=== PATIENT | male | born 1945 | race Caucasian/White ===

== ENCOUNTER → 2017-06-22 13:25 | Outpatient (CLI) | payer MEDICARE, OTHER, SELFPAY ==
--- NOTE | 2017-06-22 13:45 | CA_ITS ---
PROCEDURE: 2-D M-mode and color Doppler study INDICATIONS FOR THE TEST: Chest pain COPD Heart Murmur Tobacco Smokingx Palpitations Fatiguex Syncopex Edemax HypertensionxDiabetes Mellitusx Rheumatic Fever SOB DE LE[place] Obesity Hyperlipidemia Family History HD Additional History DE LE[place] Technically difficult study PATIENT INFORMATION HEIGHT: 5'5'' WEIGHT: 235 GENDER: Male B/P: 161/78 2-D/M-MODE INTERPRETATION: 2-D MEASUREMENTS OBSERVED VALUES IN CMS Right Ventricular Dimension (RVDd) Interventricular Septum (Thickness)(IVsd) 1.5 Left Ventricular Internal Dimensions(LVIDd) 3.8 Left Ventricular Posterior Wall (Thickness)(LVPWd) 1.6 Aortic Root 3.2 Aortic Cusp Separation Left Atrial Dimensions (LAD) 3.5 2D 1. Technically difficult study because of the patient's factor and poor acoustic windows. 2. Left atrium is mildly enlarged, left ventricle is normal size, mild concentric left ventricular hypertrophy, visually estimated ejection fraction 55% with no obvious regional wall motion abnormality, endocardial surface of poorly visualized. 3. The right-sided chambers are relatively normal size and function. 4. The aortic valve is minimally thickened and fibrosed. 5. The mitral and tricuspid valve leaflets are minimally thickened. 6. No significant pericardial effusion noted. 7. The pulmonic valve is poorly visualized. DOPPLER INTERROGATION: Doppler interrogation of the aortic, mitral and tricuspid valve reveals presence of mild mitral and tricuspid regurgitation, tricuspid and jet velocity insufficient for calculation of the right ventricular systolic pressure, grade 1 diastolic dysfunction seen with tissue Doppler evidence of raised left atrial pressure. CONCLUSION: 1. Technically difficult study because of the patient's factor and poor acoustic windows 2. Mildly enlarged left atrium, normal left ventricular size, mild concentric left ventricular hypertrophy, visually estimated ejection fraction 55% with no obvious regional wall motion abnormality, endocardial surfaces are poorly visualized. Grade 1 diastolic dysfunction seen with tissue Doppler evidence of raised left atrial pressure. 2. Mild mitral and tricuspid regurgitation, tricuspid and ventricular dimension calculation of the right ventricular systolic pressure 3. No significant pericardial effusion noted.
== END ==
PROVIDERS: Family Provider Family Medicine; PCP Family Medicine; Visit Provider Family Medicine
DX: R06.09 Other forms of dyspnea (principal); I10 Essential (primary) hypertension
CPT/HCPCS: 93306

== ENCOUNTER 2017-12-13 07:00 | Outpatient (RCR) | payer MEDICARE, OTHER, SELFPAY | END 2017-12-13 07:01 | disposition home or self-care (01) | LOC: OT 07:00 | PROVIDERS: Family Provider Family Medicine; PCP Family Medicine; Visit Provider Orthopaedic Surgery | DX: M25.512 Pain in left shoulder (principal) | CPT/HCPCS: 97014; 97110; 97140; 97163; 97164; 97165; G0283 ==

== ENCOUNTER 2017-12-24 21:50 | Observation (INO) ==
[2017-12-24 22:24] LABS: Basophils # 0.1 K/mm3 (0-0.2); Eosinophils # 0.4 K/mm3 (0.0-0.4); Eosinophils % 4.1 % (0.1-12.0); Hematocrit 44.6 % (42.0-52.0); Hemoglobin 14.9 g/dL (14.1-18.0); Lymphocytes # 3.5 K/mm3 (0.7-4.5); Lymphocytes % 38.3 K/mm3 (10-50); Mean Corpuscular HGB Conc 33.3 g/dL (31.8-35.4); Mean Corpuscular Hemoglobin 30.1 pg (27.0-31.2); Mean Corpuscular Volume 90.5 fl (80-94); Mean Platelet Volume 9.2 fl (7.4-10.4); Monocytes # 0.5 K/mm3 (0.1-1.0); Monocytes % 5.6 % (1.7-9.3); Neutrophils # 4.7 K/mm3 (1.8-7.8); Neutrophils % 51.1 % (37.0-80.0); Platelet Count 203 K/mm3 (142-424); Red Blood Count 4.93 M/mm3 (4.60-6.20); Red Cell Distribution Width 13.6 % (11.5-17.5); White Blood Count 9.1 K/mm3 (4.8-10.8)
[2017-12-24 22:52] LABS: Alanine Aminotransferase 26 U/L (12-78); Albumin Level 3.9 gm/dL (3.4-5.0); Albumin/Globulin Ratio 1.1 (1.1-1.8); Alkaline Phosphatase 119 U/L (46-116); Anion Gap 13.2 mEq/L (5-15); Aspartate Amino Transferase 15 U/L (15-37); Bilirubin,Total 0.2 mg/dL (0.2-1.0); Blood Urea Nitrogen 28 mg/dL (7-18); Calcium 9.1 mg/dL (8.5-10.1); Carbon Dioxide 27 mmol/L (21.0-32.0); Chloride 101 mmol/L (98-107); Creatine Kinase 173 U/L (39-308); Globulin 3.7 gm/dl (1.3-3.2); Glucose 129 mg/dL (74-106); Potassium 4.2 mmoL/L (3.5-5.1); Sodium 137 mmol/L (136-145); Total Protein,Serum 7.6 gm/dL (6.4-8.2)
[2017-12-24 23:35] LABS: Microscopic, Urine URINE MICROSCOPIC (MICROSCOPIC)
[2017-12-24 23:48] LABS: Appearance,Urine CLEAR (Clear); Bilirubin,Urine Negative (Negative); Blood, Urine Negative (Negative); Color,Urine YELLOW (Yellow); Glucose,Urine (UA) Negative (Negative); Ketones,Urine TRACE (Negative); Leukocyte Esterase,Urine TRACE (Negative); PH,Urine 5.5 (5.0-8.5); Protein,Urine Negative (Negative); Specific Gravity, Urine 1.025 (1.005-1.030); Urobilinogen,Urine 0.2 EU/dl (0.2)
--- NOTE | 2017-12-24 23:51 | Emergency Department Note ---
ED Disposition Clinical Impression: Renal insufficiency Chest pain Qualifiers: Chest pain type: precordial pain Qualified Code(s): R07.2 - Precordial pain Disposition: Admitted as Observation Condition on Discharge: Good - Critical Care Critical Care Time: No Attestation: On 12/24/17, the high probability of a clinically significant, sudden or life threatening deterioration of the following system(s) required my full and direct attention, intervention and personal management. The time I documented below is in addition to time spent performing reported procedures but includes the following listed in this critical care notation. Medical Decision Making - Medical Records Medical records reviewed: Yes: I reviewed the patient's medical records. - Tayo Inquiry Pt receiving controlled substance: No Vital Signs: 12/24/17 21:54 12/24/17 22:50 12/24/17 23:00 Temperature 98.7 F Temperature Source Oral Pulse Rate [Right Radial] 96 H 84 83 Respiratory Rate 20 Blood Pressure [Right Arm] 149/86 147/90 147/90 Blood Pressure Mean [Right Arm] 107 109 109 Blood Pressure Source [Right Arm] Automatic Cuff Automatic Cuff Blood Pressure Position [Right Arm] Supine Supine 02 Sat by Pulse Oximetry 97 96 96 12/24/17 23:30 Temperature Temperature Source Pulse Rate [Right Radial] 81 Respiratory Rate Blood Pressure [Right Arm] 123/75 Blood Pressure Mean [Right Arm] 91 Blood Pressure Source [Right Arm] Blood Pressure Position [Right Arm] 02 Sat by Pulse Oximetry 96 - Lab Data Lab results reviewed: Yes: I reviewed the patient's lab results. Lab Results 12/24/17 22:12: WBC 9.1, RBC 4.93, Hgb 14.9, Hct 44.6, MCV 90.5, MCH 30.1, MCHC 33.3, RDW 13.6, Plt Count 203, MPV 9.2, Neut % (Auto) 51.1, Lymph % (Auto) 38.3 , [place] % (Auto) 5.6, Eos % (Auto) 4.1, Baso % (Auto) 1.0, Neut # (Auto) 4.7, Lymph # (Auto) 3.5, [place] # (Auto) 0.5, Eos # (Auto) 0.4, Baso # (Auto) 0.1 12/24/17 22:12: Sodium 137, Potassium 4.2, Chloride 101, Carbon Dioxide 27, Anion Gap 13.2, BUN 28 H, Creatinine 1.44 H, Estimated Creat Clear 68, Estimated GFR 49 L, Est GFR ( Amer) 59, Glucose 129 H, Calcium 9.1, Total Bilirubin 0.2, AST 15, ALT 26, Alkaline Phosphatase 119 H, Total Creatine Kinase 173, CK-MB (CK-2) 3.0, CK-MB (CK-2) Rel Index 1.7, Troponin I < 0.02, Total Protein 7.6, Albumin 3.9, Globulin 3.7 H, Albumin/Globulin Ratio 1.1 12/24/17 22:12: Lactate 1.4 12/24/17 23:00: Urine Color Yellow, Urine Appearance Clear, Urine pH 5.5, Ur Specific [place] 1.025, Urine Protein Negative, Urine Glucose (UA) Negative, Urine Ketones Trace, Urine Blood Negative, Urine Nitrate Negative, Urine Bilirubin Negative, Urine Urobilinogen 0.2, Ur Leukocyte Esterase Trace, Urine RBC None, Urine WBC Occasional, Ur Squamous Epith Cells 3-5, Urine Bacteria 1+, Hyaline Casts Occasional Result diagrams: 12/24/17 22:12 12/24/17 22:12 Orders (Tests/Meds): ED MEDICATIONS Discontinued Medications Generic Name Dose Route Start Last Admin Trade Name Reddq PRN Reason Stop Dose Admin Aspirin 324 mg 12/24/17 23:46 12/24/17 23:50 Aspirin 81mg Chewable Tablet PO 12/24/17 23:47 324 mg ONCE ONE Administration Furosemide 40 mg 12/24/17 23:49 12/24/17 23:52 Lasix 40mg/4ml Vial IV 12/24/17 23:50 40 mg ONCE ONE Administration Nitroglycerin 1 gm 12/24/17 23:46 12/24/17 23:50 Nitroglycerin 1 Inch Oint Udp TD 12/24/17 23:47 1 gm ONCE ONE Administration ORDERS Category Date Time Status CT head/brain wo con Stat Cat Scan 12/24/17 22:00 Taken XR chest 2V Stat Exams 12/24/17 22:00 Taken BNP [B-Type Natriuretic Peptide] Stat Lab 12/24/17 22:12 Received Blood Culture Stat Micro 12/24/17 22:06 Received - Radiology Data #1 Image(s): Chest Image Reviewed: Yes I reviewed the patient's radiology image Preliminary Findings: Abnormal (congestion) - CT Data CT Scan: Head Time Received: 00:[address] Reviewed: Yes: I have viewed the radiologist's interpretation Preliminary Findings: Normal/NAD - ECG Data Tracing #1 I reviewed this ECG and interpreted as documented below: Normal Sinus Rhythm: Yes Ischemic changes: non-specific ST-T wave changes - Physician Consults Physician Consulted: corinne Reason -: Admission Chest Pain HPI - General Chief Complaint: Shortness of Breath/Dyspnea Stated Complaint: SOA, Heart racing Time Seen by Provider: 12/24/17 22:15 Mode of Arrival: Family Vehicle Source of Information: Patient, Spouse, Medical Record Limitations: No Limitations Description of Symptoms (Recalled from ER Triage Doc. by RN): pt c/o shortness of breath upon exertion x 3 days. pt also states he has been having some dizzy spells. pt states he has also been having some chest pains today. - History of Present Illness HPI narrative: over the last few days has had chest tightness and sob assoc with exertion - has hx of chf - no stents - episode tonight lasted about 1 hr MD complaint: chest pain indicative of cardiac Onset (ago): day(s) Duration: now resolved Activity at onset: light activity Pain location: substernal Severity: moderate Quality: tightness Associated symptoms: nausea Risk Factors for CAD: Hypertension, Hypercholesterolemia, Family Hx of CAD, Diabetes Treatments prior to or on arrival for Cardiac Chest Pain: none - MARY Score Non-Stemi Age of patient: 65 yrs or more Number of risk factors for CAD: Presence of 3 or more Prior coronary artery stenosis(seen in coronary angiography): Less than 50% ST-Segment deviation on ECG (more than 1 min): Absent Prior aspirin intake: ASA intake in the last 7 days Severe anginal chest pain: Two or more episodes in last 24 hours Elevated cardiac markers(CK-MB or troponin): Absent Non-Stemi Risk Score: 4 - Related Data Home Medications Medication Instructions Recorded Confirmed Amlodipine Besylate [Amlodipine 10 mg PO DAILY 12/24/17 12/24/17 10mg Tab] Atorvastatin Calcium [Atorvastatin 10 mg PO DAILY 12/24/17 12/24/17 10mg Tab] Ciprofloxacin HCl [Ciprofloxacin 500 mg PO BID 12/24/17 12/25/17 500mg Tab] Cyclobenzaprine HCl 5 mg PO DAILY 12/24/17 12/24/17 [Cyclobenzaprine 5mg Tab] Donepezil HCl [Aricept 10mg tablet] 10 mg PO HS 12/24/17 12/24/17 Furosemide [Furosemide 40MG tAB] 40 mg PO DAILY 12/24/17 12/24/17 Levothyroxine Sodium 75 mcg PO DAILY 12/24/17 12/24/17 [Levothyroxine 75mcg (0.075mg) Tab] Lisinopril [Lisinopril 10mg Tab] 10 mg PO DAILY 12/24/17 12/24/17 Metformin HCl [Metformin 500mg 1,000 mg PO BID 12/24/17 12/24/17 Tablet] Tamsulosin HCl [Flomax 0.4mg 0.4 mg PO HS 12/24/17 12/24/17 capsule] Allergies Allergy/AdvReac Type Severity Reaction Status Date / Time No Known Allergies Allergy Verified 12/24/17 22:[address] [facility] History I have reviewed the patient's past medical history: Yes Medical History: Reports:: Diabetes Mellitus Type 2, MRSA Denies:: Cancer, Diabetes Mellitus Type 1 Laterality Cases: Bilateral: Total Knee Replacement Amputation: No Fractures: No - Social History Smoking Status: Former smoker Alcohol Intake: never - Psychiatric History Expresses thoughts of harming self/others: None Suicide Plan Description: No Plan ROS Obtained: Yes All systems reviewed & no additional complaints - Constitutional Constitutional: Denies fever(s) - Eyes Eyes: Denies change in vision - ENT Ears, Nose, Mouth, and Throat: Denies sore throat - Cardiovascular Cardiovascular: Reports chest pain, Reports chest pain with activity, Reports dyspnea - Respiratory Respiratory: No cough, No coughing up blood - Gastrointestinal Gastrointestingal: Denies: abdominal pain - Genitourinary Male Genitourinary: Denies hematuria - Musculoskeletal Musculoskeletal: Denies joint pain, Denies joint swelling - Integumentary/Breasts Skin/Breast: Denies rash - Neurologic Neurologic: Denies seizure-like activity Physical Exam - General General appearance: in no apparent distress - Head Head exam: normocephalic - Eye Eye exam: Present: PERRL, EOMI - ENT ENT exam: Present: mucous membranes moist - Neck Neck exam: Present: trachea midline - Respiratory Respiratory exam: Present: normal lung sounds bilaterally. Absent: respiratory distress - Cardiovascular Cardiovascular exam: Present: regular rate, systolic murmur, +S4 - Abdominal Exam Abdominal exam: Present: soft - Extremities Exam Extremities exam: Present: pedal edema. Absent: calf tenderness - Neurological Exam Neurological exam: Present: alert, oriented X3, CN II-XII intact - Psychiatric Psychiatric exam: Present: normal affect - Skin Skin exam: Absent: rash
[2017-12-24 23:57] LABS: Bacteria,Urine 1+ /lpf; Hyaline Casts,Urine Occasional #/lpf (0); WBC,Urine Occasional #/hpf (0-3)
[2017-12-25 07:18] LABS: Basophils # 0.1 K/mm3 (0-0.2); Basophils % 1.4 % (0.1-2.0); Eosinophils # 0.3 K/mm3 (0.0-0.4); Eosinophils % 5.3 % (0.1-12.0); Monocytes # 0.4 K/mm3 (0.1-1.0); Neutrophils # 2.5 K/mm3 (1.8-7.8)
[2017-12-25 07:25] LABS: Hematocrit 37.4 % (42.0-52.0); Hemoglobin 13.7 g/dL (14.1-18.0); Lymphocytes # 3.1 K/mm3 (0.7-4.5); Lymphocytes % 48.7 K/mm3 (10-50); Mean Corpuscular HGB Conc 36.6 g/dL (31.8-35.4); Mean Corpuscular Hemoglobin 33.2 pg (27.0-31.2); Mean Corpuscular Volume 90.6 fl (80-94); Mean Platelet Volume 9.2 fl (7.4-10.4); Monocytes % 5.8 % (1.7-9.3); Neutrophils % 38.7 % (37.0-80.0); Platelet Count 162 K/mm3 (142-424); Red Blood Count 4.12 M/mm3 (4.60-6.20); Red Cell Distribution Width 13.7 % (11.5-17.5); White Blood Count 6.3 K/mm3 (4.8-10.8)
[2017-12-25 07:34] LABS: Blood Urea Nitrogen 26 mg/dL (7-18); Calcium 8.8 mg/dL (8.5-10.1); Carbon Dioxide 29 mmol/L (21.0-32.0); Chloride 100 mmol/L (98-107); Cholesterol 130 mg/dL (140-200); Glucose 136 mg/dL (74-106); HDL Cholesterol 43 mg/dL (27-67); LDL Cholesterol 58 mg/dL (0-130); Sodium 138 mmol/L (136-145); Triglycerides 147 mg/dL (30-200); VLDL Cholesterol 29 mg/dL (0-40)
--- NOTE | 2017-12-25 07:53 | History & Physical Report ---
*Admission Date: 12/25/17 *Chief complaint: Shortness of breath with chest heaviness *History of present illness: 71-year-old male with diabetes, hypertension, hyperlipidemia presented to the emergency department after having multiple episodes over the preceding 3 days were patient would feel weak and unsteady while walking and then would develop shortness of breath followed by chest heaviness in the sternal area that radiated to the left scapula and on at least one occasion patient had associated diaphoresis. All of these symptoms are new. Patient tells me his most severe symptom was after walking approximately 50 feet to his garage. He sought treatment at the emergency department. Troponins were negative. Patient was admitted for rule out of [place] with serial EKG and enzymes. Overnight he developed headache from nitroglycerin. His Nitropaste was removed. He tells me since that time he has had at least 2 more episodes, although rather brief, of chest heaviness radiating into the left scapula. He has been very uncomfortable as he has chronic back pain in the hospital bed does not suit him. He claims a history of congestive heart failure during a hospitalization from several years ago at an outside hospital but records are deficient. [facility] History I have reviewed the patient's past medical history: Yes Medical History: Reports:: Congestive Heart Failure, Diabetes Mellitus Type 2, Hyperlipidemia, Hypertension, MRSA Denies:: Cancer, Diabetes Mellitus Type 1 Other Medical History: Reports: Thyroid Disease Laterality Cases: Bilateral: Arthroscopy Knee, Arthroscopy Shoulder, Total Knee Replacement Other Surgeries: Yes: Bariatric Surgery (Gastric Bypass), Hernia Repair (x2) Amputation: No Fractures: No - *Social History Educational Level: Completed GED/General Educational Development Smoking Status: Former smoker Tobacco Type: cigarettes, smokeless tobacco #Yrs smoked (if former smoker): 25 Smoking End Date: 2004 Alcohol Intake: never Occupational Status: retired Housing: house Household Members: spouse, family - Psychiatric History Expresses thoughts of harming self/others: None Suicide Plan Description: No Plan *Family Hx:: Cancer Review of Systems - Review of Systems Review of systems:: pertinent systems reviewed and negative unless documented below - *Neurologic Denies seizure-like activity Meds Home Medications Medication Instructions Recorded Confirmed Type Amlodipine Besylate [Amlodipine 10 mg PO DAILY 12/24/17 12/25/17 History 10mg Tab] Atorvastatin Calcium [Atorvastatin 10 mg PO DAILY 12/24/17 12/25/17 History 10mg Tab] Ciprofloxacin HCl [Ciprofloxacin 500 mg PO BID 12/24/17 12/25/17 History 500mg Tab] Cyclobenzaprine HCl 5 mg PO DAILY 12/24/17 12/25/17 History [Cyclobenzaprine 5mg Tab] Donepezil HCl [Aricept 10mg tablet] 10 mg PO HS 12/24/17 12/25/17 History Furosemide [Furosemide 40MG tAB] 40 mg PO DAILY 12/24/17 12/25/17 History Levothyroxine Sodium 75 mcg PO DAILY 12/24/17 12/25/17 History [Levothyroxine 75mcg (0.075mg) Tab] Lisinopril [Lisinopril 10mg Tab] 10 mg PO DAILY 12/24/17 12/25/17 History Metformin HCl [Metformin 500mg 1,000 mg PO BID 12/24/17 12/25/17 History Tablet] Tamsulosin HCl [Flomax 0.4mg 0.4 mg PO HS 12/24/17 12/25/17 History capsule] Aspirin [Aspir 81] 81 mg PO DAILY 12/25/17 12/25/17 History Cholecalciferol (Vitamin D3) 1,000 unit PO DAILY 12/25/17 12/25/17 History [Vitamin D3 1,000 Unit Cap] Cyanocobalamin (Vitamin B-12) 5,000 mcg SL DAILY 12/25/17 12/25/17 History [Vitamin B-12] Vit C/Ascorb Sod/Multivit-Min 500 mg PO DAILY 12/25/17 12/25/17 History [Emergen-C 500 mg Chewable Tab] Allergies Allergy/AdvReac Type Severity Reaction Status Date / Time No Known Allergies Allergy Verified 12/24/17 22:00 Exam Vital signs and Labs for Last 24 Hours: Temp Pulse Resp BP Pulse Ox 97.7 F 76 18 102/68 95 12/25/17 07:30 12/25/17 07:30 12/25/17 07:30 12/25/17 07:30 12/25/17 07:30 Laboratory Results - last 24 hr 12/24/17 22:12: WBC 9.1, RBC 4.93, Hgb 14.9, Hct 44.6, MCV 90.5, MCH 30.1, MCHC 33.3, RDW 13.6, Plt Count 203, MPV 9.2, Neut % (Auto) 51.1, Lymph % (Auto) 38.3 , [place] % (Auto) 5.6, Eos % (Auto) 4.1, Baso % (Auto) 1.0, Neut # (Auto) 4.7, Lymph # (Auto) 3.5, [place] # (Auto) 0.5, Eos # (Auto) 0.4, Baso # (Auto) 0.1 12/24/17 22:12: Sodium 137, Potassium 4.2, Chloride 101, Carbon Dioxide 27, Anion Gap 13.2, BUN 28 H, Creatinine 1.44 H, Estimated Creat Clear 68, Estimated GFR 49 L, Est GFR ( Amer) 59, Glucose 129 H, Calcium 9.1, Total Bilirubin 0.2, AST 15, ALT 26, Alkaline Phosphatase 119 H, Total Creatine Kinase 173, CK-MB (CK-2) 3.0, CK-MB (CK-2) Rel Index 1.7, Troponin I < 0.02, Total Protein 7.6, Albumin 3.9, Globulin 3.7 H, Albumin/Globulin Ratio 1.1 12/24/17 22:12: Lactate 1.4 12/24/17 22:12: B-Natriuretic Peptide < 5 12/24/17 23:00: Urine Color Yellow, Urine Appearance Clear, Urine pH 5.5, Ur Specific [place] 1.025, Urine Protein Negative, Urine Glucose (UA) Negative, Urine Ketones Trace, Urine Blood Negative, Urine Nitrate Negative, Urine Bilirubin Negative, Urine Urobilinogen 0.2, Ur Leukocyte Esterase Trace, Urine RBC None, Urine WBC Occasional, Ur Squamous Epith Cells 3-5, Urine Bacteria 1+, Hyaline Casts Occasional 12/25/17 00:40: Troponin I < 0.02 12/25/17 03:35: Troponin I < 0.02 12/25/17 06:30: POC Glucose 152 H 12/25/17 06:40: WBC 6.3 D, RBC 4.12 L, Hgb 13.7 L, Hct 37.4 L, MCV 90.6, MCH 33.2 H, MCHC 36.6 H, RDW 13.7, Plt Count 162, MPV 9.2, Neut % (Auto) 38.7, Lymph % (Auto) 48.7, [place] % (Auto) 5.8, Eos % (Auto) 5.3, Baso % (Auto) 1.4, Neut # (Auto) 2.5, Lymph # (Auto) 3.1, [place] # (Auto) 0.4, Eos # (Auto) 0.3, Baso # (Auto) 0.1 12/25/17 06:40: Sodium 138, Potassium 4.0, Chloride 100, Carbon Dioxide 29, Anion Gap 13.0, BUN 26 H, Creatinine 1.35 H, Estimated Creat Clear 73, Estimated GFR 52 L, Est GFR ( Amer) 63, Glucose 136 H, Calcium 8.8, Troponin I < 0.02, Triglycerides 147, Cholesterol 130 L, LDL Cholesterol 58, VLDL Cholesterol 29, HDL Cholesterol 43, Cholesterol/HDL Ratio 3.0 I & O for Last 24 hours: Intake & Output 12/22/17 12/23/17 12/24/17 12/25/17 11:59 11:59 11:59 11:59 Weight 219 lb 3 oz Narrative: He looks uncomfortable laying in bed but in no distress. Pupils are reactive to light. Oropharynx is moist and clear. Neck is without carotid bruits. Lungs are clear to auscultation. Heart has a regular rate and rhythm. Abdomen is obese, soft, nontender, nondistended. Patient can move all of his extremities. He has no neurologic deficit. Extremities are without edema. Assessment and Plan (1) Angina at rest Current visit: Yes Status: Acute Category: Medical Code(s): I20.8 - Other forms of angina pectoris (2) Hypertension Current visit: Yes Status: Acute Category: Medical Code(s): I10 - Essential (primary) hypertension (3) Diabetes mellitus type 2 in obese Current visit: Yes Status: Acute Category: Medical Code(s): E11.69 - Type 2 diabetes mellitus with other specified complication; E66.9 - Obesity, unspecified (4) Hyperlipidemia Current visit: Yes Status: Acute Category: Medical Code(s): E78.5 - Hyperlipidemia, unspecified - Assessment and plan all Dx Assessment and Plan for all problems:: Patient is ruled out for [place]. I am going to add metoprolol 25 mg twice daily for his new onset angina. Patient will be given a loading dose of Plavix. Echocardiogram has been ordered for the morning as well as cardiology consultation for cardiac catheterization. Metformin will be held
--- NOTE | 2017-12-25 10:26 | Pharmacy Consult Notes ---
[facility] VTE Monitoring - Patient Demographics Admission date: 12/25/17 Report Date: 12/25/17 Time: 10:25 Allergies/Adverse Reactions: Patient Allergies No Known Allergies Allergy (Verified 12/24/17 22:00) Height: 1.68 m Weight: 99.422 kg Patient Problems: Current Active Problems Chest pain (Acute) Renal insufficiency (Acute) Angina at rest (Acute) Hypertension (Acute) Diabetes mellitus type 2 in obese (Acute) Hyperlipidemia (Acute) - VTE Risk Labs: VTE Related Lab Results Hgb 13.7 g/dL (14.1-18.0) L 12/25/17 06:40 Hct 37.4 % (42.0-52.0) L 12/25/17 06:40 Plt Count 162 K/mm3 (142-424) 12/25/17 06:40 BUN 26 mg/dL (7-18) H 12/25/17 06:40 Creatinine 1.35 mg/dL (0.70-1.30) H 12/25/17 06:40 Estimated Creat Clear 73 mL/min (0-300) 12/25/17 06:40 Was VTE Risk Assessment Performed: Yes VTE Risk Level: Moderate Risk - Prophylaxis Types of VTE Prophylaxis: TEDS Knee High (BARRETT HOSE ORDERED) Location of Applied Device: Not Applicable
--- NOTE | 2017-12-26 07:04 | Progress Note ---
Internal Medicine - PN: Subj *Date: 12/26/17 *Time: 07:03 Interval history: Patient complains of back pain this morning. He has chronic degenerative lumbar disc disease and believes sleeping in a foreign bed is increasing his back pain. He tells me he did have one episode of chest heaviness that radiated to the left scapular region yesterday. Currently he is getting his echocardiogram Exam Vital signs and Labs for Last 24 Hours: Temp Pulse Resp BP Pulse Ox 98.3 F 82 16 116/63 96 12/26/17 04:22 12/26/17 04:22 12/26/17 04:22 12/26/17 04:22 12/26/17 04:22 Laboratory Results - last 24 hr 12/25/17 06:40: WBC 6.3 D, RBC 4.12 L, Hgb 13.7 L, Hct 37.4 L, MCV 90.6, MCH 33.2 H, MCHC 36.6 H, RDW 13.7, Plt Count 162, MPV 9.2, Neut % (Auto) 38.7, Lymph % (Auto) 48.7, [place] % (Auto) 5.8, Eos % (Auto) 5.3, Baso % (Auto) 1.4, Neut # (Auto) 2.5, Lymph # (Auto) 3.1, [place] # (Auto) 0.4, Eos # (Auto) 0.3, Baso # (Auto) 0.1 12/25/17 06:40: Sodium 138, Potassium 4.0, Chloride 100, Carbon Dioxide 29, Anion Gap 13.0, BUN 26 H, Creatinine 1.35 H, Estimated Creat Clear 73, Estimated GFR 52 L, Est GFR ( Amer) 63, Glucose 136 H, Calcium 8.8, Troponin I < 0.02, Triglycerides 147, Cholesterol 130 L, LDL Cholesterol 58, VLDL Cholesterol 29, HDL Cholesterol 43, Cholesterol/HDL Ratio 3.0 12/25/17 11:42: POC Glucose 120 H 12/25/17 16:44: POC Glucose 110 12/25/17 21:01: POC Glucose 150 H 12/26/17 05:57: POC Glucose 148 H I & O for Last 24 hours: Intake & Output 08/17/18 08/18/18 08/19/18 08/20/18 11:59 11:59 11:59 11:59 Intake Total 1289 / 1289 Output Total 600 / 600 Balance 689 / 689 Weight 219 lb 3 oz 216 lb 2 oz Narrative: He is awake and alert. Lungs are clear to auscultation. Heart has a regular rate and rhythm. Assessment and Plan (1) Angina at rest Current visit: Yes Status: Acute Category: Medical Code(s): I20.8 - Other forms of angina pectoris (2) Hypertension Current visit: Yes Status: Acute Category: Medical Code(s): I10 - Essential (primary) hypertension (3) Diabetes mellitus type 2 in obese Current visit: Yes Status: Acute Category: Medical Code(s): E11.69 - Type 2 diabetes mellitus with other specified complication; E66.9 - Obesity, unspecified (4) Hyperlipidemia Current visit: Yes Status: Acute Category: Medical Code(s): E78.5 - Hyperlipidemia, unspecified - Assessment and plan all Dx Assessment and Plan for all problems:: Echocardiogram, cardiology consult
--- NOTE | 2017-12-26 08:29 | Consult Report ---
History of Present Illness Consult date: 12/26/17 Requesting physician: Kyle Romo Consult reason: chest pain Chief complaint: Chest pain, SOA Additional Medical History:: 1. Remote history of tobacco use discontinued 35 years ago 2. Diabetes mellitus, treated for about 8 years 3. History gastric bypass surgery approximately 8 years ago with approximately 150 pound weight loss at the time with subsequent 50 pound weight gain since then 4. Hypertension 5. Reported history of congestive heart failure after lung surgery for infection and clotted blood, right sided, approximately 2014, [facility] [place] History of present illness: 71-year-old male with diabetes, hypertension, hyperlipidemia presented to the emergency department after having multiple episodes over the preceding 3 days were patient would feel weak and unsteady while walking and then would develop shortness of breath followed by chest heaviness in the sternal area that radiated to the left scapula and on at least one occasion patient had associated diaphoresis. All of these symptoms are new. Patient tells me his most severe symptom was after walking approximately 50 feet to his garage. He sought treatment at the emergency department. Troponins were negative. Patient was admitted for rule out of [place] with serial EKG and enzymes. Overnight he developed headache from nitroglycerin. His Nitropaste was removed. He tells me since that time he has had at least 2 more episodes, although rather brief, of chest heaviness radiating into the left scapula. He has been very uncomfortable as he has chronic back pain in the hospital bed does not suit him. He claims a history of congestive heart failure during a hospitalization from several years ago at an outside hospital but records are deficient. The above per Dr. Romo. Patient does relate exertion related shortness of breath increasing over the last several weeks. Patient's memory has been affected by anesthesia and lung surgery 3 years ago but the patient's and daughter are present and have noticed a decline in his exercise ability recently. Troponins have returned normal, EKG is sinus without acute ST segment changes. Patient relates a history of congestive heart failure, however BNP is less than 5 and no overt evidence of congestive heart failure noted on chest x-ray or CT of the chest and this admission. [facility] History Medical History: Reports:: Congestive Heart Failure, Diabetes Mellitus Type 2, Hyperlipidemia, Hypertension, MRSA Denies:: Cancer, Diabetes Mellitus Type 1 Other Medical History: Reports: Thyroid Disease Laterality Cases: Bilateral: Arthroscopy Knee, Arthroscopy Shoulder, Total Knee Replacement Other Surgeries: Yes: Bariatric Surgery (Gastric Bypass), Hernia Repair (x2) Amputation: No Fractures: No - *Social History Educational Level: Completed GED/General Educational Development Smoking Status: Former smoker Tobacco Type: cigarettes, smokeless tobacco #Yrs smoked (if former smoker): 25 Smoking End Date: 2004 Alcohol Intake: never Occupational Status: retired Housing: house Household Members: spouse, family - Psychiatric History Expresses thoughts of harming self/others: None Suicide Plan Description: No Plan *Family Hx:: Cancer Meds Home Medications Medication Instructions Recorded Confirmed Type Amlodipine Besylate [Amlodipine 10 mg PO DAILY 12/24/17 12/25/17 History 10mg Tab] Atorvastatin Calcium [Atorvastatin 10 mg PO HS 12/24/17 12/25/17 History 10mg Tab] Ciprofloxacin HCl [Ciprofloxacin 500 mg PO BID 12/24/17 12/25/17 History 500mg Tab] Cyclobenzaprine HCl 5 mg PO DAILY 12/24/17 12/25/17 History [Cyclobenzaprine 5mg Tab] Donepezil HCl [Aricept 10mg tablet] 10 mg PO HS 12/24/17 12/25/17 History Furosemide [Furosemide 40MG tAB] 40 mg PO DAILY 12/24/17 12/25/17 History Levothyroxine Sodium 75 mcg PO DAILY 12/24/17 12/25/17 History [Levothyroxine 75mcg (0.075mg) Tab] Lisinopril [Lisinopril 10mg Tab] 10 mg PO DAILY 12/24/17 12/25/17 History Metformin HCl [Metformin 500mg 1,000 mg PO BID 12/24/17 12/25/17 History Tablet] Tamsulosin HCl [Flomax 0.4mg 0.4 mg PO HS 12/24/17 12/25/17 History capsule] Aspirin [Aspir 81] 81 mg PO DAILY 12/25/17 12/25/17 History Cholecalciferol (Vitamin D3) 1,000 unit PO DAILY 12/25/17 12/25/17 History [Vitamin D3 1,000 Unit Cap] Cyanocobalamin (Vitamin B-12) 5,000 mcg SL DAILY 12/25/17 12/25/17 History [Vitamin B-12] Vit C/Ascorb Sod/Multivit-Min 500 mg PO DAILY 12/25/17 12/25/17 History [Emergen-C 500 mg Chewable Tab] Allergies Allergy/AdvReac Type Severity Reaction Status Date / Time No Known Allergies Allergy Verified 12/24/17 22:00 Review of Systems - *Cardiovascular Reports chest pain, Reports shortness of breath, Reports shortness of breath with activity - *Respiratory Reports shortness of breath, Reports shortness of breath with activity - *Gastrointestinal Reports abdominal pain - *Neurologic Denies seizure-like activity Exam Vital signs and Labs for Last 24 Hours: Temp Pulse Resp BP Pulse Ox 98.3 F 82 16 116/63 96 12/26/17 04:22 12/26/17 04:22 12/26/17 04:22 12/26/17 04:22 12/26/17 04:22 Laboratory Results - last 24 hr 12/25/17 11:42: POC Glucose 120 H 12/25/17 16:44: POC Glucose 110 12/25/17 21:01: POC Glucose 150 H 12/26/17 05:57: POC Glucose 148 H I & O for Last 24 hours: Intake & Output 12/23/17 12/24/17 12/25/17 12/26/17 11:59 11:59 11:59 11:59 Intake Total 1289 / 1289 Output Total 600 / 600 Balance 689 / 689 Weight 219 lb 3 oz 216 lb 2 oz - *Routine Neck Exam Absent: JVD, carotid bruit - *Routine Respiratory Exam Present: CTA bilaterally - *Routine Cardiovascular Exam Present: RRR. Absent: murmur, gallop, rubs - *Routine Abdominal Exam Present: soft. Absent: tenderness - *Routine Extremities Exam Absent: edema - *Routine Neurological Exam Present: alert, oriented X3, moving all extremities Assessment and Plan (1) Angina at rest Current visit: Yes Status: Acute Category: Medical Code(s): I20.8 - Other forms of angina pectoris (2) Hypertension Current visit: Yes Status: Acute Category: Medical Code(s): I10 - Essential (primary) hypertension (3) Diabetes mellitus type 2 in obese Current visit: Yes Status: Acute Category: Medical Code(s): E11.69 - Type 2 diabetes mellitus with other specified complication; E66.9 - Obesity, unspecified (4) Hyperlipidemia Current visit: Yes Status: Acute Category: Medical Code(s): E78.5 - Hyperlipidemia, unspecified - Assessment and plan all Dx Assessment and Plan for all problems:: 1. Chest pain and shortness of breath at rest consistent with angina pectoris class IV in a diabetic patient with a MARY score of 3 (age, recurrent chest pain , cardiac risk factors). Recommend proceeding with cardiac catheterization to define the patient's coronary anatomy. 2. Echocardiogram to assess left ventricular ejection fraction, valve status. 3. Further recommendations to follow.
[2017-12-26 16:14] VITALS: BP 115/76
--- NOTE | 2017-12-26 16:46 | Discharge Summary ---
General - General Admission date:: 12/25/17 Discharge date: 12/26/17 HPI HPI: 71-year-old male with diabetes, hypertension, hyperlipidemia presented to the emergency department after having multiple episodes over the preceding 3 days were patient would feel weak and unsteady while walking and then would develop shortness of breath followed by chest heaviness in the sternal area that radiated to the left scapula and on at least one occasion patient had associated diaphoresis. All of these symptoms are new. Patient tells me his most severe symptom was after walking approximately 50 feet to his garage. He sought treatment at the emergency department. Troponins were negative. Patient was admitted for rule out of [place] with serial EKG and enzymes. Overnight he developed headache from nitroglycerin. His Nitropaste was removed. He tells me since that time he has had at least 2 more episodes, although rather brief, of chest heaviness radiating into the left scapula. He has been very uncomfortable as he has chronic back pain in the hospital bed does not suit him. He claims a history of congestive heart failure during a hospitalization from several years ago at an outside hospital but records are deficient. Hospital Course Hospital Course: Patient was admitted for rule out of myocardial infarction. Serial troponins were negative. Due to the nature of his angina and that was new in onset and also occurring at rest he was felt best the patient remained in hospital for cardiac evaluation to include cardiac catheterization. Patient underwent echocardiogram on December 26 which revealed normal ejection fraction. Patient underwent subsequent left heart catheterization with results as follows: ANGIOGRAPHIC RESULTS: 1. The left main artery normal 2. The left anterior descending artery has mild diffuse vascular ectasia with no focal stenosis greater than 10%. Slow MARY II flow is present throughout 3. The ramus intermedius has an ostial 20-30% stenosis accompanied by MARY II flow 4. The circumflex artery nondominant yet still large vessel with mild vascular ectasia accompanied by MARY II flow 5. 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 The LO ventriculogram reveals normal 65% 7. The left ventricular end-diastolic pressure 10 mmHg Patient was already taking an aspirin and it discharge isosorbide mononitrate was added. Ranexa has also been recommended but patient would prefer as she medicines as possible and we will start with a long-acting nitrate. He will follow-up in my office in 1 week Objective Vital signs: Temp Pulse Resp BP Pulse Ox 97.9 F 86 18 115/76 93 L 12/26/17 16:00 12/26/17 16:00 12/26/17 16:00 12/26/17 16:00 12/26/17 16:00 Results Labs on day of discharge: Labs from last 24 hours 12/26/17 12/25/17 12/25/17 05:57 21:01 16:44 POC Glucose 148 H 150 H 110 DS: Diagnosis - Discharge Diagnosis (1) Angina at rest Status: Acute (2) Hypertension Status: Acute (3) Diabetes mellitus type 2 in obese Status: Acute (4) Hyperlipidemia Status: Acute Discharge Plan - Patient Discharge Instructions ACTIVITY: Continue current activity DIET: continue same diet - Follow up Plan Follow up with: Kyle Romo MD [Primary Care Provider] - 12/26/17 Home Medications: Home Medications Medication Instructions Recorded Confirmed Type Amlodipine Besylate [Amlodipine 10 mg PO DAILY 12/24/17 12/25/17 History 10mg Tab] Atorvastatin Calcium [Atorvastatin 10 mg PO HS 12/24/17 12/25/17 History 10mg Tab] Ciprofloxacin HCl [Ciprofloxacin 500 mg PO BID 12/24/17 12/25/17 History 500mg Tab] Cyclobenzaprine HCl 5 mg PO DAILY 12/24/17 12/25/17 History [Cyclobenzaprine 5mg Tab] Donepezil HCl [Aricept 10mg tablet] 10 mg PO HS 12/24/17 12/25/17 History Furosemide [Furosemide 40MG tAB] 40 mg PO DAILY 12/24/17 12/25/17 History Levothyroxine Sodium 75 mcg PO DAILY 12/24/17 12/25/17 History [Levothyroxine 75mcg (0.075mg) Tab] Lisinopril [Lisinopril 10mg Tab] 10 mg PO DAILY 12/24/17 12/25/17 History Metformin HCl [Metformin 500mg 1,000 mg PO BID 12/24/17 12/25/17 History Tablet] Tamsulosin HCl [Flomax 0.4mg 0.4 mg PO HS 12/24/17 12/25/17 History capsule] Aspirin [Aspir 81] 81 mg PO DAILY 12/25/17 12/25/17 History Cholecalciferol (Vitamin D3) 1,000 unit PO DAILY 12/25/17 12/25/17 History [Vitamin D3 1,000 Unit Cap] Cyanocobalamin (Vitamin B-12) 5,000 mcg SL DAILY 12/25/17 12/25/17 History [Vitamin B-12] Vit C/Ascorb Sod/Multivit-Min 500 mg PO DAILY 12/25/17 12/25/17 History [Emergen-C 500 mg Chewable Tab] Prescriptions/Medication Reconciliation: New Isosorbide Mononitrate [Imdur 30mg ER tablet] 30 mg PO DAILY #30 tab.er.24h Continue Amlodipine Besylate [Amlodipine 10mg Tab] 10 mg PO DAILY Metformin HCl [Metformin 500mg Tablet] 1,000 mg PO BID Lisinopril [Lisinopril 10mg Tab] 10 mg PO DAILY Levothyroxine Sodium [Levothyroxine 75mcg (0.075mg) Tab] 75 mcg PO DAILY Furosemide [Furosemide 40MG tAB] 40 mg PO DAILY Cyclobenzaprine HCl [Cyclobenzaprine 5mg Tab] 5 mg PO DAILY Atorvastatin Calcium [Atorvastatin 10mg Tab] 10 mg PO HS Tamsulosin HCl [Flomax 0.4mg capsule] 0.4 mg PO HS Cholecalciferol (Vitamin D3) [Vitamin D3 1,000 Unit Cap] 1,000 unit PO DAILY Vit C/Ascorb Sod/Multivit-Min [Emergen-C 500 mg Chewable Tab] 500 mg PO DAILY Aspirin [Aspir 81] 81 mg PO DAILY Donepezil HCl [Aricept 10mg tablet] 10 mg PO HS Ciprofloxacin HCl [Ciprofloxacin 500mg Tab] 500 mg PO BID Cyanocobalamin (Vitamin B-12) [Vitamin B-12] 5,000 mcg SL DAILY
--- NOTE | 2017-12-26 17:51 | Cardiology Report ---
PROCEDURE: 2-D M-mode and color Doppler study INDICATIONS FOR THE TEST: Chest pain + COPD Heart Murmur Tobacco Smoking Palpitations Fatigue Syncope Edema Hypertension+Diabetes Mellitus Rheumatic Fever SOB+DE LEON Obesity Hyperlipidemia+ Family History HD Additional History CHF, DM PATIENT INFORMATION HEIGHT: 68 WEIGHT:219 GENDER: Male B/P:140/78 2-D/M-MODE INTERPRETATION: 2-D MEASUREMENTS OBSERVED VALUES IN CMS Right Ventricular Dimension (RVDd) Interventricular Septum (Thickness)(IVsd) Left Ventricular Internal Dimensions(LVIDd) Left Ventricular Posterior Wall (Thickness)(LVPWd) Aortic Root Aortic Cusp Separation Left Atrial Dimensions (LAD) 2D 1. Technically difficult study, dimensions are not measured 2. Left atrium is qualitatively mildly enlarged, left ventricle is normal size, mild concentric left ventricular hypertrophy, visually estimated ejection fraction 55% with no obvious regional wall motion abnormality, endocardial surfaces are very poorly visualized. 3. The right atrium and right ventricle are normal size and contractility. 4. The aortic valve is thickened and calcified leaflet continue to display mobility. 5. The mitral and tricuspid valve leaflets are not well visualized. 6. The pulmonic valve is poorly visualized. 7. No significant pericardial effusion noted. DOPPLER INTERROGATION: Doppler interrogation of the aortic, mitral and tricuspid valvular presence of mild mitral and tricuspid regurgitation, tricuspid regurgitation jet velocity is insufficient for calculation of the right ventricular systolic pressure, grade 1 diastolic dysfunction seen with tissue Doppler evidence of raised left atrial pressure. CONCLUSION: 1. Technically very difficult study as described above. 2. Mildly enlarged left atrium, normal left ventricular size, mild concentric left ventricular hypertrophy, visually estimated ejection fraction 55% with no obvious regional wall motion abnormality, endocardial surfaces are poorly visualized. Grade 1 diastolic dysfunction seen with tissue Doppler evidence of raised left atrial pressure 3. Mild mitral and tricuspid regurgitation, tricuspid regurgitation jet velocity is insufficient for calculation of the right ventricular systolic pressure. 4. No significant pericardial effusion noted.
== END 2017-12-26 17:23 | disposition home or self-care (01) ==
LOC: 2ND 21:50 → ER 21:50 → 2ND 12-25 00:21
PROVIDERS: ADMIT Family Medicine; ATTEND Family Medicine

== ENCOUNTER 2018-05-17 01:15 | Observation (INO) ==
[2018-05-17 02:08] LABS: Amylase 33 U/L (25-115); Anion Gap 16.1 mEq/L (5-15); Blood Urea Nitrogen 35 mg/dL (7-18); Calcium 8.4 mg/dL (8.5-10.1); Carbon Dioxide 20 mmol/L (21.0-32.0); Chloride 103 mmol/L (98-107); Glucose 179 mg/dL (74-106); Lipase 88 u/L (73-393); Potassium 4.1 mmoL/L (3.5-5.1); Sodium 135 mmol/L (136-145)
[2018-05-17 02:59] LABS: Basophils # 0.1 K/mm3 (0-0.2); Basophils % 0.9 % (0.1-2.0); Eosinophils # 0.2 K/mm3 (0.0-0.4); Eosinophils % 2.9 % (0.1-12.0); Hemoglobin 13.4 g/dL (14.1-18.0); Lymphocytes # 1.4 K/mm3 (0.7-4.5); Lymphocytes % 28.1 % (10-50); Mean Corpuscular HGB Conc 33.5 g/dL (31.8-35.4); Mean Corpuscular Hemoglobin 30.4 pg (27.0-31.2); Mean Corpuscular Volume 90.7 fl (80-94); Mean Platelet Volume 9.7 fl (7.4-10.4); Monocytes # 0.4 K/mm3 (0.1-1.0); Monocytes % 8.5 % (1.7-9.3); Neutrophils % 59.6 % (37.0-80.0); Platelet Count 226 K/mm3 (142-424); Red Blood Count 4.41 M/mm3 (4.60-6.20); Red Cell Distribution Width 13.6 % (11.5-17.5)
--- NOTE | 2018-05-17 04:37 | Emergency Department Note ---
ED Disposition Clinical Impression: Enteritis, Renal insufficiency, Diabetes mellitus type 2 in obese Disposition: Admitted as Observation Condition on Discharge: Good Instructions: DI for Diarrhea and Traveler's Diarrhea -- Adult, DI for Diarrhea and Traveler's Diarrhea -- Child, DI for Nausea -- Adult, DI for Nausea -- Child Referrals: Kyle Romo MD [Primary Care Provider] - - Critical Care Critical Care Time: No Attestation: On 05/17/18, the high probability of a clinically significant, sudden or life threatening deterioration of the following system(s) required my full and direct attention, intervention and personal management. The time I documented below is in addition to time spent performing reported procedures but includes the following listed in this critical care notation. Medical Decision Making - Medical Records Medical records reviewed: Yes: I reviewed the patient's medical records. - Tayo Inquiry Pt receiving controlled substance: No Vital Signs: 05/17/18 01:21 05/17/18 01:39 05/17/18 01:51 Temperature 97.5 F L Temperature Source Oral Pulse Rate [Right Brachial] 78 79 78 Respiratory Rate 14 16 16 Blood Pressure [Right Arm] 88/44 L 72/54 L 84/42 L Blood Pressure Mean [Right Arm] 58 60 56 Blood Pressure Source [Right Arm] Automatic Cuff Manual Cuff/ Auscultation Automatic Cuff Blood Pressure Position [Right Arm] Sitting Sitting Sitting 02 Sat by Pulse Oximetry 94 L 96 95 Oxygen Delivery Method Room Air Room Air 05/17/18 01:57 05/17/18 02:04 05/17/18 02:13 Temperature Temperature Source Pulse Rate [Right Brachial] 83 79 79 Respiratory Rate 19 14 14 Blood Pressure [Right Arm] 78/56 L 92/56 L 94/41 L Blood Pressure Mean [Right Arm] 63 68 58 Blood Pressure Source [Right Arm] Manual Cuff/ Auscultation Automatic Cuff Automatic Cuff Blood Pressure Position [Right Arm] Sitting Sitting 02 Sat by Pulse Oximetry 95 Oxygen Delivery Method Room Air 05/17/18 02:56 05/17/18 03:00 05/17/18 04:00 Temperature Temperature Source Pulse Rate [Right Brachial] 79 87 74 Respiratory Rate 16 Blood Pressure [Right Arm] 95/56 L 91/58 L 88/55 L Blood Pressure Mean [Right Arm] 69 69 66 Blood Pressure Source [Right Arm] Automatic Cuff Blood Pressure Position [Right Arm] Supine 02 Sat by Pulse Oximetry 99 98 98 Oxygen Delivery Method Room Air - Lab Data Lab results reviewed: Yes: I reviewed the patient's lab results. Lab Results 05/17/18 01:46: Lactate 1.5 05/17/18 01:46: Sodium 135 L, Potassium 4.1, Chloride 103, Carbon Dioxide 20 L, Anion Gap 16.1 H, BUN 35 H, Creatinine 1.48 H, Estimated Creat Clear 64, Estimated GFR 47 L, Est GFR ( Amer) 57 L, Glucose 179 H, Calcium 8.4 L, Troponin I < 0.02, Amylase 33, Lipase 88 05/17/18 01:46: ESR 24 H 05/17/18 01:46: C-Reactive Protein 4.2 H 05/17/18 01:46: WBC 5.0, RBC 4.41 L, Hgb 13.4 L, Hct 40.0 L, MCV 90.7, MCH 30.4, MCHC 33.5, RDW 13.6, Plt Count 226, MPV 9.7, Neut % (Auto) 59.6, Lymph % (Auto) 28.1, [place] % (Auto) 8.5, Eos % (Auto) 2.9, Baso % (Auto) 0.9, Neut # (Auto) 3.0, Lymph # (Auto) 1.4, [place] # (Auto) 0.4, Eos # (Auto) 0.2, Baso # (Auto) 0.1 05/17/18 02:12: Stool Occult Blood Negative Result diagrams: 05/17/18 01:46 05/17/18 01:46 Orders (Tests/Meds): ED MEDICATIONS Generic Name Dose Route Start Last Admin Trade Name Freq PRN Reason Stop Dose Admin Sodium Chloride 1,000 mls @ 999 mls/hr 05/17/18 01:45 05/17/18 01:32 Sod Chlor 0.9% 1000ml Bag IV 05/17/18 02:45 999 mls/hr .Q1H1M TRAVON Administration Sodium Chloride 1,000 mls @ 999 mls/hr 05/17/18 01:45 05/17/18 01:46 Sod Chlor 0.9% 1000ml Bag IV 05/17/18 02:45 999 mls/hr .Q1H1M TRAVON Administration Sodium Chloride 1,000 mls @ 999 mls/hr 05/17/18 03:00 05/17/18 02:57 Sod Chlor 0.9% 1000ml Bag IV 05/17/18 04:00 999 mls/hr .Q1H1M TRAVON Administration Sodium Chloride 10 ml 05/17/18 01:34 Saline Flush 10ml Syringe IV 06/16/18 01:33 NEEDED PRN Maintain IV Site Sodium Chloride 10 ml 05/17/18 01:35 Saline Flush 10ml Syringe IV 06/16/18 01:34 NEEDED PRN Maintain IV Site Discontinued Medications Generic Name Dose Route Start Last Admin Trade Name Freq PRN Reason Stop Dose Admin Ondansetron HCl 4 mg 05/17/18 01:37 05/17/18 01:37 Zofran 4mg/2ml Vial IV 05/17/18 01:38 4 mg ONCE ONE Administration ORDERS Category Date Time Status CT abdomen pelvis wo con Stat Cat Scan 05/17/18 01:34 Taken XR chest portable Stat Exams 05/17/18 01:38 Taken Diarrhea Panel, PCR Stat Lab 05/17/18 02:27 Ordered Urinalysis and Microscopic Stat Lab 05/17/18 01:33 Ordered Blood Culture Stat Micro 05/17/18 01:34 Ordered ECG Request by /Manolo Stat Y 05/17/18 01:41 Ordered - Radiology Data #1 Image(s): Chest Image Reviewed: Yes I reviewed the patient's radiology image Preliminary Findings: Abnormal (chronic changes ) - CT Data CT Scan: Abdomen, Pelvis Time Received: 04:[address] Reviewed: Yes: I have viewed the radiologist's interpretation Preliminary Findings: Abnormal (enteritis ) - ECG Data Tracing #1 Normal Sinus Rhythm: Yes Ischemic changes: non-specific ST-T wave changes - Physician Consults Physician Consulted: cameron Reason -: Admission Nausea/Vomiting/Diarrhea HPI - General Chief complaint: Nausea/Vomiting/Diarrhea Stated complaint: Diarrhea;No appetite;phlegm Time Seen by Provider: 05/17/18 02:00 Mode of Arrival: Family Vehicle Source of Information: Patient, Spouse, Medical Record Limitations: No Limitations Description of Symptoms (Recalled from ER Triage Doc. by RN): Pt has had nausea, vomitin, diarrhea, fever, cough, congestion, and abd pain for almost a week. - History of Present Illness HPI Narrative: wm who has over the last few days had nonbldy diarrhea with dec po intake - has foul odor- -crampy abd pain - pt has known type 2 dm - no known exposure or travel and no recent abx - MD complaint: nausea, vomiting, diarrhea, abdominal pain Onset (ago): day(s) Associated Abdominal Pain: Yes Location of pain: diffuse Severity: moderate Quality: cramping Associated symptoms: denies other symptoms - Related Data Home Medications Medication Instructions Recorded Confirmed Cyclobenzaprine HCl 5 mg PO DAILY 12/24/17 04/11/18 [Cyclobenzaprine 5mg Tab] Donepezil HCl [Aricept 10mg 10 mg PO HS 12/24/17 04/11/18 tablet] Furosemide [Furosemide 40MG tAB] 40 mg PO DAILY 12/24/17 04/11/18 Levothyroxine Sodium 75 mcg PO DAILY 12/24/17 04/11/18 [Levothyroxine 75mcg (0.075mg) Tab] Metformin HCl [Glucophage 500mg 1,000 mg PO BID 12/24/17 04/11/18 Tablet] Tamsulosin HCl [Flomax 0.4mg 0.4 mg PO HS 12/24/17 04/11/18 capsule] Aspirin [Aspir 81] 81 mg PO DAILY 12/25/17 04/11/18 Cholecalciferol (Vitamin D3) 1,000 unit PO DAILY 12/25/17 04/11/18 [Vitamin D3 1,000 Unit Cap] Cyanocobalamin (Vitamin B-12) 5,000 mcg SL DAILY 12/25/17 04/11/18 [Vitamin B-12] Vit C/Ascorb Sod/Multivit-Min 500 mg PO DAILY 12/25/17 04/11/18 [Emergen-C 500 mg Chewable Tab] Previous Rx's Medication Instructions Recorded carvedilol 25 mg tablet 25 mg PO BID #60 tab 01/03/18 lisinopril 10 mg tablet 10 mg PO QHS #30 tab 01/10/18 Allergies Allergy/AdvReac Type Severity Reaction Status Date / Time No Known Allergies Allergy Verified 05/17/18 01:32 [facility] History - Hepatitis A Screen Drug use history?: No High risk sexual behaviors?: No History of sexually transmitted infection?: No Currently employed?: No Childcare worker?: No Do you have indoor plumbing?: Yes Do you have electricity?: Yes Attestation statement:: This patient has been screened for Hepatitis A risk factors. I have reviewed the patient's past medical history: Yes Medical History: Reports:: Congestive Heart Failure, Diabetes Mellitus Type 2, Hyperlipidemia, Hypertension, MRSA Denies:: Cancer, Diabetes Mellitus Type 1 Other Medical History: Reports: Thyroid Disease Laterality Cases: Bilateral: Arthroscopy Knee, Arthroscopy Shoulder Other Surgeries: Yes: Bariatric Surgery, Cardiac Catheterization (12/25/17 no stents), Hernia Repair Amputation: No Fractures: No - Social History Smoking Status: Former smoker Tobacco Type: cigarettes, smokeless tobacco #Yrs smoked (if former smoker): 25 Alcohol Intake: never Alcohol Intake Frequency:: other Occupational Status: retired Housing: house Household Members: spouse, family - Psychiatric History Expresses thoughts of harming self/others: None Suicide Plan Description: No Plan Family Hx:: Cancer ROS Obtained: Yes All systems reviewed & no additional complaints - Constitutional Constitutional: Denies fever(s) - Eyes Eyes: Denies change in vision - ENT Ears, Nose, Mouth, and Throat: Denies headache(s), Denies sore throat - Cardiovascular Cardiovascular: Denies chest pain - Respiratory Respiratory: No cough - Gastrointestinal Gastrointestingal: Reports: as per HPI, abdominal pain, cramping, diarrhea, nausea, vomiting - Genitourinary Male Genitourinary: Denies hematuria - Musculoskeletal Musculoskeletal: Denies joint pain, Denies limited range of motion - Integumentary/Breasts Skin/Breast: Denies rash - Neurologic Neurologic: Denies seizure-like activity Physical Exam - General General appearance: alert, in no apparent distress - Head Head exam: normocephalic - Eye Eye exam: Present: PERRL, EOMI. Absent: scleral icterus - ENT ENT exam: Present: mucous membranes dry - Neck Neck exam: Present: trachea midline - Respiratory Respiratory exam: Present: normal lung sounds bilaterally. Absent: respiratory distress - Cardiovascular Cardiovascular exam: Present: regular rate, systolic murmur, +S4 - Abdominal Exam Abdominal exam: Present: soft, tenderness Abdominal tenderness: Present: diffuse, moderate - Extremities Exam Extremities exam: Present: pedal edema. Absent: calf tenderness - Neurological Exam Neurological exam: Present: alert, CN II-XII intact - Psychiatric Psychiatric exam: Present: normal affect - Skin Skin exam: Absent: rash
[2018-05-17 05:03] LABS: Microscopic, Urine URINE MICROSCOPIC (MICROSCOPIC)
[2018-05-17 05:04] LABS: Appearance,Urine CLEAR (Clear); Bilirubin,Urine Negative (Negative); Blood, Urine Negative (Negative); Color,Urine DK YELLOW (Yellow); Glucose,Urine (UA) Negative (Negative); Ketones,Urine Negative (Negative); Leukocyte Esterase,Urine Negative (Negative); PH,Urine 5.5 (5.0-8.5); Protein,Urine TRACE (Negative); Specific Gravity, Urine 1.025 (1.005-1.030); Urobilinogen,Urine 0.2 EU/dl (0.2)
[2018-05-17 05:11] LABS: Bacteria,Urine 1+ /lpf
--- NOTE | 2018-05-17 07:16 | History & Physical Report ---
*Admission Date: 05/17/18 *Chief complaint: diarrhea and abdominal pain *History of present illness: 72 year old male presented to ER last night for diarrhea and increasing abdominal pain described as cramping. Onset of diarrhea Natalio evening. Positive for chills, fatigue and body aches. Reports one instance of vomiting but he tells me this is more related to sinus drainage than true nausea. Negative for recorded fever, stool containing blood or mucous. Denies knowledge of any sick contacts or eating spoiled food. Significant PMH hernia repair X 2, cholecystetomy, and gastric bypass. Reports stool normally is formed, no issues of frequency or consistency post gallbladder removal. [facility] History Medical History: Reports:: Aneurysm, Cancer, Congestive Heart Failure, Diabetes Mellitus Type 2, Hyperlipidemia, Hypertension, MRSA Denies:: Diabetes Mellitus Type 1 Have you ever received a pneumonia vaccine?: Yes Have you received a flu vaccine this season?: Yes Other Medical History: Reports: Thyroid Disease Laterality Cases: Bilateral: Arthroscopy Knee, Arthroscopy Shoulder Other Surgeries: Yes: Bariatric Surgery, Cardiac Catheterization (12/25/17 no stents), Cholecystectomy, Colonoscopy, Coronary Stent, Hernia Repair Amputation: No Fractures: No - *Social History Educational Level: Completed GED/General Educational Development Smoking Status: Former smoker Tobacco Type: cigarettes, smokeless tobacco #Yrs smoked (if former smoker): 25 Alcohol Intake: never Alcohol Intake Frequency:: other Occupational Status: retired Housing: house Household Members: spouse, family Travel in the last 8 weeks: None - Psychiatric History Expresses thoughts of harming self/others: None Suicide Plan Description: No Plan *Family Hx:: Asthma, Cancer, Coronary Artery Disease, Diabetes, Heart Attack, Hyperlipidemia, Hypertension, Kidney Disease, Stroke Review of Systems - Constitutional Reports body ache(s), Reports chills, Reports fatigue, Reports lack of energy, Reports malaise, Reports weakness, Denies fever(s), Denies headache(s) - *Cardiovascular Denies chest pain, Denies shortness of breath - *Gastrointestinal Reports abdominal pain, Reports change in stools, Reports loose stools, Reports vomiting, Denies vomiting blood, Denies bright, red blood in stools, Denies black, tarry stools, Denies nausea - *Neurologic Denies headache(s), Denies seizure-like activity Meds Home Medications Medication Instructions Recorded Confirmed Type Cyclobenzaprine HCl 5 mg PO DAILY 12/24/17 05/17/18 History [Cyclobenzaprine 5mg Tab] Donepezil HCl [Aricept 10mg 10 mg PO HS 12/24/17 05/17/18 History tablet] Furosemide [Furosemide 40MG tAB] 40 mg PO DAILY 12/24/17 05/17/18 History Levothyroxine Sodium 75 mcg PO DAILY 12/24/17 05/17/18 History [Levothyroxine 75mcg (0.075mg) Tab] Metformin HCl [Glucophage 500mg 1,000 mg PO BID 12/24/17 05/17/18 History Tablet] Tamsulosin HCl [Flomax 0.4mg 0.4 mg PO HS 12/24/17 05/17/18 History capsule] Aspirin [Aspir 81] 81 mg PO DAILY 12/25/17 05/17/18 History Cholecalciferol (Vitamin D3) 1,000 unit PO DAILY 12/25/17 05/17/18 History [Vitamin D3 1,000 Unit Cap] Cyanocobalamin (Vitamin B-12) 5,000 mcg SL DAILY 12/25/17 05/17/18 History [Vitamin B-12] Vit C/Ascorb Sod/Multivit-Min 500 mg PO DAILY 12/25/17 05/17/18 History [Emergen-C 500 mg Chewable Tab] carvedilol 25 mg tablet 25 mg PO BID #60 tab 01/03/18 05/17/18 Rx lisinopril 10 mg tablet 10 mg PO QHS #30 tab 01/10/18 05/17/18 Rx Allergies Allergy/AdvReac Type Severity Reaction Status Date / Time No Known Allergies Allergy Verified 05/17/18 01:32 Exam Vital signs and Labs for Last 24 Hours: Temp Pulse Resp BP Pulse Ox 97.0 F L 78 16 97/57 L 95 05/17/18 05:25 05/17/18 06:48 05/17/18 06:48 05/17/18 05:25 05/17/18 06:48 Laboratory Results - last 24 hr 05/17/18 01:46: Lactate 1.5 05/17/18 01:46: Sodium 135 L, Potassium 4.1, Chloride 103, Carbon Dioxide 20 L, Anion Gap 16.1 H, BUN 35 H, Creatinine 1.48 H, Estimated Creat Clear 64, Estimated GFR 47 L, Est GFR ( Amer) 57 L, Glucose 179 H, Calcium 8.4 L, Troponin I < 0.02, Amylase 33, Lipase 88 05/17/18 01:46: ESR 24 H 05/17/18 01:46: C-Reactive Protein 4.2 H 05/17/18 01:46: WBC 5.0, RBC 4.41 L, Hgb 13.4 L, Hct 40.0 L, MCV 90.7, MCH 30.4, MCHC 33.5, RDW 13.6, Plt Count 226, MPV 9.7, Neut % (Auto) 59.6, Lymph % (Auto) 28.1, [place] % (Auto) 8.5, Eos % (Auto) 2.9, Baso % (Auto) 0.9, Neut # (Auto) 3.0, Lymph # (Auto) 1.4, [place] # (Auto) 0.4, Eos # (Auto) 0.2, Baso # (Auto) 0.1 05/17/18 02:12: Stool Occult Blood Negative 05/17/18 04:40: Urine Color Dk yellow, Urine Appearance Clear, Urine pH 5.5, Ur Specific [place] 1.025, Urine Protein Trace, Urine Glucose (UA) Negative, Urine Ketones Negative, Urine Blood Negative, Urine Nitrate Negative, Urine Bilirubin Negative, Urine Urobilinogen 0.2, Ur Leukocyte Esterase Negative, Urine WBC 3-5, Ur Squamous Epith Cells 3-5, Urine Bacteria 1+ I & O for Last 24 hours: Intake & Output 05/14/18 05/15/18 05/16/18 05/17/18 23:59 23:59 23:59 23:59 Weight 208 lb 1 oz - Constitutional no acute distress, cooperative - *Routine HEENT Exam Head: Present: normocephalic, atraumatic ENT: Present: mucous membranes moist - *Routine Respiratory Exam Present: CTA bilaterally. Absent: accessory muscle use - *Routine Cardiovascular Exam Present: RRR, Normal S1, Normal S2. Absent: irregular rhythm - *Routine Abdominal Exam Present: soft, tenderness. Absent: distended Comments: hyperactive bowel sounds, generalized tenderness but moreso in the right LQ - *Routine Skin Exam Absent: dry, pallor - *Routine Neurological Exam Present: alert, oriented X3 - Routine Psychiatric Exam Present: normal affect Assessment and Plan (1) Diarrhea Current visit: Yes Status: Acute Category: Medical Code(s): R19.7 - Diarrhea, unspecified (2) Abdominal pain Current visit: Yes Status: Acute Category: Medical Code(s): R10.9 - Unspecified abdominal pain - Assessment and plan all Dx Assessment and Plan for all problems:: Will administer IVFs, antiemetic and pain medicine as needed for discomforts, assess later today for possible discharge.
--- NOTE | 2018-05-17 07:36 | Pharmacy Consult Notes ---
[facility] Pharm[facility] VTE Monitoring - Patient Demographics Admission date: 05/17/18 Report Date: 05/17/18 Time: 07:36 Allergies/Adverse Reactions: Patient Allergies No Known Allergies Allergy (Verified 05/17/18 01:32) Height: 1.68 m Weight: 94.376 kg Patient Problems: Current Active Problems Renal insufficiency (Acute) Enteritis (Acute) Diarrhea (Acute) Abdominal pain (Acute) Diabetes mellitus type 2 in obese (Chronic) - VTE Risk Labs: VTE Related Lab Results Hgb 13.4 g/dL (14.1-18.0) L 05/17/18 01:46 Hct 40.0 % (42.0-52.0) L 05/17/18 01:46 Plt Count 226 K/mm3 (142-424) 05/17/18 01:46 BUN 35 mg/dL (7-18) H 05/17/18 01:46 Creatinine 1.48 mg/dL (0.70-1.30) H 05/17/18 01:46 Estimated Creat Clear 64 mL/min (50-200) 05/17/18 01:46 Was VTE Risk Assessment Performed: Yes VTE Risk Level: Very Low Risk - Prophylaxis VTE Prophylaxis Ordered?: Yes Types of VTE Prophylaxis: TEDS Knee High Location of Applied Device: Bilateral Lower Extremeties - VTE Diagnosis Confirmed Treatment or plan recommended: Continue Current Treatment
--- NOTE | 2018-05-17 16:52 | Discharge Summary ---
General - General Admission date:: 05/17/18 Discharge date: 05/17/18 HPI HPI: 72 year old male presented to ER last night for diarrhea and increasing abdominal pain described as cramping. Onset of diarrhea Natalio evening. Positive for chills, fatigue and body aches. Reports one instance of vomiting but he tells me this is more related to sinus drainage than true nausea. Negative for recorded fever, stool containing blood or mucous. Denies knowledge of any sick contacts or eating spoiled food. Significant PMH hernia repair X 2, cholecystetomy, and gastric bypass. Reports stool normally is formed, no issues of frequency or consistency post gallbladder removal. Hospital Course Hospital Course: Patient was admitted for observation on 2nd floor med surg. In the ER he received pain medicine, an antiemetic and IVFs, IVFs were continued upstairs. Campylobacter was noted with stool sample and first dose of azithromycin 500 mg PO given. He reports no nausea, vomiting or diarrhea during his stay, last episode of diarrhea was in the ER. Has urinated two times today. Around 3pm today he started a clear liquid diet and consumed two jellos, chicken broth, and an apple juice. No N/V/D or abdominal pain associated afterwards. He is up in the chair visiting with his and would like to go home if appropriate. Objective Vital signs: Temp Pulse Resp BP Pulse Ox 97.8 F 73 18 108/57 L 97 05/17/18 16:00 05/17/18 16:00 05/17/18 16:00 05/17/18 16:00 05/17/18 16:00 no acute distress - *Routine HEENT Exam Head: Present: normocephalic, atraumatic - *Routine Neck Exam Present: supple - *Routine Respiratory Exam Present: CTA bilaterally. Absent: accessory muscle use, decreased breath sounds - *Routine Cardiovascular Exam Present: RRR, Normal S1, Normal S2. Absent: tachycardia, irregular rhythm - *Routine Abdominal Exam Present: soft, normoactive bowel sounds. Absent: tenderness, distended, guarding - *Routine Extremities Exam Absent: cyanosis, edema - *Routine Skin Exam Present: intact. Absent: pallor - *Routine Neurological Exam Present: alert, oriented X3 - Routine Psychiatric Exam Present: normal affect Results Labs on day of discharge: Labs from last 24 hours 05/17/18 05/17/18 05/17/18 11:39 06:37 04:40 WBC RBC Hgb Hct MCV MCH MCHC RDW Plt Count MPV Neut % (Auto) Lymph % (Auto) [place] % (Auto) Eos % (Auto) Baso % (Auto) Neut # (Auto) Lymph # (Auto) [place] # (Auto) Eos # (Auto) Baso # (Auto) ESR Sodium Potassium Chloride Carbon Dioxide Anion Gap BUN Creatinine Estimated Creat Clear Estimated GFR Est GFR ( Amer) Glucose POC Glucose 105 131 H Lactate Calcium Troponin I C-Reactive Protein Amylase Lipase Urine Color Urine Appearance Urine pH Ur Specific [place] Urine Protein Urine Glucose (UA) Urine Ketones Urine Blood Urine Nitrate Urine Bilirubin Urine Urobilinogen Ur Leukocyte Esterase Urine WBC Ur Squamous Epith Cells Urine Bacteria Stool Occult Blood Stl Aeromonas (PCR) Not detected Stl C. cayetanensis PCR Not detected Stool Rotavirus (PCR) Not detected Stl Adenov F 40/41 PCR Not detected Stool Astrovirus (PCR) Not detected Stool Campylobacter PCR Detected A Stl C.difficile Tox PCR Not detected Stool Cryptosporidium PCR Not detected Stl E.coli Shiga Tox PCR Not detected Stool E coli O157 PCR Not detected Stl Enterotoxigenic E PCR Not detected Stool EPEC (PCR) Not detected Stool EAEC (PCR) Not detected Stl E. histolytica PCR Not detected Stool Giardia Lamblia PCR Not detected Stool Salmonella PCR Not detected Stool Sapovirus (PCR) Not detected Stl P. shigelloides PCR Not detected Stl Shigella/EIEC PCR Not detected St Y.enterocolitica PCR Not detected Stool Vibrio (PCR) Not detected Stl Vibrio cholerae PCR Not detected Stl Norovirus GI/GII PCR Not detected 05/17/18 05/17/18 05/17/18 04:40 02:12 01:46 WBC 5.0 RBC 4.41 L Hgb 13.4 L Hct 40.0 L MCV 90.7 MCH 30.4 MCHC 33.5 RDW 13.6 Plt Count 226 MPV 9.7 Neut % (Auto) 59.6 Lymph % (Auto) 28.1 [place] % (Auto) 8.5 Eos % (Auto) 2.9 Baso % (Auto) 0.9 Neut # (Auto) 3.0 Lymph # (Auto) 1.4 [place] # (Auto) 0.4 Eos # (Auto) 0.2 Baso # (Auto) 0.1 ESR Sodium Potassium Chloride Carbon Dioxide Anion Gap BUN Creatinine Estimated Creat Clear Estimated GFR Est GFR ( Amer) Glucose POC Glucose Lactate Calcium Troponin I C-Reactive Protein Amylase Lipase Urine Color Dk yellow Urine Appearance Clear Urine pH 5.5 Ur Specific [place] 1.025 Urine Protein Trace Urine Glucose (UA) Negative Urine Ketones Negative Urine Blood Negative Urine Nitrate Negative Urine Bilirubin Negative Urine Urobilinogen 0.2 Ur Leukocyte Esterase Negative Urine WBC 3-5 Ur Squamous Epith Cells 3-5 Urine Bacteria 1+ Stool Occult Blood Negative Stl Aeromonas (PCR) Stl C. cayetanensis PCR Stool Rotavirus (PCR) Stl Adenov F PCR Stool Astrovirus (PCR) Stool Campylobacter PCR Stl C.difficile Tox PCR Stool Cryptosporidium PCR Stl E.coli Shiga Tox PCR Stool E coli O157 PCR Stl Enterotoxigenic E PCR Stool EPEC (PCR) Stool EAEC (PCR) Stl E. histolytica PCR Stool Giardia Lamblia PCR Stool Salmonella PCR Stool Sapovirus (PCR) Stl P. shigelloides PCR Stl Shigella/EIEC PCR St Y.enterocolitica PCR Stool Vibrio (PCR) Stl Vibrio cholerae PCR Stl Norovirus GI/GII PCR 05/17/18 05/17/18 05/17/18 01:46 01:46 01:46 WBC RBC Hgb Hct MCV MCH MCHC RDW Plt Count MPV Neut % (Auto) Lymph % (Auto) [place] % (Auto) Eos % (Auto) Baso % (Auto) Neut # (Auto) Lymph # (Auto) [place] # (Auto) Eos # (Auto) Baso # (Auto) ESR 24 H Sodium 135 L Potassium 4.1 Chloride 103 Carbon Dioxide 20 L Anion Gap 16.1 H BUN 35 H Creatinine 1.48 H Estimated Creat Clear 64 Estimated GFR 47 L Est GFR ( Amer) 57 L Glucose 179 H POC Glucose Lactate Calcium 8.4 L Troponin I < 0.02 C-Reactive Protein 4.2 H Amylase 33 Lipase 88 Urine Color Urine Appearance Urine pH Ur Specific [place] Urine Protein Urine Glucose (UA) Urine Ketones Urine Blood Urine Nitrate Urine Bilirubin Urine Urobilinogen Ur Leukocyte Esterase Urine WBC Ur Squamous Epith Cells Urine Bacteria Stool Occult Blood Stl Aeromonas (PCR) Stl C. cayetanensis PCR Stool Rotavirus (PCR) Stl Adenov F PCR Stool Astrovirus (PCR) Stool Campylobacter PCR Stl C.difficile Tox PCR Stool Cryptosporidium PCR Stl E.coli Shiga Tox PCR Stool E coli O157 PCR Stl Enterotoxigenic E PCR Stool EPEC (PCR) Stool EAEC (PCR) Stl E. histolytica PCR Stool Giardia Lamblia PCR Stool Salmonella PCR Stool Sapovirus (PCR) Stl P. shigelloides PCR Stl Shigella/EIEC PCR St Y.enterocolitica PCR Stool Vibrio (PCR) Stl Vibrio cholerae PCR Stl Norovirus GI/GII PCR 05/17/18 01:46 WBC RBC Hgb Hct MCV MCH MCHC RDW Plt Count MPV Neut % (Auto) Lymph % (Auto) [place] % (Auto) Eos % (Auto) Baso % (Auto) Neut # (Auto) Lymph # (Auto) [place] # (Auto) Eos # (Auto) Baso # (Auto) ESR Sodium Potassium Chloride Carbon Dioxide Anion Gap BUN Creatinine Estimated Creat Clear Estimated GFR Est GFR ( Amer) Glucose POC Glucose Lactate 1.5 Calcium Troponin I C-Reactive Protein Amylase Lipase Urine Color Urine Appearance Urine pH Ur Specific [place] Urine Protein Urine Glucose (UA) Urine Ketones Urine Blood Urine Nitrate Urine Bilirubin Urine Urobilinogen Ur Leukocyte Esterase Urine WBC Ur Squamous Epith Cells Urine Bacteria Stool Occult Blood Stl Aeromonas (PCR) Stl C. cayetanensis PCR Stool Rotavirus (PCR) Stl Adenov F PCR Stool Astrovirus (PCR) Stool Campylobacter PCR Stl C.difficile Tox PCR Stool Cryptosporidium PCR Stl E.coli Shiga Tox PCR Stool E coli O157 PCR Stl Enterotoxigenic E PCR Stool EPEC (PCR) Stool EAEC (PCR) Stl E. histolytica PCR Stool Giardia Lamblia PCR Stool Salmonella PCR Stool Sapovirus (PCR) Stl P. shigelloides PCR Stl Shigella/EIEC PCR St Y.enterocolitica PCR Stool Vibrio (PCR) Stl Vibrio cholerae PCR Stl Norovirus GI/GII PCR DS: Diagnosis - Discharge Diagnosis (1) Abdominal pain Status: Acute (2) Campylobacter enteritis Status: Acute Discharge Plan - Patient Discharge Instructions ACTIVITY: Continue current activity Additional Instructions: avoid fried, greasy, spicy foods at this time, no carbonation, acidic, caffeinated beverages today please Patient Instructions: DI for Viral Gastroenteritis -- Adult - Follow up Plan Unknown provider or service follow up:: 05/17/18 16:54 Patient will follow up only if symptoms worsen or do not get better. Disposition: Home, Self-Group Home Medications: Home Medications Medication Instructions Recorded Confirmed Type Cyclobenzaprine HCl 5 mg PO HSP PRN 12/24/17 05/17/18 History [Cyclobenzaprine 5mg Tab] Donepezil HCl [Aricept 10mg 10 mg PO HS 12/24/17 05/17/18 History tablet] Furosemide [Furosemide 40MG tAB] 40 mg PO DAILY 12/24/17 05/17/18 History Levothyroxine Sodium 75 mcg PO DAILY 12/24/17 05/17/18 History [Levothyroxine 75mcg (0.075mg) Tab] Tamsulosin HCl [Flomax 0.4mg 0.4 mg PO HS 12/24/17 05/17/18 History capsule] Aspirin [Aspir 81] 81 mg PO DAILY 12/25/17 05/17/18 History Cholecalciferol (Vitamin D3) 1,000 unit PO DAILY 12/25/17 05/17/18 History [Vitamin D3 1,000 Unit Cap] Cyanocobalamin (Vitamin B-12) 5,000 mcg SL DAILY 12/25/17 05/17/18 History [Vitamin B-12] Vit C/Ascorb Sod/Multivit-Min 500 mg PO DAILY 12/25/17 05/17/18 History [Emergen-C 500 mg Chewable Tab] Azithromycin [Azithromycin 500mg 500 mg PO DAILY 2 Days #1 tab 05/17/18 Rx Tab] Carvedilol [Carvedilol 25mg Tab] 25 mg PO BID 05/17/18 05/17/18 History Lisinopril [Lisinopril 10mg Tab] 10 mg PO HS 05/17/18 05/17/18 History Metformin HCl [Glucophage] 1,000 mg PO BIDWM 05/17/18 05/17/18 History Rosuvastatin Calcium [Crestor] 5 mg PO DAILY 05/17/18 05/17/18 History Prescriptions/Medication Reconciliation: Continue Levothyroxine Sodium [Levothyroxine 75mcg (0.075mg) Tab] 75 mcg PO DAILY Furosemide [Furosemide 40MG tAB] 40 mg PO DAILY Cyclobenzaprine HCl [Cyclobenzaprine 5mg Tab] 5 mg PO HSP PRN PRN Reason: Muscle Spasm Tamsulosin HCl [Flomax 0.4mg capsule] 0.4 mg PO HS Cholecalciferol (Vitamin D3) [Vitamin D3 1,000 Unit Cap] 1,000 unit PO DAILY Vit C/Ascorb Sod/Multivit-Min [Emergen-C 500 mg Chewable Tab] 500 mg PO DAILY Aspirin [Aspir 81] 81 mg PO DAILY Carvedilol [Carvedilol 25mg Tab] 25 mg PO BID Metformin HCl [Glucophage] 1,000 mg PO BIDWM Donepezil HCl [Aricept 10mg tablet] 10 mg PO HS Cyanocobalamin (Vitamin B-12) [Vitamin B-12] 5,000 mcg SL DAILY Lisinopril [Lisinopril 10mg Tab] 10 mg PO HS Rosuvastatin Calcium [Crestor] 5 mg PO DAILY
== END 2018-05-17 18:00 | disposition home or self-care (01) ==
LOC: ER 01:15 → 2ND 01:15
PROVIDERS: ADMIT Internal Medicine Adolescent Medicine; ATTEND Family Medicine
CPT/HCPCS: 71010; 71045; 74176; 80048; 81001; 82150; 82272; 82962; 83605; 83690; 84484; 85025; 85651; 86140; 87040; 87507; 93005; 96365; 99285; G0328; G0378; J2405

== ENCOUNTER → 2018-06-27 07:57 | Outpatient (POV) | payer MEDICARE, BC, SELFPAY | PROVIDERS: Visit Provider Dermatology | DX: Z00.00 Encounter for general adult medical examination without abnormal findings (principal) ==

== ENCOUNTER → 2018-07-26 06:21 | Outpatient (CLI) | payer MEDICARE, BC, SELFPAY ==
--- NOTE | 2018-07-26 06:24 | US_ITS ---
US Arterial Ankle Brachial Ind History: ITS.REASON: claudication, bilateral rest pain, bilateral claudication ORDERING PHYSICIAN: Ilene Crouch PATIENT AGE: 72 years TECHNIQUE: Segmental pressures obtained of both right and left leg. These are compared to brachial blood pressure to yield index at each level sampled including summary FERNIE. The data sheets from the procedure are available in PACS FINDINGS Rest study only performed today No prior studies available for comparison. Blood pressures reported are in millimeters mercury. RIGHT LEG FERNIE = 1.3. RIGHT LEG TBI=0.9 Brachial BP: 152 Thigh BP: 160 Calf BP: 244 Ankle PT: 201 Ankle DP : 192 Digit =133 LEFT LEG FERNIE = 1.2 LEFT LEG TBI= 0.9 Brachial BPD: 148 Thigh BP: 155 Calf BP: 210 Ankle PT:182 Ankle DP: 227 Digit = 137 Pulses and waveforms: Normal IMPRESSION: The ABIs as reported above are within normal limits. Waveforms and pulses are also unremarkable. Elevated blood pressure noted within the calf on both sides suggesting hardening of the arteries. ABIs however are within normal limits
--- NOTE | 2018-07-26 06:31 | NM_ITS ---
History and Indications: Hypertension, diabetes, hyperlipidemia, family history, shortness of breath and fatigue Procedure: Patient received a 0.4 mg of intravenous Lexiscan, resting heart rate was 80 bpm resting blood pressure 145/85, with Lexiscan maximum heart rate achieved was 100 bpm which is less than 85% of the maximum predicted heart rate and a blood pressure was 152/80. With Lexiscan patient complained of shortness of breath Electrocardiogram: Resting electrocardiogram showed sinus rhythm nonspecific ST-T changes, with Lexiscan there is less than 1.[address] segment depression noted from the baseline EKG. The EKG portion of the Lexiscan Myoview is nondiagnostic. Cardiac stress and resting SPECT images: Cardiac stress and the suspect images were obtained using technetium 99 Myoview 31.9 mCi stress and 10.9 mCi at rest. Gated SPECT further analysis of segmental wall motion and calculation of the ejection fraction also done. Cardiac stress and the suspect images show reversible ischemia involving the inferior wall, computer derived ejection fraction is over 65% with no regional wall motion abnormality, right ventricle is normal size and contractility. Conclusion: 1. The EKG portion of the Lexiscan Myoview is nondiagnostic. 2. Scintigraphic evidence of mild reversible ischemia involving the inferior wall, greater derived ejection fraction is over 65% with no regional wall motion abnormality, right ventricle is normal size and contractility. 3. Abnormal Lexiscan Myoview study.
--- NOTE | 2018-07-26 09:33 | HMH.ITSHM ---
Current Home Medications as stated by this patient Kuldeep Nye or maintenance representative. []LEVOTHYROXINE FUROSEMIDE CYCLOBENZAPRINE FLOMAX ARICEPT ASP CAVEDILOL LISINOPRIL CRESTOR
== END ==
PROVIDERS: PCP Family Medicine; Visit Provider Urology
DX: E11.69 Type 2 diabetes mellitus with other specified complication (principal); E66.9 Obesity, unspecified; E78.49 Other hyperlipidemia; I25.118 Atherosclerotic heart disease of native coronary artery with other forms of angina pectoris; I73.9 Peripheral vascular disease, unspecified; N28.9 Disorder of kidney and ureter, unspecified; R00.0 Tachycardia, unspecified; R06.00 Dyspnea, unspecified; I11.9 Hypertensive heart disease without heart failure; Z79.84 Long term (current) use of oral hypoglycemic drugs; Z87.891 Personal history of nicotine dependence
CPT/HCPCS: 78451; 93017; 93922; A9502; J2785

== ENCOUNTER → 2018-08-02 09:27 | Outpatient (CLI) | payer MEDICARE, BC, SELFPAY ==
[2018-08-02 11:20] LABS: Anion Gap 16.4 mEq/L (5-15); Blood Urea Nitrogen 21 mg/dL (7-18); Calcium 9.1 mg/dL (8.5-10.1); Carbon Dioxide 23 mmol/L (21.0-32.0); Chloride 105 mmol/L (98-107); Creatinine,Serum 0.95 mg/dL (0.70-1.30); Estimated Glomerular Filt Rate 78 ml/min (>60); GFR (African American) 95 ML/MIN (>60); Glucose 116 mg/dL (74-106); Potassium 4.4 mmoL/L (3.5-5.1); Sodium 140 mmol/L (136-145)
== END ==
PROVIDERS: Visit Provider Urology
DX: E11.69 Type 2 diabetes mellitus with other specified complication (principal); E66.9 Obesity, unspecified; E78.49 Other hyperlipidemia; I25.118 Atherosclerotic heart disease of native coronary artery with other forms of angina pectoris; I73.9 Peripheral vascular disease, unspecified; N28.9 Disorder of kidney and ureter, unspecified; R00.0 Tachycardia, unspecified; R06.00 Dyspnea, unspecified; Z79.84 Long term (current) use of oral hypoglycemic drugs; I11.9 Hypertensive heart disease without heart failure; Z68.34 Body mass index [BMI] 34.0-34.9, adult
CPT/HCPCS: 36415; 80048

== ENCOUNTER → 2018-08-23 08:35 | Outpatient (CLI) | payer MEDICARE, BC, SELFPAY | PROVIDERS: PCP Family Medicine; Visit Provider Urology | DX: E11.69 Type 2 diabetes mellitus with other specified complication (principal); E66.9 Obesity, unspecified; E78.5 Hyperlipidemia, unspecified; I10 Essential (primary) hypertension; I25.10 Atherosclerotic heart disease of native coronary artery without angina pectoris; R06.02 Shortness of breath | CPT/HCPCS: 93306 ==

== ENCOUNTER → 2018-10-11 12:46 | Outpatient (CLI) | payer MEDICARE, BC, SELFPAY ==
[2018-10-11 16:57] LABS: Blood Urea Nitrogen 24 mg/dL (7-18); Calcium 9.5 mg/dL (8.5-10.1); Carbon Dioxide 27 mmol/L (21.0-32.0); Chloride 104 mmol/L (98-107); Creatinine,Serum 0.98 mg/dL (0.70-1.30); Estimated Glomerular Filt Rate 76 ml/min (>60); GFR (African American) 91 ML/MIN (>60); Glucose 149 mg/dL (74-106); Sodium 140 mmol/L (136-145)
== END ==
PROVIDERS: Visit Provider Nurse Practitioner Family
DX: E78.5 Hyperlipidemia, unspecified (principal); I10 Essential (primary) hypertension; I25.10 Atherosclerotic heart disease of native coronary artery without angina pectoris; I51.89 Other ill-defined heart diseases; R06.00 Dyspnea, unspecified; R06.02 Shortness of breath
CPT/HCPCS: 36415; 80048; 83880

== ENCOUNTER → 2018-11-20 09:57 | Outpatient (CLI) | payer MEDICARE, BC, SELFPAY ==
--- NOTE | 2018-11-20 10:04 | XR_ITS ---
XR chest 2V HISTORY: ITS.REASON: DYSPNEA ON EXERTION,PRIOR SMOKER ORDERING PHYSICIAN: Kyle Romo MD PATIENT AGE: 72 years COMPARISON: 05/17/2018, 05/31/2016 FINDINGS: Unremarkable cardiovascular structures. Pleural thickening once again noted on the right with chronic blunting of the right CP angle. Parenchymal opacity is noted in the right lung base laterally similar to 05/31/2016. A 10 mm nodule is noted over the anterior aspect of the heart on the lateral view which is unchanged. The remaining lungs are clear. There are degenerative changes in the spine. IMPRESSION: Chronic changes, no change with no acute finding.
== END ==
PROVIDERS: PCP Family Medicine; Visit Provider Family Medicine
DX: R06.09 Other forms of dyspnea (principal); Z87.891 Personal history of nicotine dependence
CPT/HCPCS: 71046

== ENCOUNTER → 2018-11-28 11:21 | Outpatient (CLI) | payer MEDICARE, BC, SELFPAY ==
[2018-11-28 12:15] VITALS: PULSE 70; PULSE 74
== END ==
PROVIDERS: PCP Family Medicine; Visit Provider Family Medicine
DX: R06.09 Other forms of dyspnea (principal); Z87.891 Personal history of nicotine dependence
CPT/HCPCS: 94060; 94640

== ENCOUNTER → 2018-12-05 12:36 | Outpatient (CLI) | payer MEDICARE, BC, SELFPAY | PROVIDERS: PCP Family Medicine; Visit Provider Family Medicine | DX: G47.33 Obstructive sleep apnea (adult) (pediatric) (principal); R06.83 Snoring; E66.9 Obesity, unspecified | CPT/HCPCS: G0399 ==

== ENCOUNTER → 2019-01-09 13:20 | Outpatient (CLI) | payer MEDICARE, BC, SELFPAY ==
[2019-01-09 14:43] LABS: Anion Gap 15.8 mEq/L (5-15); Blood Urea Nitrogen 26 mg/dL (7-18); Calcium 9.7 mg/dL (8.5-10.1); Carbon Dioxide 28 mmol/L (21.0-32.0); Chloride 102 mmol/L (98-107); Creatinine,Serum 1.46 mg/dL (0.70-1.30); Estimated Glomerular Filt Rate 48 ml/min (>60); GFR (African American) 58 ML/MIN (>60); Glucose 234 mg/dL (74-106); Potassium 4.8 mmoL/L (3.5-5.1); Sodium 141 mmol/L (136-145)
== END ==
PROVIDERS: Visit Provider Nurse Practitioner Family
DX: E78.5 Hyperlipidemia, unspecified (principal); I10 Essential (primary) hypertension; I25.10 Atherosclerotic heart disease of native coronary artery without angina pectoris; N28.9 Disorder of kidney and ureter, unspecified; R06.00 Dyspnea, unspecified
CPT/HCPCS: 36415; 80048

== ENCOUNTER → 2019-03-27 08:15 | Outpatient (POV) | payer MEDICARE, BC, SELFPAY | PROVIDERS: Visit Provider Dermatology | DX: Z00.00 Encounter for general adult medical examination without abnormal findings (principal) ==

== ENCOUNTER 2020-07-04 13:00 | Outpatient (RCR) | payer MEDICARE, BC, SELFPAY | END 2020-07-04 13:05 | disposition home or self-care (01) | LOC: OT 13:00 | PROVIDERS: PCP Family Medicine; Visit Provider Orthopaedic Surgery | DX: M25.512 Pain in left shoulder (principal) | CPT/HCPCS: 97014; 97110; 97140; 97165; 97530; G0283 ==

== ENCOUNTER → 2020-07-16 06:19 | Outpatient (CLI) | payer MEDICARE, BC, SELFPAY ==
--- NOTE | 2020-07-16 06:21 | NM_ITS ---
APPROVED REPORT Exam: Nuclear Stress Test Indication: Chest pain, SOB, CAD, HTN, DM, High cholesterol, Former tobacco use, Family history, Abnormal EKG Patient Location: Outpatient Stress Tech: Radha Childs [place] Tech:Lupe Cedillo, ARRT, RT (R)(N) Ht: 5 ft 5 in Wt: 210 lbs HR: 84 bpm BP: 139/80 mmHg BSA: 2.02 m2 BMI: 34.9 History: Chest pain, SOB, CAD, HTN, DM, High cholesterol, Former tobacco use, Family history, Abnormal EKG Procedure: Patient received a 0.4 mg of intravenous Lexiscan, resting heart rate 84 bpm, resting blood pressure 139/80 mmHg, with Lexiscan maximum heart rate achived was 110 bpm which is Less than 85 % of the maximum predicted heart rate and blood pressure was 140/72 mmHg. With Lexiscan, patient denied any complaint of chest pain. Electrocardiogram Resting electrocardiogram showed sinus rhythm nonspecific ST-T changes, with Lexiscan there is less than 1.[address] segment depression noted from the baseline EKG. The EKG portion of the Lexiscan is nondiagnostic. Cardiac Stress and Resting SPECT Images: Cardiac Stress and Resting SPECT images were obtained using technetium 99m Myoview 31.9 mCi stress and 10.0 mCi at rest. Gated SPECT for analysis of segmental wall motion and calculation of the ejection fraction also done. Prone images were also obtained. Cardiac stress and resting SPECT images show uniform myocardial activity without segmental perfusion abnormality, computer derived ejection fraction is 61% with no regional wall motion abnormality, right ventricle is normal size and contractility. Conclusion: 1. The EKG portion of the Lexiscan is nondiagnostic. 2. No scintigraphic evidence of reversible ischemia seen, computer derived ejection fraction is 61% with no regional wall motion abnormality, right ventricle is normal size and contractility. 3. Normal Lexiscan Myoview study. Electronically signed by : Jya Merlos, 07/17/2020 11:50:14
--- NOTE | 2020-07-16 06:21 | CA_ITS ---
APPROVED REPORT Exam: Pharmacologic Technologist: Radha Childs Ht: 5 ft 6 in Wt: 210 lbs BSA: 2.04 m2 HR: 84 bpm BP: 139/80 mmHg Indications: Chest pain, Shortness of Air Medical History Medications: Lisinopril,,,,, Levothyroxine,,,,, Furosemide (LASIX),,,,, Aspirin,,,,, Vitamin B12,,,,, Vitamin D3,,,,, Carvedilol,,,,, Glipizide,,,,, TAMSULOSIN,,,,, DONEPEZIL,,,,, Cyclobenzaprine,,,,, OxYbutynin,,,,, Stress Test Details Test: LEXISCAN HR Resting HR: 86 bpm Max Heart Rate (APMHR): 148.599049 bpm Max HR Achieved: 120 bpm Target HR (85% APMHR): 125.638262 bpm % of APMHR: 81.08 Recovery HR: 96 bpm BP Resting BP: 139.0/80.0 mmHg Max BP: 158.0/73.0 mmHg Recovery BP: 128.0/74.0 mmHg ECG Resting ECG: Normal sinus rhythm, ST-T abnormalities inferiorly Clinical Exercise duration: 04:00 min Highest Stage Achieved: Exercise capacity: 1.0 METs Stress ECG Conclusion Symptoms: Shortness of air, malaise. No chest pain Arrhythmias/Ectopy: Rare PVC, One ventricular couplet ST-T Changes: No significant changes. Conclusion: Unremarkable Lexiscan stress. Myoview images reported separately. Test Summary REST . . . . . . . Resting REST 07:37 . . 86 . 139/ 80 . . Stage 1 . . . . . . . Myoview Injected Stage 1 01:00 . . 104 . . . . Stage 2 01:00 . . 110 . 140/ 72 . . Stage 3 01:00 . . 104 . 158/ 73 . . Stage 4 01:00 . . 96 . 143/ 73 . Stop exercise at 04:00 RECOVERY 01:00 . . 98 . 150/ 70 . . RECOVERY 02:00 . . 99 . 150/ 70 . . RECOVERY 03:00 . . 95 . 150/ 70 . . RECOVERY 03:24 . . 95 . 128/ 74 . . Electronically signed by : Jay Merlos, 07/17/2020 11:45:45
--- NOTE | 2020-07-16 06:21 | CA_ITS ---
APPROVED REPORT EXAM: Comprehensive 2D, Doppler, and color-flow Echocardiogram Pin Sticker: Sonia Joyce RVT Ht: 5 ft 6 in Wt: 210lbs BSA: 2.04 BP: 159/81 mmHg Indications: CP,DD,CAD,SOA,HTN,HLD VERY TDS-PT HAS VERY LIMITED WINDOWS R/T OVERLAYING LUNG AND BODY HABITUS 2D Dimensions LVOT 2.69 cm (M/F) 1.5-2.5 M-Mode Dimensions LA Diam 3.14 cm (1.9-4.0) Ao Diam 3.76 cm (2.0-3.7) LV Diastology E Decel Time 220.00 (160-240 msec) E/A Ratio 0.5 MED E' 5.90 (< 7 cm/sec) E'/MED E' Ratio 10.83 (>14) LAT E' 8.60 (<10 cm/sec) E/LAT E' Ratio 7.43 (>14) Mitral Valve MV E Max Rom. 64.00 (40-130 cm/s) MV A Velocity 128.00 (40-130 cm/s) E/A Ratio 0.50 MV Decel. Time 220.00 (160-240 ms) MV PHT 64.00 ms Left Ventricle Technically difficult study because of the patient fact in poor acoustic windows. Left atrium is mildly enlarged, left ventricle is normal size, mild concentric left ventricular hypertrophy, visually estimated ejection fraction 55% with no regional wall motion abnormality in the obtained views. Right Ventricle Right atrium and right ventricular qualitatively mildly enlarged with normal contractility. Aortic Valve Aortic valve is poorly visualized, leaflet continue to display mobility morphologically there is no aortic stenosis. Mitral Valve Mitral valve leaflets are minimally thickened, there is mild mitral regurgitation. Tricuspid Valve Tricuspid valve grossly normal. There is no significant tricuspid regurgitation seen. Pulmonic Valve Pulmonic valve is poorly visualized. Great Vessels Aortic root is normal size. Pericardium No significant pericardial effusion noted. Conclusion 1. Technically difficult study because of the patient factors and poor acoustic windows. 2. Mild biatrial enlargement, normal left ventricular size, mild concentric left ventricular hypertrophy, visually estimated ejection fraction 55% in the obtained views, grade 1 diastolic dysfunction seen without tissue Doppler evidence of raise left atrial pressure. 3. Mildly enlarged right ventricle with normal contractility. 4. Mild mitral regurgitation. 5. No significant pericardial effusion noted. Electronically signed by : Jay Merlos, 07/17/2020 15:57:37
--- NOTE | 2020-07-16 08:00 | HMH.ITSHM ---
Current Home Medications as stated by this patient Kuldeep Nye or parts sales representative. []OXYBUTYNIN JANUVIA CARVEDILOL FUROSEMIDE CYCLOBENZAPRINE GLIPIZIDE LISINOPRIL DONEPEZIL ASA VITAMIN B12 VITAMIN D3 BIOTIN NASAL SPRAY
== END ==
PROVIDERS: PCP Family Medicine; Visit Provider Nurse Practitioner Family
DX: I25.10 Atherosclerotic heart disease of native coronary artery without angina pectoris; R06.02 Shortness of breath; R94.31 Abnormal electrocardiogram [ECG] [EKG]
CPT/HCPCS: 78452; 93017; 93306; A9502

== ENCOUNTER 2021-03-23 11:53 | Emergency (ER) | payer MEDICARE, BC, SELFPAY ==
[2021-03-23 11:54] VITALS: BP 130/73; PULSE 69; RESP 16; TEMP 36.7; O2SAT 96; BMI 33.9
--- NOTE | 2021-03-23 13:03 | HMH.EDWNDL ---
ED Disposition Clinical Impression: Laceration of left thumb Qualifiers: Encounter type: initial encounter Damage to nail status: without damage Foreign body presence: without foreign body Qualified Code(s): S61.012A - Laceration without foreign body of left thumb without damage to nail, initial encounter Disposition: Home, Self-Care Condition on Discharge: Good Instructions: DI for Laceration Repair Referrals: Kyle Romo MD [Primary Care Provider] - - Critical Care Critical Care Time: No Attestation: On 03/23/21, the high probability of a clinically significant, sudden or life threatening deterioration of the following system(s) required my full and direct attention, intervention and personal management. The time I documented below is in addition to time spent performing reported procedures but includes the following listed in this critical care notation. Medical Decision Making - Medical Records Medical records reviewed: Yes: I reviewed the patient's medical records. - Tay[place] Inquiry Pt receiving controlled substance: No Vital Signs: 03/23/21 11:54 Temperature 98.0 F Temperature Source Oral Pulse Rate [Right Radial] 69 Respiratory Rate 16 Blood Pressure [Right Arm] 130/73 Blood Pressure Mean [Right Arm] 92 Blood Pressure Source [Right Arm] Automatic Cuff Blood Pressure Position [Right Arm] Sitting 02 Sat by Pulse Oximetry 96 Oxygen Delivery Method Room Air - Reevaluation(s) Time: 13:05 Reevaluation #1: Patient tolerated procedure well. Need suture removal in 10 days. Given strict return precautions for any change in symptoms. Follow-up with PCP in 48 hours. Verbalized understanding. Medical Decision Narrative: 75-year-old male presented with a laceration to the left thumb. Patient will require suture repair. There is no evidence of tendon or muscle bed involvement. No compartment syndrome or infection. Tetanus updated. Wound/Laceration HPI - General Chief Complaint: Wound/Laceration Stated Complaint: AO 03/23/21 1130 lac to left thumb Time Seen by Provider: 03/23/21 12:00 Mode of Arrival: Ambulatory Limitations: No Limitations Description of Symptoms (Recalled from ER Triage Doc. by RN): Pt presents to ED with lac to left thumb. Pt states that he cut it on a saw blade as he was cutting wood - History of Present Illness HPI narrative: Is a 75-year-old male presented to the emergency department with a laceration to his left thumb. Patient states that this occurred just prior to arrival. He was using a saw when it kicked back and hit his left thumb. He has been bleeding instantly. He did place pressure dressing which has helped. Denies any other injuries. Unsure of his last tetanus. No chest pain or shortness of breath. No change in vision. No focal weakness. - Related Data Home Medications Medication Instructions Recorded Confirmed Cyclobenzaprine HCl 5 mg PO HSP PRN 12/24/17 07/08/20 [Cyclobenzaprine 5mg Tab*] Donepezil HCl [Aricept 10mg 10 mg PO HS 12/24/17 07/08/20 tablet] Furosemide [Furosemide 40MG tAB*] 40 mg PO DAILY 12/24/17 07/08/20 Levothyroxine Sodium 75 mcg PO DAILY 12/24/17 07/08/20 [Levothyroxine 75mcg (0.075mg) Tab] Tamsulosin HCl [Flomax 0.4mg 0.4 mg PO HS 12/24/17 07/08/20 capsule] Aspirin [Aspir 81] 81 mg PO DAILY 12/25/17 07/08/20 Cholecalciferol (Vitamin D3) 1,000 unit PO DAILY 12/25/17 07/08/20 [Vitamin D3 1,000 Unit Cap] Cyanocobalamin (Vitamin B-12) 5,000 mcg SL DAILY 12/25/17 07/08/20 [Vitamin B-12] Vit C/Ascorb Sod/Multivit-Min 500 mg PO DAILY 12/25/17 07/08/20 [Emergen-C 500 mg Chewable Tab] Rosuvastatin Calcium [Crestor 5mg 5 mg PO DAILY 05/17/18 07/08/20 Tablets] glipizide 10 mg tablet, extended 10 mg PO DAILY tab 01/08/20 07/08/20 release 24 hr empagliflozin 10 mg tablet 10 mg PO DAILY tab 07/08/20 07/08/20 oxybutynin chloride 10 mg 10 mg PO DAILY tab 07/08/20 07/08/20 tablet,extended release 24 h
[2021-03-23 13:26] VITALS: BP 131/79; PULSE 87; RESP 18; TEMP 36.8; O2SAT 97
== END 2021-03-23 13:34 | disposition home or self-care (01) ==
PROVIDERS: Emergency Provider Emergency Medicine; PCP Family Medicine
DX: S61.012A Laceration without foreign body of left thumb without damage to nail, initial encounter (principal); W29.3XXA Contact with powered garden and outdoor hand tools and machinery, initial encounter; Y92.017 Garden or yard in single-family (private) house as the place of occurrence of the external cause; E11.9 Type 2 diabetes mellitus without complications; E78.5 Hyperlipidemia, unspecified; I10 Essential (primary) hypertension; Z23 Encounter for immunization
CPT/HCPCS: 12002; 90715; 96372; 99282

== ENCOUNTER 2021-04-01 06:40 | Emergency (ER) | payer MEDICARE, BC, SELFPAY ==
[2021-04-01 06:41] VITALS: BP 167/94; PULSE 75; RESP 18; TEMP 36.6; O2SAT 95; BMI 34.9
--- NOTE | 2021-04-01 06:53 | HMH.EDGENADL ---
ED Disposition Clinical Impression: Laceration of finger with infection Qualifiers: Encounter type: initial encounter Qualified Code(s): S61.219A - Laceration without foreign body of unspecified finger without damage to nail, initial encounter Disposition: Home, Self-Care Condition on Discharge: Fair Instructions: DI for Debridement of a Wound, Infection, or Burn, DI for Laceration Repair, DI for Wound Infection Additional Instructions: You have been evaluated for wound infection. Please keep the wound dressed with triple antibiotic ointment. Take antibiotics twice daily as prescribed. Follow-up with your primary care doctor within 2 to 3 days for a wound check. Return to the emergency department for any new or worsening symptoms, fever, redness, wound drainage, other concerns. Prescriptions: Sulfamethoxazole/Trimethoprim [Bactrim DS tablet] 1 each PO BID #14 tab Transmission Status: Received by [facility] Neomycin/Bacitracin/Polymyxinb [Triple Antibiotic Ointment] 9 gm TP BID #9 gm Transmission Status: Pending to [facility] Referrals: Provider,Referral, [Referring] - Time of Disposition: 07:01 - Critical Care Critical Care Time: No Attestation: On 04/01/21, the high probability of a clinically significant, sudden or life threatening deterioration of the following system(s) required my full and direct attention, intervention and personal management. The time I documented below is in addition to time spent performing reported procedures but includes the following listed in this critical care notation. Medical Decision Making - Medical Records Medical records reviewed: Yes: I reviewed the patient's medical records. - Tayo Inquiry Pt receiving controlled substance: No Vital Signs: 04/01/21 06:41 Temperature 97.8 F Temperature Source Oral Pulse Rate [Apical] 75 Respiratory Rate 18 Blood Pressure [Right Arm] 167/94 H Blood Pressure Mean [Right Arm] 118 Blood Pressure Source [Right Arm] Automatic Cuff Blood Pressure Position [Right Arm] Sitting 02 Sat by Pulse Oximetry 95 Oxygen Delivery Method Room Air Medical Decision Narrative: In summary this is a 75-year-old [id number] male presenting to the emergency department with a wound and laceration to the pad of the left thumb. Patient clinically stable on arrival. Vital signs within normal limits. Concern for superficially infected laceration wound. Soaked in Hibiclens. Wound debrided. Appears to be quite superficial. Doubt significant soft tissue abscess. There is minimal pain with thumb flexion. Not held in passive flexion. Nontender to palpation over the flexor tendon. Overall presentation is most concerning for a superficial wound. Doubt flexor tenosynovitis. Patient given prescription for Bactrim. Counseled on wound management. Stable for discharge General Adult HPI - General Chief complaint: Skin/Abscess/Foreign Body Stated complaint: suture removal Time Seen by Provider: 04/01/21 06:50 Mode of Arrival: Ambulatory Limitations: No Limitations Description of Symptoms (Recalled from ER Triage Doc. by RN): Patient injured his left thumb approximately 9 days ago resulting in sutures. Patient presents in ER this morning to get the sutures removed. During the removal the patient reported drainage from wound and states he can feel his heart beat in his thumb. Redness and swelling noted. - History of Present Illness HPI narrative: 75-year-old male presenting to the emergency department with a wound to his left thumb. Patient sustained a laceration by a table saw on March 23. He required 7 sutures. Went to take the sutures out today and noticed there was redness and drainage. The wound is now open, somewhat painful, hot to the touch. Minimal pain with thumb flexion. no pain with extension. The laceration is over the pad of the thumb. Does not cross the IP joint. Does not involve the nail. He had the wound cleaned
[2021-04-01 07:29] VITALS: BP 123/74; PULSE 78; RESP 16; TEMP 36.6; O2SAT 98
== END 2021-04-01 07:31 | disposition home or self-care (01) ==
PROVIDERS: Emergency Provider Emergency Medicine; PCP Family Medicine
DX: S61.012D Laceration without foreign body of left thumb without damage to nail, subsequent encounter (principal)
CPT/HCPCS: 99281

== ENCOUNTER 2021-08-27 07:39 | Emergency (ER) | payer MEDICARE, BC, SELFPAY ==
[2021-08-27 07:47] VITALS: BP 142/85; PULSE 71; RESP 17; TEMP 36.7; O2SAT 94; BMI 35.9
--- NOTE | 2021-08-27 07:51 | XR_ITS ---
FINAL REPORT CLINICAL HISTORY: cough COMPARISON: May 27, 2018 FINDINGS: 2 views of the chest were obtained. The heart size is normal. The mediastinum is unremarkable. There is mild scarring. There is stable right pleural thickening. There are no pleural effusions. There is no pneumothorax. There are moderate degenerative changes in the thoracic spine. IMPRESSION: Stable exam as compared to prior. Reviewed, Interpreted and Dictated by Riki Garcia III, MD Transcribed by Nishi Perea Authenticated by Riki Garcia III, MD on 08/27/2021 08:46:52 AM [facility]
[2021-08-27 07:57] LABS: Coronavirus 19, PCR Not Detected (NotDetected); Influenza A, PCR Not Detected (NotDetected); Influenza B, PCR Not Detected (NotDetected)
--- NOTE | 2021-08-27 07:59 | PC.NURSE ---
ED MD at
--- NOTE | 2021-08-27 08:04 | HMH.EDGENADL ---
ED Disposition Clinical Impression: Bronchitis Sinusitis Qualifiers: Sinusitis location: maxillary Chronicity: acute Recurrence: non-recurrent Qualified Code(s): J01.00 - Acute maxillary sinusitis, unspecified Disposition: Home, Self-Care Condition on Discharge: Good Instructions: Sinusitis, DI for Acute Bronchitis Additional Instructions: follow up pcp if not better, return here for worse or any concerns Prescriptions: Albuterol Sulfate [Albuterol Sulfate Hfa] 8.5 gm IH Q4-6H PRN #1 each PRN Reason: Shortness Of Breath Or Wheezing Transmission Status: Received by [facility] Azithromycin [Zithromax 250mg tab] 250 mg PO DIRECTED #6 tab Transmission Status: Received by [facility] Referrals: Mg Francis MD [Primary Care Provider] - - Critical Care Critical Care Time: No Attestation: On 08/27/21, the high probability of a clinically significant, sudden or life threatening deterioration of the following system(s) required my full and direct attention, intervention and personal management. The time I documented below is in addition to time spent performing reported procedures but includes the following listed in this critical care notation. Medical Decision Making - Medical Records Medical records reviewed: Yes: I reviewed the patient's medical records. - Tayo Inquiry Pt receiving controlled substance: No Vital Signs: 08/27/21 07:47 08/27/21 08:32 Temperature 98.1 F 98.1 F Temperature Source Oral Oral Pulse Rate 70 Pulse Rate [Left Radial] 71 Respiratory Rate 17 18 Blood Pressure 138/74 Blood Pressure [Right Arm] 142/85 H Blood Pressure Mean [Right Arm] 104 02 Sat by Pulse Oximetry 94 L Oxygen Delivery Method Room Air Room Air - Lab Data Lab Results 08/27/21 07:53: SARS-CoV-2 (PCR) Not detected, Influenza A Untype (PCR) Not detected, Influenza Type B (PCR) Not detected General Adult HPI - General Chief complaint: Upper Respiratory Infection Stated complaint: body aches, sore throat, cough, congestion Time Seen by Provider: 08/27/21 07:45 Mode of Arrival: Ambulatory Limitations: No Limitations Description of Symptoms (Recalled from ER Triage Doc. by RN): pt to ed c/o fever, body aches and non-productive cough x2 days. - History of Present Illness HPI narrative: uri symptoms, sinus congestion/pressure, prod cough, sub fever, few days Onset (ago): day(s) Severity: moderate Consistency: constant Relieving factors: none Exacerbating factors: none Associated symptoms: cough, fever/chills, shortness of breath - Related Data Home Medications Medication Instructions Recorded Confirmed Cyclobenzaprine HCl 5 mg PO HSP PRN 12/24/17 07/08/20 [Cyclobenzaprine 5mg Tab*] Donepezil HCl [Aricept 10mg 10 mg PO HS 12/24/17 07/08/20 tablet] Furosemide [Furosemide 40MG tAB*] 40 mg PO DAILY 12/24/17 07/08/20 Levothyroxine Sodium 75 mcg PO DAILY 12/24/17 07/08/20 [Levothyroxine 75mcg (0.075mg) Tab] Tamsulosin HCl [Flomax 0.4mg 0.4 mg PO HS 12/24/17 07/08/20 capsule] Aspirin [Aspir 81] 81 mg PO DAILY 12/25/17 07/08/20 Cholecalciferol (Vitamin D3) 1,000 unit PO DAILY 12/25/17 07/08/20 [Vitamin D3 1,000 Unit Cap] Cyanocobalamin (Vitamin B-12) 5,000 mcg SL DAILY 12/25/17 07/08/20 [Vitamin B-12] Vit C/Ascorb Sod/Multivit-Min 500 mg PO DAILY 12/25/17 07/08/20 [Emergen-C 500 mg Chewable Tab] Rosuvastatin Calcium [Crestor 5mg 5 mg PO DAILY 05/17/18 07/08/20 Tablets] glipizide 10 mg tablet, extended 10 mg PO DAILY tab 01/08/20 07/08/20 release 24 hr empagliflozin 10 mg tablet 10 mg PO DAILY tab 07/08/20 07/08/20 oxybutynin chloride 10 mg 10 mg PO DAILY tab 07/08/20 07/08/20 tablet,extended release 24 hr sitagliptin 100 mg tablet 100 mg PO DAILY tab 07/08/20 07/08/20 carvedilol 25 mg tablet 25 mg PO BID tab 10/22/20 lisinopril 5 mg tablet 40 mg PO DAILY tab 10/22/20 Previous Rx's Medication Instructions Recorded
[2021-08-27 08:32] VITALS: BP 138/74; PULSE 70; RESP 18; TEMP 36.7; O2SAT 95
== END 2021-08-27 08:36 | disposition home or self-care (01) ==
PROVIDERS: Emergency Medicine; Emergency Provider Emergency Medicine; PCP Family Medicine
DX: J20.9 Acute bronchitis, unspecified (principal); J01.00 Acute maxillary sinusitis, unspecified; E11.9 Type 2 diabetes mellitus without complications; E78.5 Hyperlipidemia, unspecified; Z79.899 Other long term (current) drug therapy
CPT/HCPCS: 71046; 99283; C9803; U0003; U0005

== ENCOUNTER → 2021-10-30 08:06 | Outpatient (CLI) | payer MEDICARE, BC, SELFPAY ==
--- NOTE | 2021-10-30 08:07 | MR_ITS ---
FINAL REPORT CLINICAL HISTORY: memory loss. MEMORY LOSS X1 YEAR. HEADACHE. FINDINGS: Multiplanar MR imaging of the brain was performed without contrast. There is age-appropriate atrophy. There are scattered foci of increased T2 signal in the cerebral white matter that have a nonspecific appearance but likely represent severe chronic ischemic/gliotic changes. There is no evidence of intracranial hemorrhage or mass. No abnormal ventricular dilatation is identified. No abnormal extra-axial fluid collection is seen. There is a 10 mm focus of restricted diffusion in the left centrum semiovale consistent with acute infarct. The posterior fossa and brainstem are unremarkable. Normal major vessel vascular flow voids are seen. IMPRESSION: Age-appropriate atrophy and mild chronic ischemic/gliotic changes. A 10 mm focus in the left centrum semiovale consistent with acute infarct. The findings were discussed with Damari Diggs, the patient's nurse, at 9:36 a.m. on 10/30/2021. Reviewed, Interpreted and Dictated by Riki Garcia III, MD Transcribed by April Cantu Authenticated and . [facility]
== END ==
PROVIDERS: PCP Family Medicine; Visit Provider Specialist
DX: R41.3 Other amnesia (principal)
CPT/HCPCS: 70551

== ENCOUNTER → 2021-11-02 10:04 | Outpatient (CLI) | payer MEDICARE, BC, SELFPAY ==
--- NOTE | 2021-11-02 10:24 | ECG_ITS ---
APPROVED REPORT Exam: Resting ECG HR:65 bpm ECG Measurements Heart Rate 65 AXES AZ 214 P 38 QRSd 82 QRS 21 QT 389 T 29 QTc 400 Conclusion SINUS RHYTHM WITH FIRST DEGREE AV BLOCK LOW QRS VOLTAGE IN EXTREMITY LEADS [QRS DEFLECTION < 0.5 mV IN LIMB LEADS] ABNORMAL ECG UNCONFIRMED REPORT Electronically signed by : Kyle Stewart MD 11/02/2021 21:43:01
--- NOTE | 2021-11-02 10:39 | CT_ITS ---
FINAL REPORT CLINICAL HISTORY: CVA, new onset of headache COMPARISON: 10/10/2021 FINDINGS: Axial images of the head were obtained without contrast. Coronal reformatted images were also obtained. This study was performed with techniques to keep radiation doses as low as reasonably achievable (ALARA). Individualized dose reduction techniques using automated exposure control or adjustment of mA and/or kV according to the patient''s size were employed. There is generalized age-appropriate atrophy. Periventricular low-attenuation areas are seen consistent with mild chronic ischemic changes. There is no evidence of intracranial hemorrhage or mass. There is no evidence of acute infarct. There is no evidence of shift of the midline structures. No skull abnormality is seen on the bone window images. IMPRESSION: Atrophy and mild periventricular chronic ischemic changes. No acute intracranial abnormality identified. Reviewed, Interpreted and Dictated by Riki Garcia III, MD Transcribed by Laureen Powers Authenticated and [facility]
[2021-11-02 10:41] LABS: Cholesterol 136 mg/dl (140-200); Triglycerides 146 mg/dl (30-150); VLDL Cholesterol 29 mg/dL (0-40)
[2021-11-02 10:42] LABS: Chol/HDL Ratio 3.2 (1-3.5); HDL Cholesterol 42 mg/dl (40-60)
[2021-11-02 10:52] LABS: Direct LDL Cholesterol 59.48 mg/dL (100-129); Erythrocyte Sedimentation Rate 14 mm/hr (0-20)
== END ==
PROVIDERS: PCP Family Medicine; Visit Provider Specialist
DX: I63.312 Cerebral infarction due to thrombosis of left middle cerebral artery; I10 Essential (primary) hypertension; G44.52 New daily persistent headache (NDPH)
CPT/HCPCS: 36415; 70450; 80061; 85651; 93005; 93225; 93226

== ENCOUNTER → 2021-11-06 10:16 | Outpatient (CLI) | payer MEDICARE, BC, SELFPAY ==
--- NOTE | 2021-11-06 10:17 | CA_ITS ---
APPROVED REPORT EXAM: Comprehensive 2D, Doppler, and color-flow Echocardiogram [employer]: Janeth Martínez CRT Ht: 5 ft 5 in Wt: 213lbs BSA: 2.03 BP: 118/68 mmHg Indications: Diabetes, CAD, Hyperlipidemia, Hypertension/HDD, CVA TDE due to lung interference and bodu habitus. Pt very barrell-chested. Best images possible obtained. Limited parasternal long and short. 2D Dimensions LVOT 2.07 cm (M/F) 1.5-2.5 M-Mode Dimensions LA Diam 3.14 cm (1.9-4.0) Ao Diam 5.25 cm (2.0-3.7) LV Diastology E Decel Time 273.00 (160-240 msec) E/A Ratio 0.63 MED E' 5.70 (< 7 cm/sec) MED A' 6.80 cm/s E'/MED E' Ratio 11.74 (>14) LAT E' 6.90 (<10 cm/sec) LAT A' 9.80 cm/s E/LAT E' Ratio 9.70 (>14) Aortic Valve AO Peak GR. 6.40 mmHg Mitral Valve MV E Max Rom. 67.00 (40-130 cm/s) MV A Velocity 107.00 (40-130 cm/s) E/A Ratio 0.63 MV Decel. Time 273.00 (160-240 ms) MV PHT 80.00 ms Tricuspid Valve TR P. Velocity 176.00 cm/s RAP Estimate 10.00 mmHg RVSP 22.40 mmHg Left Ventricle Technically difficult study because of the patient factors and poor acoustic windows. Left atrium is mildly enlarged, left ventricle is normal size mild concentric left ventricular hypertrophy, estimated ejection fraction 55% with no regional wall motion abnormality, grade 1 diastolic dysfunction seen without tissue Doppler evidence of raise left atrial pressure. Right Ventricle Right atrium and right ventricle are normal size and contractility. Aortic Valve Aortic valve is minimally thickened and fibrosed there is no aortic stenosis or aortic insufficiency. Mitral Valve Mitral valve grossly normal, there is trace mitral regurgitation. Tricuspid Valve Tricuspid valve grossly normal, there is trace tricuspid regurgitation, tricuspid regurgitation jet velocity is inadequate for calculation of the right ventricular systolic pressure. Pulmonic Valve Pulmonic valve is poorly visualized. Great Vessels Aortic root is normal size. Inferior vena cava is poorly visualized. Pericardium No significant pericardial effusion noted. Conclusion 1. Mildly enlarged left atrium, normal left ventricular size, mild concentric left ventricular hypertrophy, estimated ejection fraction 55% with no regional wall motion abnormality, grade 1 diastolic dysfunction seen without tissue Doppler evidence of raise left atrial pressure. 2. Trace mitral and tricuspid regurgitation. 3. No significant pericardial effusion noted. 4. Inferior vena cava is poorly visualized. Electronically signed by : Jay Merlos MD 11/06/2021 13:33:16
--- NOTE | 2021-11-06 10:17 | CA_ITS ---
FINAL REPORT TECHNIQUE: Color Doppler, duplex Doppler and garcia scale sonography of the bilateral neck arterial vasculature was performed. Velocities were measured in the carotid arteries. Stenosis evaluation based on the validated velocity criteria. CLINICAL HISTORY: acute CVA and new onset of headache, DM, HTN, HLD, ALAN FINDINGS: The peak systolic velocity of the right common carotid artery is 117 cm/s. The peak systolic velocity of the right internal carotid artery is 66 cm/s and end diastolic velocity 16 cm/s. The ICA/CCA ratio is 0.8. A mild to moderate amount of plaque is present. The right external carotid artery is patent. The right vertebral artery is patent with antegrade flow. The peak systolic velocity of the left common carotid artery is 121 cm/s. The peak systolic velocity of the left internal carotid artery is 60 cm/s and end diastolic velocity 21 cm/s. The ICA/CCA ratio is 0.5. A mild to moderate amount of plaque is present. The left external carotid artery is patent.The left vertebral artery is not visualized and may be occluded. IMPRESSION: Less than 50% bilateral carotid stenosis. Right vertebral artery is patent with antegrade flow. Left vertebral artery not visualized and may be occluded. If indicated, CTA or MRA could further evaluate. Reviewed, Interpreted and Dictated by Riki Garcia III, MD Transcribed by Marbella Isbell Authenticated and [facility]
== END ==
PROVIDERS: PCP Family Medicine; Visit Provider Specialist
DX: I63.312 Cerebral infarction due to thrombosis of left middle cerebral artery (principal); I25.10 Atherosclerotic heart disease of native coronary artery without angina pectoris
CPT/HCPCS: 93306; 93880

== ENCOUNTER → 2021-11-10 11:44 | Outpatient (CLI) | payer MEDICARE, BC, SELFPAY | PROVIDERS: PCP Family Medicine; Visit Provider Specialist | DX: G47.33 Obstructive sleep apnea (adult) (pediatric) (principal); I10 Essential (primary) hypertension; R41.3 Other amnesia; R06.83 Snoring | CPT/HCPCS: G0399 ==

== ENCOUNTER → 2021-11-11 15:54 | Outpatient (CLI) | payer MEDICARE, BC, SELFPAY ==
--- NOTE | 2021-11-11 16:06 | MR_ITS ---
PROCEDURE INFORMATION: Exam: MRA Head Without Contrast; Arteriography Exam date and time: 11/11/2021 4:18 PM Age: 75 years old Clinical indication: Pain; Headache; Additional info: CVA. Headache. Stroke 3-4weeks ago. TECHNIQUE: Imaging protocol: Magnetic resonance angiography head without contrast. Fikd-kd-nsgfsc (TOF) technique was utilized for this exam. Exam focused on the arteries. COMPARISON: 1. CT HEAD/BRAIN WO CON 11/02/2021 10:39 AM 2. MR HEAD/BRAIN WO CON 10/30/2021 8:17 AM FINDINGS: ANTERIOR CIRCULATION: Right internal carotid artery: Intracranial segment is patent with no significant stenosis. No aneurysm. Right middle cerebral artery: No occlusion or significant stenosis. No aneurysm. Right anterior cerebral artery: No occlusion or significant stenosis. No aneurysm. Left internal carotid artery: Intracranial segment is patent with no significant stenosis. No aneurysm. Left middle cerebral artery: No occlusion or significant stenosis. No aneurysm. Left anterior cerebral artery: A2 stenoses are identified of the left anterior cerebral artery. No aneurysm. POSTERIOR CIRCULATION: Right vertebral artery: The distal right vertebral artery is patent. The proximal V4 segment the right vertebral artery is out of the field of view of this study. Left vertebral artery: There is decreased signal intensity/flow within the distal left vertebral artery. The proximal V4 segment of the left vertebral artery is out of the field of view of this study. Basilar artery: No occlusion or significant stenosis. No aneurysm. Right posterior cerebral artery: Persistence of the origin of the right posterior cerebral artery. No significant stenosis P1 or P2 segments. Artifact limits evaluation of a P3 segment of the right [employer], and patency of the vessel cannot be confirmed. 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 No significant stenosis or occlusion of the remaining left [employer]. The left posterior communicating artery is patent. No aneurysm. IMPRESSION: 1. There is decreased signal intensity/flow within the distal left vertebral artery. 2. Persistence of the origin of the right posterior cerebral artery. Artifact limits evaluation of a P3 segment of the right [employer], and patency of the vessel cannot be confirmed. If further evaluation is clinically indicated, CTA is recommended. 3. A2 stenoses are identified of the left anterior cerebral artery. 4. Additional findings described above.
--- NOTE | 2021-11-11 16:06 | MR_ITS ---
PROCEDURE INFORMATION: Exam: MRA Neck Without Contrast Exam date and time: 11/11/2021 4:18 PM Age: 75 years old Clinical indication: Pain; Headache; Additional info: CVA. Headache. Stroke 3-4weeks ago. TECHNIQUE: Imaging protocol: Magnetic resonance angiography of the neck without contrast. Tsnl-gp-gqvinz (TOF) technique was utilized for this exam. COMPARISON: 1. US CA CAROTID DUPLEX BI 11/06/2021 10:47 AM 2. MR HEAD/BRAIN WO CON 10/30/2021 8:17 AM FINDINGS: Right common carotid artery: The distal right common carotid artery is patent without significant stenosis or occlusion. The remaining common carotid artery is out of the field of view of this study. Right internal carotid artery: The distal right internal carotid artery is out of the field of view of this study. No stenosis of the visualized extracranial right internal carotid artery using NASCET criteria. Right external carotid artery: No significant stenosis. No occlusion. Right vertebral artery: The V1 and proximal V2 segments of the right vertebral artery are out of the field of view of this study. There is decreased signal intensity of the distal V3 segment the right vertebral artery, suggestive of artifact or decreased flow. The V2 segment of the right vertebral artery is patent, as visualized. Left common carotid artery: The distal left common carotid artery is patent without significant stenosis or occlusion. The remaining common carotid artery is out of the field of view of this study. Left internal carotid artery: The distal left internal carotid artery is out of the field of view of this study. No stenosis of the visualized extracranial left internal carotid artery using NASCET criteria. Left external carotid artery: No significant stenosis. No occlusion. Left vertebral artery: There is nonvisualization of flow within the left vertebral artery, consistent with occlusion. IMPRESSION: 1. Left vertebral artery occlusion. 2. No stenosis of the extracranial internal carotid arteries bilaterally using NASCET criteria, as visualized. 3. There is decreased signal intensity of the distal V3 segment the right vertebral artery, suggestive of artifact or decreased flow. 4. Additional findings described above. REFERENCES: NASCET CRITERIA. The degree of internal carotid artery stenosis is based on NASCET criteria. Normal is no stenosis. Mild is less than 50% stenosis. Moderate is 50-69% stenosis. Severe is 70% to 99% stenosis. Total occlusion is no detectable patent lumen.
== END ==
PROVIDERS: PCP Family Medicine; Visit Provider Specialist
DX: I63.312 Cerebral infarction due to thrombosis of left middle cerebral artery (principal); R09.89 Other specified symptoms and signs involving the circulatory and respiratory systems
CPT/HCPCS: 70544; 70547

== ENCOUNTER 2021-11-19 16:00 | Outpatient (RCR) | payer MEDICARE, BC, SELFPAY | END 2021-11-19 16:05 | disposition home or self-care (01) | LOC: PT 16:00 | PROVIDERS: PCP Family Medicine; Visit Provider Orthopaedic Surgery | DX: M54.50 Low back pain, unspecified (principal) | CPT/HCPCS: 97010; 97014; 97110; 97112; 97140; 97163; 97530; G0283 ==

== ENCOUNTER → 2021-12-04 07:13 | Outpatient (CLI) | payer MEDICARE, BC, SELFPAY ==
--- NOTE | 2021-12-04 | CA_ITS ---
APPROVED REPORT Exam: Pharmacologic Technologist: Zenaida Vinson, Ht: 5 ft 5 in Wt: 211 lbs BSA: 2.02 m2 HR: 70 bpm BP: 110/76 mmHg Rhythm: NSR, T wave inversion inferiorly Medical History Medical History: HTN, Hyperlipidemia, Diabetes, Smoking Medications: Lisinopril,,,,, Levothyroxine,,,,, Aspirin,,,,, Carvedilol,,,,, Glipizide,,,,, MeLOXICAM,,,,, Plavix,,,,, DONEPEZIL,,,,, MeMANTINE,,,,, RoSUVASTATIN,,,,, CyclobenAPRINE,,,,, Sitagliptin,,,,, Cardiac Risk Factors: HTN, Hyperlipidemia, Diabetes (non-insulin), FHX of CAD, Smoking Stress Test Details Test: LEXISCAN HR Resting HR: 67 bpm Max Heart Rate (APMHR): 147.962151 bpm Max HR Achieved: 91 bpm Target HR (85% APMHR): 124.884150 bpm % of APMHR: 61.90 Recovery HR: 82 bpm BP Resting BP: 110/76 mmHg Max BP: 135/69 mmHg Recovery BP: 126.0/74.0 mmHg ECG Resting ECG: NSR, T wave inversion inferiorly Clinical Reason for Termination: Completed Protocol Exercise duration: 04:01 min Highest Stage Achieved: Stress ECG Conclusion During lexiscan pt experinced no CP. No arrhythmias noted. <1.5mm ST segment changes. Non diagnostic. Electronically signed by : Jay Merlos MD 12/04/2021 13:15:33
--- NOTE | 2021-12-04 07:13 | NM_ITS ---
APPROVED REPORT Exam: Nuclear Stress Test Indication: chest pain..short of breath..fatigue Patient Location: Outpatient Stress Tech: Zenaida CRANDALL Tech:Dalila Spencer BJDakota RT(R)(N) Ht: 5 ft 5 in Wt: 207 lbs HR: 67 bpm BP: 110/76 mmHg BSA: 2.01 m2 BMI: 34.4 History: chest pain..short of breath..fatigue Procedure: Patient received a 0.4 mg of intravenous Lexiscan, resting heart rate 67 bpm, resting blood pressure 110/76 mmHg, with Lexiscan maximum heart rate achived was 91 bpm which is Less than 85 % of the maximum predicted heart rate and blood pressure was 135/69 mmHg. With Lexiscan, patient denied any complaint of chest pain. Electrocardiogram Resting electrocardiogram shows sinus rhythm, with Lexiscan there is less than 1.[address] segment depression noted from the baseline EKG. The EKG portion of the Lexiscan is nondiagnostic. Cardiac Stress and Resting SPECT Images: Cardiac Stress and Resting SPECT images were obtained using technetium 99m Myoview 31.0 mCi stress and 10.70 mCi at rest. Gated SPECT analysis of segmental wall motion and calculation of the ejection fraction also done. Prone images were also obtained. Cardiac stress and rest SPECT images showed decrease restrictively in the inferior wall which improves on the resting images suggestive of reversible ischemia, computer derived ejection fraction is 63% with no regional wall motion abnormality, right ventricle is normal size and contractility. Conclusion: 1. The EKG portion of the Lexiscan is nondiagnostic. 2. Scintigraphic evidence of reversible ischemia involving the inferior wall, compared to ejection fraction 63% with no regional wall motion abnormality, right ventricle is normal size and contractility. 3. Abnormal Lexiscan Myoview study. Electronically signed by : Jay Merlos MD 12/04/2021 13:18:52
== END ==
PROVIDERS: PCP Family Medicine; Visit Provider Physician Assistant
DX: E11.69 Type 2 diabetes mellitus with other specified complication (principal); E66.9 Obesity, unspecified; E78.5 Hyperlipidemia, unspecified; I10 Essential (primary) hypertension; I25.10 Atherosclerotic heart disease of native coronary artery without angina pectoris; R06.00 Dyspnea, unspecified; R07.9 Chest pain, unspecified; R94.31 Abnormal electrocardiogram [ECG] [EKG]
CPT/HCPCS: 78452; 93017; A9502; J2785

== ENCOUNTER → 2021-12-15 09:31 | Outpatient (CLI) | payer MEDICARE, BC, SELFPAY ==
[2021-12-15 11:05] LABS: Basophils # 0.1 K/mm3 (0-0.2); Basophils % 1.2 % (0.1-2.0); Eosinophils # 0.3 K/mm3 (0.0-0.4); Eosinophils % 5.5 % (0.1-12.0); Hematocrit 41.6 % (42.0-52.0); Hemoglobin 13.3 g/dL (14.1-18.0); Lymphocytes # 1.9 K/mm3 (0.7-4.5); Lymphocytes % 38.6 % (10-50); Mean Corpuscular Volume 99.8 fl (80-94); Mean Platelet Volume 10.3 fl (7.4-10.4); Monocytes # 0.3 K/mm3 (0.1-1.0); Monocytes % 6.3 % (1.7-9.3); Neutrophils # 2.4 K/mm3 (1.8-7.8); Neutrophils % 48.5 % (37.0-80.0); Platelet Count 159 K/mm3 (142-424); Red Blood Count 4.17 M/mm3 (4.60-6.20); Red Cell Distribution Width 14.2 % (11.5-17.5)
[2021-12-15 11:40] LABS: Anion Gap 9.6 mEq/L (5-15); Blood Urea Nitrogen 17 mg/dl (9-20); Calcium 8.9 mg/dl (8.4-10.2); Carbon Dioxide 26 mmol/L (22.0-30.0); Chloride 109 mmol/L (98-107); Estimated Glomerular Filt Rate 73 ml/min (>60); GFR (African American) 89 ML/MIN (>60); Glucose 125 mg/dl (74-100); Potassium 4.6 mmoL/L (3.5-5.1); Sodium 140 mmol/L (136-145)
== END ==
PROVIDERS: PCP Family Medicine; Visit Provider Physician Assistant
DX: E11.69 Type 2 diabetes mellitus with other specified complication (principal); E66.9 Obesity, unspecified; E78.2 Mixed hyperlipidemia; I10 Essential (primary) hypertension; I20.8 Other forms of angina pectoris; I63.9 Cerebral infarction, unspecified; R06.02 Shortness of breath; R94.39 Abnormal result of other cardiovascular function study; Z01.812 Encounter for preprocedural laboratory examination; Z20.822 Contact with and (suspected) exposure to COVID-19; Z68.35 Body mass index [BMI] 35.0-35.9, adult; Z79.84 Long term (current) use of oral hypoglycemic drugs
CPT/HCPCS: 36415; 80048; 85025; C9803; U0003; U0005

== ENCOUNTER 2021-12-16 08:58 | Day surgery (SDC) | payer MEDICARE, BC, SELFPAY ==
[2021-12-16] VITALS (48 sets, daily range): BP systolic 113–159; BP diastolic 56–87; PULSE 48–88; RESP 18–20; TEMP 36.5–36.6; O2SAT 91–97; BMI 34.7; BMI 35.3
--- NOTE | 2021-12-16 07:05 | IR_ITS ---
APPROVED REPORT Patient Location: Outpatient PROCEDURES Left heart catheterization Left ventriculogram Selective coronary angiogram Intravascular lithotripsy to the ostial proximal LAD Drug-eluting stent deployment to the ostial proximal and mid LAD in a contiguous manner INDICATION Coronary artery disease, Abnormal Myoview, Progressive angina pectoris Informed consent was obtained prior to the procedure. COMPLICATIONS NONE Estimated Blood Loss: LESS THAN 10 ML TECHNIQUE One percent lidocaine was used to anesthetize the right groin. The right femoral artery was accessed via the Seldinger technique. A 4-Haitian sheath was placed in the right femoral artery. Due to the tortuosity of the iliofemoral artery a JL 4 catheter could be used to cannulate the left main artery however JR4 catheter would not transmit the torque and allow cannulation. Ultimately a 45 cm 6 Haitian Brite tip sheath was exchanged for the 4 Haitian sheath and a 6 Haitian CRUZ guide catheter was used to perform right coronary angiography. At the end of the diagnostic angiogram therapeutic heparin was administered giving a therapeutic ACT and a Choice PT extra-support wire was placed distally in the right coronary artery. A 4 mm x 12 mm shockwave balloon was deployed at a different times at 4 and 6 erickson which pretreated the area and disrupted the severe calcification. Following this a 4 mm x 30 mm resolute Tito stent was deployed at 20 erickson in the ostial proximal segment. A guide liner was advanced and a 5 mm x 30 mm resolute [place] stent was then placed distal to this and deployed at 18 erickson. The balloon was brought back and deployed at 20 erickson and the 4 mm stent to post dilate. MARY-3 flow was present before and after the procedure. After achieving excellent angiograph results the apparatus was removed the patient was transferred to the postop putting in stable condition for sheath removal ANGIOGRAPHIC RESULTS The left main artery Normal The left anterior descending artery Has proximal 10% stenoses with a mid vessel calcified 30 to 40% stenosis and additional mid vessel 30% calcified stenosis The circumflex artery Gives rise to a large codominant ramus circumflex system. A large ramus intermedius has 3 moderate trifurcations. The superior or first branch has an ostial proximal concentric 80% calcified stenosis while the second and third ramus branch are widely patent. The true circumflex artery itself is calcified in the ostial proximal segment with 30% stenoses but patent with mid vessel diffuse 30% stenosis The right coronary artery Is a large codominant vessel and has a severe to critical ostial heavily calcified segment followed by an additional 70 to 80% stenosis followed by an ectatic tortuous area which is heavily calcified producing at least 50% stenosis The LO ventriculogram reveals Not performed The left ventricular end-diastolic pressure Not measured IMPRESSION Coronary disease as described above Severe to critical disease in the proximal dominant right coronary artery which was successfully treated by intravascular lithotripsy followed by drug-eluting stent deployment Persistent severe stenosis in a ramus intermedius as described above PLAN 1. Dual antiplatelet therapy 2. At this point I favor medical management for the branching ramus intermedius. Although this could be stented I believe it is most effectively treated medically 3. LDL less than 55 to be achieved with high intensity statin 4. Cardiac rehabilitation 5. Avoidance of tobacco products Electronically signed by : Gurpreet Crocker MD 12/16/2021 14:20:56
[2021-12-16 14:37] LABS: CATHL Activated Clotting Time > 400 SEC (74-125)
--- NOTE | 2021-12-16 15:44 | PC.NURSE ---
PT IS RESTING IN BED. PT WAS INSTRUCTED TO LAY FLAT TILL 1900 THIS EVENING. DRESSING TO THE RIGHT GROIN C/D/I. ALERT AND ORIENTED X4. LUNG SOUNDS CLEAR ABDOMEN SOFT/NON TENDER WITH ACTIVE BOWEL SOUNDS. WILL CONTINUE TO MONITOR.
[2021-12-17] VITALS: BP 150/78; PULSE 67; PULSE 96; RESP 17; TEMP 36.6; O2SAT 94
[2021-12-17 04:00] VITALS: BP 119/62; PULSE 68; RESP 17; TEMP 36.7; O2SAT 97
--- NOTE | 2021-12-17 05:03 | PC.NURSE ---
Patient a&ox4. Dressings to rt femoral an rt wrist are both CDI. Patient ambulated independently. Patient has been medicated for pain per MAR. No other complaints voiced.
[2021-12-17 05:27] VITALS: BMI 34.7
[2021-12-17 06:34] LABS: Chloride 108 mmol/L (98-107); Sodium 138 mmol/L (136-145)
[2021-12-17 06:37] LABS: Blood Urea Nitrogen 15 mg/dl (9-20); Calcium 8.9 mg/dl (8.4-10.2); Carbon Dioxide 27 mmol/L (22.0-30.0); Creatinine Clearance Estimated 88 mL/min (50-200); Estimated Glomerular Filt Rate 83 ml/min (>60); GFR (African American) 100 ML/MIN (>60); Glucose 133 mg/dl (74-100)
[2021-12-17 06:42] LABS: Basophils # 0.1 K/mm3 (0-0.2); Basophils % 1.1 % (0.1-2.0); Eosinophils # 0.3 K/mm3 (0.0-0.4); Eosinophils % 4.7 % (0.1-12.0); Hematocrit 41.2 % (42.0-52.0); Hemoglobin 12.9 g/dL (14.1-18.0); Lymphocytes # 1.9 K/mm3 (0.7-4.5); Lymphocytes % 34.2 % (10-50); Mean Corpuscular HGB Conc 31.2 g/dL (31.8-35.4); Mean Corpuscular Hemoglobin 30.9 pg (27.0-31.2); Mean Platelet Volume 10.1 fl (7.4-10.4); Monocytes # 0.3 K/mm3 (0.1-1.0); Monocytes % 6.2 % (1.7-9.3); Neutrophils # 2.9 K/mm3 (1.8-7.8); Neutrophils % 53.7 % (37.0-80.0); Platelet Count 145 K/mm3 (142-424); Red Blood Count 4.16 M/mm3 (4.60-6.20); White Blood Count 5.5 K/mm3 (4.8-10.8)
[2021-12-17 08:00] VITALS: BP 111/57; PULSE 76; RESP 16; TEMP 37.1; O2SAT 93
--- NOTE | 2021-12-17 09:38 | PC.NURSE ---
Addendum entered by Briseyda Wilks RN 12/17/21 09:41: reviewed post cath care, stent card given to patient, medications reviewed; followup lab sheet given to patient to have drawn prior to appt on 12/22/2021 at 8:30 Original Note: Patient cleared to go home per CardiologyTremaine f/akanksha in 2 weeks, dual antiplatelet therapy ASA, Plavix
--- NOTE | 2021-12-17 09:59 | HMH.PHACLD ---
Kuldeep Nye has received discharge medication counseling on the following medications: PT CURRENTLY TAKING ALL MEDICAITONS SUGGESTED FOR STENTED PATIENTS. INSTRUCTED TO CONTINUE AT HOME
== END 2021-12-17 10:02 | disposition home or self-care (01) ==
LOC: CATHLAB 09:09 → 2ND 12:15
PROVIDERS: PCP Family Medicine; Visit Provider Internal Medicine
DX: E11.69 Type 2 diabetes mellitus with other specified complication (principal); E66.9 Obesity, unspecified; E78.2 Mixed hyperlipidemia; I10 Essential (primary) hypertension; I25.118 Atherosclerotic heart disease of native coronary artery with other forms of angina pectoris; R06.02 Shortness of breath; R94.39 Abnormal result of other cardiovascular function study; Z79.899 Other long term (current) drug therapy
CPT/HCPCS: 0715T; 36415; 80048; 85025; 85347; 92928; 93458; 99152; 99153; C1725; C1761; C1769; C1876; C9600; J1644; J2720; Q9967

== ENCOUNTER → 2021-12-21 08:38 | Outpatient (CLI) | payer MEDICARE, BC, SELFPAY ==
[2021-12-21 09:40] LABS: Basophils # 0.1 K/mm3 (0-0.2); Basophils % 1.9 % (0.1-2.0); Eosinophils # 0.3 K/mm3 (0.0-0.4); Eosinophils % 6.8 % (0.1-12.0); Hematocrit 41.7 % (42.0-52.0); Hemoglobin 13.1 g/dL (14.1-18.0); Lymphocytes # 1.6 K/mm3 (0.7-4.5); Lymphocytes % 35.4 % (10-50); Mean Corpuscular HGB Conc 31.3 g/dL (31.8-35.4); Mean Corpuscular Hemoglobin 31.5 pg (27.0-31.2); Mean Corpuscular Volume 100.7 fl (80-94); Mean Platelet Volume 10.2 fl (7.4-10.4); Monocytes # 0.3 K/mm3 (0.1-1.0); Monocytes % 6.7 % (1.7-9.3); Neutrophils # 2.3 K/mm3 (1.8-7.8); Neutrophils % 49.2 % (37.0-80.0); Platelet Count 167 K/mm3 (142-424); Red Blood Count 4.15 M/mm3 (4.60-6.20); Red Cell Distribution Width 13.9 % (11.5-17.5); White Blood Count 4.6 K/mm3 (4.8-10.8)
[2021-12-21 10:13] LABS: Anion Gap 11.3 mEq/L (5-15); Blood Urea Nitrogen 30 mg/dl (9-20); Carbon Dioxide 23 mmol/L (22.0-30.0); Chloride 108 mmol/L (98-107); Estimated Glomerular Filt Rate 73 ml/min (>60); GFR (African American) 89 ML/MIN (>60); Glucose 121 mg/dl (74-100); Potassium 4.3 mmoL/L (3.5-5.1); Sodium 138 mmol/L (136-145)
== END ==
PROVIDERS: PCP Family Medicine; Visit Provider Internal Medicine
DX: E11.69 Type 2 diabetes mellitus with other specified complication (principal); E66.9 Obesity, unspecified; E78.5 Hyperlipidemia, unspecified; I10 Essential (primary) hypertension; I20.8 Other forms of angina pectoris; R06.02 Shortness of breath; S61.012A Laceration without foreign body of left thumb without damage to nail, initial encounter; Z79.84 Long term (current) use of oral hypoglycemic drugs; Z68.35 Body mass index [BMI] 35.0-35.9, adult
CPT/HCPCS: 36415; 80048; 85025

== ENCOUNTER → 2021-12-24 12:20 | Outpatient (CLI) | payer MEDICARE, BC, SELFPAY ==
[2021-12-24 12:35] LABS: Coronavirus 19, PCR Not Detected (NotDetected); Influenza A, PCR Not Detected (NotDetected); Influenza B, PCR Not Detected (NotDetected)
== END ==
PROVIDERS: PCP Family Medicine; Visit Provider Physician Assistant
DX: I10 Essential (primary) hypertension; I20.8 Other forms of angina pectoris; R06.02 Shortness of breath; R42 Dizziness and giddiness; Z01.812 Encounter for preprocedural laboratory examination; Z20.822 Contact with and (suspected) exposure to COVID-19
CPT/HCPCS: C9803; U0003; U0005

== ENCOUNTER 2021-12-25 08:25 | Day surgery (SDC) | payer MEDICARE, BC, SELFPAY ==
[2021-12-25] VITALS (66 sets, daily range): BP systolic 98–165; BP diastolic 54–92; PULSE 54–89; RESP 16–20; TEMP 36.7; O2SAT 91–100; BMI 35.2
--- NOTE | 2021-12-25 07:11 | IR_ITS ---
APPROVED REPORT Patient Location: Outpatient PROCEDURES Left heart catheterization Left ventriculogram Selective coronary angiogram Intravascular ultrasound to the ramus intermedius INDICATION Coronary artery disease, Recalcitrant angina pectoris, Angiographically ambiguous coronary artery disease Informed consent was obtained prior to the procedure. COMPLICATIONS NONE Estimated Blood Loss: LESS THAN 10 ML TECHNIQUE One percent lidocaine was used to anesthetize the right groin. The right femoral artery was accessed via the Seldinger technique. A 6 Tongan sheath was placed in the right femoral artery. Because of the extreme tortuosity through the the iliofemoral vessels a wire was advanced and the short 6 Tongan sheath was exchanged for a 45 cm Brite tip 6 Tongan sheath. Therapeutic heparin was administered and an EBU 3.5 guide catheter was placed in the left main artery. Angiography was performed. There was some haziness in this large ramus intermedius however it was not clearly meeting criteria for revascularization. Because of this a Choice PT extra-support wire was placed into the ramus intermedius and intravascular ultrasound probe was advanced. This demonstrated an MLA of 4.1m???. Given this was not an ischemic vessel it was decided to abandon the procedure and not proceed with stenting. A JR4 catheter was used to perform right coronary angiography. At the end of the procedure the apparatus was removed the patient was transferred to the postop putting in stable addition for sheath removal ANGIOGRAPHIC RESULTS The left main artery Normal The left anterior descending artery Has proximal 20 to 30% stenosis which extend into the mid segment. MARY II flow was present down the LAD The circumflex artery Gives rise to a large trifurcating ramus intermedius which has a proximal hazy 40% stenosis with hazy 40% stenosis in the superior branch. The circumflex artery itself is nondominant and has an ostial 20 to 30% stenosis with distal 20 and 30% luminal irregularities. MARY II flow was present down the circumflex artery and ramus intermedius The right coronary artery Is a dominant vessel has stents in the proximal mid and distal segment. The stents are widely patent with minimal in-stent restenosis. Distally there is a concentric 20 to 30% stenosis. The LO ventriculogram reveals Not performed The left ventricular end-diastolic pressure Not measured Ramus intermedius has an MLA of 4.1 m??? IMPRESSION Coronary artery disease as described above Slow flow down all vessels consistent with endothelial dysfunction which is almost certainly the etiology for patient's angina pectoris PLAN 1. Standard therapy for ischemic heart disease 2. Treatment of endothelial dysfunction Electronically signed by : Gurpreet Crocker MD 12/25/2021 15:05:20
[2021-12-25 11:15] LABS: CATHL Activated Clotting Time 375 SEC (74-125)
--- NOTE | 2021-12-25 11:39 | SUR.PHASEII ---
ACT-228 at this time.
--- NOTE | 2021-12-25 13:56 | HMH.PHACLD ---
Kuldeep Nye has received discharge medication counseling on the following medications: PATIENT IS CURRENTLY TAKING PLAVIX 75 MG DAILY, ASPIRIN 81 MG DAILY, CRESTOR 5 MG HS, CARVEDILOL 12.5 MG BID, AND LISINOPRIL 20 MG DAILY.
[2021-12-25 15:10] LABS: CATHL Activated Clotting Time 164 SEC (74-125)
[2021-12-25 15:11] LABS: CATHL Activated Clotting Time 205 SEC (74-125)
[2021-12-25 15:13] LABS: CATHL Activated Clotting Time 228 SEC (74-125)
[2021-12-25 15:14] LABS: CATHL Activated Clotting Time 201 SEC (74-125)
== END 2021-12-25 18:53 | disposition home or self-care (01) ==
LOC: CATHLAB 08:26
PROVIDERS: PCP Family Medicine; Visit Provider Internal Medicine
DX: I25.118 Atherosclerotic heart disease of native coronary artery with other forms of angina pectoris (principal); Z79.899 Other long term (current) drug therapy; Z79.02 Long term (current) use of antithrombotics/antiplatelets; E11.9 Type 2 diabetes mellitus without complications; I11.0 Hypertensive heart disease with heart failure; I50.9 Heart failure, unspecified
CPT/HCPCS: 85347; 92978; 93458; 99152; 99153; C1725; C1769; C1894; J1644; J2720; Q9967

== ENCOUNTER → 2022-01-14 13:13 | Outpatient (CLI) | payer MEDICARE, BC, SELFPAY | PROVIDERS: PCP Family Medicine; Visit Provider Family Medicine | DX: Z20.822 Contact with and (suspected) exposure to COVID-19 (principal) | CPT/HCPCS: C9803; U0003; U0005 ==

== ENCOUNTER 2022-06-21 09:02 | Emergency (ER) | payer MEDICARE, BC, SELFPAY ==
[2022-06-21 09:25] VITALS: BP 125/70; PULSE 74; RESP 18; TEMP 36.9; O2SAT 98; BMI 35.2
--- NOTE | 2022-06-21 09:36 | EXP.UTC ---
Discharge Plan Disposition Patient Disposition: Home, Self-Care Condition: Good Prescriptions Prescriptions: No Action sitagliptin phosphate 100 mg tablet 100 mg PO DAILY memantine 10 mg tablet 10 mg PO BID levothyroxine 50 mcg tablet 50 mcg PO DAILY fluticasone propionate 50 mcg/actuation spray,suspension 1 spray NS DAILY Rx Instructions: administer into each nostril lisinopril 40 mg tablet 20 mg PO DAILY buspirone 5 mg tablet 5 mg PO DAILY ranolazine 1,000 mg tablet extended release 12 hr 1,000 mg PO Q12H glipizide 5 mg tablet extended release 24hr 5 mg PO DAILY empagliflozin 10 mg tablet 10 mg PO DAILY carvedilol 12.5 mg tablet 12.5 mg PO BID Qty: 180 3RF Rx Instructions: must administer with a meal/food aspirin 81 mg tablet,delayed release (DR/EC) 81 mg PO DAILY Qty: 30 5RF clopidogrel [Plavix] 75 mg tablet 75 mg PO DAILY Qty: 90 3RF rosuvastatin 5 mg tablet 5 mg PO DAILY Qty: 90 3RF donepezil 10 MG tablet 10 mg PO HS cyclobenzaprine 5 MG tablet 5 mg PO HSP PRN (Reason: Muscle Spasm) Referrals Follow up/Referrals: Kyle Romo MD [Primary Care Provider] - See instructions Activity Restrictions/Add. Instructions Additional Instructions/Restrictions: *Monitor Temp, Over the counter Motrin or Tylenol as directed/as needed Tylenol every 4 hours and Motrin every 6 hours (as long as your family doctor has told you that you can take it) for fever or pain. and straight to ER if unable to lower temp less than 101.0 after medication given *Warm salt water gargles may help to soothe the throat *Throat Lozenges? *Warm fluids like tea with honey may help to soothe the throat? *Sleep elevated *Humidifier/Vaporizer Follow up IMMEDIATELY for new or worsening symptoms or no Noticeable improvement over the next 48-72 hours. 911 for difficulty breathing or swallowing You were tested for today for COVID19 your test result should be back in the next 24-48 hours, you may check your results on the [facility] [employer] [facility] Portal Clinical Impressions Clinical Impression: Exposure to COVID-19 virus Instructions Patient Instructions: DI for COVID-19 (Suspected or Confirmed ), COVID-19 Viral Test, Preventing the Spread of Coronavirus Discharge Instructions Discharge ED Provider: Vanessa Cortez [facility] [place] General Stated complaint: Drainage cough SOA Covid exposure Time Seen by Provider: 06/21/22 09:36 History of Present Illness Provider Complaint: Patient states that he has been having nasal congestion and drainage along with mild cough for several days States that he has been around his that is positive for COVID and she wanted him to come in and get tested States that he feels like it may just be a head cold but wanted to get tested Related Data Home Medications Medication Instructions Recorded Confirmed cyclobenzaprine 5 mg tablet 5 mg PO HSP PRN Muscle Spasm 12/24/17 05/25/22 donepezil 10 mg tablet 10 mg PO HS MEMORY 12/24/17 05/25/22 sitagliptin phosphate 100 mg tablet 100 mg PO DAILY . 07/08/20 05/25/22 levothyroxine 50 mcg tablet 50 mcg PO DAILY . 10/27/21 05/25/22 memantine 10 mg tablet 10 mg PO BID . 10/27/21 05/25/22 fluticasone propionate 50 1 spray intranasal DAILY . 11/02/21 05/25/22 mcg/actuation nasal spray,suspension empagliflozin 10 mg tablet 10 mg PO DAILY 01/07/22 05/25/22 glipizide 5 mg tablet, extended 5 mg PO DAILY 01/07/22 05/25/22 release 24 hr lisinopril 40 mg tablet 20 mg PO DAILY 02/25/22 05/25/22 buspirone 5 mg tablet 5 mg PO DAILY 04/13/22 05/25/22 ranolazine 1,000 mg 1,000 mg PO Q12H 04/13/22 05/25/22 tablet,extended release,12 hr Previous Rx's Medication Instructions Recorded aspirin 81 mg tablet,delayed 81 mg PO DAILY HEART HEALTH #30 01/07/22 release tabs carvedilol 12.5 mg tablet 12.5 mg PO BID . #180 tabs 01/07/22 clopidogrel 75 m
[2022-06-21 09:40] VITALS: BP 125/70; PULSE 74; RESP 18; TEMP 36.9; O2SAT 98
== END 2022-06-21 09:45 | disposition home or self-care (01) ==
PROVIDERS: Emergency Provider Nurse Practitioner; PCP Family Medicine
DX: U07.1 COVID-19 (principal); R09.89 Other specified symptoms and signs involving the circulatory and respiratory systems; R05.9 Cough, unspecified; R06.02 Shortness of breath
CPT/HCPCS: 99212; 99213; C9803; G0463; U0003; U0005

== ENCOUNTER → 2022-07-14 08:01 | Outpatient (CLI) | payer MEDICARE, BC, SELFPAY | PROVIDERS: PCP Family Medicine; Visit Provider Nurse Practitioner | DX: E78.2 Mixed hyperlipidemia (principal); I10 Essential (primary) hypertension; I25.10 Atherosclerotic heart disease of native coronary artery without angina pectoris; I51.89 Other ill-defined heart diseases; I65.23 Occlusion and stenosis of bilateral carotid arteries; R06.00 Dyspnea, unspecified; R06.01 Orthopnea; R06.02 Shortness of breath; R07.2 Precordial pain | CPT/HCPCS: 93306 ==

== ENCOUNTER 2022-07-22 10:22 | Emergency (ER) | payer MEDICARE, BC, SELFPAY ==
[2022-07-22 11:00] VITALS: BP 154/87; PULSE 79; RESP 20; TEMP 36.9; O2SAT 94; BMI 33.5
--- NOTE | 2022-07-22 11:15 | EXP.UTC ---
Discharge Plan Disposition Patient Disposition: Home, Self-Care Condition: Good Prescriptions Prescriptions: New ciprofloxacin HCl 0.3 % drops See Rx Instructions .ROUTE .COMPLEX 7 Days Qty: 5 0RF Rx Instructions: put 2 drps in affected eyes every 2hr x2days; then 4 times/day x5days azithromycin [Zithromax] 250 mg tablet 250 mg PO UD DOSE PK Qty: 6 0RF Rx Instructions: Take two (2) tablets today, then one (1) tablet days #2 thru #5 benzonatate [benzonatate] 100 mg capsule 100 mg PO TIDP PRN (Reason: Cough) Qty: 30 0RF No Action sitagliptin phosphate 100 mg tablet 100 mg PO DAILY memantine 10 mg tablet 10 mg PO BID levothyroxine 50 mcg tablet 50 mcg PO DAILY fluticasone propionate 50 mcg/actuation spray,suspension 1 spray NS DAILY Rx Instructions: administer into each nostril lisinopril 40 mg tablet 40 mg PO DAILY buspirone 5 mg tablet 5 mg PO DAILY ranolazine 1,000 mg tablet extended release 12 hr 1,000 mg PO Q12H empagliflozin 10 mg tablet 10 mg PO DAILY carvedilol 12.5 mg tablet 12.5 mg PO BID Qty: 180 3RF Rx Instructions: must administer with a meal/food aspirin 81 mg tablet,delayed release (DR/EC) 81 mg PO DAILY Qty: 30 5RF clopidogrel [Plavix] 75 mg tablet 75 mg PO DAILY Qty: 90 3RF rosuvastatin 5 mg tablet 5 mg PO DAILY Qty: 90 3RF donepezil 10 MG tablet 10 mg PO HS cyclobenzaprine 5 MG tablet 5 mg PO HSP PRN (Reason: Muscle Spasm) glipizide 5 mg tablet extended release 24hr 5 mg PO DAILY Referrals Follow up/Referrals: Kyle Romo MD [Primary Care Provider] - See instructions Activity Restrictions/Add. Instructions Additional Instructions/Restrictions: Use the eye drops as directed. Strict hand washing in the house hold, because conjunctivitis is very contagious. Follow up with your regular doctor. GO TO THE ER FOR ANY WORSENING SYMPTOMS OR CONCERNS Drink plenty of fluids. Take tylenol or ibuprofen for pain or fever. Take the medications as directed. Follow up with your regular doctor. GO TO THE ER FOR ANY WORSENING SYMPTOMS Clinical Impressions Clinical Impression: Conjunctivitis, Bronchitis Instructions Patient Instructions: How to Instill Eye Drops, DI for Conjunctivitis, DI for Acute Bronchitis Discharge ED Provider: Avery Johns [facility] General Stated complaint: chest congestion eyes burning Time Seen by Provider: 07/22/22 11:15 History of Present Illness Provider Complaint: He reports that for the past 1 day he has had bilateral eye irritation, discharge and matting. He has a grand child that lives with him that has conjunctivitis right now. He also has a cough and chest congestion. Related Data Home Medications Medication Instructions Recorded Confirmed cyclobenzaprine 5 mg tablet 5 mg PO HSP PRN Muscle Spasm 12/24/17 07/07/22 donepezil 10 mg tablet 10 mg PO HS MEMORY 12/24/17 07/22/22 sitagliptin phosphate 100 mg tablet 100 mg PO DAILY . 07/08/20 07/07/22 levothyroxine 50 mcg tablet 50 mcg PO DAILY . 10/27/21 07/22/22 memantine 10 mg tablet 10 mg PO BID . 10/27/21 07/22/22 fluticasone propionate 50 1 spray intranasal DAILY . 11/02/21 07/07/22 mcg/actuation nasal spray,suspension empagliflozin 10 mg tablet 10 mg PO DAILY . 01/07/22 07/22/22 buspirone 5 mg tablet 5 mg PO DAILY . 04/13/22 07/22/22 ranolazine 1,000 mg 1,000 mg PO Q12H . 04/13/22 07/22/22 tablet,extended release,12 hr lisinopril 40 mg tablet 40 mg PO DAILY . 07/07/22 07/22/22 glipizide 5 mg tablet, extended 5 mg PO DAILY . 07/22/22 07/22/22 release 24 hr Previous Rx's Medication Instructions Recorded aspirin 81 mg tablet,delayed 81 mg PO DAILY HEART [facility]ALTH #30 01/07/22 release tabs carvedilol 12.5 mg tablet 12.5 mg PO BID . #180 tabs 01/07/22 clopidogrel 75 mg tablet (Plavix) 75 mg PO DAILY CVA #90 tabs 01/07/22 ro
[2022-07-22 11:50] VITALS: BP 154/87; PULSE 79; RESP 20; TEMP 36.9; O2SAT 94
== END 2022-07-22 11:50 | disposition home or self-care (01) ==
PROVIDERS: Emergency Provider Nurse Practitioner Family; PCP Family Medicine
DX: J20.9 Acute bronchitis, unspecified (principal); H10.33 Unspecified acute conjunctivitis, bilateral; I10 Essential (primary) hypertension; E78.5 Hyperlipidemia, unspecified; Z87.891 Personal history of nicotine dependence
CPT/HCPCS: 99212; 99214; G0463

== ENCOUNTER 2022-10-04 09:47 | Emergency (ER) | payer MEDICARE, BC, SELFPAY ==
--- NOTE | 2022-10-04 10:32 | EXP.UTC ---
Discharge Plan Disposition Patient Disposition: Home, Self-Care Condition: Good Prescriptions Prescriptions: New benzonatate [benzonatate] 100 mg capsule 100 mg PO TIDP PRN (Reason: Cough) Qty: 30 0RF azithromycin [Zithromax] 250 mg tablet 250 mg PO UD DOSE PK Qty: 6 0RF Rx Instructions: Take two (2) tablets today, then one (1) tablet days #2 thru #5 methylprednisolone 4 mg Tablets,Dose Pack 4 mg PO DIRECTED Qty: 21 0RF No Action sitagliptin phosphate 100 mg tablet 100 mg PO DAILY memantine 10 mg tablet 10 mg PO BID levothyroxine 50 mcg tablet 50 mcg PO DAILY fluticasone propionate 50 mcg/actuation spray,suspension 1 spray NS DAILY Rx Instructions: administer into each nostril lisinopril 40 mg tablet 40 mg PO DAILY ranolazine 1,000 mg tablet extended release 12 hr 1,000 mg PO Q12H empagliflozin 10 mg tablet 10 mg PO DAILY carvedilol 12.5 mg tablet 12.5 mg PO BID Qty: 180 3RF Rx Instructions: must administer with a meal/food aspirin 81 mg tablet,delayed release (DR/EC) 81 mg PO DAILY Qty: 30 5RF clopidogrel [Plavix] 75 mg tablet 75 mg PO DAILY Qty: 90 3RF rosuvastatin 5 mg tablet 5 mg PO DAILY Qty: 90 3RF donepezil 10 MG tablet 10 mg PO HS cyclobenzaprine 5 MG tablet 5 mg PO HSP PRN (Reason: Muscle Spasm) glipizide 5 mg tablet extended release 24hr 5 mg PO DAILY Referrals Follow up/Referrals: Kyle Romo MD [Primary Care Provider] - See instructions Activity Restrictions/Add. Instructions Additional Instructions/Restrictions: Drink plenty of fluids. Take tylenol for pain or fever. Take the medications as directed. Follow up with your regular doctor. GO TO THE ER FOR ANY WORSENING SYMPTOMS Clinical Impressions Clinical Impression: Sinusitis, Bronchitis Instructions Patient Instructions: Sinusitis, Acute Bronchitis, DI for Sinusitis, DI for Acute Bronchitis Discharge ED Provider: Avery Johns [facility] [place] HPI General Stated complaint: soa, possible sinus infection Time Seen by Provider: 10/04/22 10:32 History of Present Illness Provider Complaint: He states that for the past 3 weeks he has chest and sinus congestion. Related Data Home Medications Medication Instructions Recorded Confirmed cyclobenzaprine 5 mg tablet 5 mg PO HSP PRN Muscle Spasm 12/24/17 10/04/22 donepezil 10 mg tablet 10 mg PO HS MEMORY 12/24/17 10/04/22 sitagliptin phosphate 100 mg tablet 100 mg PO DAILY . 07/08/20 10/04/22 levothyroxine 50 mcg tablet 50 mcg PO DAILY . 10/27/21 10/04/22 memantine 10 mg tablet 10 mg PO BID . 10/27/21 10/04/22 fluticasone propionate 50 1 spray intranasal DAILY . 11/02/21 10/04/22 mcg/actuation nasal spray,suspension empagliflozin 10 mg tablet 10 mg PO DAILY . 01/07/22 10/04/22 ranolazine 1,000 mg 1,000 mg PO Q12H . 04/13/22 10/04/22 tablet,extended release,12 hr lisinopril 40 mg tablet 40 mg PO DAILY . 07/07/22 10/04/22 glipizide 5 mg tablet, extended 5 mg PO DAILY . 07/22/22 10/04/22 release 24 hr Previous Rx's Medication Instructions Recorded aspirin 81 mg tablet,delayed 81 mg PO DAILY [facility]ART [facility] #30 01/07/22 release tabs carvedilol 12.5 mg tablet 12.5 mg PO BID . #180 tabs 01/07/22 clopidogrel 75 mg tablet (Plavix) 75 mg PO DAILY CVA #90 tabs 01/07/22 rosuvastatin 5 mg tablet 5 mg PO DAILY Cholesterol #90 tabs 01/07/22 azithromycin 250 mg tablet 250 mg PO UD DOSE PK #6 tabs 10/04/22 (Zithromax) benzonatate 100 mg capsule 100 mg PO TIDP PRN Cough #30 caps 10/04/22 methylprednisolone 4 mg tablets in 4 mg PO DIRECTED #21 tabs 10/04/22 a dose pack Allergies Allergy/AdvReac Type Severity Reaction Status Date / Time No Known Allergies Allergy Verified 10/04/22 10:39 [facility] Disclaimer: The information contained in this section may have been updated after the patient was seen, as this information can be upda
[2022-10-04 10:39] VITALS: BP 169/98; PULSE 92; RESP 16; TEMP 36.7; O2SAT 95; BMI 28.0
[2022-10-04 11:01] VITALS: BP 169/98; PULSE 92; RESP 18; TEMP 36.9; O2SAT 95
== END 2022-10-04 11:07 | disposition home or self-care (01) ==
PROVIDERS: Emergency Provider Nurse Practitioner Family; PCP Family Medicine
DX: J20.9 Acute bronchitis, unspecified (principal); J01.90 Acute sinusitis, unspecified; I10 Essential (primary) hypertension; E78.5 Hyperlipidemia, unspecified; F41.9 Anxiety disorder, unspecified; Z87.891 Personal history of nicotine dependence
CPT/HCPCS: 99212; 99214; G0463

== ENCOUNTER → 2022-11-12 14:10 | Outpatient (CLI) | payer MEDICARE, BC, SELFPAY ==
--- NOTE | 2022-11-12 14:10 | CT_ITS ---
FINAL REPORT TECHNIQUE: Axial images were obtained from the lung apex to the mid abdomen by computed tomography. Coronal and sagittal reformatted images were obtained. This study was performed with techniques to keep radiation doses as low as reasonably achievable, (ALARA). Individualized dose reduction techniques using automated exposure control or adjustment of mA and/or kV according to the patient''s size were employed. CLINICAL HISTORY: Abnormal CXR COMPARISON: 06/08/2016 FINDINGS: Severe coronary artery calcification is once again identified. There is no axillary adenopathy. There is no hilar or mediastinal adenopathy. Heart size is normal. There is no pericardial or pleural effusion. There is mild scarring present in the right lung base. There is persistent thickening in the costophrenic angle of the pleura on the right side, with calcification identified. This was present on the prior CT examination as well. There are multiple chronic right rib fractures once again seen. Postoperative changes from a gastric bypass and cholecystectomy are present. 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 IMPRESSION: No significant changes are identified since the prior chest CT of 2016. Severe vascular calcifications particularly in the coronary arteries. Reviewed, Interpreted and Dictated by Riik Garcia III, MD Transcribed by Camille Mendoza Authenticated and [facility]
== END ==
PROVIDERS: PCP Family Medicine; Visit Provider Internal Medicine Pulmonary Disease
DX: R06.09 Other forms of dyspnea (principal); R91.8 Other nonspecific abnormal finding of lung field; Z87.891 Personal history of nicotine dependence
CPT/HCPCS: 71250; 94060; 94618; 94726; 94729

== ENCOUNTER 2022-11-25 11:31 | Emergency (ER) | payer MEDICARE, BC, SELFPAY ==
[2022-11-25 11:32] VITALS: BP 173/85; PULSE 86; RESP 18; TEMP 36.9; O2SAT 96; BMI 31.9
[2022-11-25 11:38] VITALS: BP 173/85; PULSE 86; RESP 18; O2SAT 96
--- NOTE | 2022-11-25 11:40 | PC.NURSE ---
DR OROZCO AT BEDSIDE
--- NOTE | 2022-11-25 11:45 | HMH.EDGENADL ---
Discharge Plan Disposition Patient Disposition: Home, Self-Care Condition: Good Chief Complaint: Back Pain/Injury Prescriptions Prescriptions: No Action sitagliptin phosphate 100 mg tablet 100 mg PO DAILY memantine 10 mg tablet 10 mg PO BID levothyroxine 50 mcg tablet 50 mcg PO DAILY fluticasone propionate 50 mcg/actuation spray,suspension 1 spray NS DAILY Rx Instructions: administer into each nostril lisinopril 40 mg tablet 40 mg PO DAILY ranolazine 1,000 mg tablet extended release 12 hr 1,000 mg PO Q12H empagliflozin 10 mg tablet 10 mg PO DAILY aspirin 81 mg tablet,delayed release (DR/EC) 81 mg PO DAILY Qty: 30 5RF clopidogrel [Plavix] 75 mg tablet 75 mg PO DAILY Qty: 90 3RF rosuvastatin 5 mg tablet 5 mg PO DAILY Qty: 90 3RF albuterol sulfate [ProAir HFA] 90 mcg/actuation HFA aerosol inhaler 2 puff inhalation QID PRN (Reason: shortness of breath or wheezing) 30 Days Qty: 8.5 1RF carvedilol 12.5 mg tablet 12.5 mg PO BID Qty: 180 3RF Rx Instructions: must administer with a meal/food donepezil 10 MG tablet 10 mg PO HS cyclobenzaprine 5 MG tablet 5 mg PO HSP PRN (Reason: Muscle Spasm) benzonatate [benzonatate] 100 mg capsule 100 mg PO TIDP PRN (Reason: Cough) Qty: 30 0RF azithromycin [Zithromax] 250 mg tablet 250 mg PO UD DOSE PK Qty: 6 0RF Rx Instructions: Take two (2) tablets today, then one (1) tablet days #2 thru #5 methylprednisolone 4 mg Tablets,Dose Pack 4 mg PO DIRECTED Qty: 21 0RF glipizide 5 mg tablet extended release 24hr 5 mg PO DAILY Referrals Follow up/Referrals: Kyle Romo MD [Primary Care Provider] - See instructions Activity Restrictions/Add. Instructions Additional Instructions/Restrictions: At this time is felt you are safe to be discharged home. For new or worsening symptoms please do not hesitate to return the emergency department. Please continue to follow-up with your welfare specialist as discussed. Clinical Impressions Clinical Impression: Lumbago Instructions Patient Instructions: DI for Low Back Pain Discharge ED Provider: Alejandro Healy General Adult HPI General Chief complaint: Back Pain/Injury Stated complaint: Back pain no known accident Time Seen by Provider: 11/25/22 11:34 Mode of Arrival: Wheelchair Source of Information: Patient Limitations: No Limitations Description of Symptoms (Recalled from ER Triage Doc. by RN): PT WITH CHRONIC BACK PAIN, PRESENTS WITH LOW BACK PAIN THAT RADIATES UP HIS SPINE. STATES HE WAS PUSH MOWING YESTERDAY AND LIFTED A PUSH MOWER AND PAIN HAS INCREASED. DENIES RADIATION TO LEGS, NO LOSS OF BOWEL OR BLADDER. NO NUMBNESS OR TINGLING. HX OF PREVIOUS BACK SURGERY History of Present Illness HPI narrative: Patient is a 76-year-old male with past medical history of chronic back pain status post surgical intervention with hardware who presents emergency department for evaluation of back pain. History is obtained by patient at bedside. He has missed his last 2 back specialist appointments. 24 hours ago he pushed [place] the [place] with resultant left lower spinal pain has been persistent. Patient does not take opiates at baseline. His next appointment is on 12-08-2022 he presents here for continued evaluation. Denies saddle anesthesia, incontinence, sensory changes. Denies trauma. No other acute complaints at this time. Related Data Home Medications Medication Instructions Recorded Confirmed cyclobenzaprine 5 mg tablet 5 mg PO HSP PRN Muscle Spasm 12/24/17 11/17/22 donepezil 10 mg tablet 10 mg PO HS MEMORY 12/24/17 11/17/22 sitagliptin phosphate 100 mg tablet 100 mg PO DAILY . 07/08/20 11/17/22 levothyroxine 50 mcg tablet 50 mcg PO DAILY . 10/27/21 11/17/22 memantine 10 mg tablet 10 mg PO BID . 10/27/21 11/17/22 fluticasone propionate 50 1 spray intranasal DAILY . 11/02/21 11/17/22 mcg/actuati
[2022-11-25 11:55] LABS: Microscopic, Urine URINE MICROSCOPIC (MICROSCOPIC)
[2022-11-25 11:57] LABS: Appearance,Urine CLEAR (Clear); Bilirubin,Urine Negative (Negative); Blood, Urine Negative (Negative); Color,Urine YELLOW (Yellow); Glucose,Urine (UA) 2+ (Negative); Ketones,Urine Negative (Negative); Leukocyte Esterase,Urine Negative (Negative); Nitrate,Urine Negative (Negative); Protein,Urine Negative (Negative); Specific Gravity, Urine <= 1.005 (1.005-1.030); Urobilinogen,Urine 0.2 EU/dl (0.2)
[2022-11-25 12:00] VITALS: BP 134/92; PULSE 82; RESP 18; O2SAT 95
--- NOTE | 2022-11-25 12:03 | PC.NURSE ---
Rounded on patient; pillow provided call light within reach. Nothing needed at this time.
[2022-11-25 12:10] LABS: Bacteria,Urine Trace /lpf; Squamous Epithelial Cell,Urine Occasional #/hpf (0-5); WBC,Urine Occasional #/hpf (0-3)
[2022-11-25 12:30] VITALS: BP 131/79; PULSE 74; RESP 18; O2SAT 93
--- NOTE | 2022-11-25 12:54 | PC.NURSE ---
DR OROZCO AT BEDSIDE TO UPDATE PT AND FAMILY
--- NOTE | 2022-11-25 12:56 | PC.NURSE ---
rounded on patient, no needs at this time
[2022-11-25 13:12] VITALS: BP 131/79; PULSE 71; RESP 16; TEMP 36.9; O2SAT 95
== END 2022-11-25 13:15 | disposition home or self-care (01) ==
PROVIDERS: Emergency Provider Emergency Medicine; PCP Family Medicine
DX: M54.50 Low back pain, unspecified (principal); G89.29 Other chronic pain; X50.0XXA Overexertion from strenuous movement or load, initial encounter; I25.119 Atherosclerotic heart disease of native coronary artery with unspecified angina pectoris; J44.9 Chronic obstructive pulmonary disease, unspecified; F41.1 Generalized anxiety disorder; I10 Essential (primary) hypertension; E78.5 Hyperlipidemia, unspecified; I65.29 Occlusion and stenosis of unspecified carotid artery; Z87.891 Personal history of nicotine dependence
CPT/HCPCS: 81001; 96372; 99283

== ENCOUNTER → 2023-01-31 13:15 | Outpatient (CLI) | payer MEDICARE, BC, SELFPAY ==
[2023-01-31 15:49] LABS: Erythrocyte Sedimentation Rate 19 mm/hr (0-20)
[2023-01-31 16:02] LABS: Thyroid Stimulating Hormone 2.86 uIU/mL (0.465-4.68)
[2023-01-31 16:38] LABS: Vitamin B12 274 pg/mL (239-931)
[2023-02-02 08:51] LABS: C-Reactive Protein 0.2 mg/L (0-4)
[2023-02-02 20:32] LABS: Rapid Plasma Reagin Ab Titer Non Reactive titer (NonRea<1:1)
[2023-02-03 11:00] LABS: Antinuclear Antibodies (ANA) Negative
== END ==
PROVIDERS: PCP Family Medicine; Visit Provider Specialist
DX: F01.50 Vascular dementia, unspecified severity, without behavioral disturbance, psychotic disturbance, mood disturbance, and anxiety (principal); I63.9 Cerebral infarction, unspecified; R19.7 Diarrhea, unspecified
CPT/HCPCS: 36415; 82607; 82746; 84443; 85651; 86038; 86140; 86225; 86235; 86593

== ENCOUNTER → 2023-02-04 10:43 | Outpatient (CLI) | payer MEDICARE, BC, SELFPAY | PROVIDERS: PCP Family Medicine; Visit Provider Specialist | DX: I63.9 Cerebral infarction, unspecified (principal); R41.0 Disorientation, unspecified; F01.50 Vascular dementia, unspecified severity, without behavioral disturbance, psychotic disturbance, mood disturbance, and anxiety | CPT/HCPCS: 95819 ==

== ENCOUNTER → 2023-04-13 10:41 | Outpatient (CLI) | payer MEDICARE, BC, SELFPAY ==
[2023-04-13 11:48] LABS: Alanine Aminotransferase 19 U/L (12-78); Albumin Level 4.2 g/dl (3.5-5.0); Albumin/Globulin Ratio 1.6 (1.1-1.8); Alkaline Phosphatase 112 U/L (38-126); Aspartate Amino Transferase 26 U/L (17-59); Bilirubin,Total 0.6 mg/dl (0.2-1.3); Blood Urea Nitrogen 24 mg/dl (9-20); Calcium 8.7 mg/dl (8.4-10.2); Carbon Dioxide 26 mmol/L (22.0-30.0); Chloride 103 mmol/L (98-107); Estimated Glomerular Filt Rate 59 ml/min (>60); GFR (African American) 71 ML/MIN (>60); Globulin 2.6 g/dL (1.3-3.2); Glucose 133 mg/dl (74-100); Sodium 135 mmol/L (136-145); Total Protein,Serum 6.8 g/dl (6.3-8.2)
== END ==
PROVIDERS: Specialist; PCP Family Medicine; Visit Provider Physician Assistant
DX: R42 Dizziness and giddiness (principal); R51.9 Headache, unspecified
CPT/HCPCS: 36415; 80053

== ENCOUNTER → 2023-04-15 12:54 | Outpatient (CLI) | payer MEDICARE, BC, SELFPAY ==
--- NOTE | 2023-04-15 12:55 | CA_ITS ---
APPROVED REPORT EXAM: Limited 2D Echocardiogram Nursing Educator: Sonia Joyce RVT Ht: 5 ft 5 in Wt: 179lbs BSA: 1.89 BP: 131/80 mmHg Indications: cp,soa,cad,htn,hld VERY LIMITED WINDOWS SCANNED BY 2 TECHS Other Information Study Quality: Technically Difficult. Technically limited study due to body habitus. Conclusion This is a technically difficult and technically limited study due to poor acoustic windows. There is extreme difficult visualization of the cardiac structures Grossly, the left ventricle appears normal in size and systolic function. LVEF is 60%. The right ventricle appears normal in size and systolic function. The left atrium appears normal in size. The right atrium is not well-visualized. The mitral valve leaflets open well. Assessment of mitral regurgitation cannot be made. The aortic valve is mildly thickened, but opens well. Assessment of aortic regurgitation cannot be made. The tricuspid and pulmonic valves are not well-visualized. Electronically signed by : Tita Villanueva MD 04/16/2023 00:42:46
== END ==
PROVIDERS: PCP Family Medicine; Visit Provider Physician Assistant
DX: R06.09 Other forms of dyspnea (principal); R07.9 Chest pain, unspecified
CPT/HCPCS: 93308

== ENCOUNTER → 2023-04-27 07:51 | Outpatient (CLI) | payer MEDICARE, BC, SELFPAY ==
--- NOTE | 2023-04-27 07:52 | MR_ITS ---
FINAL REPORT CLINICAL HISTORY: dizziness,headaches 16ml prohance injected COMPARISON: 10/30/2021 FINDINGS: Multiplanar MR imaging of the brain was performed without and with contrast. There is extensive abnormal signal present in the deep white matter bilaterally as well as moderate atrophy. There is no evidence of intracranial hemorrhage or mass. No abnormal extra-axial fluid collection is seen. The ventricular size is within normal limits. There is no evidence of shift of the midline structures. The posterior fossa and brainstem have an unremarkable appearance. No area of abnormal restricted diffusion is identified. No abnormal contrast enhancement is seen. Normal major vessel vascular flow voids are noted. IMPRESSION: Extensive abnormal signal in the deep white matter bilaterally with moderate associated atrophy. This is most consistent in appearance with moderate ischemic/gliotic microvascular change. This is stable since the prior MRI of 2021. No areas of restricted diffusion to suggest an acute ischemic event. Reviewed, Interpreted and Dictated by Ramon Hollis MD Transcribed by Camille Mendoza Authenticated and [facility]
== END ==
LOC: RAD 07:52
PROVIDERS: PCP Family Medicine; Visit Provider Specialist
DX: R51.9 Headache, unspecified (principal); R42 Dizziness and giddiness
CPT/HCPCS: 70553; A9576

== ENCOUNTER 2023-05-10 12:16 | Outpatient (CLI) | payer MEDICARE, BC, SELFPAY ==
[2023-05-10 12:44] LABS: Basophils # 0.1 K/mm3 (0-0.2); Basophils % 0.9 % (0.1-2.0); Eosinophils # 0.3 K/mm3 (0.0-0.4); Eosinophils % 4.8 % (0.1-12.0); Hematocrit 40.1 % (42.0-52.0); Lymphocytes % 32.4 % (10-50); Mean Corpuscular HGB Conc 32.5 g/dL (31.8-35.4); Mean Corpuscular Volume 98.7 fl (80-94); Mean Platelet Volume 9.5 fl (7.4-10.4); Monocytes # 0.4 K/mm3 (0.1-1.0); Monocytes % 5.8 % (1.7-9.3); Neutrophils # 3.4 K/mm3 (1.8-7.8); Neutrophils % 56.2 % (37.0-80.0); Platelet Count 188 K/mm3 (142-424); Red Blood Count 4.06 M/mm3 (4.60-6.20); Red Cell Distribution Width 13.6 % (11.5-17.5); White Blood Count 6.1 K/mm3 (4.8-10.8)
[2023-05-10 13:13] LABS: Erythrocyte Sedimentation Rate 15 mm/hr (0-20)
[2023-05-10 14:16] LABS: C-Reactive Protein 1.2 mg/L (0-4)
[2023-05-10 15:00] LABS: Vitamin B12 220 pg/mL (239-931)
== END 2023-05-10 23:59 ==
LOC: LAB 17:23
PROVIDERS: PCP Family Medicine; Visit Provider Specialist
DX: G31.84 Mild cognitive impairment of uncertain or unknown etiology (principal); G47.33 Obstructive sleep apnea (adult) (pediatric); R07.2 Precordial pain; R51.9 Headache, unspecified; R63.4 Abnormal weight loss; Z99.89 Dependence on other enabling machines and devices
CPT/HCPCS: 36415; 82607; 85025; 85651; 86140

== ENCOUNTER 2023-05-12 11:19 | Outpatient (CLI) | payer MEDICARE, BC, SELFPAY ==
[2023-05-13 13:12] LABS: Antiparietal Cell Antibody 3.3 Units (0.0-20.0)
== END 2023-05-12 23:59 ==
LOC: LAB 11:21
PROVIDERS: PCP Family Medicine; Visit Provider Specialist
DX: E53.8 Deficiency of other specified B group vitamins (principal)
CPT/HCPCS: 36415; 83516; 86340

== ENCOUNTER 2023-05-16 11:11 | Outpatient (CLI) | payer MEDICARE, BC, SELFPAY ==
[2023-05-16 11:30] VITALS: BP 146/72; PULSE 96; RESP 18; TEMP 37.1; O2SAT 96
[2023-05-16] MEDS: VITAMIN B-12 1,000 MCG 1ML VIAL 1000 MCG IM (11:30)
== END 2023-05-16 11:32 | disposition home or self-care (01) ==
LOC: INF 11:12
PROVIDERS: PCP Family Medicine; Visit Provider Family Medicine
DX: E53.8 Deficiency of other specified B group vitamins (principal)
CPT/HCPCS: 96372

== ENCOUNTER 2023-06-14 10:44 | Emergency (ER) | payer MEDICARE, BC, SELFPAY ==
[2023-06-14 10:44] VITALS: BP 97/62; PULSE 64; RESP 18; TEMP 36.7; O2SAT 98; BMI 27.7
--- NOTE | 2023-06-14 10:50 | ECG_ITS ---
APPROVED REPORT Exam: Resting ECG HR:63 bpm ECG Measurements Heart Rate 63 AXES IA 220 P 30 QRSd 100 QRS 25 QT 440 T 94 QTc 448 Conclusion SINUS RHYTHM WITH FIRST DEGREE AV BLOCK LOW QRS VOLTAGE IN EXTREMITY LEADS [QRS DEFLECTION < 0.5 mV IN LIMB LEADS] MODERATE ST DEPRESSION [0.05+ mV ST DEPRESSION] ABNORMAL QRS-T ANGLE [QRS-T AXIS DIFFERENCE > 60] ABNORMAL ECG UNCONFIRMED REPORT Electronically signed by : Kyle Stewart MD 06/15/2023 21:47:07
--- NOTE | 2023-06-14 10:52 | XR_ITS ---
FINAL REPORT CLINICAL HISTORY: bradycardia, syncope COMPARISON: 08/27/2021 FINDINGS: SINGLE-VIEW CHEST The heart size is normal. The mediastinum is normal. There is mild bibasilar atelectasis. There is no pneumothorax. IMPRESSION: Mild bibasilar atelectasis. Reviewed, Interpreted and Dictated by Riki Garcia III, MD Transcribed by Leydi Crain Authenticated and [facility]
--- NOTE | 2023-06-14 10:53 | ED_ITS ---
Discharge Plan Disposition Patient Disposition: Home, Self-Care Chief Complaint: Dizziness Prescriptions Prescriptions: No Action levothyroxine 50 mcg tablet 50 mcg PO DAILY fluticasone propionate 50 mcg/actuation spray,suspension 1 spray NS DAILY Rx Instructions: administer into each nostril glipizide 5 mg tablet extended release 24hr 5 mg PO DAILY memantine 10 mg tablet 10 mg PO BID Qty: 60 6RF Farxiga 10 mg tablet 10 mg PO DAILY ranolazine 1,000 mg tablet extended release 12 hr 1,000 mg PO Q12H Qty: 60 5RF empagliflozin 10 mg tablet 10 mg PO DAILY aspirin 81 mg tablet,delayed release (DR/EC) 81 mg PO DAILY Qty: 30 5RF albuterol sulfate [ProAir HFA] 90 mcg/actuation HFA aerosol inhaler 2 puff inhalation QID PRN (Reason: shortness of breath or wheezing) 30 Days Qty: 8.5 1RF sertraline 25 mg tablet 25 mg PO DAILY Qty: 30 5RF amlodipine 5 mg tablet 5 mg PO DAILY Qty: 90 3RF carvedilol 12.5 mg tablet 12.5 mg PO BID Qty: 180 3RF Rx Instructions: must administer with a meal/food clopidogrel 75 mg tablet See Rx Instructions .ROUTE .COMPLEX Qty: 90 2RF Dose Instruction: TAKE 1 TABLET BY MOUTH ONCE DAILY FOR CVA Rx Instructions: TAKE 1 TABLET BY MOUTH ONCE DAILY FOR CVA rosuvastatin 5 mg tablet See Rx Instructions .ROUTE .COMPLEX Qty: 90 2RF Dose Instruction: TAKE 1 TABLET BY MOUTH ONCE DAILY FOR CHOLESTEROL Rx Instructions: TAKE 1 TABLET BY MOUTH ONCE DAILY FOR CHOLESTEROL lisinopril 40 mg tablet See Rx Instructions .ROUTE .COMPLEX Qty: 30 9RF Dose Instruction: TAKE 1 TABLET BY MOUTH ONCE DAILY Rx Instructions: TAKE 1 TABLET BY MOUTH ONCE DAILY cyclobenzaprine 5 MG tablet 5 mg PO HSP PRN (Reason: Muscle Spasm) benzonatate [benzonatate] 100 mg capsule 100 mg PO TIDP PRN (Reason: Cough) Qty: 30 0RF Referrals Follow up/Referrals: Kyle Romo MD [Primary Care Provider] - See instructions Activity Restrictions/Add. Instructions Additional Instructions/Restrictions: Call your family doctor to establish care for this visit to the emergency department and schedule follow-up within 48 hours to ensure improvement. If you have any worsening of your condition or any other concerning signs or symptoms, return to the emergency department or your primary care doctor for further evaluation. Be sure to stay hydrated. Clinical Impressions Clinical Impression: Orthostatic syncope, Acute dehydration Discharge ED Provider: Colt Chavez HPI General Chief Complaint: Dizziness Stated Complaint: syncope Time Seen by Provider: 06/14/23 10:51 History of Present Illness HPI narrative: 77-year-old male history of prior retention, hyperlipidemia, CAD status post stenting currently on aspirin, type 2 diabetes, CVA with no residual deficits not on anticoagulation presenting with multiple complaints. Patient states that he was getting out of the car about 2 hours prior to this visit when he stood up, felt dizzy and as if I was drunk. Family with him noted that he was stumbling, had slurred speech. When she sat him down, his symptoms seem to resolve.. Patient stating he is not currently having symptoms. Denies any unilateral weakness, vision changes, chest pain, nausea or vomiting. Has not recently been sick, tolerating p.o. intake without issue. Related Data Home Medications Medication Instructions Recorded Confirmed cyclobenzaprine 5 mg tablet 5 mg PO HSP PRN Muscle Spasm 12/24/17 06/14/23 levothyroxine 50 mcg tablet 50 mcg PO DAILY . 10/27/21 06/14/23 fluticasone propionate 50 1 spray intranasal DAILY . 11/02/21 06/14/23 mcg/actuation nasal spray,suspension empagliflozin 10 mg tablet 10 mg PO DAILY . 01/07/22 06/14/23 glipizide 5 mg tablet, extended 5 mg PO DAILY 03/08/23 06/14/23 release 24 hr dapagliflozin propanediol 10 mg 10 mg PO DAILY 05/16/23 06/14/23 tablet (Farxiga) Previous Rx's Medication Instructions Recorded aspirin 81 mg tablet,delayed 81 mg PO DAILY [facility] #30 01/07/22 release tabs benzonatate 100 mg capsule 100 mg PO TIDP PRN Cough #30 caps 10/04/22 carvedilol 12.5 mg tablet 12.5 mg PO BID . #180 tabs 10/15/22 albuterol sulfate 90 mcg/actuation 2 puff inhalation QID PRN 11/18/22 aerosol inhaler (ProAir HFA) shortness of breath or wheezing 30 days #8.5 grams clopidogrel 75 mg tablet See Rx Instructions .Route 01/20/23 .COMPLEX #90 tabs rosuvastatin 5 mg tablet See Rx Instructions .Route 01/20/23 .COMPLEX #90 tabs lisinopril 40 mg tablet See Rx Instructions .Route 02/18/23 .COMPLEX #30 tabs memantine 10 mg tablet 10 mg PO BID memory loss #60 tabs 03/08/23 amlodipine 5 mg tablet 5 mg PO DAILY #90 tabs 04/13/23 sertraline 25 mg tablet 25 mg PO DAILY #30 tabs 05/10/23 ranolazine 1,000 mg 1,000 mg PO Q12H . #60 tabs 05/16/23 tablet,extended release,12 hr Allergies Allergy/AdvReac Type Severity Reaction Status Date / Time No Known Allergies Allergy Verified 06/14/23 11:05 [facility] Disclaimer: The information contained in this section may have been updated after the patient was seen, as this information can be updated by other users. Medical History Abnormal cardiovascular stress test Abnormality of lung on CXR Atypical angina CAD (coronary artery disease) Chest pain Hx of CAD, reports recurrent chest pain with exercise. Today he is asymp tomatic and has active follow-up with cardiology at [facility]. COPD mixed type Diastolic dysfunction Dizziness Dyspnea on exertion Generalized anxiety disorder Headache 06/14/2023:Headache is currently described as sporadic, mild, icepick type, short lasting, right or left frontal. Today he is asymptomatic. No evidence of temporal artery , jaw claudication, fever, polyarthralgia. History of smoking 30 or more pack years Hyperlipidemia On statins Hypertension Hypotension determined by examination Memory loss Pleural thickening SOB (shortness of breath) Stenosis of carotid artery Surgical History History of back surgery History of heart artery stent History of surgery on lower extremity Family History Other Asthma Diabetes Hypertension Social History Smoking Status: Never smoker smoking status stop date: when he was 34 years old second hand exposure: No alcohol intake: never substance use type: denies use current occupational status: retired Travel in the last 8 weeks: Inside the [place] adopted: No caregiver/support person: No foster care: No household members: spouse housing: house lives independently: Yes marital status: number of children: 3 number of grandchildren: 5 education level: other details: GED service: No skilled nursing: No current occupational exposures/hazards: No Hx Recent Travel: No caffeine: Yes ROS Obtained: Yes All systems reviewed & no additional complaints except as documented Physical Exam General General appearance: alert Neck Neck exam: Present trachea midline Chest Chest inspection: Present normal inspection and symmetric chest wall rise Respiratory Respiratory exam: Present normal lung sounds bilaterally; Absent respiratory distress, wheezes, stridor, accessory muscle use or prolonged expiratory phase Cardiovascular Cardiovascular exam: Present regular rate and normal rhythm Abdominal Exam Abdominal exam: Present soft; Absent distention, tenderness, guarding or rebound Extremities Exam Extremities exam: Absent edema Neurological Exam Neurological exam: Present alert, oriented X3 and CN II-XII intact Skin Skin exam: Present warm and dry; Absent cyanosis, diaphoresis or pallor HEART Score HEART Score HEART Score assessment performed?: Yes History (anamnesis): Slightly suspicious ECG: Normal Age: >65 years Risk factors: 3 or more risk factors Troponin: </= normal limit HEART Score: 4 Critical Care Critical Care Time Critical Care Time: No Medical Decision Making Medical Records Medical records reviewed: Yes I reviewed the patient's medical records. Tayo Inquiry Pt receiving controlled substance: No Tayo was queried for this patient: No Vital Signs Vital Signs: 06/14/23 10:44 06/14/23 11:00 06/14/23 11:30 Temperature 98.0 F Temperature Source Oral Pulse Rate 63 64 Pulse Rate [Radial] 64 Respiratory Rate 18 20 Blood Pressure 113/61 102/58 L Blood Pressure [Right Arm] 97/62 L Blood Pressure Mean 79 Blood Pressure Mean [Right Arm] 73 Blood Pressure Source [Right Arm] Automatic Cuff Blood Pressure Position [Right Arm] Sitting 02 Sat by Pulse Oximetry 98 97 96 Oxygen Delivery Method Room Air Room Air 06/14/23 12:31 Temperature Temperature Source Pulse Rate 59 L Pulse Rate [Radial] Respiratory Rate Blood Pressure 110/75 Blood Pressure [Right Arm] Blood Pressure Mean Blood Pressure Mean [Right Arm] Blood Pressure Source [Right Arm] Blood Pressure Position [Right Arm] 02 Sat by Pulse Oximetry 97 Oxygen Delivery Method Room Air Lab Data Labs: Lab Results 06/14/23 11:01: WBC 4.9, RBC 3.81 L, Hgb 12.5 L, Hct 37.2 L, MCV 97.7 H, MCH 32.9 H, MCHC 33.6, RDW 12.9, Plt Count 197, MPV 9.1, Neut % (Auto) 59.1, Lymph % (Auto) 30.9, [place] % (Auto) 4.4, Eos % (Auto) 4.4, Baso % (Auto) 1.2, Neut # (Auto) 2.9, Lymph # (Auto) 1.5, [place] # (Auto) 0.2, Eos # (Auto) 0.2, Baso # (Auto) 0.1, D-Dimer 0.75 H, Sodium 137, Potassium 4.4, Chloride 107, Carbon Dioxide 26, Anion Gap 8.4, BUN 25 H, Creatinine 1.60 H, Estimated Creat Clear 44, Estimated GFR 42 L, Est GFR ( Amer) 51 L, Glucose 101 H, Calcium 8.8, Total Bilirubin 0.5, AST 31, ALT 21, Alkaline Phosphatase 91, Troponin I < 0.01, NT-Pro-B Natriuret Pep 84.3, Total Protein 6.6, Albumin 3.7, Globulin 2.9, Albumin/Globulin Ratio 1.3 06/14/23 11:01 06/14/23 11:01 Response Orders (Tests/Meds): ED MEDICATIONS Discontinued Medications Generic Name Dose Route Start Last Admin Trade Name Freq PRN Reason Stop Dose Admin Aspirin 324 mg 06/14/23 10:52 06/14/23 11:25 Aspirin 81mg Chewable Tablet PO 06/14/23 10:53 324 mg ONCE ONE Administration Lactated Ringer's 1,000 mls @ 999 mls/hr 06/14/23 11:28 06/14/23 11:34 Lactated Ringer's 1000 Ml Bag IV 06/14/23 12:28 999 mls/hr .Q1H1M ONE Administration Iopamidol 100 ml 06/14/23 12:14 06/14/23 12:15 Iopamidol-370 (76%);100ml Bottle IV 06/14/23 12:15 100 ml ONCE ONE Administration Iopamidol 100 ml 06/14/23 12:17 06/14/23 12:18 Iopamidol-370 (76%);100ml Bottle IV 06/14/23 12:18 100 ml ONCE ONE Administration Sodium Chloride 50 ml 06/14/23 12:14 06/14/23 12:15 0.9 % Sodium Chloride 50 Ml Vial IV 06/14/23 12:15 50 ml ONCE ONE Administration Sodium Chloride 10 ml 06/14/23 12:14 06/14/23 12:15 Sodium Chloride 0.9% 10ml Syr (Rad Only) IV 06/14/23 12:15 10 ml ONCE ONE Administration ORDERS Category Date Time Status CT angio head Stat Cat Scan 06/14/23 11:[address] angio neck Stat Cat Scan 06/14/23 11:[address] head/brain wo con Stat Cat Scan 06/14/23 11:16 Completed CTA Chest [CT angio chest - dissection] Stat Cat Scan 06/14/23 11:16 Completed XR chest portable Stat Exams 06/14/23 10:52 Completed Brain Natriuretic Peptide Stat Lab 06/14/23 11:01 Completed Complete Blood Count Auto Diff Stat Lab 06/14/23 11:01 Completed Comprehensive Metabolic Panel Stat Lab 06/14/23 11:01 Completed D-Dimer Stat Lab 06/14/23 11:01 Completed Troponin I Q3H Lab 06/14/23 14:00 Ordered Troponin I Q3H Lab 06/14/23 17:00 Ordered Troponin I Stat Lab 06/14/23 11:01 Completed MDM Narrative Medical Decision Narrative: 77-year-old male history of prior retention, hyperlipidemia, CAD status post stenting currently on aspirin, type 2 diabetes, carotid artery stenosis, CVA with no residual deficits not on anticoagulation presenting with multiple complaints. Patient states that he was getting out of the car about 2 hours prior to this visit when he stood up, felt dizzy and as if I was drunk. Aby pardo with him noted that he was stumbling, had slurred speech. When she sat him down, his symptoms seem to resolve.. Patient stating he is not currently having symptoms. Denies any unilateral weakness, vision changes, chest pain, nausea or vomiting. Has not recently been sick, tolerating p.o. intake without issue.. History was obtained via conversation with patient and family. On arrival, patient hemodynamically stable, alert, oriented x4, appropriate, GCS 15, moving all extremities spontaneously, pupils equal and reactive to light. Full physical exam performed and significant for well-appearing male in no acute distress. Neurologically intact and NIHSS 0. Cardiac exam without murmurs, gallops, rubs. No lower extremity edema. Abdomen is soft, nontender, nondistended. Lungs are clear to auscultation bilaterally. Differential includes orthostatic, vasovagal, ACS, MA, pneumothorax, PE, dissection, pneumothorax, aortic aneurysm, pneumonia, bronchitis, among others. Patient was given 324 mg aspirin for symptomatic management and correction of underlying abnormalities. Workup independently interpreted and significant for nonactionable CBC. Creatinine 1.6 up from normal baseline. Patient was given fluids for this BNP negative. CT head without acute intracranial hemorrhage. CTA head and neck with chronically occluded left vertebral artery, but distal reconstitution with dominant right vertebral artery. No significant extra or intracranial stenosis. No obvious large vessel occlusion. See radiology read for full review of final results. Independent interpretation of EKG shows sinus rhythm [address] or T wave changes concerning for acute ischemia. First-degree AV block with WA interval 220 ms, QRS, QT intervals within normal limits. Patient placed on continuous cardiac monitoring and continuous pulse ox with initial blood pressure 113/61, heart rate 60, saturation 98. Heart score 4. On reevaluation, patient resting comfortably after fluids. Symptoms no longer present. Neurosurgery [facility] was contacted and case was d iscussed, recommended no intervention and likely chronic occlusion. Given patient presentation, workup, history, this most likely represents dehydration and orthostatic presyncope. Because patient at baseline without signs or symptoms of clinical decompensation, deemed appropriate for discharge. Results were relayed to patient who voiced understanding and were agreeable to outpatient management and follow up. At the time of discharge the patient was hemodynamically stable, tolerating PO, and mobilizing appropriately.
[2023-06-14 11:00] VITALS: BP 113/61; PULSE 63; RESP 20; O2SAT 97
[2023-06-14 11:10] LABS: Basophils # 0.1 K/mm3 (0-0.2); Basophils % 1.2 % (0.1-2.0); Eosinophils # 0.2 K/mm3 (0.0-0.4); Eosinophils % 4.4 % (0.1-12.0); Hematocrit 37.2 % (42.0-52.0); Hemoglobin 12.5 g/dL (14.1-18.0); Lymphocytes # 1.5 K/mm3 (0.7-4.5); Lymphocytes % 30.9 % (10-50); Mean Corpuscular HGB Conc 33.6 g/dL (31.8-35.4); Mean Corpuscular Hemoglobin 32.9 pg (27.0-31.2); Mean Corpuscular Volume 97.7 fl (80-94); Mean Platelet Volume 9.1 fl (7.4-10.4); Monocytes # 0.2 K/mm3 (0.1-1.0); Monocytes % 4.4 % (1.7-9.3); Neutrophils # 2.9 K/mm3 (1.8-7.8); Neutrophils % 59.1 % (37.0-80.0); Platelet Count 197 K/mm3 (142-424); Red Blood Count 3.81 M/mm3 (4.60-6.20); Red Cell Distribution Width 12.9 % (11.5-17.5); White Blood Count 4.9 K/mm3 (4.8-10.8)
--- NOTE | 2023-06-14 11:16 | CT_ITS ---
FINAL REPORT CLINICAL HISTORY: dizziness, dysarthria. h/o carotid stenosis FINDINGS: Thin-section axial CT with IV contrast supplemented with multi planar reconstruction under CT angiogram protocol was performed of the head and neck. This study was performed technique to keep radiation doses as low as reasonably achievable, (ALARA). NASCET criteria was utilized during interpretation. CTA HEAD: No aneurysm is seen. Major intracranial vessels are patent without significant stenosis. IMPRESSION: No evidence of significant stenosis, aneurysm or major branch occlusion. CTA NECK: Aortic arch: Arch shows no significant narrowing. Great vessel origins are widely patent. Right carotid: There is calcified plaque in the common carotid artery and the internal carotid artery without significant stenosis. Left carotid: There is calcified plaque at the bulb with no evidence of stenosis. Vertebrals: The right vertebral artery is patent. The left vertebral artery is occluded. IMPRESSION: Occlusion of the left vertebral artery. No significant carotid artery stenosis. Reviewed, Interpreted and Dictated by Riki Garcia III, MD Transcribed by Nishi Perea Authenticated and . [facility]
--- NOTE | 2023-06-14 11:16 | CT_ITS ---
FINAL REPORT TECHNIQUE: Then section axial CT images of the chest were obtained with contrast. Three-D reformatted images were also obtained.This study was performed with techniques to keep radiation doses as low as reasonably achievable (ALARA). Individualized dose reduction techniques using automated exposure control or adjustment of mA and/or kV according to the patient''s size were employed. CLINICAL HISTORY: stroke like symptoms FINDINGS: There is no evidence of pulmonary embolism. There is no evidence of thoracic aortic aneurysm or dissection. There is no evidence of mediastinal or hilar mass or adenopathy. There is no evidence of pulmonary mass or suspicious nodule. There is mild scarring in the right lung base. Chronic right lateral rib fractures are noted. Limited images of the upper abdomen demonstrate postoperative changes from cholecystectomy. There is a small cyst in the right liver dome. Postoperative changes are seen in the stomach. IMPRESSION: No evidence of pulmonary embolism. No mass or localized inflammatory process. Reviewed, Interpreted and Dictated by Riki Garcia III, MD Transcribed by Nishi Perea Authenticated and [facility]
--- NOTE | 2023-06-14 11:16 | CT_ITS ---
FINAL REPORT CLINICAL HISTORY: dizziness, dysarthria. h/o carotid stenosis COMPARISON: 11/02/2021 FINDINGS: Axial images of the head were obtained without contrast. Coronal reformatted images were also obtained. This study was performed with techniques to keep radiation doses as low as reasonably achievable (ALARA). Individualized dose reduction techniques using automated exposure control or adjustment of mA and/or kV according to the patient's size were employed. There is generalized age-appropriate atrophy. Periventricular low-attenuation areas are seen consistent with mild chronic ischemic changes. There is no evidence of intracranial hemorrhage or mass. There is no evidence of acute infarct. There is no evidence of shift of the midline structures. No skull abnormality is seen on the bone window images. There is mucosal thickening in multiple sinuses, left greater than right. IMPRESSION: Atrophy and mild periventricular chronic ischemic changes. No acute intracranial abnormality identified. Reviewed, Interpreted and Dictated by Riki Garcia III, MD Transcribed by Nishi Perea Authenticated and . [facility]
[2023-06-14 11:21] LABS: Chloride 107 mmol/L (98-107); Potassium 4.4 mmoL/L (3.5-5.1); Sodium 137 mmol/L (136-145)
[2023-06-14 11:23] LABS: Alanine Aminotransferase 21 U/L (12-78); Aspartate Amino Transferase 31 U/L (17-59); Blood Urea Nitrogen 25 mg/dl (9-20); Creatinine Clearance Estimated 44 mL/min (50-200); Estimated Glomerular Filt Rate 42 ml/min (>60); GFR (African American) 51 ML/MIN (>60)
[2023-06-14 11:24] LABS: Albumin Level 3.7 g/dl (3.5-5.0); Albumin/Globulin Ratio 1.3 (1.1-1.8); Alkaline Phosphatase 91 U/L (38-126); Anion Gap 8.4 mEq/L (5-15); Bilirubin,Total 0.5 mg/dl (0.2-1.3); Calcium 8.8 mg/dl (8.4-10.2); Carbon Dioxide 26 mmol/L (22.0-30.0); Globulin 2.9 g/dL (1.3-3.2); Glucose 101 mg/dl (74-100); Total Protein,Serum 6.6 g/dl (6.3-8.2)
[2023-06-14] MEDS: ASPIRIN 81MG CHEWABLE TABLET 324 MG PO (11:25)
[2023-06-14 11:30] VITALS: BP 102/58; PULSE 64; O2SAT 96
[2023-06-14 11:31] LABS: D-Dimer 0.75 ug/mL (0.0-0.5)
[2023-06-14 11:33] LABS: NT Pro Brain Natriuretic Pep. 84.3 pg/mL (0-450)
[2023-06-14] MEDS: LACTATED RINGERS 1000ML 1,000 ML 999 ML IV (11:34)
[2023-06-14 11:47] LABS: Troponin I < 0.01 ng/ml (0.00-0.034)
[2023-06-14] MEDS: IOPAMIDOL-370 (76%);100ML BOTTLE 100 ML IV ×2 (12:15→12:18)
[2023-06-14] MEDS: 0.9 % SODIUM CHLORIDE 50 ML VIAL IV (12:15)
[2023-06-14] MEDS: SODIUM CHLORIDE 0.9% 10ML SYR (RAD ONLY) 10 ML IV (12:15)
--- NOTE | 2023-06-14 12:16 | PC.NURSE ---
pt arrived back to room from ct
[2023-06-14 12:31] VITALS: BP 110/75; PULSE 59; O2SAT 97
--- NOTE | 2023-06-14 12:52 | PC.NURSE ---
rounded on pt asked for water let pt know md said not until ct scan comes back, visitor at bs with family members
[2023-06-14 14:23] VITALS: BP 126/67; PULSE 60; RESP 16; TEMP 36.7; O2SAT 97
== END 2023-06-14 14:24 | disposition home or self-care (01) ==
PROVIDERS: Emergency Provider Emergency Medicine; PCP Family Medicine
DX: E86.0 Dehydration (principal); I95.1 Orthostatic hypotension; R47.81 Slurred speech; I25.118 Atherosclerotic heart disease of native coronary artery with other forms of angina pectoris; E78.5 Hyperlipidemia, unspecified; E11.9 Type 2 diabetes mellitus without complications; J44.9 Chronic obstructive pulmonary disease, unspecified; I10 Essential (primary) hypertension; I65.29 Occlusion and stenosis of unspecified carotid artery; Z86.73 Personal history of transient ischemic attack (TIA), and cerebral infarction without residual deficits
CPT/HCPCS: 70450; 70496; 70498; 71045; 71275; 80053; 83880; 84484; 85025; 85378; 93005; 96360; 99285; Q9967

== ENCOUNTER 2023-07-04 10:53 | Emergency (ER) | payer MEDICARE, BC, SELFPAY ==
[2023-07-04] VITALS (18 sets, daily range): BP systolic 80–179; BP diastolic 49–94; PULSE 65–71; RESP 15–20; TEMP 36.7–36.8; O2SAT 96–99; BMI 30.4
--- NOTE | 2023-07-04 10:55 | ECG_ITS ---
APPROVED REPORT Exam: Resting ECG HR:66 bpm ECG Measurements Heart Rate 66 AXES MS 207 P 28 QRSd 109 QRS 11 QT 435 T -2 QTc 449 Conclusion SINUS RHYTHM NONSPECIFIC T-WAVE ABNORMALITY BORDERLINE ECG UNCONFIRMED REPORT Electronically signed by : Kyle Stewart MD 07/04/2023 19:57:12
--- NOTE | 2023-07-04 11:12 | HMH.EDGENADL ---
Discharge Plan Disposition Patient Disposition: Home, Self-Care Condition: Good Prescriptions Prescriptions: No Action levothyroxine 50 mcg tablet 50 mcg PO DAILY fluticasone propionate 50 mcg/actuation spray,suspension 1 spray NS DAILY Rx Instructions: administer into each nostril glipizide 5 mg tablet extended release 24hr 5 mg PO DAILY memantine 10 mg tablet 10 mg PO BID Qty: 60 6RF Farxiga 10 mg tablet 10 mg PO DAILY ranolazine 1,000 mg tablet extended release 12 hr 1,000 mg PO Q12H Qty: 60 5RF empagliflozin 10 mg tablet 10 mg PO DAILY aspirin 81 mg tablet,delayed release (DR/EC) 81 mg PO DAILY Qty: 30 5RF albuterol sulfate [ProAir HFA] 90 mcg/actuation HFA aerosol inhaler 2 puff inhalation QID PRN (Reason: shortness of breath or wheezing) 30 Days Qty: 8.5 1RF sertraline 25 mg tablet 25 mg PO DAILY Qty: 30 5RF amlodipine 5 mg tablet 5 mg PO DAILY Qty: 90 3RF carvedilol 12.5 mg tablet 12.5 mg PO BID Qty: 180 3RF Rx Instructions: must administer with a meal/food clopidogrel 75 mg tablet See Rx Instructions .ROUTE .COMPLEX Qty: 90 2RF Dose Instruction: TAKE 1 TABLET BY MOUTH ONCE DAILY FOR CVA Rx Instructions: TAKE 1 TABLET BY MOUTH ONCE DAILY FOR CVA rosuvastatin 5 mg tablet See Rx Instructions .ROUTE .COMPLEX Qty: 90 2RF Dose Instruction: TAKE 1 TABLET BY MOUTH ONCE DAILY FOR CHOLESTEROL Rx Instructions: TAKE 1 TABLET BY MOUTH ONCE DAILY FOR CHOLESTEROL lisinopril 40 mg tablet See Rx Instructions .ROUTE .COMPLEX Qty: 30 9RF Dose Instruction: TAKE 1 TABLET BY MOUTH ONCE DAILY Rx Instructions: TAKE 1 TABLET BY MOUTH ONCE DAILY cyclobenzaprine 5 MG tablet 5 mg PO HSP PRN (Reason: Muscle Spasm) benzonatate [benzonatate] 100 mg capsule 100 mg PO TIDP PRN (Reason: Cough) Qty: 30 0RF Clinical Impressions Clinical Impression: Near syncope Instructions Patient Instructions: DI for Syncope in Adults (Fainting), DI for Syncope in Children (Fainting) Discharge ED Provider: Tomas Scruggs General Adult HPI <Tomas Scruggs MD - Last Filed: 07/05/23 20:50> General Chief complaint: Syncope Stated complaint: syncope Time Seen by Provider: 07/04/23 11:12 Mode of Arrival: EMS Source of Information: Patient and EMS Limitations: No Limitations Description of Symptoms (Recalled from ER Triage Doc. by RN): pt presents to ED via EMS for syncope. pt was sitting at the eye doc in the office. when pt reports he felt weak. pt slumped over in the chair and was drooling. pt does take bp medications. NIH assessment - 0. History of Present Illness HPI narrative: Patient presents with presyncopal symptoms which started this morning however acutely worsened when ambulating to go to the eye doctor earlier today. He was in his normal state of health yesterday. He has had similar symptoms attributable to hypovolemia, orthostasis, as well as hypotension induced by antihypertensives. He has returned to baseline at this time. Symptoms lasted approximately 5 minutes. At this time he did not exhibit any focal weakness or numbness. He did not fall. He did not strike his head. No blood thinner usage reported. Fingerstick blood sugar prior to arrival within normal limits. No medication changes recently however patient has had intentional weight loss which family believes may be contributing to stronger effect of antihypertensives. He does chronically have decreased p.o. intake. Denies any fevers or chills or pain at this time. Denies any shortness of breath. Please note that above description of symptoms, in this electronic medical record under categorization of recalled from ER triage doctor by RN are reflective of an initial nursing assessment, however, is not reflective of my full history and physical exam that was personally taken and clarified. Consequentially, this preceding description of symptoms, which may include the patient's categorized chief complaint in the EMR, do not reflect my personal clinical impression, and the ultimate description of history of present illness and patient stated complaints should be deferred to this section of the note. Unless stated otherwise or congruent with this section of the note, additional signs, symptoms, or incongruence should be interpreted as inaccurate with my clinical impression. Related Data Home Medications Medication Instructions Recorded Confirmed cyclobenzaprine 5 mg tablet 5 mg PO HSP PRN Muscle Spasm 12/24/17 06/14/23 levothyroxine 50 mcg tablet 50 mcg PO DAILY . 10/27/21 06/14/23 fluticasone propionate 50 1 spray intranasal DAILY . 11/02/21 06/14/23 mcg/actuation nasal spray,suspension empagliflozin 10 mg tablet 10 mg PO DAILY . 01/07/22 06/14/23 glipizide 5 mg tablet, extended 5 mg PO DAILY 03/08/23 06/14/23 release 24 hr dapagliflozin propanediol 10 mg 10 mg PO DAILY 05/16/23 06/14/23 tablet (Farxiga) Previous Rx's Medication Instructions Recorded aspirin 81 mg tablet,delayed 81 mg PO DAILY [facility] #30 01/07/22 release tabs benzonatate 100 mg capsule 100 mg PO TIDP PRN Cough #30 caps 10/04/22 carvedilol 12.5 mg tablet 12.5 mg PO BID . #180 tabs 10/15/22 albuterol sulfate 90 mcg/actuation 2 puff inhalation QID PRN 11/18/22 aerosol inhaler (ProAir HFA) shortness of breath or wheezing 30 days #8.5 grams clopidogrel 75 mg tablet See Rx Instructions .Route 01/20/23 .COMPLEX #90 tabs rosuvastatin 5 mg tablet See Rx Instructions .Route 01/20/23 .COMPLEX #90 tabs lisinopril 40 mg tablet See Rx Instructions .Route 02/18/23 .COMPLEX #30 tabs memantine 10 mg tablet 10 mg PO BID memory loss #60 tabs 03/08/23 amlodipine 5 mg tablet 5 mg PO DAILY #90 tabs 04/13/23 sertraline 25 mg tablet 25 mg PO DAILY #30 tabs 05/10/23 ranolazine 1,000 mg 1,000 mg PO Q12H . #60 tabs 05/16/23 tablet,extended release,12 hr Allergies Allergy/AdvReac Type Severity Reaction Status Date / Time No Known Allergies Allergy Verified 06/29/23 10:45 [facility] <Tomas Scruggs MD - Last Filed: 07/05/23 20:50> [facility] Disclaimer: The information contained in this section may have been updated after the patient was seen, as this information can be updated by other users. Medical History Abnormal cardiovascular stress test Abnormality of lung on CXR Atypical angina CAD (coronary artery disease) Chest pain Hx of CAD, reports recurrent chest pain with exercise. Today he is asymptomatic and has active follow-up with cardiology at [facility]. COPD mixed type Diastolic dysfunction Dizziness Dyspnea on exertion Generalized anxiety disorder Headache 06/14/2023:Headache is currently described as sporadic, mild, icepick type, short lasting, right or left frontal. Today he is asymptomatic. No evidence of temporal artery , jaw claudication, fever, polyarthralgia. History of smoking 30 or more pack years Hyperlipidemia On statins Hypertension Hypotension determined by examination Memory loss Pleural thickening SOB (shortness of breath) Stenosis of carotid artery Surgical History History of back surgery History of heart artery stent History of surgery on lower extremity Family History Other Asthma Diabetes Hypertension Social History Smoking Status: Former smoker tobacco type: cigarettes packs per day: 1 smoking status stop date: when he was 34 years old second hand exposure: No alcohol intake: never substance use type: denies use current occupational status: retired Travel in the last 8 weeks: [place] the [place] adopted: No caregiver/support person: No foster care: No household members: spouse housing: house lives independently: Yes marital status: number of children: 3 number of grandchildren: 5 education level: other details: GED service: No custodial: No current occupational exposures/hazards: No Hx Recent Travel: No caffeine: Yes <Tomas Scruggs MD - Last Filed: 07/05/23 20:50> ROS Obtained: Yes Systems reviewed as appropriate & no additional complaints except as documented As per HPI Physical Exam <Tomas Scruggs MD - Last Filed: 07/05/23 20:50> General General appearance: alert and in no apparent distress Head Head exam: atraumatic and normocephalic Eye Eye exam: Present normal appearance Neck Neck exam: Present normal inspection Chest Chest inspection: Present normal inspection and symmetric chest wall rise Respiratory Respiratory exam: Present normal lung sounds bilaterally; Absent respiratory distress Cardiovascular Cardiovascular exam: Present regular rate and normal rhythm Abdominal Exam Abdominal exam: Present soft Neurological Exam Neurological exam: Present alert and oriented X3 Psychiatric Psychiatric exam: Present normal affect and normal mood Skin Skin exam: Present warm, dry and other (Mucous membranes dry) Medical Decision Making <Tomas Scruggs MD - Last Filed: 07/05/23 20:50> Medical Records Medical records reviewed: Yes I reviewed the patient's medical records. Tayo Inquiry Pt receiving controlled substance: No Vital Signs: 07/04/23 10:54 07/04/23 11:00 07/04/23 11:30 Temperature 98.3 F Temperature Source Oral Pulse Rate 65 66 Pulse Rate [Left Radial] 69 Respiratory Rate 15 20 20 Blood Pressure 82/49 L 80/49 L Blood Pressure [Right Arm] 82/52 L Blood Pressure Mean 58 59 Blood Pressure Mean [Right Arm] 62 02 Sat by Pulse Oximetry 96 96 96 Oxygen Delivery Method Room Air 07/04/23 12:00 07/04/23 12:30 07/04/23 13:00 Temperature Temperature Source Pulse Rate 68 67 66 Pulse Rate [Left Radial] Respiratory Rate Blood Pressure 104/64 L 99/64 L 105/62 L Blood Pressure [Right Arm] Blood Pressure Mean Blood Pressure Mean [Right Arm] 02 Sat by Pulse Oximetry 99 96 96 Oxygen Delivery Method Room Air Room Air Room Air 07/04/23 13:15 07/04/23 14:00 07/04/23 14:30 Temperature Temperature Source Pulse Rate 67 66 71 Pulse Rate [Left Radial] Respiratory Rate 20 18 Blood Pressure 107/67 L 115/72 113/70 Blood Pressure [Right Arm] Blood Pressure Mean 81 77 Blood Pressure Mean [Right Arm] 02 Sat by Pulse Oximetry 97 98 97 Oxygen Delivery Method Room Air 07/04/23 15:00 07/04/23 15:30 07/04/23 15:45 Temperature Temperature Source Pulse Rate 65 71 69 Pulse Rate [Left Radial] Respiratory Rate 20 20 Blood Pressure 114/65 103/76 L 112/68 Blood Pressure [Right Arm] Blood Pressure Mean 84 85 79 Blood Pressure Mean [Right Arm] 02 Sat by Pulse Oximetry 96 96 96 Oxygen Delivery Method 07/04/23 16:01 07/04/23 16:46 07/04/23 17:00 Temperature Temperature Source Pulse Rate 71 67 67 Pulse Rate [Left Radial] Respiratory Rate Blood Pressure 106/59 L 141/78 H 161/90 H Blood Pressure [Right Arm] Blood Pressure Mean 72 100 113 Blood Pressure Mean [Right Arm] 02 Sat by Pulse Oximetry 98 97 96 Oxygen Delivery Method 07/04/23 17:16 07/04/23 17:30 07/04/23 17:48 Temperature 98.0 F Temperature Source Pulse Rate 65 65 65 Pulse Rate [Left Radial] Respiratory Rate 15 Blood Pressure 157/94 H 179/93 H 179/93 H Blood Pressure [Right Arm] Blood Pressure Mean 120 121 Blood Pressure Mean [Right Arm] 02 Sat by Pulse Oximetry 97 97 Oxygen Delivery Method Lab Data Lab Results 07/04/23 10:52: WBC 5.6, RBC 3.85 L, Hgb 12.5 L, Hct 39.0 L, MCV 101.3 H, MCH 32.5 H, MCHC 32.1, RDW 13.5, Plt Count 143, MPV 9.7, Neut % (Auto) 62.8, Lymph % (Auto) 27.0, [place] % (Auto) 7.1, Eos % (Auto) 2.5, Baso % (Auto) 0.6, Neut # (Auto) 3.5, Lymph # (Auto) 1.5, [place] # (Auto) 0.4, Eos # (Auto) 0.1, Baso # (Auto) 0.0, Sodium 135 L, Potassium 3.6, Chloride 109 H, Carbon Dioxide 21 L, Anion Gap 8.6, BUN 22 H, Creatinine 1.30 H, Estimated Creat Clear 54, Estimated GFR 54 L, Est GFR ( Amer) 65, Glucose 170 H, Calcium 8.3 L, Troponin I < 0.01 07/04/23 11:49: VBG pH 7.39, VBG pCO2 32.6 L, VBG pO2 133.9 H, VBG HCO3 19.2 L, VBG Total CO2 20.2 L, VBG O2 Saturation 98.3 H, VBG Base Excess -5.7 L 07/04/23 16:20: Troponin I < 0.01 07/04/23 10:52 07/04/23 10:52 Orders (Tests/Meds): ED MEDICATIONS Discontinued Medications Generic Name Dose Route Start Last Admin Trade Name Freq PRN Reason Stop Dose Admin Lactated Ringer's 1,000 mls @ 999 mls/hr 07/04/23 11:36 07/04/23 11:39 Lactated Ringer's 1000 Ml Bag IV 07/04/23 12:36 999 mls/hr .Q1H1M ONE Administration Sodium Chloride 10 ml 07/04/23 11:37 Sodium Chloride 0.9% 10ml Flush Syringe IV 08/03/23 11:36 NEEDED PRN Maintain IV Site ORDERS Category Date Time Status CT head/brain wo con Stat Cat Scan 07/04/23 11:38 Completed XR chest portable Stat Exams 07/04/23 11:37 Completed Basic Metabolic Panel Stat Lab 07/04/23 10:52 Completed Complete Blood Count Auto Diff Stat Lab 07/04/23 10:52 Completed Troponin I Q3H Lab 07/04/23 16:20 Completed Troponin I Stat Lab 07/04/23 10:52 Completed VBG [Venous Blood Gas] Stat RT 07/04/23 11:49 Completed ECG initial [place] Routine Y 07/04/23 10:55 Completed Medical Decision Narrative: Patient with history and exam per above presenting for evaluation of presyncope, lightheadedness, in the setting of multiple episodes suggestive of hypovolemia and orthostatic changes Diagnoses considered include ACS, electrolyte abnormality, hypovolemia, orthostatic syncope, acute intracranial hemorrhage, no focal neurologic deficits described at that time, symptoms resolved with administration of IV fluids prior to arrival, thus minimal evidence to suggest stroke or TIA ED workup and treatment included: ED MEDICATIONS Discontinued Medications Generic Name Dose Route Start Last Admin Trade Name Freq PRN Reason Stop Dose Admin Lactated Ringer's 1,000 mls @ 999 mls/hr 07/04/23 11:36 07/04/23 11:39 Lactated Ringer's 1000 Ml Bag IV 07/04/23 12:36 999 mls/hr .Q1H1M ONE Administration Sodium Chloride 10 ml 07/04/23 11:37 Sodium Chloride 0.9% 10ml Flush Syringe IV 08/03/23 11:36 NEEDED PRN Maintain IV Site ORDERS Category Date Time Status CT head/brain wo con Stat Cat Scan 07/04/23 11:38 Completed XR chest portable Stat Exams 07/04/23 11:37 Completed Basic Metabolic Panel Stat Lab 07/04/23 10:52 Completed Complete Blood Count Auto Diff Stat Lab 07/04/23 10:52 Completed Troponin I Q3H Lab 07/04/23 16:20 Completed Troponin I Stat Lab 07/04/23 10:52 Completed VBG [Venous Blood Gas] Stat RT 07/04/23 11:49 Completed ECG initial [place] Routine Y 07/04/23 10:55 Completed Labs were independently interpreted by me, significant for initial troponin undetectable, no acute finding on blood gas, creatinine at baseline Imaging was independently visualized and interpreted by me, significant for no acute finding. Please refer to radiology report for full details. This Dr. Rose took over from Dr. Lucas at 3 PM to follow-up on second troponin. The plan was for him to follow-up with primary care doctor significant ambulate and second troponin if negative. Second troponin returned and was negative. Patient was discharged with advised to follow-up with primary care doctor as previously instructed by Dr. Lucas. <Erik Rose MD - Last Filed: 07/04/23 17:14> Vital Signs: 07/04/23 10:54 07/04/23 11:00 07/04/23 11:30 Temperature 98.3 F Temperature Source Oral Pulse Rate 65 66 Pulse Rate [Left Radial] 69 Respiratory Rate 15 20 20 Blood Pressure 82/49 L 80/49 L Blood Pressure [Right Arm] 82/52 L Blood Pressure Mean 58 59 Blood Pressure Mean [Right Arm] 62 02 Sat by Pulse Oximetry 96 96 96 Oxygen Delivery Method Room Air 07/04/23 12:00 07/04/23 12:30 07/04/23 13:00 Temperature Temperature Source Pulse Rate 68 67 66 Pulse Rate [Left Radial] Respiratory Rate Blood Pressure 104/64 L 99/64 L 105/62 L Blood Pressure [Right Arm] Blood Pressure Mean Blood Pressure Mean [Right Arm] 02 Sat by Pulse Oximetry 99 96 96 Oxygen Delivery Method Room Air Room Air Room Air 07/04/23 13:15 07/04/23 14:00 07/04/23 14:30 Temperature Temperature Source Pulse Rate 67 66 71 Pulse Rate [Left Radial] Respiratory Rate 20 18 Blood Pressure 107/67 L 115/72 113/70 Blood Pressure [Right Arm] Blood Pressure Mean 81 77 Blood Pressure Mean [Right Arm] 02 Sat by Pulse Oximetry 97 98 97 Oxygen Delivery Method Room Air 07/04/23 15:00 07/04/23 15:30 07/04/23 15:45 Temperature Temperature Source Pulse Rate 65 71 69 Pulse Rate [Left Radial] Respiratory Rate 20 20 Blood Pressure 114/65 103/76 L 112/68 Blood Pressure [Right Arm] Blood Pressure Mean 84 85 79 Blood Pressure Mean [Right Arm] 02 Sat by Pulse Oximetry 96 96 96 Oxygen Delivery Method 07/04/23 16:01 07/04/23 16:46 07/04/23 17:00 Temperature Temperature Source Pulse Rate 71 67 67 Pulse Rate [Left Radial] Respiratory Rate Blood Pressure 106/59 L 141/78 H 161/90 H Blood Pressure [Right Arm] Blood Pressure Mean 72 100 113 Blood Pressure Mean [Right Arm] 02 Sat by Pulse Oximetry 98 97 96 Oxygen Delivery Method 07/04/23 17:16 07/04/23 17:30 07/04/23 17:48 Temperature 98.0 F Temperature Source Pulse Rate 65 65 65 Pulse Rate [Left Radial] Respiratory Rate 15 Blood Pressure 157/94 H 179/93 H 179/93 H Blood Pressure [Right Arm] Blood Pressure Mean 120 121 Blood Pressure Mean [Right Arm] 02 Sat by Pulse Oximetry 97 97 Oxygen Delivery Method Lab Data Lab Results 07/04/23 10:52: WBC 5.6, RBC 3.85 L, Hgb 12.5 L, Hct 39.0 L, MCV 101.3 H, MCH 32.5 H, MCHC 32.1, RDW 13.5, Plt Count 143, MPV 9.7, Neut % (Auto) 62.8, Lymph % (Auto) 27.0, [place] % (Auto) 7.1, Eos % (Auto) 2.5, Baso % (Auto) 0.6, Neut # (Auto) 3.5, Lymph # (Auto) 1.5, [place] # (Auto) 0.4, Eos # (Auto) 0.1, Baso # (Auto) 0.0, Sodium 135 L, Potassium 3.6, Chloride 109 H, Carbon Dioxide 21 L, Anion Gap 8.6, BUN 22 H, Creatinine 1.30 H, Estimated Creat Clear 54, Estimated GFR 54 L, Est GFR ( Amer) 65, Glucose 170 H, Calcium 8.3 L, Troponin I < 0.01 07/04/23 11:49: VBG pH 7.39, VBG pCO2 32.6 L, VBG pO2 133.9 H, VBG HCO3 19.2 L, VBG Total CO2 20.2 L, VBG O2 Saturation 98.3 H, VBG Base Excess -5.7 L 07/04/23 16:20: Troponin I < 0.01 Orders (Tests/Meds): ED MEDICATIONS Discontinued Medications Generic Name Dose Route Start Last Admin Trade Name Freq PRN Reason Stop Dose Admin Lactated Ringer's 1,000 mls @ 999 mls/hr 07/04/23 11:36 07/04/23 11:39 Lactated Ringer's 1000 Ml Bag IV 07/04/23 12:36 999 mls/hr .Q1H1M ONE Administration Sodium Chloride 10 ml 07/04/23 11:37 Sodium Chloride 0.9% 10ml Flush Syringe IV 08/03/23 11:36 NEEDED PRN Maintain IV Site ORDERS Category Date Time Status CT head/brain wo con Stat Cat Scan 07/04/23 11:38 Completed XR chest portable Stat Exams 07/04/23 11:37 Completed Basic Metabolic Panel Stat Lab 07/04/23 10:52 Completed Complete Blood Count Auto Diff Stat Lab 07/04/23 10:52 Completed Troponin I Q3H Lab 07/04/23 16:20 Completed Troponin I Stat Lab 07/04/23 10:52 Completed VBG [Venous Blood Gas] Stat RT 07/04/23 11:49 Completed ECG initial [place] Routine Y 07/04/23 10:55 Completed Medical Decision Narrative: Patient with history and exam per above presenting for evaluation of Diagnoses considered include ED workup and treatment included: Labs were independently interpreted by me, significant for Imaging was independently visualized and interpreted by me, significant for . Please refer to radiology report for full details. My clinical impression at this time is most consistent with I discussed my clinical impression with patient and answered all questions. At this time, the evidence for any other entities in the differential is insufficient to warrant any further testing or ED observation. This was explained to the patient. The patient was advised that persistent or worsening symptoms require further evaluation. I confirmed the patient's understanding of this discussion. This Dr. Rose took over from Dr. Lucas at 3 PM to follow-up on second troponin. The plan was for him to follow-up with primary care doctor significant ambulate and second troponin if negative. Second troponin returned and was negative. Patient was discharged with advised to follow-up with primary care doctor as previously instructed by Dr. Lucas. Critical Care <Tomas Scruggs MD - Last Filed: 07/05/23 20:50> Critical Care Time Critical Care Time: No
--- NOTE | 2023-07-04 11:37 | XR_ITS ---
FINAL REPORT CLINICAL HISTORY: syncope COMPARISON: 08/27/2021 FINDINGS: A portable view of the chest was obtained. Cardiac and mediastinal silhouettes are within normal limits. Low lung volumes are noted, as well as a chronic left base opacity which is stable since the prior exam, likely atelectasis. There is no pleural effusion or pneumothorax. IMPRESSION: Chronic left base opacity, stable since the prior exam, favor atelectasis. Reviewed, Interpreted and Dictated by Italia Philip MD Transcribed by Camille Mendoza Authenticated and . [facility]
--- NOTE | 2023-07-04 11:38 | CT_ITS ---
FINAL REPORT TECHNIQUE: Thin section axial images were obtained from skull base to vertex without contrast. Coronal and sagittal reconstruction images were obtained from the axial data. Exam was performed using dose reduction technique. CLINICAL HISTORY: syncope COMPARISON: 06/14/2023 FINDINGS: There is age-appropriate atrophy. There is no mass effect or midline shift. There is no intracranial hemorrhage. There is no hydrocephalus. Periventricular low density is likely related to changes of chronic small vessel ischemia. The basilar cisterns are preserved. The posterior fossa is without acute abnormality. There is mucoperiosteal thickening involving the left maxillary sinus with an air-fluid level, new since the prior CT. The soft tissues are without acute abnormality. No acute osseous abnormality is identified. IMPRESSION: No acute intracranial abnormality. Mucoperiosteal thickening involving the left maxillary sinus with an air-fluid level, new since the prior CT, consistent with sinusitis. Atrophy and changes suggesting chronic small vessel ischemia. Reviewed, Interpreted and Dictated by Italia Philip MD Transcribed by Camille Mendoza Authenticated and . [facility]
[2023-07-04] MEDS: LACTATED RINGERS 1000ML 1,000 ML 999 ML IV (11:39)
[2023-07-04 11:45] LABS: Basophils % 0.6 % (0.1-2.0); Chloride 109 mmol/L (98-107); Eosinophils # 0.1 K/mm3 (0.0-0.4); Eosinophils % 2.5 % (0.1-12.0); Hemoglobin 12.5 g/dL (14.1-18.0); Lymphocytes # 1.5 K/mm3 (0.7-4.5); Mean Corpuscular HGB Conc 32.1 g/dL (31.8-35.4); Mean Corpuscular Hemoglobin 32.5 pg (27.0-31.2); Mean Corpuscular Volume 101.3 fl (80-94); Mean Platelet Volume 9.7 fl (7.4-10.4); Monocytes # 0.4 K/mm3 (0.1-1.0); Monocytes % 7.1 % (1.7-9.3); Neutrophils # 3.5 K/mm3 (1.8-7.8); Neutrophils % 62.8 % (37.0-80.0); Platelet Count 143 K/mm3 (142-424); Potassium 3.6 mmoL/L (3.5-5.1); Red Blood Count 3.85 M/mm3 (4.60-6.20); Red Cell Distribution Width 13.5 % (11.5-17.5); Sodium 135 mmol/L (136-145); White Blood Count 5.6 K/mm3 (4.8-10.8)
[2023-07-04 11:48] LABS: Blood Urea Nitrogen 22 mg/dl (9-20); Creatinine Clearance Estimated 54 mL/min (50-200); Estimated Glomerular Filt Rate 54 ml/min (>60); GFR (African American) 65 ML/MIN (>60)
[2023-07-04 11:49] LABS: Anion Gap 8.6 mEq/L (5-15); Calcium 8.3 mg/dl (8.4-10.2); Carbon Dioxide 21 mmol/L (22.0-30.0); Glucose 170 mg/dl (74-100)
[2023-07-04 11:56] LABS: VBG Base Excess -5.7 mmol/L (-2.4-2.3); VBG HCO3 19.2 mmol/L (23-30); VBG Oxygen Saturation 98.3 % (50-70); VBG PCO2 32.6 mmol/L (35-51); VBG PH 7.39 mmol/L (7.31-7.41); VBG PO2 133.9 mmol/L (28-40); VBG Total CO2 20.2 mmol/L (23-27)
[2023-07-04 12:01] LABS: Troponin I < 0.01 ng/ml (0.00-0.034)
--- NOTE | 2023-07-04 13:14 | PC.NURSE ---
James Childs rounded on pt. No needs voiced. Call light within reach.
--- NOTE | 2023-07-04 14:15 | PC.NURSE ---
rounded on pt, updated on poc, no needs at this time, family at bs
[2023-07-04 17:04] LABS: Troponin I < 0.01 ng/ml (0.00-0.034)
== END 2023-07-04 17:53 | disposition home or self-care (01) ==
PROVIDERS: Emergency Provider Emergency Medicine; PCP Family Medicine
DX: R55 Syncope and collapse (principal); R53.1 Weakness; I25.118 Atherosclerotic heart disease of native coronary artery with other forms of angina pectoris; J44.9 Chronic obstructive pulmonary disease, unspecified; E78.5 Hyperlipidemia, unspecified; I10 Essential (primary) hypertension; I65.29 Occlusion and stenosis of unspecified carotid artery; Z87.891 Personal history of nicotine dependence
CPT/HCPCS: 70450; 71045; 80048; 82803; 84484; 85025; 93005; 96360; 99285

== ENCOUNTER 2023-07-19 09:36 | Outpatient (CLI) | payer MEDICARE, BC, SELFPAY | END 2023-07-19 23:59 | PROVIDERS: PCP Family Medicine; Visit Provider Specialist | DX: R42 Dizziness and giddiness (principal) | CPT/HCPCS: 93270 ==

== ENCOUNTER 2023-07-23 19:59 | Emergency (ER) | payer MEDICARE, BC, SELFPAY ==
[2023-07-23 20:33] VITALS: BP 134/73; PULSE 98; RESP 16; TEMP 36.5; O2SAT 96; BMI 29.6
--- NOTE | 2023-07-23 20:58 | CT_ITS ---
PROCEDURE INFORMATION: Exam: CT Cervical Spine Without Contrast Exam date and time: 07/23/2023 9:09 PM Age: 77 years old Clinical indication: Injury or trauma; Fall; Blunt trauma; Additional info: Fall yesterday TECHNIQUE: Imaging protocol: Computed tomography of the cervical spine without contrast. Radiation optimization: All CT scans at this facility use at least one of these dose optimization techniques: automated exposure control; mA and/or kV adjustment per patient size (includes targeted exams where dose is matched to clinical indication); or iterative reconstruction. COMPARISON: CT ANGIO NECK 06/14/2023 11:58 AM FINDINGS: Bones/joints: No acute fracture. Degenerative changes noted at C1-C2 anteriorly. Mild anterior subluxation of C3 on C4, C4 on C5, C5 on C6. Most likely secondary to degenerative disease. Multilevel degenerative disc disease noted at all levels and most prominent at C5-C6 and C6-C7. Left-sided neural foraminal narrowing noted at C4-C5 with bilateral neural foraminal narrowing at C5-C6 and C6-C7. Central canal stenosis at C5-C6 and C6-C7. Multilevel facet arthropathy noted. Paranasal sinuses: Mucosal thickening noted in the bilateral maxillary and ethmoid sinuses. Lungs: Lung apices are normal. Soft tissues: Unremarkable. IMPRESSION: 1. No acute fracture 2. Multilevel degenerative changes with central stenosis or neural foraminal narrowing, noted above 3. Additional nonacute findings, noted above
--- NOTE | 2023-07-23 20:58 | CT_ITS ---
PROCEDURE INFORMATION: Exam: CT Chest Without Contrast; Diagnostic Exam date and time: 07/23/2023 9:11 PM Age: 77 years old Clinical indication: Injury or trauma; Fall; Blunt trauma (contusions or hematomas); Additional info: Fall yesterday TECHNIQUE: Imaging protocol: Diagnostic computed tomography of the chest without contrast. Total images: 373 Radiation optimization: All CT scans at this facility use at least one of these dose optimization techniques: automated exposure control; mA and/or kV adjustment per patient size (includes targeted exams where dose is matched to clinical indication); or iterative reconstruction. COMPARISON: CT ANGIO CHEST 06/14/2023 12:04 PM FINDINGS: Lungs: Trachea and main bronchi are patent. Postoperative changes lateral right lung base. Right basilar scarring and atelectasis. No acute infiltrate, consolidation or pulmonary contusion. Minor left basilar dependent atelectasis. Pleural spaces: Unremarkable. No pneumothorax. No pleural effusion. Heart: Normal heart size. No pericardial effusion. Coronary arteries: Severe coronary artery calcifications. Mediastinal space: No mediastinal mass or hematoma. Lymph nodes: No mediastinal or hilar lymphadenopathy. Vasculature: Atherosclerotic and tortuous thoracic aorta without aneurysm. Ascending thoracic aorta is ectatic 4.4 cm. Diaphragm: Mild elevation right hemidiaphragm. Liver: 18 mm right hepatic cyst. Gallbladder and bile ducts: Status post cholecystectomy. Stomach and bowel: Status post gastric bypass. Moderate gaseous and stool distension of the colon. Bones/joints: Remote healed fractures lateral right ribs, likely postoperative. Moderate degenerative changes thoracic spine including DISH. No acute osseous abnormality. Soft tissues: Bilateral gynecomastia. Portion of the right posterolateral chest wall is been excluded from field of view. IMPRESSION: 1. No acute intrathoracic process. 2. Stable chronic findings. 3. No acute posttraumatic abnormalities. 4. No significant change from June 14, 2023.
--- NOTE | 2023-07-23 20:58 | CT_ITS ---
PROCEDURE INFORMATION: Exam: CT Head Without Contrast Exam date and time: 07/23/2023 9:09 PM Age: 77 years old Clinical indication: Injury or trauma; Fall; Blunt trauma (contusions or hematomas); Additional info: Fall yesterday TECHNIQUE: Imaging protocol: Computed tomography of the head without contrast. Radiation optimization: All CT scans at this facility use at least one of these dose optimization techniques: automated exposure control; mA and/or kV adjustment per patient size (includes targeted exams where dose is matched to clinical indication); or iterative reconstruction. COMPARISON: CT HEAD/BRAIN WO CON 07/04/2023 11:53 AM FINDINGS: Brain: There is no acute hemorrhage or obvious acute infarct. Cortical volume loss noted. Scattered hypodensities noted in the bilateral periventricular and deep white matter. Atherosclerosis noted in the bilateral cavernous carotid arteries. Cerebral ventricles: No ventriculomegaly. Paranasal sinuses: Mucosal thickening noted in the right frontal, bilateral ethmoid and bilateral maxillary sinuses. Mastoid air cells: Visualized mastoid air cells are well aerated. Bones/joints: Unremarkable. No acute fracture. Soft tissues: Unremarkable. IMPRESSION: 1. No acute intracranial disease or hemorrhage. 2. No obvious acute infarct. Please note if the patient's symptoms do not improve, or worsen, consider MRI with diffusion imaging. 3. Chronic deep white matter ischemic and senescent changes noted. Please see above. 4. Chronic paranasal sinus disease
[2023-07-23 21:03] VITALS: BP 119/79; PULSE 81; O2SAT 96
[2023-07-23 21:07] LABS: Basophils # 0.1 K/mm3 (0-0.2); Basophils % 1.2 % (0.1-2.0); Eosinophils # 0.3 K/mm3 (0.0-0.4); Eosinophils % 4.4 % (0.1-12.0); Hematocrit 37.8 % (42.0-52.0); Hemoglobin 12.3 g/dL (14.1-18.0); Lymphocytes # 2.6 K/mm3 (0.7-4.5); Lymphocytes % 37.5 % (10-50); Mean Corpuscular HGB Conc 32.4 g/dL (31.8-35.4); Mean Corpuscular Hemoglobin 32.4 pg (27.0-31.2); Mean Corpuscular Volume 99.8 fl (80-94); Monocytes # 0.4 K/mm3 (0.1-1.0); Monocytes % 6.3 % (1.7-9.3); Neutrophils # 3.5 K/mm3 (1.8-7.8); Neutrophils % 50.6 % (37.0-80.0); Platelet Count 197 K/mm3 (142-424); Red Blood Count 3.79 M/mm3 (4.60-6.20); Red Cell Distribution Width 13.8 % (11.5-17.5); White Blood Count 6.9 K/mm3 (4.8-10.8)
[2023-07-23 21:13] LABS: Chloride 107 mmol/L (98-107); Potassium 3.4 mmoL/L (3.5-5.1); Sodium 138 mmol/L (136-145)
[2023-07-23 21:16] LABS: Alanine Aminotransferase 27 U/L (12-78); Albumin Level 3.8 g/dl (3.5-5.0); Albumin/Globulin Ratio 1.4 (1.1-1.8); Alkaline Phosphatase 123 U/L (38-126); Anion Gap 8.4 mEq/L (5-15); Aspartate Amino Transferase 37 U/L (17-59); Bilirubin,Total 0.3 mg/dl (0.2-1.3); Blood Urea Nitrogen 15 mg/dl (9-20); Carbon Dioxide 26 mmol/L (22.0-30.0); Creatinine Clearance Estimated 73 mL/min (50-200); Estimated Glomerular Filt Rate 73 ml/min (>60); GFR (African American) 88 ML/MIN (>60); Globulin 2.8 g/dL (1.3-3.2); Total Protein,Serum 6.6 g/dl (6.3-8.2)
[2023-07-23 21:17] LABS: Calcium 8.8 mg/dl (8.4-10.2); Glucose 114 mg/dl (74-100)
[2023-07-23 22:00] VITALS: BP 117/68; PULSE 76; O2SAT 93
[2023-07-23] MEDS: LIDOCAINE 5% TRANSDERMAL PATCH 1 EACH TP (22:27)
[2023-07-23 22:28] VITALS: BP 117/68; PULSE 68; RESP 20; TEMP 37.1; O2SAT 97
--- NOTE | 2023-07-24 00:26 | [facility].EDGENADL ---
Discharge Plan Disposition Patient Disposition: Home, Self-Care Condition: Good Prescriptions Prescriptions: New lidocaine 5 % adhesive patch,medicated See Rx Instructions .ROUTE .COMPLEX Qty: 15 0RF Rx Instructions: leave on most painful area for up to 12 hrs. remove after 12 hours, leave off for 12 hours before applying a new patch No Action levothyroxine 50 mcg tablet 50 mcg PO DAILY glipizide 5 mg tablet extended release 24hr 5 mg PO DAILY memantine 10 mg tablet 10 mg PO BID Qty: 60 6RF Farxiga 10 mg tablet 10 mg PO DAILY ranolazine 1,000 mg tablet extended release 12 hr 1,000 mg PO Q12H Qty: 60 5RF aspirin 81 mg tablet,delayed release (DR/EC) 81 mg PO DAILY Qty: 30 5RF cyclobenzaprine 5 mg tablet 5 mg PO DAILY carvedilol 12.5 mg tablet 12.5 mg PO BID Qty: 180 3RF Rx Instructions: must administer with a meal/food clopidogrel 75 mg tablet See Rx Instructions .ROUTE .COMPLEX Qty: 90 2RF Dose Instruction: TAKE 1 TABLET BY MOUTH ONCE DAILY FOR CVA Rx Instructions: TAKE 1 TABLET BY MOUTH ONCE DAILY FOR CVA rosuvastatin 5 mg tablet See Rx Instructions .ROUTE .COMPLEX Qty: 90 2RF Dose Instruction: TAKE 1 TABLET BY MOUTH ONCE DAILY FOR CHOLESTEROL Rx Instructions: TAKE 1 TABLET BY MOUTH ONCE DAILY FOR CHOLESTEROL lisinopril 40 mg tablet See Rx Instructions .ROUTE .COMPLEX Qty: 30 9RF Dose Instruction: TAKE 1 TABLET BY MOUTH ONCE DAILY Rx Instructions: TAKE 1 TABLET BY MOUTH ONCE DAILY amlodipine 5 mg tablet 5 mg PO DAILY Qty: 90 3RF sertraline 25 mg tablet 25 mg PO DAILY Qty: 30 5RF Referrals Follow up/Referrals: Kyle Romo MD [Primary Care Provider] - See instructions Activity Restrictions/Add. Instructions Additional Instructions/Restrictions: You were evaluated in the ER. You are appropriate for discharge at this time. Apply the lidocaine patches to your right side if needed. Take Tylenol if needed. Continue taking your home medications as previously prescribed. Make an appointment with your primary care physician for reevaluation in 2 to 3 days, return to the ER with any new, worsening, or otherwise concerning symptoms. Clinical Impressions Clinical Impression: Rib pain on right side Fall Qualifiers: Encounter type: initial encounter Qualified Code(s): W19.XXXA - Unspecified fall, initial encounter Discharge ED Provider: Ricki Milton General Adult HPI General Chief complaint: Fall Stated complaint: fell 07/22/23 , right side pain in chest area Time Seen by Provider: 07/23/23 22:01 Mode of Arrival: Family Vehicle Source of Information: Patient Limitations: No Limitations Description of Symptoms (Recalled from ER Triage Doc. by RN): 77 yo male presents after falling yesterday, injuring right side trunk. no obvious bruising but rates pain 7/10 for discomfort. History of Present Illness HPI narrative: 77-year-old male with a history of hypertension presents to the ER after a fall yesterday. Patient fell off a stepstool that was not fully locked out and landed on his right side. He has been complaining of pain in the right lower ribs since that time. He states it is worse with coughing. Patient did not lose consciousness and does not believe he struck his head when he fell. He does not take any blood thinners. Related Data Home Medications Medication Instructions Recorded Confirmed levothyroxine 50 mcg tablet 50 mcg PO DAILY . 10/27/21 07/23/23 glipizide 5 mg tablet, extended 5 mg PO DAILY 03/08/23 07/23/23 release 24 hr dapagliflozin propanediol 10 mg 10 mg PO DAILY 05/16/23 07/23/23 tablet (Farxiga) cyclobenzaprine 5 mg tablet 5 mg PO DAILY 07/19/23 07/23/23 Previous Rx's Medication Instructions Recorded aspirin 81 mg tablet,delayed 81 mg PO DAILY [facility] #30 01/07/22 release tabs carvedilol 12.5 mg tablet 12.5 mg PO BID . #180 tabs 10/15/22 clopidogrel 75 mg tablet See Rx Instructions .Route 01/20/23 .COMPLEX #90 tabs rosuvastatin 5 mg tablet See Rx Instructions .Route 01/20/23 .COMPLEX #90 tabs lisinopril 40 mg tablet See Rx Instructions .Route 02/18/23 .COMPLEX #30 tabs memantine 10 mg tablet 10 mg PO BID memory loss #60 tabs 03/08/23 ranolazine 1,000 mg 1,000 mg PO Q12H . #60 tabs 05/16/23 tablet,extended release,12 hr amlodipine 5 mg tablet 5 mg PO DAILY #90 tabs 07/15/23 sertraline 25 mg tablet 25 mg PO DAILY #30 tabs 07/15/23 lidocaine 5 % topical patch See Rx Instructions topical 07/23/23 .COMPLEX #15 ea Allergies Allergy/AdvReac Type Severity Reaction Status Date / Time No Known Allergies Allergy Verified 07/19/23 08:30 [facility] Disclaimer: The information contained in this section may have been updated after the patient was seen, as this information can be updated by other users. Medical History (Updated 07/23/23 @ 22:24 by Ricki Milton MD) ALAN on CPAP Hypotension determined by examination Headache COPD mixed type Pleural thickening Dyspnea on exertion History of smoking 30 or more pack years Abnormality of lung on CXR Memory loss Generalized anxiety disorder Stenosis of carotid artery Dizziness Atypical angina Abnormal cardiovascular stress test Diastolic dysfunction SOB (shortness of breath) CAD (coronary artery disease) Hyperlipidemia Hypertension Chest pain Surgical History History of back surgery History of surgery on lower extremity History of heart artery stent Family History Other Asthma Diabetes Hypertension Social History Smoking Status: Never smoker smoking status stop date: when he was 34 years old second hand exposure: No alcohol intake: never substance use type: denies use current occupational status: retired Travel in the last 8 weeks: Inside the [facility] adopted: No caregiver/support person: No foster care: No household members: spouse housing: house lives independently: Yes marital status: number of children: 3 number of grandchildren: 5 education level: other details: GED service: No shelter: No current occupational exposures/hazards: No Hx Recent Travel: No caffeine: Yes ROS Obtained: Yes All systems reviewed & no additional complaints except as documented ENT Ears, Nose, Mouth, and Throat: Denies neck pain Musculoskeletal Musculoskeletal: Reports as per HPI, Denies arthralgias, Denies neck pain and Denies numbness Neurologic Neurologic: Denies numbness Physical Exam General General appearance: alert and in no apparent distress Head Head exam: atraumatic and normocephalic Eye Eye exam: Present PERRL and EOMI ENT ENT exam: Present mucous membranes moist Neck Neck exam: Present normal inspection and full ROM Chest Chest inspection: Present symmetric chest wall rise and tenderness (Right low, lateral chest wall tenderness without bruising, deformity, or other signs of trauma) Respiratory Respiratory exam: Present normal lung sounds bilaterally; Absent respiratory distress, wheezes or stridor Cardiovascular Cardiovascular exam: Present regular rate and normal rhythm Abdominal Exam Abdominal exam: Present soft; Absent distention or tenderness Extremities Exam Extremities exam: Present full ROM Neurological Exam Neurological exam: Present alert and oriented X3; Absent motor sensory deficit Psychiatric Psychiatric exam: Present normal affect and normal mood Skin Skin exam: Present warm and dry Medical Decision Making Tayo Inquiry Pt receiving controlled substance: No Vital Signs: 07/23/23 20:33 07/23/23 21:03 07/23/23 22:00 Temperature 97.7 F Temperature Source Oral Pulse Rate 81 76 Pulse Rate [Right Brachial] 98 H Respiratory Rate 16 Blood Pressure 119/79 117/68 Blood Pressure [Right Arm] 134/73 Blood Pressure Mean 84 90 Blood Pressure Mean [Right Arm] 93 Blood Pressure Source Blood Pressure Source [Right Arm] Automatic Cuff Blood Pressure Position Blood Pressure Position [Right Arm] Sitting 02 Sat by Pulse Oximetry 96 96 93 L Oxygen Delivery Method Room Air 07/23/23 22:28 Temperature 98.8 F Temperature Source Oral Pulse Rate 68 Pulse Rate [Right Brachial] Respiratory Rate 20 Blood Pressure 117/68 Blood Pressure [Right Arm] Blood Pressure Mean Blood Pressure Mean [Right Arm] Blood Pressure Source Automatic Cuff Blood Pressure Source [Right Arm] Blood Pressure Position Supine Blood Pressure Position [Right Arm] 02 Sat by Pulse Oximetry Oxygen Delivery Method Room Air Lab Data Lab Results 07/23/23 20:37: WBC 6.9, RBC 3.79 L, Hgb 12.3 L, Hct 37.8 L, MCV 99.8 H, MCH 32.4 H, MCHC 32.4, RDW 13.8, Plt Count 197, MPV 10.0, Neut % (Auto) 50.6, Lymph % (Auto) 37.5, [place] % (Auto) 6.3, Eos % (Auto) 4.4, Baso % (Auto) 1.2, Neut # (Auto) 3.5, Lymph # (Auto) 2.6, [place] # (Auto) 0.4, Eos # (Auto) 0.3, Baso # (Auto) 0.1, Sodium 138, Potassium 3.4 L, Chloride 107, Carbon Dioxide 26, Anion Gap 8.4, BUN 15, Creatinine 1.00, Estimated Creat Clear 73, Estimated GFR 73, Est GFR ( Amer) 88, Glucose 114 H, Calcium 8.8, Total Bilirubin 0.3, AST 37, ALT 27, Alkaline Phosphatase 123, Total Protein 6.6, Albumin 3.8, Globulin 2.8, Albumin/Globulin Ratio 1.4 07/23/23 20:37 07/23/23 20:37 Orders (Tests/Meds): ED MEDICATIONS Discontinued Medications Generic Name Dose Route Start Last Admin Trade Name Freq PRN Reason Stop Dose Admin Lidocaine 1 each 07/23/23 22:26 07/23/23 22:27 Lidocaine 5% Transdermal Patch TP 07/23/23 22:27 1 each ONCE ONE Administration ORDERS Category Date Time Status CT cervical spine wo con Stat Cat Scan 07/23/23 20:[address] chest wo con Stat Cat Scan 07/23/23 20:[address] head/brain wo con Stat Cat Scan 07/23/23 20:58 Completed Complete Blood Count Auto Diff Stat Lab 07/23/23 20:37 Completed Comprehensive Metabolic Panel Stat Lab 07/23/23 20:37 Completed Medical Decision Narrative: In summary, this 77year old male presents to the emergency department today with right-sided rib pain. On initial evaluation patient is hemodynamically stable, afebrile, resting comfortably. Tenderness to palpation of the right low, lateral chest wall without deformity, bruising, or other signs of trauma. Otherwise atraumatic, reassuring exam. Differential diagnosis includes but is not limited to intracranial bleed, cervical spine injury, rib fractures, pulmonary contusion, other traumatic injury. Based on these concerns, I ordered CT imaging of the head, neck, and chest. Labs reviewed demonstrate no leukocytosis, mild anemia, sodium normal, chloride normal, trace hypokalemia, nonactionable at this time. CT head personally interpreted does not demonstrate any new acute intracranial abnormality, no findings of cervical fracture or malalignment, no rib fractures or pulmonary contusions and CT chest. See radiology read for final interpretation. On reassessment patient remained stable. He had received a lidocaine patch in the ER. He tolerated these medications well. He is appropriate for discharge at this time. I prescribed lidocaine patch. I gave him instructions on symptomatic management, outpatient follow-up, and strict return precautions for the ER. Patient indicated understanding and he was discharged in stable condition. Critical Care Critical Care Time Critical Care Time: No
== END 2023-07-23 22:38 | disposition home or self-care (01) ==
PROVIDERS: Emergency Provider Emergency Medicine; PCP Family Medicine
DX: R07.81 Pleurodynia (principal); W10.8XXA Fall (on) (from) other stairs and steps, initial encounter; I10 Essential (primary) hypertension; G47.33 Obstructive sleep apnea (adult) (pediatric); J44.9 Chronic obstructive pulmonary disease, unspecified; I65.29 Occlusion and stenosis of unspecified carotid artery; I25.118 Atherosclerotic heart disease of native coronary artery with other forms of angina pectoris; E78.5 Hyperlipidemia, unspecified
CPT/HCPCS: 70450; 71250; 72125; 80053; 85025; 99285

== ENCOUNTER 2023-07-28 12:25 | Outpatient (CLI) | payer MEDICARE, BC, SELFPAY ==
[2023-07-28 12:51] LABS: Albumin Level 3.9 g/dl (3.5-5.0); Alkaline Phosphatase 105 U/L (38-126); Anion Gap 9.9 mEq/L (5-15); Bilirubin,Direct 0.1 mg/dl (0.0-0.4); Bilirubin,Indirect 0.4 mg/dL (0.0-0.9); Bilirubin,Total 0.5 mg/dl (0.2-1.3); Bilirubin,Unconjugated 0.4 mg/dL (0.0-1.1); Blood Urea Nitrogen 22 mg/dl (9-20); Carbon Dioxide 25 mmol/L (22.0-30.0); Chloride 108 mmol/L (98-107); Chol/HDL Ratio 3.3 (1-3.5); Cholesterol 167 mg/dl (140-200); Estimated Glomerular Filt Rate 82 ml/min (>60); GFR (African American) 100 ML/MIN (>60); Glucose 149 mg/dl (74-100); HDL Cholesterol 51 mg/dl (40-60); Potassium 3.9 mmoL/L (3.5-5.1); Sodium 139 mmol/L (136-145); Total Protein,Serum 6.7 g/dl (6.3-8.2); Triglycerides 111 mg/dl (30-150); VLDL Cholesterol 22 mg/dL (0-40)
[2023-07-28 12:52] LABS: Alanine Aminotransferase 19 U/L (12-78); Aspartate Amino Transferase 28 U/L (17-59); Basophils # 0.1 K/mm3 (0-0.2); Basophils % 1.5 % (0.1-2.0); Eosinophils # 0.3 K/mm3 (0.0-0.4); Eosinophils % 6.1 % (0.1-12.0); Hematocrit 38.9 % (42.0-52.0); Hemoglobin 12.2 g/dL (14.1-18.0); Lymphocytes % 36.9 % (10-50); Mean Corpuscular HGB Conc 31.4 g/dL (31.8-35.4); Mean Corpuscular Hemoglobin 32.2 pg (27.0-31.2); Mean Corpuscular Volume 102.2 fl (80-94); Mean Platelet Volume 9.6 fl (7.4-10.4); Monocytes # 0.3 K/mm3 (0.1-1.0); Neutrophils # 2.7 K/mm3 (1.8-7.8); Neutrophils % 50.4 % (37.0-80.0); Platelet Count 198 K/mm3 (142-424); Red Blood Count 3.81 M/mm3 (4.60-6.20); White Blood Count 5.3 K/mm3 (4.8-10.8)
[2023-07-28 13:02] LABS: Direct LDL Cholesterol 77.01 mg/dL (100-129)
[2023-07-28 13:10] LABS: Troponin I < 0.01 ng/ml (0.00-0.034)
[2023-07-28 13:21] LABS: Thyroid Stimulating Hormone 2.89 uIU/mL (0.465-4.68)
[2023-07-28 13:33] LABS: Free T4 (Free Thyroxine) 1.06 ng/dl (0.78-2.19)
== END 2023-07-28 23:59 ==
PROVIDERS: PCP Family Medicine; Visit Provider Nurse Practitioner
DX: I11.9 Hypertensive heart disease without heart failure (principal); I25.10 Atherosclerotic heart disease of native coronary artery without angina pectoris; I47.20 Ventricular tachycardia, unspecified; R07.2 Precordial pain; I65.23 Occlusion and stenosis of bilateral carotid arteries; R06.02 Shortness of breath; R06.01 Orthopnea; E78.2 Mixed hyperlipidemia; K21.9 Gastro-esophageal reflux disease without esophagitis; E11.9 Type 2 diabetes mellitus without complications; Z79.84 Long term (current) use of oral hypoglycemic drugs
CPT/HCPCS: 36415; 80048; 80061; 80076; 84439; 84443; 84484; 85025

== ENCOUNTER 2023-08-09 06:10 | Outpatient (CLI) | payer MEDICARE, BC, SELFPAY ==
--- NOTE | 2023-08-09 06:14 | NM_ITS ---
APPROVED REPORT Exam: Nuclear Stress Test Indication: CAD, HTN, DM , HYPERLIPIDEMIA, C.P., SOB Patient Location: Outpatient Stress Tech: Mayte Denny RI Tech:Lupe Cedillo, ARRT, RT (R)(N) Ht: 5 ft 4 in Wt: 172 lbs HR: 57 bpm BP: 128/66 mmHg BSA: 1.83 m2 TID: 1.17 BMI: 29.5 History: CAD, HTN, DM , HYPERLIPIDEMIA, C.P., SOB Procedure: Patient received 0.4 mg of intravenous Lexiscan, resting heart rate 57 bpm, resting blood pressure 128/66 mmHg, with Lexiscan maximum heart rate achieved was 72 bpm which is % of the maximum predicted heart rate and blood pressure was 128/66 mmHg. Cardiac Stress and Resting SPECT Images: Cardiac Stress and Resting SPECT images were obtained using technetium 99m Myoview 31.0 mCi stress and 10.13 mCi at rest. Resting and stress imaging in supine and prone positions demonstrate medium sized, moderate, partially reversible perfusion defect in the basal to mid inferior LV wall. This is no longer visualized with prone stress imaging. Findings are suggestive of diaphragmatic attenuation. Gated imaging demonstrates normal global and regional LV systolic function. LVEF is calculated at 60%. Conclusion: Diaphragmatic attenuation is present. No definite evidence of fixed or reversible perfusion defects. Gated imaging demonstrates normal global and regional LV systolic function. LVEF is calculated at 60%. Electronically signed by : Tita Villanueva MD 08/10/2023 13:15:05
--- NOTE | 2023-08-09 08:03 | CA_ITS ---
APPROVED REPORT EXAM: Comprehensive 2D, Doppler, and color-flow Echocardiogram Plant Electrical Engineer: Sonia Joyce RVT Ht: 5 ft 5 in Wt: 178lbs BSA: 1.88 BP: 135/76 mmHg Indications: CP,HTN,SMOKER,HLD,CAD,ALAN VERY TDS-LIMITED WINDOWS R/T PT BODY HABITUS,BEST EXAM POSSIBLE 2D Dimensions LA Volume 81.90 mL LA Volume Index 43.56 mL/m2 (M/F) 16-34 M-Mode Dimensions RVDd 2.60 cm (0.9-2.6) LA Diam 3.70 cm (1.9-4.0) LVDd 4.96 cm (3.5-5.7) LVDs 3.34 cm (3.5-5.7) IVSd 0.54 cm (0.6-1.1) PWd 0.69 cm (0.6-1.1) EF (Teich) 60.90% FS 32.70% EDV (Teich) 116.10 mL ESV (Teich) 45.40 mL LV Diastology E Decel Time 220 (160-240 msec) E/A Ratio 1.0 Aortic Valve GEETHA Index 2.27 cm2/m2 AoV Peak Rom. 139.0 (50-130 cm/s) AO Peak GR. 7.70 mmHg AO Mean GR. 4.00 (<5 mmHg) AO VTI 31.7 (18-25 cm) GEETHA (VTI) 4.38 (2.5-4.5 cm2) Mitral Valve MV E Max Rom. 114.0 (40-130 cm/s) MV A Velocity 116.0 (40-130 cm/s) E/A Ratio 0.98 MV PHT 64.0 ms Pulmonary Valve PV Peak Velocity 52.0 (50-150 cm/s) Left Ventricle The left ventricle is normal size. The left ventricular systolic function is normal. The left ventricular ejection fraction is within the normal range. Proximal septal thickening is noted. Wall motion cannot be accurately estimated in the setting of technically difficult study, but no obvious wall motion abnormalities are noted in the available images. Diastolic function is indeterminate. LVEF is 55%. Right Ventricle The right ventricle is not well-visualized. Atria The left atrium size is normal. The right atrium is not well-visualized. Aortic Valve The aortic valve opens well. There is no aortic valvular stenosis. No aortic regurgitation is present. Mitral Valve The mitral valve is normal in structure. No evidence of mitral valve stenosis. There is no mitral valve regurgitation noted. Tricuspid Valve The tricuspid valve leaflets are thin and pliable. Trace tricuspid regurgitation. There is insufficient TR jet to estimate RVSP. Pulmonic Valve The pulmonic valve is not well-visualized. Great Vessels The aortic root is not well-visualized. The IVC is not well-visualized. Pericardium There is no pericardial effusion. Other Information Study Quality: Technically Difficult. Technically limited study due to body habitus. Conclusion Technically difficult study due to poor acoustic windows. Normal LV systolic function. RV is not well-visualized. No significant valvular stenosis or regurgitation in the visualized valves. Electronically signed by : Tita Villanueva MD 08/10/2023 10:29:31
[2023-08-09] MEDS: REGADENOSON 0.4MG/5ML SYRINGE 0.400000000000000022 MG IV (08:30)
[2023-08-09] MEDS: ISOTOPE MYOVIEW (PER STUDY) 1 DOSE IV (08:30)
[2023-08-09] MEDS: SODIUM CHLORIDE 0.9% 10ML SYR (RAD ONLY) 10 ML IV ×2 (08:30)
--- NOTE | 2023-08-09 09:28 | CA_ITS ---
APPROVED REPORT Exam: Pharmacologic Technologist: Mayte Hudson, Ht: 5 ft 5 in Wt: 172 lbs BSA: 1.86 m2 HR: 56 bpm BP: 128/66 mmHg Rhythm: NSR Medical History Medications: Amlodipine,,,,, Lisinopril,,,,, Levothyroxine,,,,, Aspirin,,,,, Carvedilol,,,,, Glipizide,,,,, Farxiga,,,,, CloPIdogrel,,,,, Sertraline,,,,, Cyclobenzaprine,,,,, MeMANTINE,,,,, Ranolazine,,,,, Stress Test Details Test: LEXISCAN Reason for pharmacologic stress test: physical limitation. HR Resting HR: 57 bpm Max Heart Rate (APMHR): 145 bpm Max HR Achieved: 72 bpm Target HR (85% APMHR): 123 bpm % of APMHR: 50 Recovery HR: 65 bpm BP Resting BP: 128.0/66.0 mmHg Max BP: 128.0/66.0 mmHg Recovery BP: 112.0/64.0 mmHg ECG Resting ECG: Normal Stress ECG: No significant ST changes Arrhythmia: None Clinical Exercise duration: 04:03 min Highest Stage Achieved: Exercise capacity: 1.0 METs Stress ECG Conclusion Symptoms: lightheaded Arrhythmias/Ectopy: None ST-T Changes: Unremarkable Lexiscan stress test. Myoview images are reported separately. Test Summary REST . . . . . . . Resting REST 09:23 . . 57 . 128/ 66 . . Stage 1 01:00 . . 64 . . . . Stage 2 01:00 . . 69 . 90/ 51 . . Stage 3 01:00 . . 69 . 112/ 58 . . Stage 4 01:00 . . 66 . 108/ 59 . . Stage 4 01:03 . . 66 . 108/ 59 . Stop exercise at 04:03 RECOVERY 01:00 . . 67 . . . . RECOVERY 01:44 . . 65 . 112/ 64 . . Electronically signed by : Tita Villanueva MD 08/10/2023 13:10:04
== END 2023-08-09 23:59 ==
LOC: RAD 06:10
PROVIDERS: PCP Family Medicine; Visit Provider Nurse Practitioner
DX: R07.2 Precordial pain (principal); I47.20 Ventricular tachycardia, unspecified; I65.23 Occlusion and stenosis of bilateral carotid arteries; R06.02 Shortness of breath; R06.00 Dyspnea, unspecified; R06.01 Orthopnea; E78.2 Mixed hyperlipidemia; I10 Essential (primary) hypertension; I25.10 Atherosclerotic heart disease of native coronary artery without angina pectoris
CPT/HCPCS: 78452; 93017; 93018; 93306; A9502; J2785

== ENCOUNTER 2023-08-18 09:45 | Day surgery (SDC) | payer MEDICARE, BC, SELFPAY ==
[2023-08-18] VITALS (14 sets, daily range): BP systolic 122–164; BP diastolic 63–88; PULSE 59–84; RESP 16–18; TEMP 36.9; O2SAT 94–100; BMI 29.1
--- NOTE | 2023-08-18 07:06 | IR_ITS ---
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 COMPLICATIONS NONE Estimated Blood Loss: LESS THAN 10 ML TECHNIQUE One percent lidocaine was used to anesthetize the right anterior aspect of the right wrist. The right radial artery was accessed via the Seldinger technique and a 6 Dominican hydrophilic sheath was placed in the right radial artery. Following this one percent lidocaine was used to anesthetize the right groin in the right femoral vein was accessed via the Seldinger technique. Respectfully. A 7 Dominican sheath was introduced and a Buckhorn-Sahra catheter was floated using hemodynamic waveforms in the pulmonary artery, right ventricle , and right atrium. Saturations were obtained in the pulmonary artery and the right atrium. An arterial cocktail using verapamil nitroglycerin and heparin was administered intra-arterially. A trap catheter was used to perform left heart catheterization left ventriculogram and selective coronary angiogram. At the end of the diagnostic angiogram therapeutic heparin was administered and the 4 Dominican sheath was exchanged for a 6 Dominican sheath. A JL 5 6 Dominican catheter was used to perform additional angiography. A Choice PT active support wire was placed in the LAD and intravascular ultrasound probe was advanced and the proximal LAD was extensively calcified which extended into the mid LAD with an MLA of 3 mm???. Following this a 3 mm x 38 mm [place] frontier stent was deployed at 20 erickson in the mid LAD reducing the stenosis to 0%. An additional 4 mm x 18 mm Tito frontier stent was placed proximal to the stent yet still overlapping the stent and deployed at 20 erickson. Excellent angiograph results were obtained with MARY-3 flow being present before and after the procedure. At the end the procedure the apparatus was removed the sheath was removed and hemostasis was achieved using Perclose device the patient was transferred to postop holding area in stable condition for femoral venous sheath removal and postoperative care.b ANGIOGRAPHIC RESULTS The left main artery Normal The left anterior descending artery Has proximal 70 to 80% calcified stenosis which extends into a long calcified 50 to 60% mid LAD. The circumflex artery Gives rise to a trifurcating ramus intermedius which has an ostial proximal calcified 60% stenosis. The circumflex artery itself is nondominant and has a mid vessel 50% stenosis The right coronary artery Large dominant diffusely calcified with diffuse 30% stenoses throughout. The LO ventriculogram reveals Normal 60% The left ventricular end-diastolic pressure 10 mmHg Right atrial pressure 5 mmHg Pulmonary artery pressure 30/18 mmHg Pulmonary artery occlusion pressure 8 mmHg Right ventricular pressure 30/8 mmHg Hemoglobin 11.9 Right atrial saturation 78% Pulmonary artery saturation 80% Aortic saturation 99% Cardiac output 7.7 IMPRESSION Severe proximal to mid LAD disease as IVUS proven with an MLA of 3.0 mm??? Successful stent to the proximal and mid LAD severe disease reduced to 0% with 2 contiguous drug-eluting stents Persistent moderate stenosis in a ramus intermedius which cannot be revascularized based on the short neck of the ramus intermedius prior to its trifurcation Mild pulmonary hypertension Normal ejection fraction PLAN 1. Dual antiplatelet therapy 2. Cardiac rehabilitation 3. Avoidance of tobacco products 4. Risk factor modification 5. LDL less than 55 to be achieved with high intensity statin Electronically signed by : Gurpreet Crocker MD 08/18/2023 13:58:02
[2023-08-18 10:18] LABS: Basophils # 0.1 K/mm3 (0-0.2); Basophils % 1.4 % (0.1-2.0); Eosinophils # 0.3 K/mm3 (0.0-0.4); Eosinophils % 5.5 % (0.1-12.0); Hematocrit 37.4 % (42.0-52.0); Hemoglobin 11.9 g/dL (14.1-18.0); Lymphocytes # 1.8 K/mm3 (0.7-4.5); Lymphocytes % 32.9 % (10-50); Mean Corpuscular HGB Conc 31.9 g/dL (31.8-35.4); Mean Corpuscular Hemoglobin 31.8 pg (27.0-31.2); Mean Corpuscular Volume 99.5 fl (80-94); Mean Platelet Volume 9.6 fl (7.4-10.4); Monocytes # 0.2 K/mm3 (0.1-1.0); Monocytes % 3.8 % (1.7-9.3); Neutrophils # 3.1 K/mm3 (1.8-7.8); Neutrophils % 56.3 % (37.0-80.0); Platelet Count 178 K/mm3 (142-424); Red Blood Count 3.76 M/mm3 (4.60-6.20); White Blood Count 5.5 K/mm3 (4.8-10.8)
[2023-08-18 10:20] LABS: Chloride 110 mmol/L (98-107); Sodium 138 mmol/L (136-145)
[2023-08-18 10:21] LABS: Potassium 3.9 mmoL/L (3.5-5.1)
[2023-08-18 10:23] LABS: Anion Gap 6.9 mEq/L (5-15); Blood Urea Nitrogen 21 mg/dl (9-20); Carbon Dioxide 25 mmol/L (22.0-30.0); Creatinine Clearance Estimated 65 mL/min (50-200); Estimated Glomerular Filt Rate 65 ml/min (>60); GFR (African American) 79 ML/MIN (>60)
[2023-08-18 10:24] LABS: Calcium 9.3 mg/dl (8.4-10.2); Glucose 130 mg/dl (74-100)
[2023-08-18] MEDS: HEPARIN 1,000 UNITS/500ML NS (CATH LAB) 3000 UNIT IV (12:32)
[2023-08-18] MEDS: HEPARIN 1,000 UNITS/ML 10ML VIAL (CATH LAB) 10000 UNIT IV (12:32)
[2023-08-18] MEDS: NITROGLYCERIN 800MCG/8ML SYR (CATH LAB) 800 MCG IA (12:32)
[2023-08-18] MEDS: LIDOCAINE 1% 10ML MDV 20 ML IJ (12:32)
[2023-08-18] MEDS: diphenhydrAMINE 50MG/ML VIAL 50 MG IV (12:32)
[2023-08-18] MEDS: 0.9 % SODIUM CHLORIDE 500 ML 25 ML IV (12:32)
[2023-08-18] MEDS: FENTANYL 100MCG/2ML VIAL 50 MCG IV (13:11)
[2023-08-18] MEDS: MIDAZOLAM HCL 1MG/1ML 5ML VIAL 1 MG IV (13:11)
[2023-08-18] MEDS: IOPAMIDOL-370 (76%);100ML BOTTLE 175 ML IV (14:15)
[2023-08-18 14:17] LABS: CATHL Activated Clotting Time 318 SEC (74-125); CATHL Arterial O2 SAT 80.3 % (90-100); CATHL Venous O2 SAT 78.6 % (75-80)
== END 2023-08-18 17:24 | disposition home or self-care (01) ==
PROVIDERS: PCP Family Medicine; Visit Provider Internal Medicine
DX: R07.2 Precordial pain (principal); R06.09 Other forms of dyspnea; I25.118 Atherosclerotic heart disease of native coronary artery with other forms of angina pectoris; I27.20 Pulmonary hypertension, unspecified; Z79.899 Other long term (current) drug therapy; Z79.02 Long term (current) use of antithrombotics/antiplatelets; I10 Essential (primary) hypertension; I65.23 Occlusion and stenosis of bilateral carotid arteries; I47.20 Ventricular tachycardia, unspecified
CPT/HCPCS: 36415; 80048; 82810; 85025; 85347; 92928; 92978; 93460; 99152; 99153; C1725; C1760; C1769; C1874; C1876; C1894; C9600; J1644; Q9967

== ENCOUNTER 2023-08-19 11:30 | Observation (INO) | payer MEDICARE, BC, SELFPAY ==
[2023-08-19] VITALS (13 sets, daily range): BP systolic 72–130; BP diastolic 39–71; PULSE 59–71; RESP 13–20; TEMP 36.4–36.7; O2SAT 95–98; BMI 30.9
--- NOTE | 2023-08-19 11:37 | ECG_ITS ---
APPROVED REPORT Exam: Resting ECG HR:69 bpm ECG Measurements Heart Rate 69 AXES AR 217 P 30 QRSd 100 QRS 13 QT 421 T -2 QTc 440 Conclusion Sinus rhythm with first-degree AV block Electronically signed by : MARY ANNE RANDOLPH, 08/19/2023 14:30:11
--- NOTE | 2023-08-19 11:39 | XR_ITS ---
FINAL REPORT CLINICAL HISTORY: cp, diaphoresis, cath yesterday COMPARISON: 05/31/2016 FINDINGS: SINGLE-VIEW CHEST The heart size is normal. The mediastinum is normal. There are bibasilar opacities, may represent atelectasis or pneumonia. There is no pneumothorax. IMPRESSION: Bibasilar atelectasis versus pneumonia. Reviewed, Interpreted and Dictated by Riki Garcia III, MD Transcribed by Leydi Crain Authenticated and . [facility]
--- NOTE | 2023-08-19 11:45 | PC.NURSE ---
Dr. Chavez at [facility] for pt eval
[2023-08-19] MEDS: ASPIRIN 81MG CHEWABLE TABLET 324 MG PO (11:46)
[2023-08-19 11:51] LABS: Chloride 106 mmol/L (98-107); Potassium 4.2 mmoL/L (3.5-5.1); Sodium 138 mmol/L (136-145)
[2023-08-19 11:52] LABS: Basophils # 0.1 K/mm3 (0-0.2); Basophils % 1.2 % (0.1-2.0); Eosinophils # 0.2 K/mm3 (0.0-0.4); Eosinophils % 3.6 % (0.1-12.0); Hematocrit 39.7 % (42.0-52.0); Hemoglobin 12.4 g/dL (14.1-18.0); Lymphocytes # 1.6 K/mm3 (0.7-4.5); Lymphocytes % 24.9 % (10-50); Mean Corpuscular HGB Conc 31.3 g/dL (31.8-35.4); Mean Corpuscular Volume 102.3 fl (80-94); Mean Platelet Volume 9.9 fl (7.4-10.4); Monocytes # 0.4 K/mm3 (0.1-1.0); Monocytes % 5.9 % (1.7-9.3); Neutrophils % 64.4 % (37.0-80.0); Platelet Count 193 K/mm3 (142-424); Red Blood Count 3.88 M/mm3 (4.60-6.20); White Blood Count 6.3 K/mm3 (4.8-10.8)
[2023-08-19 11:53] LABS: Alanine Aminotransferase 25 U/L (12-78); Aspartate Amino Transferase 32 U/L (17-59); Blood Urea Nitrogen 25 mg/dl (9-20); Creatinine Clearance Estimated 51 mL/min (50-200); Estimated Glomerular Filt Rate 49 ml/min (>60); GFR (African American) 60 ML/MIN (>60)
[2023-08-19 11:54] LABS: Albumin Level 3.9 g/dl (3.5-5.0); Albumin/Globulin Ratio 1.4 (1.1-1.8); Alkaline Phosphatase 115 U/L (38-126); Anion Gap 8.2 mEq/L (5-15); Bilirubin,Total 0.7 mg/dl (0.2-1.3); Calcium 9.3 mg/dl (8.4-10.2); Carbon Dioxide 28 mmol/L (22.0-30.0); Globulin 2.7 g/dL (1.3-3.2); Glucose 117 mg/dl (74-100); Total Protein,Serum 6.6 g/dl (6.3-8.2)
--- NOTE | 2023-08-19 11:58 | HMH.EDGENADL ---
Discharge Plan Disposition Chief Complaint: Recheck/Abnormal Lab/Rx Prescriptions Prescriptions: No Action levothyroxine 50 mcg tablet 50 mcg PO DAILY glipizide 5 mg tablet extended release 24hr 5 mg PO DAILY memantine 10 mg tablet 10 mg PO BID Qty: 60 6RF ranolazine 1,000 mg tablet extended release 12 hr 1,000 mg PO Q12H Qty: 60 5RF fluticasone propionate 50 mcg/actuation spray,suspension 1 spray intranasal DAILY Rx Instructions: administer into each nostril empagliflozin 10 mg tablet 10 mg PO DAILY isosorbide mononitrate 30 mg tablet extended release 24 hr 30 mg PO DAILY Qty: 30 2RF aspirin 81 mg tablet,delayed release (DR/EC) 81 mg PO DAILY Qty: 30 5RF cyclobenzaprine 5 mg tablet 5 mg PO DAILY metoprolol succinate [Toprol XL] 50 mg tablet extended release 24 hr 50 mg PO DAILY Qty: 30 2RF clopidogrel 75 mg tablet See Rx Instructions .ROUTE .COMPLEX Qty: 90 2RF Dose Instruction: TAKE 1 TABLET BY MOUTH ONCE DAILY FOR CVA Rx Instructions: TAKE 1 TABLET BY MOUTH ONCE DAILY FOR CVA rosuvastatin 5 mg tablet See Rx Instructions .ROUTE .COMPLEX Qty: 90 2RF Dose Instruction: TAKE 1 TABLET BY MOUTH ONCE DAILY FOR CHOLESTEROL Rx Instructions: TAKE 1 TABLET BY MOUTH ONCE DAILY FOR CHOLESTEROL amlodipine 5 mg tablet 5 mg PO DAILY Qty: 90 3RF sertraline 25 mg tablet 25 mg PO DAILY Qty: 30 5RF lisinopril 40 mg tablet 20 mg PO DAILY Qty: 90 3RF lidocaine 5 % adhesive patch,medicated See Rx Instructions .ROUTE .COMPLEX Qty: 15 0RF Rx Instructions: leave on most painful area for up to 12 hrs. remove after 12 hours, leave off for 12 hours before applying a new patch Discharge ED Provider: Colt Chavez General Adult [facility] General Chief complaint: Recheck/Abnormal Lab/Rx Stated complaint: post op4/11, sweats, disoriented, low BP Time Seen by Provider: 08/19/23 11:37 Mode of Arrival: Wheelchair Source of Information: Spouse Limitations: No Limitations Description of Symptoms (Recalled from ER Triage Doc. by RN): reports that the patient got stents yesterday and this morning he woke up looking good. After a little while the patient became diaphretic, had a blank stare on his face and became very confused with low blood pressure. History of Present Illness HPI narrative: Is a 77-year-old male history of hypertension, hyper anemia, TIA, cardiomyopathy, diabetes, catheterization yesterday, 08/17 presenting with transient confusion. states that patient was at home on the couch when he all of a sudden became altered, clammy, diaphoretic, pale. This lasted for couple minutes. Patient does not remember this episode, but remembers shortly thereafter when he was on his way to the hospital. Denies any current shortness of breath, chest pain, nausea, vomiting, abdominal pain, back pain, or any other concerns. Please note that above description of symptoms, in this electronic medical record under categorization of recalled from ER triage doctor by RN are reflective of an initial nursing assessment, however, is not reflective of my full history and physical exam that was personally taken and clarified. Consequentially, this preceding description of symptoms, which may include the patient's categorized chief complaint in the EMR, do not reflect my personal clinical impression, and the ultimate description of history of present illness and patient stated complaints should be deferred to this section of the note. Unless stated otherwise or congruent with this section of the note, additional signs, symptoms, or incongruence should be interpreted as inaccurate with my clinical impression. Related Data Home Medications Medication Instructions Recorded Confirmed levothyroxine 50 mcg tablet 50 mcg PO DAILY . 10/27/21 08/11/23 glipizide 5 mg tablet, extended 5 mg PO DAILY 03/08/23 08/11/23 release 24 hr cyclobenzaprine 5 mg tablet 5 mg PO DAILY 07/19/23 08/11/23 empagliflozin 10 mg tablet 10 mg PO DAILY 08/11/23 08/11/23 fluticasone propionate 50 1 spray intranasal DAILY 08/11/23 08/11/23 mcg/actuation nasal spray,suspension Previous Rx's Medication Instructions Recorded aspirin 81 mg tablet,delayed 81 mg PO DAILY [facility] #30 01/07/22 release tabs clopidogrel 75 mg tablet See Rx Instructions .Route 01/20/23 .COMPLEX #90 tabs rosuvastatin 5 mg tablet See Rx Instructions .Route 01/20/23 .COMPLEX #90 tabs memantine 10 mg tablet 10 mg PO BID memory loss #60 tabs 03/08/23 ranolazine 1,000 mg 1,000 mg PO Q12H . #60 tabs 05/16/23 tablet,extended release,12 hr amlodipine 5 mg tablet 5 mg PO DAILY #90 tabs 07/15/23 sertraline 25 mg tablet 25 mg PO DAILY #30 tabs 07/15/23 lidocaine 5 % topical patch See Rx Instructions topical 07/23/23 .COMPLEX #15 ea metoprolol succinate 50 mg 50 mg PO DAILY #30 tabs 07/28/23 tablet,extended release 24 hr (Toprol XL) isosorbide mononitrate 30 mg 30 mg PO DAILY #30 tabs 08/11/23 tablet,extended release 24 hr lisinopril 40 mg tablet 20 mg (1/2 x 40 mg) PO DAILY #90 08/12/23 tabs Allergies Allergy/AdvReac Type Severity Reaction Status Date / Time No Known Allergies Allergy Verified 08/11/23 10:50 [facility] Disclaimer: The information contained in this section may have been updated after the patient was seen, as this information can be updated by other users. Medical History ALAN on CPAP Reported improvement in both tolerance and symptoms since transitioning to AutoPap. Needs additional pressure support. Order sent to [facility] for Auto-PAP 7/9 cm Hypotension determined by examination Headache 06/14/2023:Headache is currently described as sporadic, mild, icepick type, short lasting, right or left frontal. Today he is asymptomatic. No evidence of temporal artery , jaw claudication, fever, polyarthralgia. COPD mixed type Pleural thickening Dyspnea on exertion History of smoking 30 or more pack years Abnormality of lung on CXR Memory loss Generalized anxiety disorder Stenosis of carotid artery Dizziness Atypical angina Abnormal cardiovascular stress test Diastolic dysfunction SOB (shortness of breath) CAD (coronary artery disease) Hyperlipidemia On statins Hypertension Chest pain Hx of CAD, reports recurrent chest pain with exercise. Today he is asymptomatic and has active follow-up with cardiology at [facility]. Surgical History History of back surgery History of surgery on lower extremity History of heart artery stent Family History Other Asthma Diabetes Hypertension Social History Smoking Status: Never smoker smoking status stop date: when he was 34 years old second hand exposure: No alcohol intake: never substance use type: denies use current occupational status: retired Travel in the last 8 weeks: Inside the [place] adopted: No caregiver/support person: No foster care: No household members: spouse housing: house lives independently: Yes marital status: number of children: 3 number of grandchildren: 5 education level: other details: GED service: No [place] [facility] [place]: No current occupational exposures/hazards: No Hx Recent Travel: No caffeine: Yes ROS Obtained: Yes All systems reviewed & no additional complaints except as documented Physical Exam General General appearance: alert Head Head exam: atraumatic and normocephalic Eye Eye exam: Present normal appearance, PERRL and EOMI ENT ENT exam: Present mucous membranes moist Neck Neck exam: Present trachea midline Chest Chest inspection: Present normal inspection and symmetric chest wall rise Respiratory Respiratory exam: Present normal lung sounds bilaterally; Absent respiratory distress, wheezes, stridor, accessory muscle use or prolonged expiratory phase Cardiovascular Cardiovascular exam: Present regular rate and normal rhythm Abdominal Exam Abdominal exam: Present soft; Absent distention, tenderness, guarding, rebound or rigidity Extremities Exam Extremities exam: Absent edema Neurological Exam Neurological exam: Present alert, oriented X3 and CN II-XII intact Skin Skin exam: Present warm and dry; Absent cyanosis, diaphoresis or pallor Medical Decision Making Medical Records Medical records reviewed: Yes I reviewed the patient's medical records. Tayo Inquiry Pt receiving controlled substance: No Tayo was queried for this patient: No Vital Signs: 08/19/23 11:31 08/19/23 12:00 08/19/23 12:10 Temperature 98.1 F Temperature Source Oral Pulse Rate 68 63 Pulse Rate [Radial] 68 Respiratory Rate 18 17 19 Blood Pressure 72/41 L 80/41 L Blood Pressure [Right Arm] 91/39 L Blood Pressure Mean 46 Blood Pressure Mean [Right Arm] 56 Blood Pressure Source [Right Arm] Automatic Cuff Blood Pressure Position [Right Arm] Sitting 02 Sat by Pulse Oximetry 95 96 95 Oxygen Delivery Method Room Air 08/19/23 12:20 08/19/23 13:01 08/19/23 13:15 Temperature Temperature Source Pulse Rate 63 62 61 Pulse Rate [Radial] Respiratory Rate 14 20 14 Blood Pressure 81/44 L 102/55 L 122/62 Blood Pressure [Right Arm] Blood Pressure Mean Blood Pressure Mean [Right Arm] Blood Pressure Source [Right Arm] Blood Pressure Position [Right Arm] 02 Sat by Pulse Oximetry 95 96 97 Oxygen Delivery Method 08/19/23 13:20 08/19/23 13:30 08/19/23 13:40 Temperature Temperature Source Pulse Rate 59 L Pulse Rate [Radial] Respiratory Rate 15 13 13 Blood Pressure 105/59 L 117/62 117/71 Blood Pressure [Right Arm] Blood Pressure Mean Blood Pressure Mean [Right Arm] Blood Pressure Source [Right Arm] Blood Pressure Position [Right Arm] 02 Sat by Pulse Oximetry 96 Oxygen Delivery Method 08/19/23 13:50 Temperature Temperature Source Pulse Rate Pulse Rate [Radial] Respiratory Rate 13 Blood Pressure 127/68 Blood Pressure [Right Arm] Blood Pressure Mean Blood Pressure Mean [Right Arm] Blood Pressure Source [Right Arm] Blood Pressure Position [Right Arm] 02 Sat by Pulse Oximetry Oxygen Delivery Method Lab Data Lab Results 08/19/23 11:39: WBC 6.3, RBC 3.88 L, Hgb 12.4 L, Hct 39.7 L, MCV 102.3 H, MCH 32.0 H, MCHC 31.3 L, RDW 14.0, Plt Count 193, MPV 9.9, Neut % (Auto) 64.4, Lymph % (Auto) 24.9, Cloud % (Auto) 5.9, Eos % (Auto) 3.6, Baso % (Auto) 1.2, Neut # (Auto) 4.0, Lymph # (Auto) 1.6, Cloud # (Auto) 0.4, Eos # (Auto) 0.2, Baso # (Auto) 0.1, D-Dimer 0.59 H, Sodium 138, Potassium 4.2, Chloride 106, Carbon Dioxide 28, Anion Gap 8.2, BUN 25 H, Creatinine 1.40 H D, Estimated Creat Clear 51, Estimated GFR 49 L, Est GFR ( Amer) 60 D, Glucose 117 H, Calcium 9.3, Total Bilirubin 0.7, AST 32, ALT 25, Alkaline Phosphatase 115, Troponin I 0.03, NT-Pro-B Natriuret Pep 151, Total Protein 6.6, Albumin 3.9, Globulin 2.7, Albumin/Globulin Ratio 1.4 08/19/23 13:01: VBG pH 7.28 L, VBG pCO2 50.3, VBG pO2 31.2, VBG HCO3 23.3, VBG Total CO2 24.8, VBG O2 Saturation 50.6, VBG Base Excess -3.4 L, VBG Lactic Acid 1.5 08/19/23 11:39 08/19/23 11:39 Orders (Tests/Meds): ED MEDICATIONS Discontinued Medications Generic Name Dose Route Start Last Admin Trade Name Zachariah PRN Reason Stop Dose Admin Aspirin 324 mg 08/19/23 11:39 08/19/23 11:46 Aspirin 81mg Chewable Tablet PO 08/19/23 11:40 324 mg ONCE ONE Administration Iopamidol 100 ml 08/19/23 12:54 08/19/23 12:56 Iopamidol-370 (76%);100ml Bottle IV 08/19/23 12:55 100 ml ONCE ONE Administration Iopamidol 70 ml 08/19/23 12:54 08/19/23 12:56 Iopamidol-370 (76%);100ml Bottle IV 08/19/23 12:55 70 ml ONCE ONE Administration Sodium Chloride 40 ml 08/19/23 12:54 08/19/23 12:55 0.9 % Sodium Chloride 50 Ml Vial IV 08/19/23 12:55 40 ml ONCE ONE Administration Sodium Chloride 10 ml 08/19/23 12:54 08/19/23 12:56 Sodium Chloride 0.9% 10ml Syr (Rad Only) IV 08/19/23 12:55 10 ml ONCE ONE Administration Sodium Chloride 40 ml 08/19/23 12:54 08/19/23 12:56 0.9 % Sodium Chloride 50 Ml Vial IV 08/19/23 12:55 40 ml ONCE ONE Administration ORDERS Category Date Time Status CT angio chest PE protocol Stat Cat Scan 08/19/23 12:[address] angio head Stat Cat Scan 08/19/23 12:[address] angio neck Stat Cat Scan 08/19/23 12:[address] head/brain wo con Stat Cat Scan 08/19/23 12:14 Completed Cardiology Consult [Consult to Cardiology] [CONS] Cons 08/19/23 13:16 Active Routine POCUS Point of Care (ER Only) Stat Exams 08/19/23 11:58 Completed XR chest portable Stat Exams 08/19/23 11:39 Completed Complete Blood Count Auto Diff Stat Lab 08/19/23 11:39 Completed Comprehensive Metabolic Panel Stat Lab 08/19/23 11:39 Completed D-Dimer Stat Lab 08/19/23 11:39 Completed NT Pro Brain Natriuretic Pep. Stat Lab 08/19/23 11:39 Completed Troponin I Q3H Lab 08/19/23 14:45 Ordered Troponin I Q3H Lab 08/19/23 17:45 Ordered Troponin I Stat Lab 08/19/23 11:39 Completed VBG [Venous Blood Gas] Stat RT 08/19/23 13:01 Completed Medical Decision Narrative: Is a 77-year-old male history of hypertension, hyper anemia, TIA, cardiomyopathy, diabetes, catheterization yesterday, 08/17 presenting with transient confusion. states that patient was at home on the couch when he all of a sudden became altered, clammy, diaphoretic, pale. This lasted for couple minutes. Patient does not remember this episode, but remembers shortly thereafter when he was on his way to the hospital. Denies any current shortness of breath, chest pain, nausea, vomiting, abdominal pain, back pain, or any other concerns. History obtained with patient and . On evaluation, patient very well-appearing. Cardiopulmonary exam within normal limits, no lower extremity edema. Abdomen soft, nontender, nondistended. Lungs are clear to auscultation patient is hypotensive with a systolic pressure in the 90s. Patient placed on assembler arranger, continuous pulse ox with BP 91/39, pulse 68, oxygen 95% on room air. Independent of rotation of EKG with first-degree AV block and sinus rhythm 69 beats a minute no ST or T wave changes concerning for acute ischemia. AL, QRS, QT intervals within normal limits. Differential includes metabolic abnormality, ACS, WI, coronary dissection, thoracic dissection, malignant arrhythmia, reperfusion injury, pneumothorax, CVA, among others. Patient given 324 mg aspirin p.o independent or potation workup with nonactionable CBC, D-dimer 0.6, age-adjusted negative. Also years criteria negative. VBG nonactionable. Patient's electrolytes within normal limits, kidney function mildly elevated creatinine 1.4 up from normal baseline, likely secondary to n.p.o. status yesterday and contrast load with catheterization. Initial troponin negative, BNP negative. Cardiology was contacted given concern for malignant arrhythmia and recent catheterization. Chest x-ray without acute cardiopulmonary airspace disease. CTA of the chest, neck, head, and CT head without contrast with thoracic aortic aneurysm 4.4 cm, but no evidence of dissection. No evidence of PE. No pneumothorax. Subacute right-sided rib fractures, new from previous study just a month ago. Patient's old catheterization report was pulled. Patient does have history of ventricular tachycardia, A-fib with RVR, SVT, all which seem to have self aborted. Patient is on efra, calcium channel efra, multiple other cardiac medications, which will likely need reconciled. Cardiology recommended admission, telemetry monitoring, med rec, and increasing medication for rhythm control. Hospital medicine was contacted and case was discussed at length, patient to be admitted. Critical Care Critical Care Time Critical Care Time: Yes (cv) Attestation: On 08/19/23, the high probability of a clinically significant, sudden or life threatening deterioration of the following system(s) required my full and direct attention, intervention and personal management. The time I documented below is in addition to time spent performing reported procedures but includes the following listed in this critical care notation. Total Time Total Critical Care Time: 40
[2023-08-19 12:04] LABS: NT Pro Brain Natriuretic Pep. 151 pg/mL (0-450)
[2023-08-19 12:06] LABS: Troponin I 0.03 ng/ml (0.00-0.034)
--- NOTE | 2023-08-19 12:14 | CT_ITS ---
FINAL REPORT CLINICAL HISTORY: cath on 08/17, syncopal episode. COMPARISON: 07/23/2023 FINDINGS: Axial images of the head were obtained without contrast. Coronal reformatted images were also obtained. This study was performed with techniques to keep radiation doses as low as reasonably achievable (ALARA). Individualized dose reduction techniques using automated exposure control or adjustment of mA and/or kV according to the patient's size were employed. There is generalized age-appropriate atrophy. Periventricular low-attenuation areas are seen consistent with moderate chronic ischemic changes. There is no evidence of intracranial hemorrhage or mass. There is no evidence of acute infarct. There is no evidence of shift of the midline structures. No skull abnormality is seen on the bone window images. IMPRESSION: Atrophy and moderate periventricular chronic ischemic changes. No acute intracranial abnormality identified. Reviewed, Interpreted and Dictated by Riki Garcia III, MD Transcribed by Leydi Crain Authenticated and [facility]
--- NOTE | 2023-08-19 12:14 | CT_ITS ---
FINAL REPORT TECHNIQUE: Thin section axial CT with IV contrast supplemented with multiplanar reconstruction under CT angiogram protocol. 3-D reconstructions were performed. This study was performed with techniques to keep radiation doses as low as reasonably achievable (ALARA). Individualized dose reduction techniques using automated exposure control or adjustment of mA and/or kV according to the patient''s size were employed. CLINICAL HISTORY: cath on 08/17, syncopal episode COMPARISON: 06/14/2023 FINDINGS: The distal vertebral, basilar and distal internal carotid arteries have an unremarkable appearance. No aneurysm is seen. Major intracranial vessels are patent without significant stenosis. IMPRESSION: There is no evidence of significant stenosis or occlusion. Reviewed, Interpreted and Dictated by Riki Garcia III, MD Transcribed by Leydi Crain Authenticated and [facility]
--- NOTE | 2023-08-19 12:14 | CT_ITS ---
FINAL REPORT TECHNIQUE: Thin section axial CT with IV contrast supplemented with multiplanar reconstruction under CT angiogram protocol. This study was performed with techniques to keep radiation doses as low as reasonably achievable (ALARA). Individualized dose reduction techniques using automated exposure control or adjustment of mA and/or kV according to the patient''s size were employed. NASCET criteria was utilized during interpretation. CLINICAL HISTORY: cath on 08/17, syncopal episode COMPARISON: 06/14/2023 FINDINGS: Aortic arch: Arch shows no significant narrowing. Great vessel origins are widely patent. Right carotid: The right common carotid artery is normal. There is plaque at the bifurcation without evidence of stenosis. The more distal right internal carotid artery is normal. Left carotid: No significant stenosis is seen of the cervical common or internal carotid artery. Vertebral: Right vertebral artery is patent. On the prior study, the proximal left vertebral artery was occluded with reconstitution of its mid and distal portions. Currently, the left vertebral artery is again occluded but filling only of its most distal aspect near the skull base. 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 Reviewed, Interpreted and Dictated by Riki Garcia III, MD Transcribed by Leydi Crain Authenticated and [facility]
--- NOTE | 2023-08-19 12:14 | CT_ITS ---
FINAL REPORT CLINICAL HISTORY: cath on 08/17, syncopal episode COMPARISON: 06/14/2023 FINDINGS: Thin section axial CT images of the chest were obtained with contrast. 3D reformatted images were also obtained. This study was performed with techniques to keep radiation doses as low as reasonably achievable (ALARA). Individualized dose reduction techniques using automated exposure control or adjustment of mA and/or kV according to the patient''s size were employed. There is no evidence of pulmonary embolism. There is aneurysmal dilatation of the ascending aorta up to 4.4 cm. There is no evidence of aortic dissection. There is no evidence of mediastinal or hilar mass or adenopathy. There is no evidence of pulmonary mass or nodule. There is mild bibasilar atelectasis. There are multiple subacute right distal rib fractures which are new compared to the prior study. There is a small right pleural effusion. Limited images of the upper abdomen demonstrate postoperative changes from gastric bypass and cholecystectomy. There are severe degenerative changes in the thoracic spine with multilevel fusions. IMPRESSION: No evidence of pulmonary embolism. Aneurysmal dilatation of the ascending aorta up to 4.4 cm. Small right pleural effusion. Multiple subacute right distal rib fractures, new from prior. Reviewed, Interpreted and Dictated by Riki Garcia III, MD Transcribed by April Cantu Authenticated and . [facility]
[2023-08-19 12:23] LABS: D-Dimer 0.59 ug/mL (0.0-0.5)
[2023-08-19] MEDS: 0.9 % SODIUM CHLORIDE 50 ML VIAL 40 ML IV ×2 (12:55→12:56)
[2023-08-19] MEDS: IOPAMIDOL-370 (76%);100ML BOTTLE 100 ML IV (12:56)
[2023-08-19] MEDS: IOPAMIDOL-370 (76%);100ML BOTTLE 70 ML IV (12:56)
[2023-08-19] MEDS: SODIUM CHLORIDE 0.9% 10ML SYR (RAD ONLY) 10 ML IV (12:56)
--- NOTE | 2023-08-19 12:59 | PC.NURSE ---
Pt returned to room from RAD
--- NOTE | 2023-08-19 13:01 | PC.NURSE ---
respiratory aware of vbg order
[2023-08-19 13:08] LABS: Lactate Venous 1.5 mmol/L (0.4-2.0); VBG Base Excess -3.4 mmol/L (-2.4-2.3); VBG HCO3 23.3 mmol/L (23-30); VBG Oxygen Saturation 50.6 % (50-70); VBG PCO2 50.3 mmol/L (35-51); VBG PH 7.28 mmol/L (7.31-7.41); VBG PO2 31.2 mmol/L (28-40); VBG Total CO2 24.8 mmol/L (23-27)
--- NOTE | 2023-08-19 13:18 | PC.NURSE ---
cardiology contacted for to discuss pt care
--- NOTE | 2023-08-19 13:18 | PC.NURSE ---
speaking with Jodi Michel
--- NOTE | 2023-08-19 13:28 | PC.NURSE ---
Jodi Michel in room talking with patient at this time.
--- NOTE | 2023-08-19 13:45 | PC.NURSE ---
speaking with about admission
--- NOTE | 2023-08-19 13:52 | P.CONCA_ITS ---
History of Present Illness History of Present Illness Consult date: 08/19/23 Requesting physician: Colt Chavez Chief complaint: syncope History of present illness: This is a 77-year-old white gentleman who presented to the emergency department with complaints of syncope. The patient does not remember the syncopal episode but his is with him who gives the history of what happened. The patient underwent left cardiac catheterization yesterday and had 2 stents placed to the LAD. His states that since that time he has actually been feeling really good and looks really well. She states this morning he got up and sat on the couch when he had sudden onset of some discomfort in his chest. She states that he was kind of groaning and then had a syncopal episode where he passed out for a few minutes. She states that he was clammy and diaphoretic and pale. She states that he was out for few minutes and then when he came to he kind of had an altered mental status and had a blank stare. She states that when he finally came to and was acting himself again it was when they were getting him in the car to come to the hospital. He states that he did have some soreness in his chest when he woke up but denies any chest pain or pressure now. He denies any shortness of breath or edema. He denies any fever, chills, nausea, vomiting, diarrhea, PND or orthopnea. The patient does not remember the syncopal episode. He states he remembers going to sit on the couch and then remembers when his daughter was trying to help get him to the car but other than that he does not remember anything from the event. Of note the patient did wear an event monitor recently that showed brief episodes of nonsustained ventricular tachycardia and SVT. He also had brief episodes of atrial fibrillation for a few seconds with a heart rate of 123 bpm. This syncopal episode was most likely related to an arrhythmia. [facility] Disclaimer: The information contained in this section may have been updated after the patient was seen, as this information can be updated by other users. Medical History (Updated 08/19/23 @ 14:07 by Jodi Michel APRN) SVT (supraventricular tachycardia) Syncope ALAN on CPAP Hypotension determined by examination Headache COPD mixed type Pleural thickening Dyspnea on exertion History of smoking 30 or more pack years Abnormality of lung on CXR Memory loss Generalized anxiety disorder Stenosis of carotid artery Dizziness Atypical angina Abnormal cardiovascular stress test Diastolic dysfunction SOB (shortness of breath) CAD (coronary artery disease) Hyperlipidemia Hypertension Chest pain Surgical History History of back surgery History of surgery on lower extremity History of heart artery stent Family History Other Asthma Diabetes Hypertension Social History Smoking Status: Never smoker smoking status stop date: when he was 34 years old second hand exposure: No alcohol intake: never substance use type: denies use current occupational status: retired Travel in the last 8 weeks: Inside the [place] adopted: No caregiver/support person: No foster care: No household members: spouse housing: house lives independently: Yes marital status: number of children: 3 number of grandchildren: 5 education level: other details: GED service: No senior care: No current occupational exposures/hazards: No Hx Recent Travel: No caffeine: Yes Review of Systems Review of Systems Review of systems:: pertinent systems reviewed and negative unless documented below Constitutional Constitutional: Reports system reviewed and no additional complaints, except as documented Eyes Eyes: Reports system reviewed and no additional complaints, except as documented ENT Ears, Nose, Mouth, and Throat: Reports system reviewed and no additional complaints, except as documented *Cardiovascular Cardiovascular: Reports system reviewed and no additional complaints, except as documented, Reports chest pain and Reports chest pain at rest *Respiratory Respiratory: Reports system reviewed and no additional complaints, except as documented *Gastrointestinal Gastrointestinal: Reports system reviewed and no additional complaints, except as documented *Genitourinary Genitourinary: Reports system reviewed and no additional complaints, except as documented *Musculoskeletal Musculoskeletal: Reports system reviewed and no additional complaints, except as documented Integumentary/Breasts Skin/Breast: Reports system reviewed and no additional complaints, except as documented *Neurologic Neurologic: Reports system reviewed and no additional complaints, except as documented and Reports other (Syncope) Psychiatric Psychiatric: Reports system reviewed and no additional complaints, except as documented Endocrine Endocrine: Reports system reviewed and no additional complaints, except as documented Hematologic/Lymphatic Hematologic/Lymphatic: Reports system reviewed and no additional complaints, except as documented Allergic/Immunologic Allergic/Immunologic: Reports system reviewed and no additional complaints, except as documented Exam Data for Last 24 hours Vital signs and Labs for Last 24 Hours: Temp Pulse Resp BP Pulse Ox O2 Del Method 98.1 F 61 14 122/62 97 Room Air 08/19/23 11:31 08/19/23 13:15 08/19/23 13:15 08/19/23 13:15 08/19/23 13:15 08/19/23 11:31 Laboratory Results - last 24 hr 08/19/23 11:39: WBC 6.3, RBC 3.88 L, Hgb 12.4 L, Hct 39.7 L, MCV 102.3 H, MCH 32.0 H, MCHC 31.3 L, RDW 14.0, Plt Count 193, MPV 9.9, Neut % (Auto) 64.4, Lymph % (Auto) 24.9, [place] % (Auto) 5.9, Eos % (Auto) 3.6, Baso % (Auto) 1.2, Neut # (Auto) 4.0, Lymph # (Auto) 1.6, [place] # (Auto) 0.4, Eos # (Auto) 0.2, Baso # (Auto) 0.1, D-Dimer 0.59 H, Sodium 138, Potassium 4.2, Chloride 106, Carbon Dioxide 28, Anion Gap 8.2, BUN 25 H, Creatinine 1.40 H D, Estimated Creat Clear 51, Estimated GFR 49 L, Est GFR ( Amer) 60 D, Glucose 117 H, Calcium 9.3, Total Bilirubin 0.7, AST 32, ALT 25, Alkaline Phosphatase 115, Troponin I 0.03, NT-Pro-B Natriuret Pep 151, Total Protein 6.6, Albumin 3.9, Globulin 2.7, Albumin/Globulin Ratio 1.4 08/19/23 13:01: VBG pH 7.28 L, VBG pCO2 50.3, VBG pO2 31.2, VBG HCO3 23.3, VBG Total CO2 24.8, VBG O2 Saturation 50.6, VBG Base Excess -3.4 L, VBG Lactic Acid 1.5 I & O for Last 24 hours: Intake & Output 08/16/23 08/17/23 08/18/23 08/19/23 23:59 23:59 23:59 23:59 Weight 175 lb Narrative: EKG is sinus rhythm with first-degree AV block and a rate of 63 bpm. Constitutional Constitutional: no acute distress and obese *Routine HEENT Exam Head: Present normocephalic and atraumatic ENT: Present mucous membranes moist *Routine Neck Exam Neck: Present supple, full ROM and normal carotid upstroke; Absent JVD, carotid bruit or lymphadenopathy *Routine Respiratory Exam Respiratory: Present CTA bilaterally, normal respiratory effort, able to speak in complete sentences and symmetric chest movement *Routine Cardiovascular Exam Cardiovascular: Present RRR, Normal S1 and Normal S2; Absent murmur or gallop *Routine Abdominal Exam Abdominal: Present soft and normoactive bowel sounds; Absent tenderness, distended or organomegaly *Routine Extremities Exam Extremities: Present full ROM, pulses intact and normal capillary refill; Absent cyanosis, clubbing or edema *Routine Skin Exam Skin: Present intact and warm; Absent erythema *Routine Neurological Exam Neurological: Present alert, oriented X3 and CN II-XII intact; Absent sensory deficit or motor deficit Routine Psychiatric Exam Psychiatric: Present normal affect Meds Home Medications and Allergies Home Medications Medication Instructions Recorded Confirmed Type levothyroxine 50 mcg tablet 50 mcg PO DAILY . 10/27/21 08/11/23 History aspirin 81 mg tablet,delayed 81 mg PO DAILY [facility] #30 01/07/22 08/11/23 Rx release tabs clopidogrel 75 mg tablet See Rx Instructions .Route 01/20/23 08/11/23 Rx .COMPLEX #90 tabs rosuvastatin 5 mg tablet See Rx Instructions .Route 01/20/23 08/11/23 Rx .COMPLEX #90 tabs glipizide 5 mg tablet, extended 5 mg PO DAILY 03/08/23 08/11/23 History release 24 hr memantine 10 mg tablet 10 mg PO BID memory loss #60 tabs 03/08/23 08/11/23 Rx ranolazine 1,000 mg 1,000 mg PO Q12H . #60 tabs 05/16/23 08/11/23 Rx tablet,extended release,12 hr amlodipine 5 mg tablet 5 mg PO DAILY #90 tabs 07/15/23 08/11/23 Rx sertraline 25 mg tablet 25 mg PO DAILY #30 tabs 07/15/23 08/11/23 Rx cyclobenzaprine 5 mg tablet 5 mg PO DAILY 07/19/23 08/11/23 History lidocaine 5 % topical patch See Rx Instructions topical 07/23/23 08/11/23 Rx .COMPLEX #15 ea metoprolol succinate 50 mg 50 mg PO DAILY #30 tabs 07/28/23 08/11/23 Rx tablet,extended release 24 hr (Toprol XL) empagliflozin 10 mg tablet 10 mg PO DAILY 08/11/23 08/11/23 History fluticasone propionate 50 1 spray intranasal DAILY 08/11/23 08/11/23 History mcg/actuation nasal spray,suspension isosorbide mononitrate 30 mg 30 mg PO DAILY #30 tabs 08/11/23 08/11/23 Rx tablet,extended release 24 hr lisinopril 40 mg tablet 20 mg (1/2 x 40 mg) PO DAILY #90 08/12/23 Rx tabs New Prescriptions to Start Prescriptions: Allergies Allergy/AdvReac Type Severity Reaction Status Date / Time No Known Allergies Allergy Verified 08/11/23 10:50 Assessment and Plan *Assessment and plan (1) Syncope: Status: Acute Qualifiers: Syncope type: unspecified Qualified Code(s): R55 - Syncope and collapse Category: Medical Code(s): R55 - Syncope and collapse (2) NSVT (nonsustained ventricular tachycardia): Status: Acute Category: Medical Code(s): I47.29 - Other ventricular tachycardia (3) SVT (supraventricular tachycardia): Status: Acute Category: Medical Code(s): I47.10 - Supraventricular tachycardia, unspecified (4) CAD (coronary artery disease): Status: Chronic Qualifiers: Coronary Disease-Associated Artery/Lesion type: [place] artery [place] vs. transplanted heart: [place] heart Associated angina: without angina Qualified Code(s): I25.10 - Atherosclerotic heart disease of [place] coronary artery without angina pectoris Category: Medical Code(s): I25.10 - Atherosclerotic heart disease of [place] coronary artery without angina pectoris (5) Hypertension: Status: Chronic Qualifiers: Hypertension type: essential hypertension Qualified Code(s): I10 - Essential (primary) hypertension Category: Medical Code(s): I10 - Essential (primary) hypertension (6) Hyperlipidemia: Problem Comment: On statins Status: Chronic Qualifiers: Hyperlipidemia type: mixed hyperlipidemia Qualified Code(s): E78.2 - Mixed hyperlipidemia Category: Medical Code(s): E78.5 - Hyperlipidemia, unspecified (7) Diabetes mellitus type 2 in obese: Status: Chronic Category: Medical Code(s): E11.69 - Type 2 diabetes mellitus with other specified complication; E66.9 - Obesity, unspecified Plan Plan: 1. The patient presented to the emergency department with a syncopal episode. The patient gives the history about his syncope. She states that this has happened multiple times here recently. He does have a recent event monitor which showed nonsustained ventricular tachycardia and nonsustained SVT as well as brief episodes of atrial fibrillation. We do suspect that the patient had some sort of arrhythmia that likely caused his syncopal episode. We do recommend that the patient remain hospitalized for the next 48 hours to monitor to make sure he does not have any recurrent arrhythmias especially since he is status post stenting yesterday which makes him high risk for recurrent arrhythmias. 2. We will increase his metoprolol succinate to 50 mg p.o. twice daily for suppression of his arrhythmia. 3. Consider placing another event monitor for 30 days at discharge to make sure his arrhythmias have been suppressed. 4. If the patient does become bradycardic or has any other ventricular ectopy during his hospitalization then consider initiating amiodarone. 5. It does appear that the patient may have been taking both carvedilol and metoprolol. Will stop carvedilol at this time. 6. Coronary artery disease is present and likely stable. His initial troponin is negative. No plans for invasive left cardiac catheterization at this time. Continue Plavix and aspirin. 7. His blood pressure is well-controlled but is on the lower side. Will hold his amlodipine and lisinopril at this time. If his blood pressure elevates overnight then we will consider restarting his lisinopril tomorrow. 8. His LDL goal is less than 55. He is on a statin. His LDL 77 in July 2023. 9. The patient is diabetic. Continue Jardiance. 10. Continue Ranexa and isosorbide for antianginal's. 11. Further recommendations will be made pending the patient's response to treatment. Thank you for the opportunity to help participate in the care of this patient. All recommendations and orders are per Dr. Villanueva.
--- NOTE | 2023-08-19 14:11 | PC.NURSE ---
report called Cat JOLLEY
--- NOTE | 2023-08-19 14:21 | HMH.PHAINT1 ---
Pharmacy Intervention Comments: MEDICATION RECONCILIATION COMPLETED ON PATIENT USING EXTERNAL FILL HISTORY FROM PHARMACY AND LIST FROM CARDIOLOGY OFFICE. -DWAINE SCHNEIDER, REMINGTOND
--- NOTE | 2023-08-19 14:25 | PC.NURSE ---
arrived by stretcher from ED
--- NOTE | 2023-08-19 16:10 | P.HP_ITS ---
History of Present Illness *Admission Date: 08/19/23 *Reason for visit:: syncope event *History of present illness: Mr. Nye is a 77-year-old male with history of sleep apnea, hypertension, CAD, hypothyroid, dementia who presented to the emergency room with complaint of syncope. He had an event earlier today that he does not remember. His witnessed it. She is history of how the event occurred. He underwent heart cath yesterday, during which she had 2 stents placed to his LAD. He was actually feeling really good and was looking better with improved color per his . This morning however he got up and sat on the couch and shortly thereafter had an episode of becoming diaphoretic, stared off in the distance, made some groaning noises and appeared to pass out briefly. When he came to he was clammy and disoriented. Had a blank stare on his face. She states this is the third or fourth time this has happened in the past few months. He denies any shortness of breath, chest pain, nausea or vomiting. No chills or fever. Back to baseline mentation upon arrival to the ER. Blood pressure reportedly became low at home. He had taken his morning meds prior to this episode. On evaluation in the ER, patient noted to be in sinus rhythm. Heart rate in the 50s and 60s. Initially hypotensive. Received IV fluids with improvement in his blood pressure. Stable on room air. Cardiology was consulted, recommended admission for monitoring on telemetry and medication changes. I remarked that he had an event monitor recently that showed brief episodes of nonsustained ventricular tachycardia and SVT. Also occasional episodes of A-fib with a few seconds of heart rate in the 120s. Concerned that his syncopal event is related to arrhythmias. On arrival to the floor, patient is alert and oriented and at baseline mentation per . Blood pressure better with systolics in the 120s [facility] Disclaimer: The information contained in this section may have been updated after the patient was seen, as this information can be updated by other users. Medical History SVT (supraventricular tachycardia) Syncope ALAN on CPAP Hypotension determined by examination Headache COPD mixed type Pleural thickening Dyspnea on exertion History of smoking 30 or more pack years Abnormality of lung on CXR Memory loss Generalized anxiety disorder Stenosis of carotid artery Dizziness Atypical angina Abnormal cardiovascular stress test Diastolic dysfunction SOB (shortness of breath) CAD (coronary artery disease) Hyperlipidemia Hypertension Chest pain Surgical History History of back surgery History of surgery on lower extremity History of heart artery stent Family History Other Asthma Diabetes Hypertension Social History Smoking Status: Never smoker smoking status stop date: when he was 34 years old second hand exposure: No alcohol intake: never substance use type: denies use current occupational status: retired Travel in the last 8 weeks: Inside the [place] adopted: No caregiver/support person: No foster care: No household members: spouse housing: house lives independently: Yes marital status: number of children: 3 number of grandchildren: 5 education level: other details: GED service: No care home: No current occupational exposures/hazards: No Hx Recent Travel: No caffeine: Yes Review of Systems Review of Systems Review of systems (narrative): 14 point review of systems performed, pertinent positives and negatives as per HPI *Neurologic Neurologic: Reports system reviewed and no additional complaints, except as documented and Reports other (Syncope) Meds Home Medications and Allergies Home Medications Medication Instructions Recorded Confirmed Type levothyroxine 50 mcg tablet 50 mcg PO DAILY 10/27/21 08/19/23 History aspirin 81 mg tablet,delayed 81 mg PO DAILY [facility] #30 01/07/22 08/19/23 Rx release tabs memantine 10 mg tablet 10 mg PO BID memory loss #60 tabs 03/08/23 08/19/23 Rx amlodipine 5 mg tablet 5 mg PO DAILY #90 tabs 07/15/23 08/19/23 Rx sertraline 25 mg tablet 25 mg PO DAILY #30 tabs 07/15/23 08/19/23 Rx metoprolol succinate 50 mg 50 mg PO DAILY #30 tabs 07/28/23 08/19/23 Rx tablet,extended release 24 hr (Toprol XL) isosorbide mononitrate 30 mg 30 mg PO DAILY #30 tabs 08/11/23 08/19/23 Rx tablet,extended release 24 hr lisinopril 40 mg tablet 20 mg (1/2 x 40 mg) PO DAILY #90 08/12/23 08/19/23 Rx tabs clopidogrel 75 mg tablet 75 mg PO DAILY 08/19/23 08/19/23 History cyanocobalamin (vitamin B-12) 1,000 mcg PO DAILY 08/19/23 08/19/23 History 1,000 mcg tablet dapagliflozin propanediol 10 mg 10 mg PO DAILY 08/19/23 08/19/23 History tablet glipizide 2.5 mg tablet, extended 2.5 mg PO DAILY 08/19/23 08/19/23 History release 24 hr ranolazine 1,000 mg 1,000 mg PO BID 08/19/23 08/19/23 History tablet,extended release,12 hr rosuvastatin 5 mg tablet 5 mg PO DAILY 08/19/23 08/19/23 History New Prescriptions to Start Prescriptions: Allergies Allergy/AdvReac Type Severity Reaction Status Date / Time No Known Allergies Allergy Verified 08/19/23 14:56 Exam Data for Last 24 hours Vital signs and Labs for Last 24 Hours: Temp Pulse Resp BP Pulse Ox O2 Del Method 98.1 F 59 L 13 127/68 96 Room Air 08/19/23 14:20 08/19/23 14:20 08/19/23 14:20 08/19/23 14:20 08/19/23 14:20 08/19/23 14:20 Laboratory Results - last 24 hr 08/19/23 11:39: WBC 6.3, RBC 3.88 L, Hgb 12.4 L, Hct 39.7 L, MCV 102.3 H, MCH 32.0 H, MCHC 31.3 L, RDW 14.0, Plt Count 193, MPV 9.9, Neut % (Auto) 64.4, Lymph % (Auto) 24.9, [place] % (Auto) 5.9, Eos % (Auto) 3.6, Baso % (Auto) 1.2, Neut # (Auto) 4.0, Lymph # (Auto) 1.6, [place] # (Auto) 0.4, Eos # (Auto) 0.2, Baso # (Auto) 0.1, D-Dimer 0.59 H, Sodium 138, Potassium 4.2, Chloride 106, Carbon Dioxide 28, Anion Gap 8.2, BUN 25 H, Creatinine 1.40 H D, Estimated Creat Clear 51, Estimated GFR 49 L, Est GFR ( Amer) 60 D, Glucose 117 H, Calcium 9.3, Total Bilirubin 0.7, AST 32, ALT 25, Alkaline Phosphatase 115, Troponin I 0.03, NT-Pro-B Natriuret Pep 151, Total Protein 6.6, Albumin 3.9, Globulin 2.7, Albumin/Globulin Ratio 1.4 08/19/23 13:01: VBG pH 7.28 L, VBG pCO2 50.3, VBG pO2 31.2, VBG HCO3 23.3, VBG Total CO2 24.8, VBG O2 Saturation 50.6, VBG Base Excess -3.4 L, VBG Lactic Acid 1.5 I & O for Last 24 hours: Intake & Output 08/16/23 08/17/23 08/18/23 08/19/23 23:59 23:59 23:59 23:59 Weight 79.379 kg Constitutional Constitutional: no acute distress, average body habitus and cooperative *Routine HEENT Exam Head: Present normocephalic Eye: Present EOMI and PERRL ENT: Present mucous membranes moist *Routine Neck Exam Neck: Present supple; Absent lymphadenopathy *Routine Respiratory Exam Respiratory: Present CTA bilaterally; Absent rhonchi, wheezes or crackles *Routine Cardiovascular Exam Cardiovascular: Present RRR *Routine Abdominal Exam Abdominal: Present soft and normoactive bowel sounds; Absent tenderness *Routine Rectal Exam Rectal:: deferred *Routine Genitalia Exam Genitalia:: deferred *Routine Extremities Exam Extremities: Absent cyanosis, clubbing or edema *Routine Skin Exam Skin: Present warm; Absent rash *Routine Neurological Exam Neurological: Present alert and moving all extremities; Absent altered mental status Comments: oriented to self and place. baseline per family Assessment and Plan *Assessment and plan (1) Syncope: Status: Acute Category: Medical Code(s): R55 - Syncope and collapse (2) SVT (supraventricular tachycardia): Status: Acute Category: Medical Code(s): I47.10 - Supraventricular tachycardia, unspecified (3) ALAN on CPAP: Status: Chronic Category: Medical Code(s): G47.33 - Obstructive sleep apnea (adult) (pediatric); Z99.89 - Dependence on other enabling machines and devices (4) Acute dehydration: Status: Acute Category: Medical Code(s): E86.0 - Dehydration (5) Orthostatic syncope: Status: Acute Category: Medical Code(s): I95.1 - Orthostatic hypotension (6) Hypotension determined by examination: Status: Acute Category: Medical Code(s): I95.9 - Hypotension, unspecified (7) Mood disorder: Status: Chronic Category: Medical Code(s): F39 - Unspecified mood [affective] disorder (8) Memory loss: Status: Chronic Category: Medical Code(s): R41.3 - Other amnesia (9) COPD mixed type: Status: Resolved Category: Medical Code(s): J44.9 - Chronic obstructive pulmonary disease, unspecified (10) Diabetes mellitus type 2 in obese: Status: Chronic Category: Medical Code(s): E11.69 - Type 2 diabetes mellitus with other specified complication; E66.9 - Obesity, unspecified (11) Hyperlipidemia: Problem Comment: On statins Status: Chronic Qualifiers: Hyperlipidemia type: mixed hyperlipidemia Qualified Code(s): E78.2 - Mixed hyperlipidemia Category: Medical Code(s): E78.5 - Hyperlipidemia, unspecified (12) Hypertension: Status: Chronic Qualifiers: Hypertension type: essential hypertension Qualified Code(s): I10 - Essential (primary) hypertension Category: Medical Code(s): I10 - Essential (primary) hypertension (13) CAD (coronary artery disease): Status: Chronic Qualifiers: Coronary Disease-Associated Artery/Lesion type: [place] artery [place] vs. transplanted heart: [place] heart Associated angina: without angina Qualified Code(s): I25.10 - Atherosclerotic heart disease of [place] coronary artery without angina pectoris Category: Medical Code(s): I25.10 - Atherosclerotic heart disease of [place] coronary artery without angina pectoris Plan 77-year-old male who presented to the ER with syncopal event. Found to be hypotensive and bradycardic. Discussed case with ER, request admission for medication adjustments, monitoring on telemetry, cardiology evaluation. Medicine agreed to admit. Problems addressed as follows: Syncopal event Nonsustained SVT Dehydration -Cardiology consulted and evaluated patient in the ER. Discussed case. Will make adjustments to medications out of concern that his nonsustained SVT is directly responsible for his syncopal event. -Increase metoprolol succinate to 50 mg twice daily -Continue isosorbide 30 mg daily -Will need event monitor for 30 days at discharge -If develops bradycardia, will consider initiating amiodarone for arrhythmia -Discontinue carvedilol. Concerned that he has been taking both beta-blockers. -Continue statin -Continue Ranexa and isosorbide as antianginals -Hold amlodipine and lisinopril pending improvement in blood pressure -Continuous telemetry -Continue gentle IV hydration. History of CAD: Continue aspirin and Plavix History of diabetes. A1c pending. Continue Jardiance for diabetes and heart disease. Fingersticks ACHS. Mood disorder: Continue Zoloft 25 mg daily. Memory loss/dementia: Continue memantine 10 mg twice daily blood pressure Full code Cardiac diet
[2023-08-19 16:14] LABS: Troponin I 0.03 ng/ml (0.00-0.034)
[2023-08-19 17:31] LABS: POC Glucose,Bedside 120 (70-110)
--- NOTE | 2023-08-19 18:01 | PC.NURSE ---
Patient VSS, Lungs clear, BM this AM - normal. Patient resting in bed with at bedside. to have meds brought him to review - just started having them packaged monthly a clinic pharmacy. Patient denies pain, soa, no edema noted, lungs clear to auscultation.
[2023-08-19 18:59] LABS: Troponin I 0.02 ng/ml (0.00-0.034)
[2023-08-19] MEDS: RANOLAZINE 500MG ER TABLET 1000 MG PO (21:11)
[2023-08-19] MEDS: METOPROLOL SUCCINATE XL 50MG TABLET 50 MG PO (21:11)
[2023-08-19] MEDS: ATORVASTATIN 20MG TABLET 20 MG PO (21:11)
[2023-08-19] MEDS: MEMANTINE 10MG TABLET 10 MG PO (21:11)
[2023-08-20] VITALS (9 sets, daily range): BP systolic 101–125; BP diastolic 60–76; PULSE 60–70; RESP 16–20; TEMP 36.6–37.2; O2SAT 93–97; BMI 31.1
--- NOTE | 2023-08-20 05:45 | PC.NURSE ---
Patient is alert and oriented, unsure of time, but easily oriented. remains at bedside. Pt has had no complaints throughout the night and has rested very well. Pt uses urinal. Right groin cath site from previous cath CDI, bandage applied. Call light in reach.
[2023-08-20] MEDS: LEVOTHYROXINE 50MCG (0.05MG) TAB 50 MCG PO (06:08)
[2023-08-20 07:23] LABS: Basophils % 0.8 % (0.1-2.0); Eosinophils # 0.2 K/mm3 (0.0-0.4); Eosinophils % 4.9 % (0.1-12.0); Hematocrit 37.4 % (42.0-52.0); Hemoglobin 11.8 g/dL (14.1-18.0); Lymphocytes # 1.6 K/mm3 (0.7-4.5); Lymphocytes % 34.6 % (10-50); Mean Corpuscular HGB Conc 31.5 g/dL (31.8-35.4); Mean Corpuscular Hemoglobin 31.7 pg (27.0-31.2); Mean Corpuscular Volume 100.6 fl (80-94); Mean Platelet Volume 9.8 fl (7.4-10.4); Monocytes # 0.3 K/mm3 (0.1-1.0); Monocytes % 6.3 % (1.7-9.3); Neutrophils # 2.5 K/mm3 (1.8-7.8); Neutrophils % 53.4 % (37.0-80.0); Platelet Count 153 K/mm3 (142-424); Red Blood Count 3.72 M/mm3 (4.60-6.20); Red Cell Distribution Width 14.2 % (11.5-17.5); White Blood Count 4.7 K/mm3 (4.8-10.8)
[2023-08-20 07:27] LABS: Chloride 107 mmol/L (98-107); Potassium 4.1 mmoL/L (3.5-5.1); Sodium 137 mmol/L (136-145)
[2023-08-20 07:30] LABS: Alanine Aminotransferase 22 U/L (12-78); Albumin Level 3.5 g/dl (3.5-5.0); Albumin/Globulin Ratio 1.3 (1.1-1.8); Alkaline Phosphatase 114 U/L (38-126); Anion Gap 8.1 mEq/L (5-15); Aspartate Amino Transferase 30 U/L (17-59); Bilirubin,Total 0.8 mg/dl (0.2-1.3); Blood Urea Nitrogen 20 mg/dl (9-20); Calcium 9.2 mg/dl (8.4-10.2); Carbon Dioxide 26 mmol/L (22.0-30.0); Creatinine Clearance Estimated 65 mL/min (50-200); Estimated Glomerular Filt Rate 65 ml/min (>60); GFR (African American) 79 ML/MIN (>60); Globulin 2.6 g/dL (1.3-3.2); Glucose 122 mg/dl (74-100); Total Protein,Serum 6.1 g/dl (6.3-8.2)
[2023-08-20 08:24] LABS: Hemoglobin A1C 5.8 % (4.0-6.0)
[2023-08-20] MEDS: RANOLAZINE 500MG ER TABLET 1000 MG PO ×2 (09:53→20:13)
[2023-08-20] MEDS: EMPAGLIFLOZIN 10MG TABLET 10 MG PO (09:54)
[2023-08-20] MEDS: ISOSORBIDE MONO 30MG TAB.ER.24H 30 MG PO (09:54)
[2023-08-20] MEDS: MEMANTINE 10MG TABLET 10 MG PO ×2 (09:54→20:13)
[2023-08-20] MEDS: CLOPIDOGREL 75MG TAB 75 MG PO (09:55)
[2023-08-20] MEDS: METOPROLOL SUCCINATE XL 50MG TABLET 50 MG PO ×2 (09:57→20:13)
[2023-08-20] MEDS: ASPIRIN EC 81MG TABLET 81 MG PO (09:57)
[2023-08-20] MEDS: SERTRALINE 50MG TABLET 25 MG PO (09:58)
--- NOTE | 2023-08-20 10:56 | P.PN_ITS ---
Subjective *Date: 08/20/23 *Time: 18:08 Interval history: Patient did well overnight. No further events. Stable on room air. Blood pressure normal. Tolerating adjustments to medications. brought home medications that were prepackaged today for us to review. They are needing some adjustment as current month supply has carvedilol and glipizide which are incorrect. Pharmacy assisting with care. Medical Exam Vital signs and Labs for Last 24 Hours: Vital Signs Temp Pulse Pulse Resp BP BP Pulse Ox 08/20/23 08:59 08/20/23 08:00 98.5 F 63 18 125/70 94 L 08/20/23 08:00 95 08/20/23 07:42 70 08/20/23 06:34 08/20/23 05:00 08/20/23 04:00 98.3 F 64 16 117/71 95 08/20/23 04:00 60 08/20/23 03:00 08/20/23 00:35 08/20/23 00:00 98.0 F 61 17 112/76 97 08/19/23 23:00 08/19/23 21:00 08/19/23 20:00 08/19/23 20:00 70 08/19/23 20:00 97.6 F 71 17 125/64 97 08/19/23 18:31 08/19/23 17:00 08/19/23 16:00 97.9 F 63 18 130/69 98 08/19/23 16:00 60 08/19/23 15:00 08/19/23 14:20 98.1 F 59 L 13 127/68 96 08/19/23 14:20 98.1 F 59 L 13 127/68 08/19/23 13:50 13 127/68 08/19/23 13:40 13 117/71 08/19/23 13:30 59 L 13 117/62 96 08/19/23 13:20 15 105/59 L 08/19/23 13:15 61 14 122/62 97 08/19/23 13:01 62 20 102/55 L 96 08/19/23 12:20 63 14 81/44 L 95 08/19/23 12:10 63 19 80/41 L 95 08/19/23 12:00 68 17 72/41 L 96 08/19/23 11:31 98.1 F 68 18 91/39 L 95 O2 Del Method 08/20/23 08:59 Room Air 08/20/23 08:00 Room Air 08/20/23 08:00 Room Air 08/20/23 07:42 08/20/23 06:34 Room Air 08/20/23 05:00 Room Air 08/20/23 04:00 08/20/23 04:00 08/20/23 03:00 Room Air 08/20/23 00:35 Room Air 08/20/23 00:00 08/19/23 23:00 Room Air 08/19/23 21:00 Room Air 08/19/23 20:00 Room Air 08/19/23 20:00 08/19/23 20:00 Room Air 08/19/23 18:31 Room Air 08/19/23 17:00 Room Air 08/19/23 16:00 Room Air 08/19/23 16:00 08/19/23 15:00 Room Air 08/19/23 14:20 Room Air 08/19/23 14:20 Room Air 08/19/23 13:50 08/19/23 13:40 08/19/23 13:30 08/19/23 13:20 08/19/23 13:15 08/19/23 13:01 08/19/23 12:20 08/19/23 12:10 08/19/23 12:00 08/19/23 11:31 Room Air Intake and Output 08/19/23 08/20/23 08/20/23 23:59 07:59 15:59 Intake Total 580 / 580 335 / 335 Output Total 0 / 0 Balance 580 / 580 335 / 335 Intake: Intake, Oral Amount 580 / 580 335 / 335 Output: Output, Urine Amount 0 / 0 Other: Number of Unmeasured Voids 1 Weight 79.605 kg Patient Weight 08/20/23 23:59 Weight 79.605 kg Laboratory Results - last 24 hr 08/19/23 11:39: WBC 6.3, RBC 3.88 L, Hgb 12.4 L, Hct 39.7 L, MCV 102.3 H, MCH 32.0 H, MCHC 31.3 L, RDW 14.0, Plt Count 193, MPV 9.9, Neut % (Auto) 64.4, Lymph % (Auto) 24.9, [place] % (Auto) 5.9, Eos % (Auto) 3.6, Baso % (Auto) 1.2, Neut # (Auto) 4.0, Lymph # (Auto) 1.6, [place] # (Auto) 0.4, Eos # (Auto) 0.2, Baso # (Auto) 0.1, D-Dimer 0.59 H, Sodium 138, Potassium 4.2, Chloride 106, Carbon Dioxide 28, Anion Gap 8.2, BUN 25 H, Creatinine 1.40 H D, Estimated Creat Clear 51, Estimated GFR 49 L, Est GFR ( Amer) 60 D, Glucose 117 H, Calcium 9.3, Total Bilirubin 0.7, AST 32, ALT 25, Alkaline Phosphatase 115, Troponin I 0.03, NT-Pro-B Natriuret Pep 151, Total Protein 6.6, Albumin 3.9, Globulin 2.7, Albumin/Globulin Ratio 1.4 08/19/23 13:01: VBG pH 7.28 L, VBG pCO2 50.3, VBG pO2 31.2, VBG HCO3 23.3, VBG Total CO2 24.8, VBG O2 Saturation 50.6, VBG Base Excess -3.4 L, VBG Lactic Acid 1.5 08/19/23 15:33: Troponin I 0.03 08/19/23 17:24: POC Glucose 120 H 08/19/23 18:23: Troponin I 0.02 08/20/23 06:35: WBC 4.7 L D, RBC 3.72 L, Hgb 11.8 L, Hct 37.4 L, MCV 100.6 H, MCH 31.7 H, MCHC 31.5 L, RDW 14.2, Plt Count 153, MPV 9.8, Neut % (Auto) 53.4, Lymph % (Auto) 34.6, [place] % (Auto) 6.3, Eos % (Auto) 4.9, Baso % (Auto) 0.8, Neut # (Auto) 2.5, Lymph # (Auto) 1.6, [place] # (Auto) 0.3, Eos # (Auto) 0.2, Baso # (Auto) 0.0, Sodium 137, Potassium 4.1, Chloride 107, Carbon Dioxide 26, Anion Gap 8.1, BUN 20, Creatinine 1.10 D, Estimated Creat Clear 65, Estimated GFR 65, Est GFR ( Amer) 79 D, Glucose 122 H, Hemoglobin A1c 5.8, Calcium 9.2, Magnesium 2.0, Total Bilirubin 0.8, AST 30, ALT 22, Alkaline Phosphatase 114, Total Protein 6.1 L, Albumin 3.5 D, Globulin 2.6, Albumin/Globulin Ratio 1.3 I & O for Labs for Last 24 Hours: Intake & Output 08/17/23 08/18/23 08/19/23 08/20/23 23:59 23:59 23:59 23:59 Intake Total 580 / 580 335 / 335 Output Total 0 / 0 Balance 580 / 580 335 / 335 Weight 79.379 kg 79.605 kg Constitutional: Present no acute distress Head: Present atraumatic and normocephalic ENT: Present normal exam Neck: Present normal inspection Respiratory: Present normal respiratory effort; Absent rhonchi, wheezes or crackles Cardiac: Present Reg Rate and Rhythm GI: Present normal bowel sounds; Absent tenderness Extremities: Present normal inspection and full ROM Skin: Present intact; Absent erythema Neuro: Present Grossly Intact, alert, awake and moves all extremities Assessment and Plan *Assessment and plan (1) Syncope: Status: Acute Category: Medical Code(s): R55 - Syncope and collapse (2) SVT (supraventricular tachycardia): Status: Acute Category: Medical Code(s): I47.10 - Supraventricular tachycardia, unspecified (3) ALAN on CPAP: Status: Chronic Category: Medical Code(s): G47.33 - Obstructive sleep apnea (adult) (pediatric); Z99.89 - Dependence on other enabling machines and devices (4) Acute dehydration: Status: Acute Category: Medical Code(s): E86.0 - Dehydration (5) Orthostatic syncope: Status: Acute Category: Medical Code(s): I95.1 - Orthostatic hypotension (6) Hypotension determined by examination: Status: Acute Category: Medical Code(s): I95.9 - Hypotension, unspecified (7) Mood disorder: Status: Chronic Category: Medical Code(s): F39 - Unspecified mood [affective] disorder (8) Memory loss: Status: Chronic Category: Medical Code(s): R41.3 - Other amnesia (9) COPD mixed type: Status: Resolved Category: Medical Code(s): J44.9 - Chronic obstructive pulmonary disease, unspecified (10) Diabetes mellitus type 2 in obese: Status: Chronic Category: Medical Code(s): E11.69 - Type 2 diabetes mellitus with other specified complication; E66.9 - Obesity, unspecified (11) Hyperlipidemia: Problem Comment: On statins Status: Chronic Qualifiers: Hyperlipidemia type: mixed hyperlipidemia Qualified Code(s): E78.2 - Mixed hyperlipidemia Category: Medical Code(s): E78.5 - Hyperlipidemia, unspecified (12) Hypertension: Status: Chronic Qualifiers: Hypertension type: essential hypertension Qualified Code(s): I10 - Essential (primary) hypertension Category: Medical Code(s): I10 - Essential (primary) hypertension (13) CAD (coronary artery disease): Status: Chronic Qualifiers: Associated angina: without angina Coronary Disease-Associated Artery/Lesion type: [place] artery [place] vs. transplanted heart: [place] heart Qualified Code(s): I25.10 - Atherosclerotic heart disease of [place] coronary artery without angina pectoris Category: Medical Code(s): I25.10 - Atherosclerotic heart disease of [place] coronary artery without angina pectoris (14) Ribs, multiple fractures: Status: Acute Qualifiers: Encounter type: sequela Fracture type: closed Laterality: right Qualified Code(s): S22.41XS - Multiple fractures of ribs, right side, sequela Category: Medical Code(s): S22.49XA - Multiple fractures of ribs, unspecified side, initial encounter for closed fracture Plan 77-year-old male who presented to the ER with syncopal event. Found to be hypotensive and bradycardic. Discussed case with ER, request admission for medication adjustments, monitoring on telemetry, cardiology evaluation. Medicine agreed to admit. Problems addressed as follows: Syncopal event Nonsustained SVT Dehydration -Tolerating medication adjustments. No episodes of SVT on telemetry. Continue to monitor for 24 more hours -Continue metoprolol succinate to 50 mg twice daily -Continue isosorbide 30 mg daily -Will need event monitor for 30 days at discharge -If develops bradycardia, will consider initiating amiodarone for arrhythmia - Discussed case with pharmacy, will look to address his prepackaged meds. They are going to take his prepackaged meds to the clinic pharmacy and remove carvedilol and glipizide. Will add isosorbide and metoprolol. Will verify that orders at pharmacy mesh with discharge meds. -Continue statin, Ranexa and isosorbide as antianginals -Hold amlodipine and lisinopril pending improvement in blood pressure -Continuous telemetry -Continue gentle IV hydration. Of note, has 4 rib fractures that are healing on the right side, subacute. Patient sustained a fall last month and was seen in the ER. Fractures likely from that fall. Pain stable. Monitor for pain control needs. No difficulty with breathing or flail chest at this time. History of CAD: Continue aspirin and Plavix History of diabetes. A1c pending. Continue Jardiance for diabetes and heart disease. Fingersticks ACHS. Mood disorder: Continue Zoloft 25 mg daily. Memory loss/dementia: Continue memantine 10 mg twice daily blood pressure Full code Cardiac diet
[2023-08-20 11:10] LABS: POC Glucose,Bedside 164 (70-110)
--- NOTE | 2023-08-20 18:31 | PC.NURSE ---
pt has remained alert and oriented x4, VSS, on RA. Pt has not had any syncope episodes during my shift, he did c/o of feeling flushed at one point but it resolved without the need for intervention. patient is tolerating his cardiac diet. family has been in and out all day, the is currently at bedside. call light in reach.
[2023-08-20] MEDS: ATORVASTATIN 20MG TABLET 20 MG PO (20:13)
[2023-08-20] MEDS: DOCUSATE SODIUM 100 MG CAPSULE PO (20:49)
[2023-08-21] VITALS: BP 93/45; PULSE 60; PULSE 61; RESP 16; TEMP 36.9; O2SAT 94
[2023-08-21 02:41] VITALS: BP 99/58
[2023-08-21 04:00] VITALS: BP 113/65; PULSE 59; RESP 16; TEMP 37; O2SAT 97; BMI 31.7
--- NOTE | 2023-08-21 05:22 | PC.NURSE ---
Alert and oriented. remains at the bedside. No complaints from patient throughout shift. Ambulated to the restroom. Call light in reach.
[2023-08-21] MEDS: LEVOTHYROXINE 50MCG (0.05MG) TAB 50 MCG PO (06:27)
[2023-08-21 06:35] LABS: POC Glucose,Bedside 122 (70-110)
--- NOTE | 2023-08-21 07:28 | EXP.DC.SUM ---
General Admission date:: 08/19/23 Discharge date: 08/21/23 HPI HPI HPI: Mr. Nye is a 77-year-old male with history of sleep apnea, hypertension, CAD, hypothyroid, dementia who presented to the emergency room with complaint of syncope. He had an event earlier today that he does not remember. His witnessed it. She is history of how the event occurred. He underwent heart cath yesterday, during which she had 2 stents placed to his LAD. He was actually feeling really good and was looking better with improved color per his . This morning however he got up and sat on the couch and shortly thereafter had an episode of becoming diaphoretic, stared off in the distance, made some groaning noises and appeared to pass out briefly. When he came to he was clammy and disoriented. Had a blank stare on his face. She states this is the third or fourth time this has happened in the past few months. He denies any shortness of breath, chest pain, nausea or vomiting. No chills or fever. Back to baseline mentation upon arrival to the ER. Blood pressure reportedly became low at home. He had taken his morning meds prior to this episode. On evaluation in the ER, patient noted to be in sinus rhythm. Heart rate in the 50s and 60s. Initially hypotensive. Received IV fluids with improvement in his blood pressure. Stable on room air. Cardiology was consulted, recommended admission for monitoring on telemetry and medication changes. I remarked that he had an event monitor recently that showed brief episodes of nonsustained ventricular tachycardia and SVT. Also occasional episodes of A-fib with a few seconds of heart rate in the 120s. Concerned that his syncopal event is related to arrhythmias. On arrival to the floor, patient is alert and oriented and at baseline mentation per . Blood pressure better with systolics in the 120s Hospital Course Hospital Course Hospital Course: 77-year-old male who presented to the ER with syncopal event. Found to be hypotensive and bradycardic. Discussed case with ER, request admission for medication adjustments, monitoring on telemetry, cardiology evaluation. Medicine agreed to admit. Monitored on telemetry with no further events. Medication adjustments made. Stable to discharge home. Problems addressed as follows: Syncopal event Nonsustained SVT Dehydration -Episode concerning for syncope and possible arrhythmia at home. Recent Holter monitor showed nonsustained V. tach and short runs of A-fib. Cardiology evaluated. Recommended making medication adjustments. Has tolerated adjustments well, monitored for 48 hours on telemetry with no further events. Medication adjustments as follows: Metoprolol succinate 50 mg twice daily, isosorbide 30 mg daily. 30-day event monitor placed prior to discharge. Will follow-up with cardiology in the coming weeks. Discussed case during admission with pharmacy to address patient's prepackaged meds. Provided with 4 days of medication from clinic pharmacy prior to discharge. Will cook pickled meat new prepackaging this week. Verified the prepackaging will include current med list, discontinued carvedilol and glipizide. Continued his Ranexa and statin during admission. Discontinued amlodipine. Will resume lisinopril given patient's coronary artery disease. May need further adjustment when follows up with cardiology. Of note, has 4 rib fractures that are healing on the right side, subacute. Patient sustained a fall last month and was seen in the ER. Fractures likely from that fall. Pain stable. No difficulty breathing during admission. No pain control necessary at this time. History of CAD: Continue aspirin and Plavix History of diabetes. A1c normal at 5.8, Continue Jardiance for diabetes and heart disease. Mood disorder: Continue Zoloft 25 mg daily. Memory loss/dementia: Continue memantine 10 mg twice daily blood pressure Exam Data for Last 24 hours Vital signs and Labs for Last 24 Hours: Temp Pulse Resp BP Pulse Ox O2 Del Method 98.6 F 59 L 16 113/65 97 Room Air 08/21/23 04:00 08/21/23 04:00 08/21/23 04:00 08/21/23 04:00 08/21/23 04:00 08/21/23 06:40 Laboratory Results - last 24 hr 08/20/23 06:35: WBC 4.7 L D, RBC 3.72 L, Hgb 11.8 L, Hct 37.4 L, MCV 100.6 H, MCH 31.7 H, MCHC 31.5 L, RDW 14.2, Plt Count 153, MPV 9.8, Neut % (Auto) 53.4, Lymph % (Auto) 34.6, [place] % (Auto) 6.3, Eos % (Auto) 4.9, Baso % (Auto) 0.8, Neut # (Auto) 2.5, Lymph # (Auto) 1.6, [place] # (Auto) 0.3, Eos # (Auto) 0.2, Baso # (Auto) 0.0, Sodium 137, Potassium 4.1, Chloride 107, Carbon Dioxide 26, Anion Gap 8.1, BUN 20, Creatinine 1.10 D, Estimated Creat Clear 65, Estimated GFR 65, Est GFR ( Amer) 79 D, Glucose 122 H, Hemoglobin A1c 5.8, Calcium 9.2, Magnesium 2.0, Total Bilirubin 0.8, AST 30, ALT 22, Alkaline Phosphatase 114, Total Protein 6.1 L, Albumin 3.5 D, Globulin 2.6, Albumin/Globulin Ratio 1.3 08/20/23 11:03: POC Glucose 164 H 08/21/23 06:26: POC Glucose 122 H I & O for Last 24 hours: Intake & Output 08/18/23 08/19/23 08/20/23 08/21/23 23:59 23:59 23:59 23:59 Intake Total 580 / 580 1310 / 1310 Output Total 0 / 0 Balance 580 / 580 1310 / 1310 Weight 79.379 kg 79.605 kg 81.193 kg Constitutional Constitutional: no acute distress and obese *Routine HEENT Exam Head: Present normocephalic Eye: Present EOMI and PERRL ENT: Present mucous membranes moist *Routine Neck Exam Neck: Present supple; Absent lymphadenopathy Routine Chest/Breast/Axilla Exam Comments: Minimal tenderness along right side. *Routine Respiratory Exam Respiratory: Present CTA bilaterally; Absent rhonchi, wheezes or crackles *Routine Cardiovascular Exam Cardiovascular: Present RRR *Routine Abdominal Exam Abdominal: Present soft and normoactive bowel sounds; Absent tenderness *Routine Rectal Exam Patient deferred: visual exam *Routine Exam Patient deferred: penile exam *Routine Extremities Exam Extremities: Absent cyanosis, clubbing or edema *Routine Skin Exam Skin: Present warm; Absent rash *Routine Neurological Exam Neurological: Present alert and moving all extremities; Absent altered mental status Comments: Baseline mentation, alert and oriented x 2 Results Data Completed and Pending Labs on day of discharge: Labs from last 24 hours 08/21/23 08/20/23 08/20/23 06:26 11:03 06:35 WBC 4.7 L D RBC 3.72 L Hgb 11.8 L Hct 37.4 L MCV 100.6 H MCH 31.7 H MCHC 31.5 L RDW 14.2 Plt Count 153 MPV 9.8 Neut % (Auto) 53.4 Lymph % (Auto) 34.6 Dodge % (Auto) 6.3 Eos % (Auto) 4.9 Baso % (Auto) 0.8 Neut # (Auto) 2.5 Lymph # (Auto) 1.6 Dodge # (Auto) 0.3 Eos # (Auto) 0.2 Baso # (Auto) 0.0 Sodium 137 Potassium 4.1 Chloride 107 Carbon Dioxide 26 Anion Gap 8.1 BUN 20 Creatinine 1.10 D Estimated Creat Clear 65 Estimated GFR 65 Est GFR ( Amer) 79 D Glucose 122 H POC Glucose 122 H 164 H Hemoglobin A1c 5.8 Calcium 9.2 Magnesium 2.0 Total Bilirubin 0.8 AST 30 ALT 22 Alkaline Phosphatase 114 Total Protein 6.1 L Albumin 3.5 D Globulin 2.6 Albumin/Globulin Ratio 1.3 DS: Diagnosis Discharge Diagnosis (1) Syncope: Status: Acute Code(s): R55 - Syncope and collapse (2) SVT (supraventricular tachycardia): Status: Acute Code(s): I47.10 - Supraventricular tachycardia, unspecified (3) ALAN on CPAP: Status: Chronic Code(s): G47.33 - Obstructive sleep apnea (adult) (pediatric); Z99.89 - Dependence on other enabling machines and devices (4) Acute dehydration: Status: Acute Code(s): E86.0 - Dehydration (5) Orthostatic syncope: Status: Acute Code(s): I95.1 - Orthostatic hypotension (6) Hypotension determined by examination: Status: Acute Code(s): I95.9 - Hypotension, unspecified (7) Mood disorder: Status: Chronic Code(s): F39 - Unspecified mood [affective] disorder (8) Memory loss: Status: Chronic Code(s): R41.3 - Other amnesia (9) COPD mixed type: Status: Resolved Code(s): J44.9 - Chronic obstructive pulmonary disease, unspecified (10) Diabetes mellitus type 2 in obese: Status: Chronic Code(s): E11.69 - Type 2 diabetes mellitus with other specified complication; E66.9 - Obesity, unspecified (11) Hyperlipidemia: Status: Chronic Code(s): E78.5 - Hyperlipidemia, unspecified Qualifiers: Hyperlipidemia type: mixed hyperlipidemia Qualified Code(s): E78.2 - Mixed hyperlipidemia Problem details: On statins (12) Hypertension: Status: Chronic Code(s): I10 - Essential (primary) hypertension Qualifiers: Hypertension type: essential hypertension Qualified Code(s): I10 - Essential (primary) hypertension (13) CAD (coronary artery disease): Status: Chronic Code(s): I25.10 - Atherosclerotic heart disease of [place] coronary artery without angina pectoris Qualifiers: Associated angina: without angina Coronary Disease-Associated Artery/Lesion type: [place] artery Kaw vs. transplanted heart: [place] heart Qualified Code(s): I25.10 - Atherosclerotic heart disease of [place] coronary artery without angina pectoris (14) Ribs, multiple fractures: Status: Acute Code(s): S22.49XA - Multiple fractures of ribs, unspecified side, initial encounter for closed fracture Qualifiers: Encounter type: sequela Fracture type: closed Laterality: right Qualified Code(s): S22.41XS - Multiple fractures of ribs, right side, sequela Meds Home Medications and Allergies Home Medications Medication Instructions Recorded Confirmed Type aspirin 81 mg tablet,delayed 81 mg PO DAILY [facility] #30 01/07/22 08/19/23 Rx release tabs memantine 10 mg tablet 10 mg PO BID memory loss #60 tabs 03/08/23 08/19/23 Rx sertraline 25 mg tablet 25 mg PO DAILY #30 tabs 07/15/23 08/19/23 Rx isosorbide mononitrate 30 mg 30 mg PO DAILY #30 tabs 08/11/23 08/19/23 Rx tablet,extended release 24 hr lisinopril 40 mg tablet 20 mg (1/2 x 40 mg) PO DAILY #90 08/12/23 08/19/23 Rx tabs clopidogrel 75 mg tablet 75 mg PO DAILY 08/19/23 08/19/23 History cyanocobalamin (vitamin B-12) 1,000 mcg PO DAILY 08/19/23 08/19/23 History 1,000 mcg tablet dapagliflozin propanediol 10 mg 10 mg PO DAILY 08/19/23 08/19/23 History tablet ranolazine 1,000 mg 1,000 mg PO BID 08/19/23 08/19/23 History tablet,extended release,12 hr rosuvastatin 5 mg tablet 5 mg PO DAILY 08/19/23 08/19/23 History levothyroxine 75 mcg tablet 75 mcg PO DAILY 08/20/23 08/20/23 History metoprolol succinate 100 mg 50 mg PO BID 08/20/23 08/20/23 History tablet,extended release 24 hr New Prescriptions to Start Prescriptions: Allergies Allergy/AdvReac Type Severity Reaction Status Date / Time No Known Allergies Allergy Verified 08/19/23 14:56 Discharge Plan Disposition Patient Disposition: Home, Self-Care Condition: Good Follow up Plan Follow up with: Kyle Romo MD [Primary Care Provider] - Enter time for follow up Jomar Villanueva MD [Staff Physician] - Enter time for follow up Prescriptions/Medication Reconciliation: Continued memantine 10 mg tablet 10 mg PO BID Qty: 60 6RF isosorbide mononitrate 30 mg tablet extended release 24 hr 30 mg PO DAILY Qty: 30 2RF aspirin 81 mg tablet,delayed release (DR/EC) 81 mg PO DAILY Qty: 30 5RF sertraline 25 mg tablet 25 mg PO DAILY Qty: 30 5RF lisinopril 40 mg tablet 20 mg PO DAILY Qty: 90 3RF cyanocobalamin (vitamin B-12) 1,000 mcg tablet 1,000 mcg PO DAILY Patient Comments: TAKE ONE TABLET BY MOUTH EVERY DAY clopidogrel 75 mg tablet 75 mg PO DAILY Patient Comments: TAKE ONE TABLET BY MOUTH EVERY DAY rosuvastatin 5 mg tablet 5 mg PO DAILY Patient Comments: TAKE ONE TABLET BY MOUTH EVERY DAY FOR cholesterol ranolazine 1,000 mg tablet extended release 12 hr 1,000 mg PO BID Patient Comments: TAKE ONE TABLET BY MOUTH EVERY TWELVE HOURS dapagliflozin propanediol 10 mg tablet 10 mg PO DAILY Patient Comments: TAKE ONE TABLET BY MOUTH EVERY DAY levothyroxine 75 mcg Tablet 75 mcg PO DAILY metoprolol succinate 100 mg Tablet Extended Release 24 Hr 50 mg PO BID Discontinued metoprolol succinate [Toprol XL] 50 mg tablet extended release 24 hr 50 mg PO DAILY Qty: 30 2RF amlodipine 5 mg tablet 5 mg PO DAILY Qty: 90 3RF glipizide 2.5 mg tablet extended release 24hr 2.5 mg PO DAILY Patient Comments: TAKE ONE TABLET BY MOUTH EVERY DAY Problem Reconciliation Problems Reviewed?: Yes Patient Discharge Instructions ACTIVITY: Continue current activity DIET: continue same diet Patient Instructions: DI for Syncope in Adults (Fainting), DI for Hypotension Providers Primary Care Provider: Kyle Romo Admit Provider: Avery Huang Attending Provider: Avery Huang
[2023-08-21 07:31] LABS: Basophils # 0.1 K/mm3 (0-0.2); Basophils % 1.3 % (0.1-2.0); Eosinophils # 0.2 K/mm3 (0.0-0.4); Eosinophils % 5.1 % (0.1-12.0); Hematocrit 37.2 % (42.0-52.0); Hemoglobin 11.8 g/dL (14.1-18.0); Lymphocytes # 1.7 K/mm3 (0.7-4.5); Lymphocytes % 35.8 % (10-50); Mean Corpuscular HGB Conc 31.7 g/dL (31.8-35.4); Mean Corpuscular Hemoglobin 31.8 pg (27.0-31.2); Mean Corpuscular Volume 100.2 fl (80-94); Mean Platelet Volume 9.5 fl (7.4-10.4); Monocytes # 0.3 K/mm3 (0.1-1.0); Monocytes % 6.5 % (1.7-9.3); Neutrophils # 2.5 K/mm3 (1.8-7.8); Neutrophils % 51.4 % (37.0-80.0); Platelet Count 143 K/mm3 (142-424); Red Blood Count 3.71 M/mm3 (4.60-6.20); White Blood Count 4.8 K/mm3 (4.8-10.8)
[2023-08-21 07:32] LABS: Chloride 106 mmol/L (98-107); Potassium 4.2 mmoL/L (3.5-5.1); Sodium 137 mmol/L (136-145)
[2023-08-21 07:35] LABS: Anion Gap 8.2 mEq/L (5-15); Blood Urea Nitrogen 22 mg/dl (9-20); Carbon Dioxide 27 mmol/L (22.0-30.0); Creatinine Clearance Estimated 61 mL/min (50-200); Estimated Glomerular Filt Rate 59 ml/min (>60); GFR (African American) 71 ML/MIN (>60); Glucose 127 mg/dl (74-100)
[2023-08-21 07:51] VITALS: BP 118/66; PULSE 60; RESP 16; TEMP 36.7; O2SAT 95
[2023-08-21 08:00] VITALS: PULSE 60
[2023-08-21] MEDS: METOPROLOL SUCCINATE XL 50MG TABLET 50 MG PO (08:27)
[2023-08-21] MEDS: EMPAGLIFLOZIN 10MG TABLET 10 MG PO (08:27)
[2023-08-21] MEDS: ASPIRIN EC 81MG TABLET 81 MG PO (08:27)
[2023-08-21] MEDS: ISOSORBIDE MONO 30MG TAB.ER.24H 30 MG PO (08:27)
[2023-08-21] MEDS: CLOPIDOGREL 75MG TAB 75 MG PO (08:27)
[2023-08-21] MEDS: SERTRALINE 50MG TABLET 25 MG PO (08:28)
[2023-08-21] MEDS: MEMANTINE 10MG TABLET 10 MG PO (08:28)
[2023-08-21] MEDS: RANOLAZINE 500MG ER TABLET 1000 MG PO (08:28)
[2023-08-21] MEDS: DOCUSATE SODIUM 100 MG CAPSULE PO (08:31)
--- NOTE | 2023-08-22 15:51 | SW/DCPLANNER ---
Follow up phone call: patient's stated that he is doing well at home and is aware of his follow up w/ Dr Romo but is waiting on a call back regarding Cardiology apt. I did call and speak w/ [facility]: she will make patient a follow up appointment. also asked for information regarding new dementia dx: I will provide this to patient's .
== END 2023-08-21 12:10 | disposition home or self-care (01) ==
LOC: ER 12:04 → 2ND 14:38
PROVIDERS: Admitting Provider Internal Medicine Adolescent Medicine; Emergency Provider Emergency Medicine; PCP Family Medicine; Visit Provider Internal Medicine Adolescent Medicine
DX: R55 Syncope and collapse (principal); I47.29 Other ventricular tachycardia; I47.10 Supraventricular tachycardia, unspecified; I25.10 Atherosclerotic heart disease of native coronary artery without angina pectoris; I10 Essential (primary) hypertension; E78.2 Mixed hyperlipidemia; E11.69 Type 2 diabetes mellitus with other specified complication; E66.9 Obesity, unspecified; G47.33 Obstructive sleep apnea (adult) (pediatric); Z99.89 Dependence on other enabling machines and devices; E86.0 Dehydration; I95.1 Orthostatic hypotension; I95.9 Hypotension, unspecified; F39 Unspecified mood [affective] disorder; R41.3 Other amnesia; J44.9 Chronic obstructive pulmonary disease, unspecified; Z79.899 Other long term (current) drug therapy; Z68.31 Body mass index [BMI] 31.0-31.9, adult; I42.8 Other cardiomyopathies; S22.41XD Multiple fractures of ribs, right side, subsequent encounter for fracture with routine healing; E03.9 Hypothyroidism, unspecified; Z95.5 Presence of coronary angioplasty implant and graft
CPT/HCPCS: 36415; 70450; 70496; 70498; 71045; 71275; 80048; 80053; 82803; 82962; 83036; 83735; 83880; 84484; 85025; 85378; 93005; 93270; 99291; G0378; Q9967

== ENCOUNTER 2023-08-25 15:21 | Outpatient (CLI) | payer MEDICARE, BC, SELFPAY ==
[2023-08-25 16:08] LABS: Basophils # 0.1 K/mm3 (0-0.2); Basophils % 1.1 % (0.1-2.0); Eosinophils # 0.2 K/mm3 (0.0-0.4); Hematocrit 38.2 % (42.0-52.0); Hemoglobin 12.2 g/dL (14.1-18.0); Lymphocytes # 2.4 K/mm3 (0.7-4.5); Lymphocytes % 41.9 % (10-50); Mean Corpuscular HGB Conc 31.9 g/dL (31.8-35.4); Mean Corpuscular Hemoglobin 31.6 pg (27.0-31.2); Mean Corpuscular Volume 99.1 fl (80-94); Mean Platelet Volume 9.7 fl (7.4-10.4); Monocytes # 0.3 K/mm3 (0.1-1.0); Neutrophils # 2.7 K/mm3 (1.8-7.8); Platelet Count 167 K/mm3 (142-424); Red Blood Count 3.85 M/mm3 (4.60-6.20); Red Cell Distribution Width 14.3 % (11.5-17.5); White Blood Count 5.6 K/mm3 (4.8-10.8)
[2023-08-25 16:12] LABS: Chloride 107 mmol/L (98-107)
[2023-08-25 16:13] LABS: Potassium 4.2 mmoL/L (3.5-5.1); Sodium 135 mmol/L (136-145)
[2023-08-25 16:15] LABS: Alanine Aminotransferase 19 U/L (12-78); Alkaline Phosphatase 117 U/L (38-126); Anion Gap 10.2 mEq/L (5-15); Aspartate Amino Transferase 26 U/L (17-59); Bilirubin,Direct 0.4 mg/dl (0.0-0.4); Bilirubin,Indirect 0.3 mg/dL (0.0-0.9); Bilirubin,Total 0.7 mg/dl (0.2-1.3); Bilirubin,Unconjugated 0.3 mg/dL (0.0-1.1); Blood Urea Nitrogen 30 mg/dl (9-20); Carbon Dioxide 22 mmol/L (22.0-30.0); Cholesterol 131 mg/dl (140-200); Estimated Glomerular Filt Rate 59 ml/min (>60); GFR (African American) 71 ML/MIN (>60); Total Protein,Serum 6.6 g/dl (6.3-8.2); Triglycerides 121 mg/dl (30-150); VLDL Cholesterol 24 mg/dL (0-40)
[2023-08-25 16:16] LABS: Calcium 9.2 mg/dl (8.4-10.2); Chol/HDL Ratio 1.7 (1-3.5); Glucose 100 mg/dl (74-100); HDL Cholesterol 77 mg/dl (40-60)
[2023-08-25 16:27] LABS: Direct LDL Cholesterol 49.86 mg/dL (100-129)
[2023-08-25 16:33] LABS: Free T4 (Free Thyroxine) 1.25 ng/dl (0.78-2.19)
[2023-08-25 16:47] LABS: Thyroid Stimulating Hormone 4.24 uIU/mL (0.465-4.68)
== END 2023-08-25 23:59 | disposition home or self-care (01) ==
LOC: LAB 15:22
PROVIDERS: PCP Family Medicine; Visit Provider Internal Medicine
DX: R55 Syncope and collapse (principal); I11.9 Hypertensive heart disease without heart failure; I25.10 Atherosclerotic heart disease of native coronary artery without angina pectoris; E78.2 Mixed hyperlipidemia; I65.23 Occlusion and stenosis of bilateral carotid arteries
CPT/HCPCS: 36415; 80048; 80061; 80076; 83735; 84439; 84443; 85025

== ENCOUNTER 2023-09-22 15:30 | Outpatient (CLI) | payer MEDICARE, BC, SELFPAY ==
[2023-09-22 16:37] LABS: Basophils # 0.1 K/mm3 (0-0.2); Basophils % 1.4 % (0.1-2.0); Eosinophils # 0.2 K/mm3 (0.0-0.4); Hematocrit 42.5 % (42.0-52.0); Hemoglobin 13.7 g/dL (14.1-18.0); Lymphocytes # 2.3 K/mm3 (0.7-4.5); Lymphocytes % 36.2 % (10-50); Mean Corpuscular HGB Conc 32.3 g/dL (31.8-35.4); Mean Corpuscular Hemoglobin 32.3 pg (27.0-31.2); Mean Platelet Volume 9.3 fl (7.4-10.4); Monocytes # 0.3 K/mm3 (0.1-1.0); Monocytes % 5.3 % (1.7-9.3); Neutrophils # 3.4 K/mm3 (1.8-7.8); Platelet Count 166 K/mm3 (142-424); Red Blood Count 4.25 M/mm3 (4.60-6.20); Red Cell Distribution Width 14.3 % (11.5-17.5); White Blood Count 6.3 K/mm3 (4.8-10.8)
[2023-09-22 16:58] LABS: Anion Gap 15.5 mEq/L (5-15); Blood Urea Nitrogen 20 mg/dl (9-20); Calcium 9.6 mg/dl (8.4-10.2); Carbon Dioxide 23 mmol/L (22.0-30.0); Chloride 105 mmol/L (98-107); Estimated Glomerular Filt Rate 54 ml/min (>60); GFR (African American) 65 ML/MIN (>60); Glucose 134 mg/dl (74-100); Potassium 3.5 mmoL/L (3.5-5.1); Sodium 140 mmol/L (136-145)
== END 2023-09-22 23:59 | disposition home or self-care (01) ==
LOC: LAB 15:31
PROVIDERS: PCP Family Medicine; Visit Provider Internal Medicine
DX: I48.0 Paroxysmal atrial fibrillation (principal); I11.9 Hypertensive heart disease without heart failure; I25.10 Atherosclerotic heart disease of native coronary artery without angina pectoris; E78.2 Mixed hyperlipidemia
CPT/HCPCS: 36415; 80048; 85025

== ENCOUNTER 2023-10-19 14:20 | Outpatient (CLI) | payer MEDICARE, BC, SELFPAY ==
[2023-10-19 15:47] LABS: Basophils # 0.1 K/mm3 (0-0.2); Basophils % 1.2 % (0.1-2.0); Eosinophils # 0.3 K/mm3 (0.0-0.4); Eosinophils % 3.6 % (0.1-12.0); Hematocrit 39.8 % (42.0-52.0); Hemoglobin 12.7 g/dL (14.1-18.0); Lymphocytes # 1.9 K/mm3 (0.7-4.5); Lymphocytes % 27.8 % (10-50); Mean Corpuscular HGB Conc 31.9 g/dL (31.8-35.4); Mean Corpuscular Hemoglobin 31.2 pg (27.0-31.2); Mean Corpuscular Volume 97.9 fl (80-94); Mean Platelet Volume 9.6 fl (7.4-10.4); Monocytes # 0.3 K/mm3 (0.1-1.0); Monocytes % 4.6 % (1.7-9.3); Neutrophils # 4.4 K/mm3 (1.8-7.8); Neutrophils % 62.8 % (37.0-80.0); Platelet Count 170 K/mm3 (142-424); Red Blood Count 4.07 M/mm3 (4.60-6.20); Red Cell Distribution Width 14.2 % (11.5-17.5)
[2023-10-19 16:19] LABS: Chloride 105 mmol/L (98-107)
[2023-10-19 16:20] LABS: Potassium 3.6 mmoL/L (3.5-5.1); Sodium 138 mmol/L (136-145)
[2023-10-19 16:23] LABS: Anion Gap 11.6 mEq/L (5-15); Blood Urea Nitrogen 15 mg/dl (9-20); Calcium 8.9 mg/dl (8.4-10.2); Carbon Dioxide 25 mmol/L (22.0-30.0); Estimated Glomerular Filt Rate 73 ml/min (>60); GFR (African American) 88 ML/MIN (>60); Glucose 125 mg/dl (74-100)
== END 2023-10-19 23:59 | disposition home or self-care (01) ==
LOC: LAB 14:22
PROVIDERS: Nurse Practitioner Family; PCP Family Medicine; Visit Provider Internal Medicine
DX: I48.0 Paroxysmal atrial fibrillation (principal); G47.33 Obstructive sleep apnea (adult) (pediatric); Z99.89 Dependence on other enabling machines and devices; I11.9 Hypertensive heart disease without heart failure; I25.10 Atherosclerotic heart disease of native coronary artery without angina pectoris; E78.2 Mixed hyperlipidemia; I65.23 Occlusion and stenosis of bilateral carotid arteries
CPT/HCPCS: 36415; 80048; 85025

== ENCOUNTER 2023-11-30 09:13 | Emergency (ER) | payer MEDICARE, BC, SELFPAY ==
[2023-11-30 09:30] VITALS: BP 116/61; PULSE 103; RESP 26; TEMP 36.8; O2SAT 96; BMI 28.0
--- NOTE | 2023-11-30 09:45 | ED_ITS ---
Discharge Plan Disposition Patient Disposition: Home, Self-Care Condition: Good Prescriptions Prescriptions: New azithromycin [Zithromax Z-Martin] 250 mg tablet See Rx Instructions .ROUTE .COMPLEX 5 Days Qty: 6 0RF Rx Instructions: For 250 mg dose pack: take 500 mg today (day 1), then 250 mg for 4 days (days 2-5) guaifenesin [Mucinex] 600 mg tablet extended release 12hr 600 mg PO BID PRN (Reason: cough/congestion) Qty: 20 0RF benzonatate 100 mg capsule 100 mg PO TID PRN (Reason: cough) Qty: 15 0RF No Action metoprolol succinate 50 mg tablet extended release 24 hr 50 mg PO DAILY Patient Comments: TAKE 1/2 TABLET BY MOUTH TWICE DAILY clopidogrel 75 mg tablet 75 mg PO DAILY Patient Comments: TAKE ONE TABLET BY MOUTH EVERY DAY levothyroxine 88 mcg tablet 88 mcg PO DAILY Patient Comments: TAKE ONE TABLET BY MOUTH EVERY MORNING cyanocobalamin (vitamin B-12) 1,000 mcg/mL solution 1,000 mcg IM WEEKLY Patient Comments: INJECT 1 ML INTRAMUSCULARLY ONCE A WEEK DIRECTED sertraline 50 mg tablet 50 mg PO DAILY Patient Comments: TAKE ONE TABLET BY MOUTH EVERY DAY rosuvastatin 5 mg tablet 5 mg PO DAILY Patient Comments: TAKE ONE TABLET BY MOUTH EVERY DAY FOR cholesterol memantine 10 mg tablet 10 mg PO DAILY Patient Comments: TAKE ONE TABLET BY MOUTH TWICE DAILY ranolazine 500 mg tablet extended release 12 hr 500 mg PO DAILY Patient Comments: TAKE ONE TABLET BY MOUTH TWICE DAILY dapagliflozin propanediol 10 mg tablet 10 mg PO DAILY Patient Comments: TAKE ONE TABLET BY MOUTH EVERY DAY Referrals Follow up/Referrals: Kyle Romo MD [Primary Care Provider] - See instructions Activity Restrictions/Add. Instructions Additional Instructions/Restrictions: * Start antibiotic today. Be sure to complete entire prescription even if feeling better * Monitor temp. Tylenol every 4 hours as needed and / or ibuprofen every 6 hours as needed ( As long as your primary care physician has told you that it ok to take both. For fever/aches/pains ER if no less than 101 despite Tylenol or Motrin * Humidifier/vaporizer or hot steamy shower * Mucinex during the day for your cough and cough suppressant only at night. Be sure to drink lots of water. *Tessalon Perles will not cause drowsiness but use at bedtime to help stop cough so that you may get some rest. Follow up IMMEDIATELY for new or worsening of symptoms OR no noticeable improvement over the next 48-72 hours. 911 immediately for any life threatening symptoms such as chest pain or difficulty breathing Clinical Impressions Clinical Impression: Sinusitis, Bronchitis Instructions Patient Instructions: DI for Sinusitis, Sinusitis, Acute Bronchitis Print Language Print Language: [place] Discharge ED Provider: Vanessa Cortez [facility] General Stated complaint: head congestion Mode of Arrival: Ambulatory Source of Information: Patient Limitations: No Limitations Time Seen by Provider: 11/30/23 09:46 Description of Symptoms (Recalled from Triage Doc. by RN): PATIENT C/O HEAD CONGESTION, SOA AND PRODUCTIVE COUGH THAT STARTED A COUPLE OF DAYS AGO HEENT Symptoms (Recalled from RN notes): Yes Resp Symptoms (Recalled from RN notes): Yes Skin Symptoms (Recalled from RN notes): No MS Symptoms (Recalled from RN notes): No Functional Status (Recalled from RN notes): WNL History of Present Illness Provider Complaint: Patient states he has been having sinus congestion, pressure and drainage in the back of his throat that is making him have a cough States he is worried that it may move into his chest and cause bronchitits or pneumonia States that he was keeping his up coughing and unable to breath well out of his nose due to congestion that made him feel a little SOA at times so today she made him come in and get checked worried he may have a sinus infection Related Data Home Medications ?Medication ?Instructions ?Recorded ?Confirmed clopidogrel 75 mg tablet 75 mg PO DAILY 11/30/23 11/30/23 cyanocobalamin (vitamin B-12) 1,000 mcg IM WEEKLY 11/30/23 11/30/23 1,000 mcg/mL injection solution dapagliflozin propanediol 10 mg 10 mg PO DAILY 11/30/23 11/30/23 tablet levothyroxine 88 mcg tablet 88 mcg PO DAILY 11/30/23 11/30/23 memantine 10 mg tablet 10 mg PO DAILY 11/30/23 11/30/23 metoprolol succinate 50 mg 50 mg PO DAILY 11/30/23 11/30/23 tablet,extended release 24 hr ranolazine 500 mg tablet,extended 500 mg PO DAILY 11/30/23 11/30/23 release,12 hr rosuvastatin 5 mg tablet 5 mg PO DAILY 11/30/23 11/30/23 sertraline 50 mg tablet 50 mg PO DAILY 11/30/23 11/30/23 Previous Rx's ?Medication ?Instructions ?Recorded azithromycin 250 mg tablet See Rx Instructions PO .COMPLEX 5 11/30/23 (Zithromax Z-Martin) days #6 tabs benzonatate 100 mg capsule 100 mg PO TID PRN cough #15 caps 11/30/23 guaifenesin 600 mg tablet, 600 mg PO BID PRN cough/congestion 11/30/23 extended release 12 hr (Mucinex) #20 tabs Allergies Allergy/AdvReac Type Severity Reaction Status Date / Time No Known Allergies Allergy Verified 11/17/23 13:21 Worker's Comp Is this a Worker's Comp case?: No [facility] Disclaimer: The information contained in this section may have been updated after the patient was seen, as this information can be updated by other users. Medical History PAF (paroxysmal atrial fibrillation) Cerebral atherosclerosis Subcortical infarction SVT (supraventricular tachycardia) Syncope ALAN on CPAP Difficulty tolerating constant pressure, difficulty with exhalation, disrupted sleep. Hypotension determined by examination Headache 06/14/2023:Headache is currently described as sporadic, mild, icepick type, short lasting, right or left frontal. Today he is asymptomatic. No evidence of temporal artery , jaw claudication, fever, polyarthralgia. COPD mixed type Pleural thickening Dyspnea on exertion History of smoking 30 or more pack years Abnormality of lung on CXR Memory loss Generalized anxiety disorder Stenosis of carotid artery Dizziness Atypical angina Abnormal cardiovascular stress test Diastolic dysfunction SOB (shortness of breath) CAD (coronary artery disease) Hyperlipidemia On statins Hypertension Chest pain Surgical History History of back surgery History of surgery on lower extremity History of heart artery stent Family History Other Asthma Diabetes Hypertension Social History Smoking Status: Never smoker smoking status stop date: when he was 34 years old second hand exposure: No alcohol intake: never substance use type: denies use current occupational status: retired Travel in the last 8 weeks: Inside the [place] adopted: No caregiver/support person: No foster care: No household members: spouse housing: house lives independently: Yes marital status: number of children: 3 number of grandchildren: 5 education level: other details: GED service: No chcf: No current occupational exposures/hazards: No Hx Recent Travel: No caffeine: Yes ROS Obtained: Yes All systems reviewed & no additional complaints except as documented and Yes Systems reviewed as appropriate & no additional complaints except as documented Constitutional Constitutional: Reports system reviewed and no additional complaints, except as documented, Reports as per HPI and Reports headache(s) ENT Ears, Nose, Mouth, and Throat: Reports system reviewed and no additional complaints, except as documented, Reports as per HPI, Reports headache(s), Reports sinus pain, Reports sinus pressure and Reports sore throat Cardiovascular Cardiovascular: Reports system reviewed and no additional complaints, except as documented, Reports as per HPI and Denies chest pain Respiratory Respiratory: Reports system reviewed and no additional complaints, except as documented, Reports as per HPI, Reports shortness of breath (at times reports due to nasal congestion), Reports cough, Denies pain on inspiration, Denies pain with cough, Denies stridor and Denies wheezing Gastrointestinal Gastrointestingal: Reports system reviewed and no additional complaints, except as documented and as per HPI Musculoskeletal Musculoskeletal: Reports system reviewed and no additional complaints, except as documented and Reports as per HPI Integumentary/Breasts Skin/Breast: Reports system reviewed and no additional complaints, except as documented and Reports as per HPI Comments: Patient had abrasion on forehead and states that is from fall he took at home several days ago denies wanting checked for that Neurologic Neurologic: Reports headache(s) Allergic/Immunologic Allergic/Immunologic: Denies wheezing Physical Exam General General appearance: alert and in no apparent distress Expanded ENT Exam Nose exam: Present sinus tenderness Throat exam: Present other (PND noted) Chest Chest inspection: Present normal inspection and symmetric chest wall rise Respiratory Respiratory exam: Present normal lung sounds bilaterally; Absent respiratory distress or wheezes Cardiovascular Cardiovascular exam: Present regular rate, normal rhythm and normal heart sounds Neurological Exam Neurological exam: Present alert, oriented X3 and normal gait Medical Decision Making Tayo Inquiry Pt receiving controlled substance: No Tayo was queried for this patient: No Vital Signs: 11/30/23 09:30 Temperature 98.3 F Temperature Source Oral Pulse Rate [Left Brachial] 103 H Respiratory Rate 26 H Blood Pressure [Left Arm] 116/61 Blood Pressure Mean [Left Arm] 79 Blood Pressure Source [Left Arm] Automatic Cuff Blood Pressure Position [Left Arm] Sitting 02 Sat by Pulse Oximetry 96 Oxygen Delivery Method Room Air Medical Decision Narrative: Discussed CXR and patient declined does not want to wait
[2023-11-30 10:08] VITALS: BP 116/61; PULSE 92; RESP 20; TEMP 36.8; O2SAT 98
== END 2023-11-30 10:17 | disposition home or self-care (01) ==
PROVIDERS: Emergency Provider Nurse Practitioner; PCP Family Medicine
DX: J20.9 Acute bronchitis, unspecified (principal); J01.90 Acute sinusitis, unspecified
CPT/HCPCS: 99212; 99214; G0463

== ENCOUNTER 2023-12-19 09:29 | Emergency (ER) | payer MEDICARE, BC, SELFPAY ==
[2023-12-19 10:00] VITALS: BP 133/63; PULSE 79; RESP 20; TEMP 36.7; O2SAT 97; BMI 30.5
--- NOTE | 2023-12-19 10:07 | XR_ITS ---
FINAL REPORT CLINICAL HISTORY: fall 1 weeka go pain with movement COMPARISON: None FINDINGS: 3 views of the sternum were obtained. There is no fracture identified. The visualized lungs are clear. IMPRESSION: No acute process. Reviewed, Interpreted and Dictated by Riki Garcia III, MD Transcribed by April Cantu Authenticated and [facility]
--- NOTE | 2023-12-19 10:07 | XR_ITS ---
FINAL REPORT CLINICAL HISTORY: fall x 1 week ago COMPARISON: None FINDINGS: 4 views of the left ribs were obtained. There is no displaced, acute fracture identified. The visualized lungs demonstrate mild bibasilar atelectasis. There is a small right pleural effusion or pleural thickening. No pneumothorax is identified. IMPRESSION: No displaced rib fracture or pneumothorax identified. Reviewed, Interpreted and Dictated by Riki Garcia III, MD Transcribed by April Cantu Authenticated and . [facility]
--- NOTE | 2023-12-19 10:11 | ED_ITS ---
Discharge Plan Disposition Patient Disposition: Home, Self-Care Condition: Good Prescriptions Prescriptions: No Action metoprolol succinate 50 mg tablet extended release 24 hr 50 mg PO DAILY clopidogrel 75 mg tablet 75 mg PO DAILY levothyroxine 88 mcg tablet 88 mcg PO DAILY cyanocobalamin (vitamin B-12) 1,000 mcg/mL solution 1,000 mcg IM MONTHLY sertraline 50 mg tablet 50 mg PO DAILY memantine 10 mg tablet 10 mg PO DAILY ranolazine 500 mg tablet extended release 12 hr 500 mg PO DAILY Xarelto 15 mg tablet 15 mg PO DAILY dapagliflozin propanediol [Farxiga] 10 mg tablet 10 mg PO DAILY Referrals Follow up/Referrals: Kyle Romo MD [Primary Care Provider] - See instructions Activity Restrictions/Add. Instructions Additional Instructions/Restrictions: Over the counter Motrin and/or Tylenol for pain whichever your Doctor has told you that you can take Follow up with your Family Doctor if no improvement or any worsening of symptoms Return if needed Straight to ER if any life threatening symptoms Clinical Impressions Clinical Impression: Contusion of rib Instructions Patient Instructions: DI for Rib Contusion Print Language Print Language: Kittitian Discharge ED Provider: Vanessa Cortez [facility] HPI General Stated complaint: a/o-8/7, knot on chest Mode of Arrival: Ambulatory Source of Information: Patient Limitations: No Limitations Time Seen by Provider: 12/19/23 10:11 Description of Symptoms (Recalled from Triage Doc. by RN): PATIENT STATES HE FELL APPROX 4-5 DAYS AGO AND LANDED ON CHEST. PATIENT C/O PAIN AND KNOT TO STERNUM/RIB AREA. BRUISING ALSO NOTED HEENT Symptoms (Recalled from RN notes): No Resp Symptoms (Recalled from RN notes): No Skin Symptoms (Recalled from RN notes): No MS Symptoms (Recalled from RN notes): Yes Functional Status (Recalled from RN notes): WNL History of Present Illness Provider Complaint: Patient states that he was visiting his daughter about a week ago and he tripped and fell and landed on his chest area states that since then he has been having bruising to his sternal area and pain in his left ribs just to the side of his sternum States that he feels like he has a knot there and hurts when he moves certain ways or takes a deep breath States feels like he may have broken some ribs or something so he came in to get checked Related Data Home Medications ?Medication ?Instructions ?Recorded ?Confirmed clopidogrel 75 mg tablet 75 mg PO DAILY 12/19/23 12/19/23 cyanocobalamin (vitamin B-12) 1,000 mcg IM MONTHLY 12/19/23 12/19/23 1,000 mcg/mL injection solution dapagliflozin propanediol 10 mg 10 mg PO DAILY 12/19/23 12/19/23 tablet (Farxiga) levothyroxine 88 mcg tablet 88 mcg PO DAILY 12/19/23 12/19/23 memantine 10 mg tablet 10 mg PO DAILY 12/19/23 12/19/23 metoprolol succinate 50 mg 50 mg PO DAILY 12/19/23 12/19/23 tablet,extended release 24 hr ranolazine 500 mg tablet,extended 500 mg PO DAILY 12/19/23 12/19/23 release,12 hr rivaroxaban 15 mg tablet (Xarelto) 15 mg PO DAILY 12/19/23 12/19/23 sertraline 50 mg tablet 50 mg PO DAILY 12/19/23 12/19/23 Allergies Allergy/AdvReac Type Severity Reaction Status Date / Time No Known Allergies Allergy Verified 11/17/23 13:21 Worker's Comp Is this a Worker's Comp case?: No [facility] Disclaimer: The information contained in this section may have been updated after the patient was seen, as this information can be updated by other users. Medical History PAF (paroxysmal atrial fibrillation) Cerebral atherosclerosis Subcortical infarction SVT (supraventricular tachycardia) Syncope ALAN on CPAP Difficulty tolerating constant pressure, difficulty with exhalation, disrupted sleep. Hypotension determined by examination Headache 06/14/2023:Headache is currently described as sporadic, mild, icepick type, short lasting, right or left frontal. Today he is asymptomatic. No evidence of temporal artery , jaw claudication, fever, polyarthralgia. COPD mixed type Pleural thickening Dyspnea on exertion History of smoking 30 or more pack years Abnormality of lung on CXR Memory loss Generalized anxiety disorder Stenosis of carotid artery Dizziness Atypical angina Abnormal cardiovascular stress test Diastolic dysfunction SOB (shortness of breath) CAD (coronary artery disease) Hyperlipidemia On statins Hypertension Chest pain Surgical History History of back surgery History of surgery on lower extremity History of heart artery stent Family History Other Asthma Diabetes Hypertension Social History Smoking Status: Never smoker smoking status stop date: when he was 34 years old second hand exposure: No alcohol intake: never substance use type: denies use current occupational status: retired Travel in the last 8 weeks: Inside the [place] adopted: No caregiver/support person: No foster care: No household members: spouse housing: house lives independently: Yes marital status: number of children: 3 number of grandchildren: 5 education level: other details: GED service: No long term: No current occupational exposures/hazards: No Hx Recent Travel: No caffeine: Yes ROS Obtained: Yes All systems reviewed & no additional complaints except as documented and Yes Systems reviewed as appropriate & no additional complaints except as documented Constitutional Constitutional: Reports system reviewed and no additional complaints, except as documented and Reports as per HPI ENT Ears, Nose, Mouth, and Throat: Reports system reviewed and no additional complaints, except as documented and Reports as per HPI Cardiovascular Cardiovascular: Reports system reviewed and no additional complaints, except as documented, Reports as per HPI, Denies chest pain, Denies edema, Denies lightheadedness and Denies palpitations Respiratory Respiratory: Reports system reviewed and no additional complaints, except as documented, Reports as per HPI, Denies shortness of breath, Denies chest congestion, Denies cough, Reports pain on inspiration (in left ribs) and Denies wheezing Gastrointestinal Gastrointestingal: Reports system reviewed and no additional complaints, except as documented and as per HPI Musculoskeletal Musculoskeletal: Reports system reviewed and no additional complaints, except as documented, Reports as per HPI and Reports other Comments: Pain in left rib area after falling 1 week ago and bruising to middle of chest area Endocrine Endocrine: Denies palpitations Allergic/Immunologic Allergic/Immunologic: Denies wheezing Physical Exam General General appearance: alert and in no apparent distress Chest Chest inspection: Present tenderness Expanded Chest Exam Male Torso: 2 1. reports tender with palpation and movement in left ribs after falling last week 2. yellowish colored bruising noted after falling last week and landing on chest Respiratory Respiratory exam: Present normal lung sounds bilaterally; Absent respiratory distress or wheezes Cardiovascular Cardiovascular exam: Present regular rate, normal rhythm and normal heart sounds Neurological Exam Neurological exam: Present alert, oriented X3 and normal gait Medical Decision Making Tayo Inquiry Pt receiving controlled substance: No Tayo was queried for this patient: No Vital Signs: 12/19/23 10:00 Temperature 98.0 F Temperature Source Oral Pulse Rate [Left Brachial] 79 Respiratory Rate 20 Blood Pressure [Left Arm] 133/63 Blood Pressure Mean [Left Arm] 86 Blood Pressure Source [Left Arm] Automatic Cuff Blood Pressure Position [Left Arm] Sitting 02 Sat by Pulse Oximetry 97 Oxygen Delivery Method Room Air Orders (Tests/Meds): ORDERS Category Date Time Status Sternum XR minimum 2 views [XR sternum min 2V] Stat Exams 12/19/23 10:07 Ordered XR ribs LT min 3V w CXR1V Stat Exams 12/19/23 10:07 Ordered Radiology Data #1: Image(s): Chest (with left ribs) Image Reviewed: Yes I have reviewed radiologist's interpretation NO displaced rib fracture or pneumothorax identified #2: Image(s): Other (sternum) Image Reviewed: Yes I have reviewed radiologist's interpretation no acute process
[2023-12-19 12:00] VITALS: BP 133/63; PULSE 79; RESP 20; TEMP 36.7; O2SAT 97
== END 2023-12-19 12:04 | disposition home or self-care (01) ==
PROVIDERS: Emergency Provider Nurse Practitioner; PCP Family Medicine
DX: S20.212A Contusion of left front wall of thorax, initial encounter (principal); W19.XXXA Unspecified fall, initial encounter
CPT/HCPCS: 71101; 71120; 99212; 99213; G0463

== ENCOUNTER 2024-03-13 19:28 | Emergency (ER) | payer MEDICARE, BC, SELFPAY ==
--- NOTE | 2024-03-13 19:40 | CT_ITS ---
PROCEDURE INFORMATION: Exam: CT Head Without Contrast Exam date and time: 03/13/2024 7:51 PM Age: 78 years old Clinical indication: Injury or trauma; Fall; Additional info: Fall, struck right forehead, on xarelto/plavix TECHNIQUE: Imaging protocol: Computed tomography of the head without contrast. Radiation optimization: All CT scans at this facility use at least one of these dose optimization techniques: automated exposure control; mA and/or kV adjustment per patient size (includes targeted exams where dose is matched to clinical indication); or iterative reconstruction. COMPARISON: CT HEAD/BRAIN WO CON 03/13/2024 7:51 PM FINDINGS: Brain: Age-related volume loss. Decreased attenuation of the supratentorial white matter is likely secondary to chronic microvascular ischemia. No acute intracranial hemorrhage, midline shift or intracranial mass effect. Cerebral ventricles: Ventriculomegaly is commensurate for degree of volume loss. Paranasal sinuses: Visualized sinuses are unremarkable. No fluid levels. Mastoid air cells: Visualized mastoid air cells are well aerated. Bones: No acute calvarial fracture. Facial bones are better evaluated on dedicated exam. Soft tissues: Right periorbital/frontal scalp soft tissue injury including hematoma. IMPRESSION: No acute intracranial abnormality.
--- NOTE | 2024-03-13 19:40 | CT_ITS ---
PROCEDURE INFORMATION: Exam: CT Chest Without Contrast; Diagnostic Exam date and time: 03/13/2024 8:01 PM Age: 78 years old Clinical indication: Injury or trauma; Fall; Additional info: Fall, struck right forehead, midline neck pain TECHNIQUE: Imaging protocol: Diagnostic computed tomography of the chest without contrast. Radiation optimization: All CT scans at this facility use at least one of these dose optimization techniques: automated exposure control; mA and/or kV adjustment per patient size (includes targeted exams where dose is matched to clinical indication); or iterative reconstruction. COMPARISON: CT CERVICAL SPINE WO CON 03/13/2024 7:59 PM FINDINGS: Lungs: Unremarkable. No consolidation. No masses. Pleural spaces: Unremarkable. No pneumothorax. No pleural effusion. Heart: Unremarkable. No cardiomegaly. No pericardial effusion. Lymph nodes: Unremarkable. No enlarged lymph nodes. Vasculature: Unremarkable. No aortic aneurysm. Bones/joints: Thoracic ankylosis. Soft tissues: Unremarkable. IMPRESSION: Thoracic ankylosis.
--- NOTE | 2024-03-13 19:40 | CT_ITS ---
PROCEDURE INFORMATION: Exam: CT Cervical Spine Without Contrast Exam date and time: 03/13/2024 7:59 PM Age: 78 years old Clinical indication: Injury or trauma; Fall; Additional info: Fall, struck right forehead, midline neck pain TECHNIQUE: Imaging protocol: Computed tomography of the cervical spine without contrast. Radiation optimization: All CT scans at this facility use at least one of these dose optimization techniques: automated exposure control; mA and/or kV adjustment per patient size (includes targeted exams where dose is matched to clinical indication); or iterative reconstruction. COMPARISON: CT CERVICAL SPINE WO CON 07/23/2023 9:09 PM FINDINGS: Bones: Grade 1 anterolisthesis of C3 on C4 and C5 on C6. Cervical levels demonstrate preserved height. Moderate degenerative change about the dens. Mild to moderate prevertebral osteophytosis. Prominent bilateral facet joint degenerative change. Multilevel disc space narrowing with degenerative endplate change and vacuum disc phenomena. No acute cervical spine fracture. No definite high-grade central canal stenosis within limitations of technique. Multilevel cervical foraminal stenoses. Lungs: Lung apices are normal. Pleural spaces: No visible pneumothorax. Vasculature: Vascular calcification. Soft tissues: Unremarkable. IMPRESSION: No acute cervical spine fracture.
--- NOTE | 2024-03-13 19:40 | CT_ITS ---
PROCEDURE INFORMATION: Exam: CT Maxillofacial Without Contrast Exam date and time: 03/13/2024 7:54 PM Age: 78 years old Clinical indication: Injury or trauma; Fall; Additional info: Fall, struck right forehead, on xarelto/plavix TECHNIQUE: Imaging protocol: Computed tomography of the face without contrast. Radiation optimization: All CT scans at this facility use at least one of these dose optimization techniques: automated exposure control; mA and/or kV adjustment per patient size (includes targeted exams where dose is matched to clinical indication); or iterative reconstruction. COMPARISON: CT HEAD/BRAIN WO CON 03/13/2024 7:51 PM FINDINGS: Paranasal sinuses: Minimal paranasal sinus disease. Orbital cavities: No orbital hemorrhage. Bones: Degenerative change involving the cervical spine. No acute facial bone fracture. No dislocation. Chronic appearing nasal bone fractures. Soft tissues: Right periorbital/frontal scalp soft tissue injury including hematoma. IMPRESSION: No acute facial bone fracture.
--- NOTE | 2024-03-13 19:43 | HMH.EDGENADL ---
Discharge Plan Disposition Patient Disposition: Home, Self-Care Chief Complaint: Fall Prescriptions Prescriptions: No Action ranolazine 500 mg tablet extended release 12 hr See Rx Instructions .ROUTE .COMPLEX Qty: 180 3RF Dose Instruction: TAKE ONE TABLET BY MOUTH TWICE DAILY Rx Instructions: TAKE ONE TABLET BY MOUTH TWICE DAILY metoprolol succinate 50 mg tablet extended release 24 hr 50 mg PO DAILY clopidogrel 75 mg tablet 75 mg PO DAILY levothyroxine 88 mcg tablet 88 mcg PO DAILY cyanocobalamin (vitamin B-12) 1,000 mcg/mL solution 1,000 mcg IM MONTHLY sertraline 50 mg tablet 50 mg PO DAILY memantine 10 mg tablet 10 mg PO DAILY Xarelto 15 mg tablet 15 mg PO DAILY dapagliflozin propanediol [Farxiga] 10 mg tablet 10 mg PO DAILY Referrals Follow up/Referrals: Kyle Romo MD [Primary Care Provider] - See instructions Activity Restrictions/Add. Instructions Additional Instructions/Restrictions: Call your family doctor to establish care for this visit to the emergency department and schedule follow-up within 48 hours to ensure improvement. If you have any worsening of your condition or any other concerning signs or symptoms, return to the emergency department or your primary care doctor for further evaluation. Also talk to your family doctor about thoracic aortic aneurysm and following with cardiothoracic surgery for further definitive management likely somewhere in [place]. Clinical Impressions Clinical Impression: Thoracic ascending aortic aneurysm, Fall, Closed fracture of frontal sinus Print Language Print Language: Vietnamese Discharge ED Provider: Colt Chavez General Adult HPI General Chief complaint: Fall Stated complaint: AO11@1100 fall shoulder soreness, eye inj Time Seen by Provider: 03/13/24 19:31 History of Present Illness HPI narrative: Please note that above description of symptoms, in this electronic medical record under categorization of recalled from ER triage doctor by RN are reflective of an initial nursing assessment, however, is not reflective of my full history and physical exam that was personally taken and clarified. Consequentially, this preceding description of symptoms, which may include the patient's categorized chief complaint in the EMR, do not reflect my personal clinical impression, and the ultimate description of history of present illness and patient stated complaints should be deferred to this section of the note. Unless stated otherwise or congruent with this section of the note, additional signs, symptoms, or incongruence should be interpreted as inaccurate with my clinical impression. Related Data Home Medications ?Medication ?Instructions ?Recorded ?Confirmed clopidogrel 75 mg tablet 75 mg PO DAILY 12/19/23 12/19/23 cyanocobalamin (vitamin B-12) 1,000 mcg IM MONTHLY 12/19/23 12/19/23 1,000 mcg/mL injection solution dapagliflozin propanediol 10 mg 10 mg PO DAILY 12/19/23 12/19/23 tablet (Farxiga) levothyroxine 88 mcg tablet 88 mcg PO DAILY 12/19/23 12/19/23 memantine 10 mg tablet 10 mg PO DAILY 12/19/23 12/19/23 metoprolol succinate 50 mg 50 mg PO DAILY 12/19/23 12/19/23 tablet,extended release 24 hr rivaroxaban 15 mg tablet (Xarelto) 15 mg PO DAILY 12/19/23 12/19/23 sertraline 50 mg tablet 50 mg PO DAILY 12/19/23 12/19/23 Previous Rx's ?Medication ?Instructions ?Recorded ranolazine 500 mg tablet,extended See Rx Instructions .Route 01/16/24 release,12 hr .COMPLEX #180 tabs Allergies Allergy/AdvReac Type Severity Reaction Status Date / Time No Known Allergies Allergy Verified 11/17/23 13:21 [facility] Disclaimer: The information contained in this section may have been updated after the patient was seen, as this information can be updated by other users. Medical History PAF (paroxysmal atrial fibrillation) Cerebral atherosclerosis Subcortical infarction SVT (supraventricular tachycardia) Syncope ALAN on CPAP Difficulty tolerating constant pressure, difficulty with exhalation, disrupted sleep. Hypotension determined by examination Headache 06/14/2023:Headache is currently described as sporadic, mild, icepick type, short lasting, right or left frontal. Today he is asymptomatic. No evidence of temporal artery , jaw claudication, fever, polyarthralgia. COPD mixed type Pleural thickening Dyspnea on exertion History of smoking 30 or more pack years Abnormality of lung on CXR Memory loss Generalized anxiety disorder Stenosis of carotid artery Dizziness Atypical angina Abnormal cardiovascular stress test Diastolic dysfunction SOB (shortness of breath) CAD (coronary artery disease) Hyperlipidemia On statins Hypertension Chest pain Surgical History History of back surgery History of surgery on lower extremity History of heart artery stent Family History Other Asthma Diabetes Hypertension Social History Smoking Status: Unknown if ever smoked smoking status stop date: when he was 34 years old second hand exposure: No alcohol intake: never substance use type: denies use current occupational status: retired Travel in the last 8 weeks: [place] the [place] adopted: No caregiver/support person: No foster care: No household members: spouse housing: house lives independently: Yes marital status: number of children: 3 number of grandchildren: 5 education level: other details: GED service: No detention: No current occupational exposures/hazards: No Hx Recent Travel: No caffeine: Yes Other Medical History Have you received the Flu Vaccine for this season: No Have you received the Pneumonia Vaccine: Yes ROS Obtained: Yes All systems reviewed & no additional complaints except as documented Physical Exam General General appearance: alert Head Head exam: normocephalic and other (Periorbital hematoma right sided) Eye Eye exam: Present normal appearance, PERRL and EOMI Neck Neck exam: Present normal inspection, full ROM and trachea midline Respiratory Respiratory exam: Absent respiratory distress, wheezes, stridor, accessory muscle use or prolonged expiratory phase Cardiovascular Cardiovascular exam: Present other (Pulses equal symmetric in upper and lower extremities) Abdominal Exam Abdominal exam: Present soft; Absent distention, tenderness or pulsatile mass Extremities Exam Extremities exam: Absent edema Neurological Exam Neurological exam: Present alert, oriented X3 and CN II-XII intact; Absent motor sensory deficit Skin Skin exam: Present warm and dry; Absent diaphoresis or erythema Medical Decision Making Medical Records Medical records reviewed: Yes I reviewed the patient's medical records. Screening: Per USPSTF and CDC recommendations, given the prevalence of disease in our region, it is our hospital?s policy to screen for HIV and viral Hepatitis for all patients aged 18 and over and those with ongoing risk factors. Tayo Inquiry Pt receiving controlled substance: No Tayo was queried for this patient: No Vital Signs: 03/13/24 19:48 Temperature 97.8 F Temperature Source Oral Pulse Rate [Radial] 71 Respiratory Rate 18 Blood Pressure [Right Radial Artery] 170/78 H Blood Pressure Mean [Right Radial Artery] 108 Blood Pressure Source [Right Radial Artery] Manual Cuff/ Auscultation Blood Pressure Position [Right Radial Artery] Sitting 02 Sat by Pulse Oximetry 98 Oxygen Delivery Method Room Air Orders (Tests/Meds): ED MEDICATIONS Discontinued Medications Generic Name Dose Route Start Last Admin Trade Name Zachariah PRN Reason Stop Dose Admin Acetaminophen 1,000 mg 03/13/24 19:42 03/13/24 19:44 Acetaminophen 500mg Tab PO 03/13/24 19:43 1,000 mg ONCE ONE Administration ORDERS Category Date Time Status CT cervical spine wo con Stat Cat Scan 03/13/24 19:[address] chest wo con Stat Cat Scan 03/13/24 19:[address] facial bones wo con Stat Cat Scan 03/13/24 19:[address] head/brain wo con Stat Cat Scan 03/13/24 19:40 Completed Medical Decision Narrative: This is a 78-year-old male history of hypertension, hyperlipidemia, COPD not on home oxygen and not currently smoking, paroxysmal A-fib on Xarelto, CAD on Plavix and daily aspirin, presenting with fall. Patient states that early this morning, 03/13, he tripped over a rug outside, fell, hit the right side of his face and chest on concrete. No loss of conscious. Has been having right-sided facial pain since. No vision changes, nausea, vomiting, confusion, or any neurologic deficits. He has right anterior chest wall pain, right-sided clavicular pain, pain around his right eye. Is currently having neck pain, but states that it is no different than his baseline neck pain. History was obtained via conversation with patient and . On arrival, patient hemodynamically stable, alert, oriented x4, appropriate, GCS 15, moving all extremities spontaneously, pupils equal and reactive to light. Full physical exam performed and significant for periorbital hematoma which appears soft. Tenderness at the orbital rim. No ocular trauma. EOMs are intact. No evidence of hyphema. Visual acuity intact. No midface tenderness. No nasal septal hematoma. No midline neck tenderness on my exam. Ranging neck without issue. He does have anterior lateral chest wall pain without outward signs of injury or deformity. Bilateral breath sounds present. Right clavicular pain as well. Differential includes intracranial bleed, critical cervical spine injury, facial bone injury, rib fractures, pneumothorax, pulmonary contusion, among others. Patient placed on continuous cardiac monitoring and continuous pulse ox with initial blood pressure 170/70, heart rate 71, saturation 8% on room air. Patient was given 1 g Tylenol for symptomatic management and correction of underlying abnormalities. Workup independently interpreted and significant for no acute intracranial hemorrhage. On CT face, patient has small nondisplaced frontal sinus fracture. No acute cervical spine injury on CT C-spine. No acute intrathoracic abnormality. Patient does have 4.6 cm ascending thoracic aortic aneurysm, this was relayed to patient. See radiology read for full review of final results. On reevaluation, patient still resting comfortably, no acute changes from baseline. Given patient presentation, workup, history, this most likely represents minor MSK trauma in the setting of fall with nondisplaced frontal sinus skull fracture. Because patient at baseline without signs or symptoms of clinical decompensation, deemed appropriate for discharge. Results were relayed to patient who voiced understanding and were agreeable to outpatient management and follow up. I discussed my clinical impression with patient and answered all questions. At this time, the evidence for any other entities in the differential is insufficient to warrant any further testing or ED observation. This was explained as well. Advisory was given that persistent or worsening symptoms require further evaluation. I confirmed the understanding of this discussion. Data Warehouse Specialist disclaimer Much of this encounter note is an electronic registrar nurses' registry spoken language to printed text. Electronic registrar nurses' registry of the spoken language may permit errors. Although I have reviewed the note, some errors may still exist. Critical Care Critical Care Time Critical Care Time: No
[2024-03-13] MEDS: ACETAMINOPHEN 500MG TAB 1000 MG PO (19:44)
[2024-03-13 19:48] VITALS: BP 170/78; PULSE 71; RESP 18; TEMP 36.6; O2SAT 98; BMI 27.4
[2024-03-13 20:30] VITALS: BP 144/82; PULSE 61; O2SAT 98
[2024-03-13 20:56] VITALS: BP 144/82; PULSE 64; RESP 18; TEMP 36.8; O2SAT 96
== END 2024-03-13 20:57 | disposition home or self-care (01) ==
PROVIDERS: Emergency Provider Emergency Medicine; PCP Family Medicine
DX: S02.19XA Other fracture of base of skull, initial encounter for closed fracture (principal); I71.21 Aneurysm of the ascending aorta, without rupture; R07.89 Other chest pain; M25.571 Pain in right ankle and joints of right foot; M54.2 Cervicalgia; H57.11 Ocular pain, right eye; W01.0XXA Fall on same level from slipping, tripping and stumbling without subsequent striking against object, initial encounter; Y93.89 Activity, other specified; Y92.008 Other place in unspecified non-institutional (private) residence as the place of occurrence of the external cause
CPT/HCPCS: 70450; 70486; 71250; 72125; 99284

== ENCOUNTER 2024-04-10 11:01 | Outpatient (CLI) | payer MEDICARE, BC, SELFPAY ==
[2024-04-10 11:49] LABS: Basophils # 0.1 K/mm3 (0-0.2); Basophils % 1.5 % (0.1-2.0); Eosinophils # 0.2 K/mm3 (0.0-0.4); Eosinophils % 3.7 % (0.1-12.0); Hematocrit 45.7 % (42.0-52.0); Hemoglobin 15.2 g/dL (14.1-18.0); Lymphocytes # 2.3 K/mm3 (0.7-4.5); Lymphocytes % 39.1 % (10-50); Mean Corpuscular HGB Conc 33.2 g/dL (31.8-35.4); Mean Corpuscular Hemoglobin 31.1 pg (27.0-31.2); Mean Corpuscular Volume 93.7 fl (80-94); Mean Platelet Volume 9.5 fl (7.4-10.4); Monocytes # 0.3 K/mm3 (0.1-1.0); Monocytes % 4.3 % (1.7-9.3); Neutrophils # 3.1 K/mm3 (1.8-7.8); Neutrophils % 51.4 % (37.0-80.0); Platelet Count 162 K/mm3 (142-424); Red Blood Count 4.88 M/mm3 (4.60-6.20); Red Cell Distribution Width 13.7 % (11.5-17.5); White Blood Count 5.9 K/mm3 (4.8-10.8)
[2024-04-10 12:09] LABS: Alanine Aminotransferase 17 U/L (12-78); Albumin Level 4.3 g/dl (3.5-5.0); Alkaline Phosphatase 132 U/L (38-126); Anion Gap 13.2 mEq/L (5-15); Aspartate Amino Transferase 22 U/L (17-59); Bilirubin,Direct 0.4 mg/dl (0.0-0.4); Bilirubin,Indirect 0.3 mg/dL (0.0-0.9); Bilirubin,Total 0.7 mg/dl (0.2-1.3); Bilirubin,Unconjugated 0.3 mg/dL (0.0-1.1); Blood Urea Nitrogen 28 mg/dl (9-20); Calcium 9.4 mg/dl (8.4-10.2); Carbon Dioxide 23 mmol/L (22.0-30.0); Chloride 108 mmol/L (98-107); Chol/HDL Ratio 2.2 (1-3.5); Cholesterol 121 mg/dl (140-200); Estimated Glomerular Filt Rate 59 ml/min (>60); GFR (African American) 71 ML/MIN (>60); Glucose 142 mg/dl (74-100); HDL Cholesterol 54 mg/dl (40-60); Potassium 4.2 mmoL/L (3.5-5.1); Sodium 140 mmol/L (136-145); Total Protein,Serum 6.8 g/dl (6.3-8.2); Triglycerides 95 mg/dl (30-150); VLDL Cholesterol 19 mg/dL (0-40)
[2024-04-10 12:20] LABS: Direct LDL Cholesterol 49.78 mg/dL (100-129)
[2024-04-10 12:40] LABS: Thyroid Stimulating Hormone 3.98 uIU/mL (0.465-4.68)
[2024-04-10 16:44] LABS: Free T4 (Free Thyroxine) 1.05 ng/dl (0.78-2.19)
== END 2024-04-10 23:59 | disposition home or self-care (01) ==
LOC: LAB 11:03
PROVIDERS: PCP Family Medicine; Visit Provider Physician Assistant
DX: I51.89 Other ill-defined heart diseases (principal); I10 Essential (primary) hypertension; I25.10 Atherosclerotic heart disease of native coronary artery without angina pectoris; E78.2 Mixed hyperlipidemia
CPT/HCPCS: 36415; 80048; 80061; 80076; 84439; 84443; 85025

== ENCOUNTER 2025-01-02 10:30 | Emergency (ER) | payer MEDICARE, BC, SELFPAY ==
--- OUTSIDE RECORDS SUMMARY | 2024-11-26 08:45 | XMS_ITS | Encounter Summary ---
Author Organization [facility] Address [address] [place] [id number] Care Team Providers Care Registered Nurse Practitioner Name Role Phone Kyle Romo MD Primary Care Provider + Reason for Visit * Reason Comments Follow-up Diabetes Encounter Details Date Type Department Care Team (Late st Contact Info) Description 11/26/2024 8:45 AM EDT Office Visit [facility] [address] [place] [address] Kyle Romo MD [address] [place] [address] Type 2 diabetes mellitus with diabetic neuropathy, without long-term current use of insulin (Primary Dx); Type 2 diabetes mellitus with hyperglycemia, without long-term current use of insulin; Hypothyroidism, unspecified type; Dementia with behavioral disturbance; Emotional lability; Urge incontinence Social History Tobacco Use Types Packs/Day Years Used Date Smoking Tobacco: Former Cigarettes 2 - 1984 Smokeless Tobacco: Former Chew Quit: 1999 Alcohol Use Standard Drinks/Week Comments Never 0 (1 standard drink = 0.6 oz pur e alcohol) AUDIT-C Answer Date Recorded Q1: How often do you have a drink containing alcohol? Never 2021 Q2: How many drinks containi ng alcohol do you have on a typical day when you are drinking? Patient does not drink Q3: How often do you have si x or more drinks on one occasion? Never 2021 PHQ-2 Answer Date Recorded Retired PHQ-9: Brief Depression Severity Measure Score 6 04/11/2023 PHQ-2 Answer Date Recorded Patient Health Questionnaire-2 Score 1 05/29/2024 Sex and Gender Information Value Date Recorded Sex Assigned at Not on file Legal Sex Male 1:54 PM EDT Gender Identity Not on file Sexual Orientation Not on file Occupation Industry Job Start Date Job End Date retired Not on file Not on file Not on file documented as of this encounter Last Filed Vital Signs Vital Sign Reading Time Taken Comments Blood Pressure 110/60 11/26/2024 8:29 AM EDT Pulse 62 11/26/2024 8:29 AM EDT Temperature 36.5 C (97.7 F) 11/26/2024 8:29 AM EDT Respiratory Rate 20 11/26/2024 8:29 AM EDT Oxygen Saturation 98% 11/26/2024 8:29 AM EDT Inhaled Oxygen Concentration - - Weight 83.3 kg (183 lb 9.6 oz) 11/26/2024 8:29 A M EDT Height 165.1 cm (5' 5 ) 11/26/2024 8:29 AM EDT Body Mass Index 30.55 11/26/2024 8:29 AM EDT documented in this encounter Progress Notes * Kyle Romo MD - 11/26/2024 10:38 AM EDTAssociated Problem(s): Hypothyroidism Stable. Continue levothyroxine. Reassess in 6 months * Kyle Romo MD - 11/26/2024 10:38 AM EDTAssociated Problem(s): Type 2 diabetes mellitus with neurologic complication, without long-term current use of insulin Diabetes is stable. Continue current treatment regimen. Diabetes will be reassessed in 6 months * Kyle Romo MD - 11/26/2024 10:38 AM EDTAssociated Problem(s): Type 2 diabetes mellitus with hyperglycemia, without long-term current use of insulin Diabetes is stable. Continue current treatment regimen. Diabetes will be reassessed in 6 months * Kyle Romo MD - 11/26/2024 8:45 AM EDT Images from the original note were not included. Chief Complaint Patient presents with Follow-up Diabetes Subjective Kuldeep Nye is a 78 y.o. who presents for chronic care of diabetes, hypothyroidism. He is doing well. Since his last visit with me he has not seen any of his other specialists. He is accompanied by his today. He seems a little less active than he has in the past according to his . He has not had any episodes of hypotension or acute confusion. Patient does have dementia which is contributed to his decline in physical activity. There have not been any behavioral disturbances that have occurred since his last visit. At the encouragement of his he brings up a new concern which is urgency of urination that is leading to some accidents before he can make it to the bathroom intime. The following portions of the patient's history were reviewed and updated as appropriate: allergies, current medications, past family history, past medical history, past social history, past surgicalhistory, and problem list. Review of Systems Objective Vital Signs: BP 110/60 Pulse 62 Temp 97.7 ??F (36.5 ??C) Resp 20 Ht 165.1 cm (65 ) Wt 83.3 kg (183 lb 9.6 oz) SpO2 98% BMI 30.55 kg/m?? BMI is >= 30 and <35. (Class 1 Obesity). The following options were offered after discussion;: exercise counseling/recommendations Physical Exam Vitals reviewed. Constitutional: Appearance: Normal appearance. HENT: Head: Normocephalic and atraumatic. Right Ear: Tympanic membrane and ear canal normal. Left Ear: Tympanic membrane and ear canal normal. Nose: Nose normal. Mouth/Throat: Mouth: Mucous membranes are moist. Pharynx: Oropharynx is clear. Eyes: Conjunctiva/sclera: Conjunctivae normal. Cardiovascular: Rate and Rhythm: Normal rate and regular rhythm. Heart sounds: Normal heart sounds. No murmur heard. Pulmonary: Effort: Pulmonary effort is normal. No respiratory distress. Breath sounds: Normal breath sounds. Musculoskeletal: Cervical back: Normal range of motion and neck supple. No tenderness. Lymphadenopathy: Cervical: No cervical adenopathy. Skin: General: Skin is warm and dry. Neurological: Mental Status: He is alert. Psychiatric: Mood and Affect: Mood normal. Result Review The following data was reviewed by: Kyle Romo MD on 11/26/2024: A1C Last 3 Results 05/29/2024 09:40 08/27/2024 09:09 11/26/2024 08:47 HGBA1C Last 3 Results Hemoglobin A1C 7.50 6.90 7.0 Assessment and Plan Diagnoses and all orders for this visit: 1. Type 2 diabetes mellitus with diabetic neuropathy, without long-term current use of insulin (Primary) Assessment & Plan: Diabetes is stable. Continue current treatment regimen. Diabetes will be reassessed in 6 months Orders: - POC Glycosylated Hemoglobin (Hb A1C) 2. Type 2 diabetes mellitus with hyperglycemia, without long-term current use of insulin Assessment & Plan: Diabetes is stable. Continue current treatment regimen. Diabetes will be reassessed in 6 months Orders: - dapagliflozin Propanediol (Farxiga) 10 MG tablet; Take 10 mg by mouth Daily. Dispense: 30 tablet;Refill: 5 3. Hypothyroidism, unspecified type Assessment & Plan: Stable. Continue levothyroxine. Reassess in 6 months Orders: - levothyroxine (SYNTHROID, LEVOTHROID) 112 MCG tablet; Take 1 tablet by mouth Every Morning. Dispense: 30 tablet; Refill: 5 4. Dementia with behavioral disturbance Comments: Behavioral disturbances stable. Continue sertraline 50 mg. Orders: - sertraline (ZOLOFT) 50 MG tablet; Take 1 tablet by mouth Daily. Dispense: 30 tablet; Refill: 11 5. Emotional lability - sertraline (ZOLOFT) 50 MG tablet; Take 1 tablet by mouth Daily. Dispense: 30 tablet; Refill: 11 6. Urge incontinence Comments: New. Most options undesirable due to SE. Trial of Myrbetriq if affordable Orders: - Mirabegron ER (MYRBETRIQ) 25 MG tablet sustained-release 24 hour 24 hr tablet; Take 1 tablet by mouth Daily. Dispense: 30 tablet; Refill: 5 Follow Up No follow-ups on file. Patient was given instructions and counseling regarding his condition or for health maintenance advice. Please see specific information pulled into the AVS if appropriate. documented in this encounter Plan of Treatment Upcoming Encounters Date Type Department Care Team (Late st Contact Info) Description 06/03/2025 9:15 AM EST Office Visit [facility] [address] [place] [address] Kyle Romo MD [address] [address] documented as of this encounter Procedures Procedure Name Priority Date/Time Associated Diagnosis Comments POCT GLYCOSYLATED HEMOGLOBIN (HGB A1C) Routine 11/26/2024 8:47 AM EDT Type 2 diabetes mellitus with diabetic neuropathy, without long-term current use of insulin documented in this encounter Results * (ABNORMAL) POC Glycosylated Hemoglobin (Hb A1C) (11/26/2024 8:47 AM EDT) Hemoglobin A1C 7.0(A) 4.5 - 5.7 % [facility] Lot Number [id number] [facility] Expiration Date 08/06/2026 [facility] Blood 11/26/2024 8:47 AM EDT us Kyle Romo MD POINT OF CARE TEST ORDER KENIA Final Result [facility]
[address] [place] [address], documented in this encounter Visit Diagnoses Diagnosis Type 2 diabetes mellitus with diabetic neuropathy, without long-term current use of insulin- Primary Type 2 diabetes mellitus with hyperglycemia, without long-term current use of insulin Hypothyroidism, unspecified type Dementia with behavioral disturbance Emotional lability Urge incontinence documented in this encounter Additional Health Concerns Assessment Noted Time PHQ-2 Depression Total Score: 2 11/14/19 24 10:10 AM EDT documented as of this encounter Care Teams Registered Nurse Practitioner Relationship Specialty Start Date End Date Kyle Romo MD [address] [place] [address] PCP - General Family Medicine 10/07/21 documented as of this encounter
[2025-01-02 10:41] VITALS: BP 130/71; PULSE 69; RESP 17; TEMP 36.8; O2SAT 96; BMI 30.7
--- NOTE | 2025-01-02 10:45 | ED_ITS ---
<Statement entered by Vlad Goode MD - 01/02/25 13:24> I was consulted by the MAKSIM, and we discussed the complexity of the problems being addressed. I approve the treatment and management plan for this patient's care in the emergency department, thus performing a substantive portion of the medical decision making. Vlad Goode MD Discharge Plan Disposition Patient Disposition: Home, Self-Care Prescriptions Prescriptions: No Action esomeprazole magnesium 20 mg tablet,delayed release (DR/EC) 20 mg PO DAILY memantine 10 mg tablet 10 mg PO BID Qty: 60 11RF levothyroxine 112 mcg tablet 112 mcg PO DAILY Patient Comments: TAKE ONE TABLET BY MOUTH EVERY MORNING ranolazine 500 mg tablet extended release 12 hr See Rx Instructions .ROUTE .COMPLEX Qty: 180 3RF Dose Instruction: TAKE ONE TABLET BY MOUTH TWICE DAILY Rx Instructions: TAKE ONE TABLET BY MOUTH TWICE DAILY Xarelto 15 mg tablet 15 mg PO DAILY Qty: 30 5RF metoprolol succinate 50 mg tablet extended release 24 hr See Rx Instructions .ROUTE .COMPLEX Qty: 30 5RF Dose Instruction: TAKE 1/2 TABLET BY MOUTH TWICE DAILY Rx Instructions: TAKE 1/2 TABLET BY MOUTH TWICE DAILY rosuvastatin 5 mg tablet See Rx Instructions .ROUTE .COMPLEX Qty: 60 11RF Dose Instruction: TAKE ONE TABLET BY MOUTH EVERY DAY Rx Instructions: TAKE ONE TABLET BY MOUTH EVERY DAY clopidogrel 75 mg tablet 75 mg PO DAILY cyanocobalamin (vitamin B-12) 1,000 mcg/mL solution 1,000 mcg IM MONTHLY sertraline 50 mg tablet 50 mg PO DAILY dapagliflozin propanediol [Farxiga] 10 mg tablet 10 mg PO DAILY Referrals Follow up/Referrals: Kyle Romo MD [Primary Care Provider, Medical] - See instructions Activity Restrictions/Add. Instructions Additional Instructions/Restrictions: May use heat or ice to the left leg as tolerated. If any worsening signs or symptoms please return to the ED. Also please follow-up with PCP this week. Clinical Impressions Clinical Impression: Contusion, Fall Instructions Patient Instructions: Contusion, How to Prevent Falls Print Language Print Language: Mauritanian Discharge ED Provider: Vlad Goode General Adult HPI General Chief complaint: Fall Stated complaint: AO/Fell around 6am 01/02/25 Pain R Leg Time Seen by Provider: 01/02/25 10:35 History of Present Illness HPI narrative: 79-year-old male presents to the ED today for a fall getting up from the toilet this morning at 6 AM. states that he was trying to get up and fell over towards the shower rail. He hit his left shoulder on the back and hit his left upper thigh. Says he went to bed afterward and went to get up this morning again and was unable to lift his left leg due to the pain. He has a large hematoma with bruising present on his left lateral thigh. He is unable to lift that leg off the bed. The left shoulder is minimally painful at this time he has full range of motion. He did not hit his head. He denies any headache, syncope, nausea, vomiting. No other injuries. He is on Plavix and Xarelto. He does have dementia and Alzheimer's. His Audrey and daughter are in the room with them. Related Data Home Medications ?Medication ?Instructions ?Recorded ?Confirmed clopidogrel 75 mg tablet 75 mg PO DAILY 12/19/2301/31 cyanocobalamin (vitamin B-12) 1,000 mcg IM MONTHLY 05/0110/15/24 1,000 mcg/mL injection solution dapagliflozin propanediol 10 mg 10 mg PO DAILY 4 10/15/24 tablet (Farxiga) sertraline 50 mg tablet 50 mg PO DAILY 12/19/2301/31 levothyroxine 112 mcg tablet 112 mcg PO DAILY 07/09/24 10/15/24 esomeprazole magnesium 20 mg 20 mg PO DAILY 10/15/24 0 10/15/24 tablet,delayed release Previous Rx's ?Medication ?Instructions ?Recorded ranolazine 500 mg tablet,extended See Rx Instructions .Route 01/16/24 release,12 hr .COMPLEX #180 tabs rivaroxaban 15 mg tablet (Xarelto) 15 mg PO DAILY #30 tabs 09/17/24 memantine 10 mg tablet 10 mg PO BID Memory loss #60 tabs 10/15/24 metoprolol succinate 50 mg See Rx Instructions .Route 11/20/24 tablet,extended release 24 hr .COMPLEX #30 tabs rosuvastatin 5 mg tablet See Rx Instructions .Route 0 12/19/24 .COMPLEX #60 tabs Allergies Allergy/AdvReac Type Severity Reaction Status Date / Time No Known Allergies Allergy Verified 10/15/24 09:43 [facility] Disclaimer: The information contained in this section may have been updated after the patient was seen, as this information can be updated by other users. Medical History PAF (paroxysmal atrial fibrillation) Cerebral atherosclerosis Subcortical infarction SVT (supraventricular tachycardia) Syncope ALAN on CPAP Difficulty tolerating constant pressure, difficulty with exhalation, disrupted sleep. Hypotension determined by examination Headache 06/14/2023:Headache is currently described as sporadic, mild, icepick type, short lasting, right or left frontal. Today he is asymptomatic. No evidence of temporal artery , jaw claudication, fever, polyarthralgia. COPD mixed type Pleural thickening Dyspnea on exertion History of smoking 30 or more pack years Abnormality of lung on CXR Memory loss Generalized anxiety disorder Stenosis of carotid artery Dizziness Atypical angina Abnormal cardiovascular stress test Diastolic dysfunction SOB (shortness of breath) CAD (coronary artery disease) Hyperlipidemia On statins Hypertension Chest pain Surgical History History of cataract surgery History of back surgery History of surgery on lower extremity History of heart artery stent Family History Other Asthma Diabetes Hypertension Social History Smoking Status: Never smoker smoking status stop date: when he was 34 years old second hand exposure: No alcohol intake: never substance use type: denies use current occupational status: retired Travel in the last 8 weeks?: Inside the [facility] adopted: No caregiver/support person: No foster care: No household members: spouse housing: house lives independently: Yes marital status: number of children: 3 number of grandchildren: 5 education level: other details: GED service: No penitentiary: No current occupational exposures/hazards: No Hx Recent Travel: No caffeine: Yes Have you lived/traveled outside US in past 30 days?: No Contact w/someone who lives/traveled outside US past 30 days?: No Exposure to someone with infectious disease in past 14 days?: No Do you have a fever (greater than 100.4 F or 38 C)?: No Have you tested positive for COVID-19?: No Exposed to someone with COVID-19 in past 14 days?: No Do you have a sore throat?: No Do you have a cough?: No Do you have any weakness?: No Do you have any diarrhea?: No Are you experiencing any unusual bleeding?: No Do you have any muscle aches/pain?: No Do you have any abdominal pain?: No Are you experiencing loss of taste or smell?: No Other Medical History Have you received the Flu Vaccine for this season: No Have you received the Pneumonia Vaccine: Yes ROS Obtained: Yes Systems reviewed as appropriate & no additional complaints except as documented Constitutional Constitutional: Reports as per HPI Physical Exam General General appearance: alert Head Head exam: atraumatic and normocephalic Eye Eye exam: Present PERRL and EOMI ENT ENT exam: Present normal oropharynx and mucous membranes moist Neck Neck exam: Present normal inspection, full ROM and trachea midline Respiratory Respiratory exam: Present normal lung sounds bilaterally Cardiovascular Cardiovascular exam: Present regular rate, normal rhythm, normal heart sounds, +S1 and +S2 Abdominal Exam Abdominal exam: Present soft and normal bowel sounds Extremities Exam Extremities exam: Present tenderness (Left lateral thigh with pain and bruising) and normal capillary refill Back Exam Back exam: Present normal inspection Neurological Exam Neurological exam: Present alert and oriented X3 Skin Skin exam: Present warm, dry and intact Medical Decision Making Medical Records Screening: Per USPSTF and CDC recommendations, given the prevalence of disease in our region, it is our hospital?s policy to screen for HIV and viral Hepatitis for all patients aged 18 and over and those with ongoing risk factors. Tayo Inquiry Pt receiving controlled substance: No Tayo was queried for this patient: No Vital Signs: 01/02/25 10:41 01/02/25 11:30 01/02/25 11:44 Temperature 98.3 F Temperature Source Oral Pulse Rate 69 Pulse Rate [Right Brachial] 69 Respiratory Rate 17 17 Blood Pressure 105/64 L Blood Pressure [Right Arm] 130/71 Blood Pressure Mean [Right Arm] 90 Blood Pressure Source Blood Pressure Source [Right Arm] Automatic Cuff Blood Pressure Position Blood Pressure Position [Right Arm] Sitting 02 Sat by Pulse Oximetry 96 95 96 Oxygen Delivery Method Room Air Room Air 01/02/25 12:00 01/02/25 12:30 01/02/25 13:11 Temperature 98.4 F Temperature Source Oral Pulse Rate 65 64 66 Pulse Rate [Right Brachial] Respiratory Rate 13 15 15 Blood Pressure 97/58 L 103/54 L 113/56 L Blood Pressure [Right Arm] Blood Pressure Mean [Right Arm] Blood Pressure Source Automatic Cuff Blood Pressure Source [Right Arm] Blood Pressure Position Supine Blood Pressure Position [Right Arm] 02 Sat by Pulse Oximetry 95 96 Oxygen Delivery Method Room Air Lab Data Lab Results 01/02/25 10:50: WBC 6.6, RBC 4.39 L, Hgb 13.7 L, Hct 41.2 L, MCV 93.8, MCH 31.2, MCHC 33.3, RDW 13.0, Plt Count 173, MPV 12.2 H, Neut % (Auto) 64.7, Lymph % (Auto) 22.1, [place] % (Auto) 7.9, Eos % (Auto) 4.1, Baso % (Auto) 0.9, Neut # (Auto) 4.3, Lymph # (Auto) 1.5, [place] # (Auto) 0.5, Eos # (Auto) 0.3, Baso # (Auto) 0.1, Sodium 138, Potassium 4.2, Chloride 106, Carbon Dioxide 25, Anion Gap 11.2, BUN 22 H, Creatinine 1.00, Estimated Creat Clear 73, Estimated GFR 72, Est GFR ( Amer) 88, Glucose 164 H, Calcium 8.9, Magnesium 1.8, Total Bilirubin 0.6, AST 35, ALT 24, Alkaline Phosphatase 103, Total Protein 6.4, Albumin 3.8, Globulin 2.6, Albumin/Globulin Ratio 1.5, Lipase 205 01/02/25 10:50 01/02/25 10:50 Orders (Tests/Meds): ORDERS Category Date Time Status Shoulder XR left minimum 2 views [XR shoulder LT min 2V Exams 01/02/25 11:09 Completed ] Stat XR femur LT 2V Stat Exams 01/02/25 10:45 Completed XR pelvis 1-2V Stat Exams 01/02/25 10:45 Completed CBC [Complete Blood Count Auto Diff] Stat Lab 01/02/25 10:50 Completed Comprehensive Metabolic Panel Stat Lab 01/02/25 10:50 Completed HIV Combo Stat Lab 01/02/25 10:50 Received Hepatitis C Ab Qual. W/ RFX Stat Lab 01/02/25 10:50 Received Lipase Stat Lab 01/02/25 10:50 Completed Magnesium Stat Lab 01/02/25 10:50 Completed Medical Decision Narrative: patient is a 79-year-old male presenting to the emergency department for evaluation of fall with left lateral leg pain. Patient is hemodynamically stable and nontoxic-appearing upon arrival, afebrile. Differential diagnosis includes fracture versus hematoma or sprain of the left thigh, leg. Workup will be conducted with [hematologic labs, specific imaging. Initial inventions include analgesics. Initial workup reviewed by me hematologic labs are remarkable for normal white count, essentially normal labs and unremarkable workup. Imaging informally interpreted by me and remarkable for nothing acute. please see radiology report for radiology reads. Discussed with patient and family follow-up care. Patient is going to follow-up with his PCP. Patient safe for discharge home. Critical Care Critical Care Time Critical Care Time: No
--- NOTE | 2025-01-02 10:45 | XR_ITS ---
FINAL REPORT CLINICAL HISTORY: fall FINDINGS: AP PELVIS A single view of the pelvis was obtained. There are mild degenerative changes of the hips bilaterally. Postoperative changes are noted of the lower lumbar spine. There is no acute fracture or dislocation. Visualized joint spaces are normally aligned. Soft tissues are unremarkable. IMPRESSION: No acute bony abnormality. Reviewed, Interpreted and Dictated by Italia Philip MD Transcribed by Laureen Powers Authenticated and [facility]
--- NOTE | 2025-01-02 10:45 | XR_ITS ---
FINAL REPORT CLINICAL HISTORY: fall with pain FINDINGS: LEFT FEMUR 2 views were obtained. There is no acute fracture or dislocation. There are changes of knee arthroplasty. Tibial hardware is incompletely imaged on the AP view. Hip is intact. Visualized joint spaces are normally aligned. There appears to be soft tissue edema at the proximal and mid lateral thigh. IMPRESSION: No acute bony abnormality. Reviewed, Interpreted and Dictated by Italia Philip MD Transcribed by Laureen Powers Authenticated and [facility]
--- OUTSIDE RECORDS SUMMARY | 2025-01-02 10:58 | XMS_ITS | Clinical Summary ---
Author Organization [facility] Address [address] [place] [address] Phone Care Team Providers Care Territory Sales Manager Name Role Phone Riki Dykes MD [phone] [ ] Conditions or Problems Problem Name Problem Code Onset Date Status Entry Date Provider Comment Standard Description Annotate Knee replacement , bilateral, hx of 644736913698 5 (SNOMED CT) 12/22 Active 12/22 Rocio W History of total knee arthroplasty MSSA Septicemia A41.01 (ICD-10-CM) 12/17 Active 12/17 Rocio W Sepsis due to Methicillin susceptible Staphylococcus aureus HX OF BILATERAL TKR Z96.659 (ICD-10-CM) 12/22 Inactive 12/22 Amarilys Sanchez Presence of unspecified artificial knee joint EMPYEMA [id number] (SNOMED CT) 12/17 Active 12/17 Amarilys Sanchez Empyema MSSA BACTEREMIA (041.11) R78.81 (ICD-10-CM) 12/17 Inactive 12/17 Amarilys Sanchez Bacteremia DM Type II E11.9 (ICD-10-CM) 12/17 Active 12/17 Amarilys Sanchez Type 2 diabetes mellitus without complications Medications Medication Instructions Start Date Stop Date Generic Name [facility] Provider LORTAB 7.5-325 MG ORAL TABLET q.6 h. p.r.n. HYDROCODONE-ACETA MINOPHEN [id number] Riki Dykes MD KEFLEX 500 MG ORAL CAPSULE Take one pill four times daily. CEPHALEXIN [id number] Riki Dykes MD KEFLEX 500 MG ORAL CAPSULE Take one pill four times daily. 02/03 CEPHALEXIN [id number] Riki Dykes MD ROCEPHIN SOLR 2gm IV daily until 01/10/15 [facility] [phone] 01/10 CEFTRIAXONE SODIUM SOLR [id number] Aleyda Barboza ROCEPHIN SOLR 2gm IV daily until 01/10/15 [facility] [phone] 01/09 CEFTRIAXONE SODIUM SOLR [id number] Aleyda [facility] ROCEPHIN SOLR 2gm IV daily until 01/10/15 [place] [phone] 01/07 CEFTRIAXONE SODIUM SOLR [id number] Aleyda Barboza THIAMINE HCL TABS 250 mg p.o. daily. THIAMINE HCL TABS [id number] Riki Talley SENOKOT TABS 2 tabs p.o. b.i.d. p.r.n. SENNOSIDES TABS [id number] Riki Talley MULTIVITAMINS ORAL CAPSULE p.o. daily. MULTIPLE VITAMIN [id number] Riki Talley METOPROLOL SUCCINATE ER 100 MG [id number] p.o. daily. METOPROLOL SUCCINATE [id number] Riki Talley MILK THISTLE POWD 10 mL p.o. in the morning p.r.n. MILK THISTLE SEED [id number] Riki Talley LEVOTHYROXINE SODIUM 75 MCG TABS p.o. daily. LEVOTHYROXINE SODIUM [id number] Riki Talley IPRATROPIUM-ALBUTE ROL 0.5-2.5 (3) MG/3ML SOLN q.4 h. p.r.n. IPRATROPIUM-ALBUT HUGH [id number] Riki Talley FERROUS SULFATE 325 (65 Fe) MG TBEC p.o. b.i.d. FERROUS SULFATE [id number] Riki Talley FAMOTIDINE 20 MG TABS p.o. daily. p.r.n. FAMOTIDINE [id number] Riki Talley CYCLOBENZAPRINE HCL 10 MG TABS q.8 h. CYCLOBENZAPRINE HCL [id number] Riki Talley DOCUSATE SODIUM 100 MG ORAL TABLET p.o. b.i.d. DOCUSATE SODIUM [id number] Riki Talley CYANOCOBALAMIN SOLN 1000 mg p.o. daily. CYANOCOBALAMIN SOLN [id number] Riki Talley CALCIUM 500 +D TABLET p.o. daily. CALCIUM CARB-CHOLECALCIFE ROL TABS [id number] Riki Talley BUSPIRONE HCL 5 MG TABS p.o. b.i.d. BUSPIRONE HCL [id number] Riki Talley BISACODYL LAXATIVE 5 MG ORAL TABLET DELAYED RELEASE 10 mg p.o. in the morning p.r.n. BISACODYL [id number] Riki Talley BISACODYL 10 MG SUPP in the morning p.r.n. BISACODYL [id number] Riki Talley ASPIRIN 81 MG ORAL TABLET daily. ASPIRIN [id number] Riki Talley AMLODIPINE BESYLATE 10 MG TABS p.o. daily. AMLODIPINE BESYLATE [id number] Riki Talley ALUMINUM-MAGNESIUM -SIMETHICONE SUSP 15 mL p.o. q.3 h. p.r.n. ALUM & MAG HYDROXIDE-SIMETH SUSP [id number] Riki Talley LORTAB 7.5-325 MG ORAL TABLET q.6 h. p.r.n. HYDROCODONE-ACETA MINOPHEN [id number] Riki Talley ACEPHEN 650 MG RECTAL SUPPOSITORY q.4 h. p.r.n. ACETAMINOPHEN [id number] Riki Talley 8 HOUR PAIN RELIEF 650 MG ORAL TABLET EXTENDED RELEASE q.4 h. p.r.n. ACETAMINOPHEN [id number] Riki Talley Medications Administered No information available. Allergies, Adverse Reactions, Alerts Allergy Name Reaction Description Start Date Severity Statu s Provider LORAZEPAM uncharacteristic behavior, loopy Modera te Active Delmy A Results Date Name Value Unit Range Flag Description Chart Maintenance: updated H H labs 01/06/15 BILI TOTAL 0.2 mg/dL Bilirubin. total [Mass/volume] in Serum or Plasma ALK PHOS 96 U/L Alkaline pao sphatase [Enzymatic activity/volume] in Blood SGPT (ALT) 6 U/L Alanine aminotransferase [Enzymatic activity/volume] in Serum or Plasma SGOT (AST) 4 U/L Aspartate aminotransferase [Enzymatic activity/volume] in Serum or Plasma CALCIUM 8.5 mg/dL Calcium [Mole s/volume] in Serum or Plasma POTASSIUM 3.9 mmol/L Potassium [Moles/volume] in Serum or Plasma SODIUM 136 mmol/L Sodium [Moles /volume] in Serum or Plasma CREATININE 1.1 mg/dL Creatinine [Mass/volume] in Serum or Plasma BUN 23 mg/dL Urea nitrogen [Mass/volume] in Serum or Plasma GLUCOSE SER 91 mg/dL Glucose [ Mass/volume] in Serum or Plasma LYMPHS % 45 % Lymphocytes/ 100 leukocytes in Blood by Automated count PMN % 40 % Neutrophils/1 00 leukocytes in Blood by Automated count PLATELETS 231 10*3/mm3 Platelets [#/volume] in Blood by Automated count HCT 24.7 % Hematocrit [V olume Fraction] of Blood by Automated count HGB 8.2 g/dL Hemoglobin [Mass/volume] in Blood RBC 2.78 10*6/mm3 Erythrocytes [#/volume] in Blood by Automated count WBC 5.6 10*3/mm3 Leukocytes [ #/volume] in Blood by Automated count Office Visit: room 8 MEDS REVIEW Done Documenta tion of current medications (procedure) ORALTOBACUSE Never Tobacco smoking status SMOK STATUS Never smoker Toba sales account associate smoking status Lab Report: C-Reactive Prote in CRPCARDRISK 4.0 mg/L 0.000-10.0 N C reac tive protein [Mass/volume] in Serum or Plasma Lab Report: ESR (Sed Rate) ESR 12 mm/h 0-20 N Erythrocyte sedimentation rate by Westergren method Plan of Care Type Date Detail Pending order C- reactive prot ein Pending order Sedimentation Ra te (ESR) Pending order C- reactive prot ein Pending order Sedimentation Ra te (ESR) Pending order STAT Labs Pending order STAT Labs Pending order STAT Labs Pending order C- reactive prot ein Pending order Sedimentation Ra te (ESR) Pending order C- reactive prot ein Pending order Sedimentation Ra te (ESR) Pending order CMP Pending order CBC w/o Differen tial Pending order C- reactive prot ein Pending order Sedimentation Ra te (ESR) Pending order CMP Pending order CBC w/o Differen tial Pending order C- reactive prot ein Pending order Sedimentation Ra te (ESR) Patient education Medications Procedures Code Procedure Name Date Entry Date CPT-36454 C- reactive protein CPT-86422 Sedimentation Rate (ESR) 201 10/12/00 CPT-59830 C- reactive protein CPT-66517 Sedimentation Rate (ESR) 201 10/08/28 CPT-sl STAT Labs CPT-sl STAT Labs CPT-sl STAT Labs CPT-30625 C- reactive protein CPT-61728 Sedimentation Rate (ESR) 201 09/15/04 CPT-33781 C- reactive protein CPT-39387 Sedimentation Rate (ESR) 201 09/14/01 CPT-57124 CMP CPT-65089 CBC w/o Differential CPT-73410 C- reactive protein CPT-59176 Sedimentation Rate (ESR) 201 09/13/25 CPT-12604 CMP CPT-16976 CBC w/o Differential CPT-70074 C- reactive protein CPT-75240 Sedimentation Rate (ESR) 201 09/13/18 Vital Signs Date Name Value Unit Description BMI (Body Mass Index) 35.83 kg/m2 Bod y Mass Index (Ratio) Body Temperature 97.3 [degF] temperat ure E&M BP Diastolic 70 mm[Hg] blood pressu re, diastolic BP Systolic 160 mm[Hg] blood pressur e, systolic Heart Rate 70 /min pulse rate Respiratory Rate 16 /min respirat ory rate E&M Weight Measured 222 [lb_av] weight E& M Weight Measured 222 [lb_av] weight E& M Height 66 [in_us] height E&M Immunizations No information available. Advance Directives No information available.
--- OUTSIDE RECORDS SUMMARY | 2025-01-02 11:01 | XMS_ITS | Clinical Summary ---
Author Organization Healthcare Address [address] [place] [address] Care Team Providers Care Wildlife And Game Protector Name Role Phone Kem Reyes MD Primary Care Provider [phone] Family History Medical History Relation Name Comments Diabetes Father Hypertension Father Other cancer Father Stroke Father Conversions - Other Mother blood dy scrasia Diabetes Mother Hypertension Mother Other cancer Mother Relation Name Status Comments Father Mother Social History Tobacco Use Types Packs/Day Years Used Date Smoking Tobacco: Never Sex and Gender Information Value Date Recorded Sex Assigned at Not on file Legal Sex Male 7:07 PM EDT Gender Identity Not on file Sexual Orientation Not on file Last Filed Vital Signs Vital Sign Reading Time Taken Comments Blood Pressure 184/94 06/05/2020 8:37 AM EST Pulse 91 06/05/2020 8:37 AM EST Temperature - - Respiratory Rate - - Oxygen Saturation - - Inhaled Oxygen Concentration - - Weight 107 kg (236 lb) 01/05/2018 11:45 AM EDT Height 162.6 cm (5' 4 ) 01/05/2018 11:45 AM EDT Body Mass Index 40.51 01/05/2018 11:45 AM EDT Plan of Treatment Health Maintenance Due Date Last Done Comments [facility]-Depression Screening 1945 [facility]-Infant/Child/Adol SDOH Screenings 1945 [facility]- SDOH Screenings 12/29/1965 [facility]-Adult SDOH Screenings 12/29/1965 [facility]-Pneumococcal Vaccine: 50+ Years (1 of 1 - PCV) 12/29/1997 [facility]-Zoster Vaccines (1 of 2) 12/29/1997 [facility]-RSV Vaccine: 60+ Years or (1 - 1-dose 75+ series) 12/29/2022 [id number] Vaccine ( - season) 2024 05/20/2021, 07/31/2020, 07/03/2020 [facility]-Influenza Vaccine (#1) 2025 02/09/2019 [facility]-DTaP,Tdap,and Td Vaccines (2 - Td or Tdap) 03/23/2031 03/23/2021 HPV Vaccines Aged Out No longer eligi ble based on patient's age to complete this topic [facility]-HIB Vaccines Aged Out No longer e ligible based on patient's age to complete this topic [facility]-Hepatitis A Vaccines Aged Out No longer eligible based on patient's age to complete this topic [facility]-IPV Vaccines Aged Out No longer e ligible based on patient's age to complete this topic [facility]-Rotavirus Vaccines Aged Out No lo nger eligible based on patient's age to complete this topic [place] [address] [facility] Care Teams Wildlife And Game Protector Relationship Specialty Start Date End Date Kem Reyes MD [address] [place] [address] [facility] - General 09/19/20
--- OUTSIDE RECORDS SUMMARY | 2025-01-02 11:01 | XMS_ITS | Encounter Summary ---
Author Organization [facility] Address [address] [place] [address] Care Team Providers Care Rejoiner Name Role Phone Kyle Romo MD Primary Care Provider + Encounter Details Date Type Department Care Team (Late st Contact Info) Description 08/28/2024 Results Follow-Up [facility] [address] [place] [address] Kyle Romo MD [address] [place] [address] Social History Tobacco Use Types Packs/Day Years Used Date Smoking Tobacco: Former Cigarettes 2 1 960 - 1984 Smokeless Tobacco: Former Chew Quit: 2000 Alcohol Use Standard Drinks/Week Comments Never 0 [...] on file documented as of this encounter Plan of Treatment Upcoming Encounters Date Type Department Care Team (Late st Contact Info) Description 06/03/2025 9:15 AM EST Office Visit [facility] [address] [place] [address] Kyle Romo MD [address] [place] [address] documented as of this encounter Visit Diagnoses Diagnosis Hypothyroidism, unspecified type documented in this encounter Additional Health Concerns Assessment Noted Time PHQ-2 Depression Total Score: 2 11/14/19 24 10:10 AM EDT documented as of this encounter Care Teams Rejoiner Relationship Specialty Start Date End Date Kyle Romo MD [address] [place] [address] PCP - General Family Medicine 10/07/21 documented as of this encounter
--- OUTSIDE RECORDS SUMMARY | 2025-01-02 11:01 | XMS_ITS | Encounter Summary ---
Author Organization [facility] Address [address] [place] [address] Care Team Providers Care Set Designer Name Role Phone Kyle Romo MD Primary Care Provider + Reason for Visit * Reason Onset Date Comments Prior Authorization 11/28/2024 [place] Encounter Details Date Type Department Care Team (Late st Contact Info) Description 11/28/2024 Telephone [facility] [address] [place] [address] Kyle Romo MD [address] [place] [address] Prior Authorization (Myrbetriq) Social History Tobacco Use Types Packs/Day Years Used Date Smoking Tobacco: Former Cigarettes 2 25 1 960 - 1984 Smokeless Tobacco: Former [...] on file documented as of this encounter Miscellaneous Notes * Telephone Encounter - Sneha Welsh MA - 12/06/2024 10:28 AM EDT Had not heard back from insurance company yet. Called pharmacy and it is going through as of 11-28-24 for a $0 copay. * Telephone Encounter - Sneha Welsh MA - 12/03/2024 2:34 PM EDT Denied. Due to not trying the preferred drugs. Sent in the same already given information handwritten this time that it would worsen the patients dementia, hoping the 2nd time might receive a positive outcome. * Telephone Encounter - Sneha Welsh MA - 12/03/2024 12:02 PM EDT Submitted PA with additional information. Awaiting response. * Telephone Encounter - Sneha Welsh MA - 11/28/2024 5:10 PM EDT Submitted prior auth for Myrbetriq via Cover My Meds ([place]: [id number]) PA was paused because pt has not tried Oxybutynin, Solifenacin, Tolterodine, Trospium and/or Gemtesa. documented in this encounter Plan of Treatment Upcoming Encounters Date Type Department Care Team (Late st Contact Info) Description 06/03/2025 9:15 AM EST Office Visit [facility] [address] [place] [address] Kyle Romo MD [address] [place] [address] documented as of this encounter Visit Diagnoses Not on filedocumented in this encounter Additional Health Concerns Assessment Noted Time PHQ-2 Depression Total Score: 2 11/14/19 24 10:10 AM EDT documented as of this encounter Care Teams Set Designer Relationship Specialty Start Date End Date Kyle Romo MD [address] [place] [address] PCP - General Family Medicine 10/07/21 documented as of this encounter
--- OUTSIDE RECORDS SUMMARY | 2025-01-02 11:01 | XMS_ITS | Encounter Summary ---
[facility] Address [address] [place] [address] Care Team Providers Care Separating Machine Operator Name Role Phone Kyle Romo MD Primary Care Provider + Encounter Details Date Type Department Care Team (Latest Contact Info) Description 11/26/2024 Travel Social History Tobacco Use Types Packs/Day Years Used Date Smoking Tobacco: Former Cigarettes 1984 Smokeless Tobacco: Former Chew Quit: 1999 [...] Description 06/03/2025 9:15 AM EST Office Visit [facility] [address] [address] Kyle Romo MD [address] [place] [address] documented as of this encounter Visit Diagnoses Not on filedocumented in this encounter Additional Health Concerns Assessment Noted Time PHQ-2 Depression Total Score: 2 11/14/19 24 10:10 AM EDT documented as of this encounter Care Teams Separating Machine Operator Relationship Specialty Start Date End Date Kyle Romo MD [address] [place] [address] PCP - General Family Medicine 10/07/21 documented as of this encounter
--- OUTSIDE RECORDS SUMMARY | 2025-01-02 11:01 | XMS_ITS | Clinical Summary ---
[facility] Organization [facility] Address [address] [place] [address] Care Team Providers Care Corrective Therapist Name Role Phone Kyle Romo MD Primary Care Provider + Allergies Active Allergy Reactions Criticality Noted Date Comments Metformin Diarrhea Medium 11/02/2022 Medications Accu-Chek Ashia Plus test strip 2 Active Accu-Chek Softclix Lancets lancets 2 Active rosuvastatin (CRESTOR) 5 MG tablet Take 1 tablet by mouth Daily. 2 Active fluticasone (FLONASE) 50 MCG/ACT nasal spray USE 1 SPRAY IN EACH NOSTRIL ONCE A DAY --SHAKE WELL-- -REFILLS REMAINING >A 16 g 11 3 Active cyclobenzaprine (FLEXERIL) 5 MG tablet TAKE 1 TABLET BY MOUTH AT BEDTIME NEEDED 30 tablet 11 3 Active clobetasol prop emollient base (TEMOVATE) 0.05 % emollient creamIndications :Rash Apply 1 application topically to the appropriate area as directed 2 (Two) Times a Day. 60 g 3 Active Syringe/Needle, Disp, 25G X 1-1/2 1 ML miscIndications: Vitamin B12 deficiency Use 1 each 2 (Two) Times a Week. 100 each 4 Active Blood Pressure Monitoring (Blood Pressure Digital Soln) kit 4 Active rivaroxaban (XARELTO) 15 MG tablet Take 1 tablet by mouth Daily With Dinner. Active B-D 3CC LUER-RICKEY SYR 25GX1 25G X 1 3 ML misc USE ONCE WEEKLY WITH B12 INJECTIONS 10 each 4 Active cyanocobalamin 1000 MCG/ML injectionIndicat ions:Vitamin B12 deficiency One injection per month 10 mL 4 Active metoprolol succinate XL (TOPROL-XL) 50 MG 24 hr tablet Take 0.5 tablets by mouth Every 12 (Twelve) Hours. 5 Active ranolazine (RANEXA) 500 MG 12 hr tablet Take 1 tablet by mouth Every 12 (Twelve) Hours. 5 Active memantine (NAMENDA) 10 MG tabletIndication s:Moderate dementia, unspecified dementia type, unspecified whether behavioral, psychotic, or mood disturbance or anxiety Take 1 tablet by mouth 2 (Two) Times a Day. 60 tablet 11 5 Active clopidogrel (PLAVIX) 75 MG tablet TAKE ONE TABLET BY MOUTH EVERY DAY 30 tablet 6 5 Active dapagliflozin Propanediol (Farxiga) 10 MG tabletIndication s:Type 2 diabetes mellitus with hyperglycemia, without long-term current use of insulin Take 10 mg by mouth Daily. 30 tablet 5 5 Active levothyroxine (SYNTHROID, LEVOTHROID) 112 MCG tabletIndication s:Hypothyroidism , unspecified type Take 1 tablet by mouth Every Morning. 30 tablet 5 5 Active sertraline (ZOLOFT) 50 MG tabletIndication s:Dementia with behavioral disturbance,Emot ional lability Take 1 tablet by mouth Daily. 30 tablet 11 5 Active Mirabegron ER (MYRBETRIQ) 25 MG tablet sustained-releas e 24 hour 24 hr tabletIndication s:Urge incontinence Take 1 tablet by mouth Daily. 30 tablet 5 5 Active Active Problems Problem Noted Date Diagnosed Date Vitamin B12 deficiency 08/15/2023 Syncope and collapse 07/05/2023 Hypotension due to drugs 07/05/2023 Type 2 diabetes mellitus wit h hyperglycemia, without long-term current use of insulin 01/28/2023 Assessment & Plan (11/26/2024 10:38 AM EDT): Diabetes is stable. Continue current treatment regimen. Diabetes will be reassessed in 6 months Assessment & Plan (05/29/2024 9:34 AM EST): Orders: dapagliflozin Propanediol (Farxiga) 10 MG tablet; Take 10 mg by mouth Daily. Lipid Panel Comprehensive Metabolic Panel Hemoglobin A1c POC Microalbumin Assessment & Plan (08/15/2023 11:56 AM EDT): Diabetes is stable. Continue current treatment regimen. Diabetes will be reassessed in 3 months Type 2 diabetes mellitus with vascular disease 1 06/09/2021 Assessment & Plan (04/08/2022 12:16 PM EST): Diabetes is improving with treatment. A1c at goal. Continue current treatment regimen. Diabetes will be reassessed in 3 months. 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 Continue current treatment regimen. Diabetes will be reassessed in 6 months Assessment & Plan (05/29/2024 9:34 AM EST): Orders: Comprehensive Metabolic Panel Hemoglobin A1c Assessment & Plan (08/15/2023 11:56 AM EDT): Diabetes is stable. Continue current treatment regimen. Diabetes will be reassessed in 3 months Assessment & Plan (01/28/2023 10:27 AM EDT): Diabetes is improving with treatment. Continue current treatment regimen. Diabetes will be reassessed in 3 months. Assessment & Plan (04/08/2022 12:17 PM EST): Stable Assessment & Plan (10/07/2021 11:21 AM EDT): Diabetes is unchanged. Continue current treatment regimen. Diabetes will be reassessed in 3 months. Essential hypertension 10/07/2021 Assessment & Plan (05/29/2024 9:34 AM EST): Orders: Comprehensive Metabolic Panel CBC & Differential Assessment & Plan (08/15/2023 11:56 AM EDT): Hypertension is stable and controlled Continue current treatment regimen. Blood pressure will be reassessed in 3 months. Assessment & Plan (04/08/2022 12:16 PM EST): Controlled Assessment & Plan (10/07/2021 11:21 AM EDT): Hypertension is unchanged. Continue current treatment regimen. Blood pressure will be reassessed at the next regular appointment. Hypothyroidism 10/07/2021 Assessment & Plan (11/26/2024 10:38 AM EDT): Stable. Continue levothyroxine. Reassess in 6 months Assessment & Plan (05/29/2024 9:34 AM EST): Orders: TSH Rfx On Abnormal To Free T4 Assessment & Plan (08/15/2023 11:57 AM EDT): Condition stable. Continue current treatment with thyroid replacement therapy. Surveillance TSH ordered Assessment & Plan (01/28/2023 10:27 AM EDT): Controlled. Tsh needs monitoring. Cont. Levothyroxine Memory impairment of gradual onset 10/07/2021 Assessment & Plan (04/08/2022 12:16 PM EST): Continue Donepezil Hypercholesterolemia 10/07/2021 Obstructive sleep apnea 10/07/2021 Resolved Problems Problem Noted Date Diagnosed Date Resolved Date Class 2 severe obesity due t o excess calories with serious comorbidity and body mass index (BMI) of 35.0 to 35.9 in adult 10/07/2021 4 Assessment & Plan (04/08/2022 12:15 PM EST): Weight down 9 lbs, possibly from Jardiance and Glipizide reduction. Encouraged regular exercise in form of walking Assessment & Plan (10/07/2021 11:21 AM EDT): Patient's (Body mass index is 35.84 kg/m .) indicates that they are morbidly obese (BMI > 40 or > 35 with obesity - related health condition) with health conditions that include obstructive sleep apnea, hypertension, diabetes mellitus, dyslipidemias and osteoarthritis . Weight is unchanged. BMI is is above average; BMI management plan is completed. We discussed portion control and increasing exercise. Encounters Date Type Department Care Team Description 11/28/[address] [facility] [address] [place] [phone] Kyle Romo MD Prior Authorization (Myrbetriq) 11/26/2024 8:45 AM EDT Office Visit [facility] [address] [place] [address] Kyle Romo MD Type 2 diabetes mellitus with diabetic neuropathy, without long-term current use of insulin (Primary Dx); Type 2 diabetes mellitus with hyperglycemia, without long-term current use of insulin; Hypothyroidism, unspecified type; Dementia with behavioral disturbance; Emotional lability; Urge incontinence 11/26/2024 Travel from Last 3 Months Immunizations Immunization Administration Dates Next Due COVID-19 (MODERNA) 1st,2nd,3 rd Dose Monovalent 05/20/2021,07/31/2020,07/03/2020 Flu Vaccine Quad PF >36MO 02/09/2019 Fluzone (or Fluarix & Flulav al for VFC) >6mos 02/09/2019 Fluzone High-Dose 65+YRS 02/27/2024 Fluzone High-Dose 65+yrs 01/28/2023 Pneumococcal Conjugate 20-Valent (PCV20) 023 Tdap 03/23/2021 Family History Medical History Relation Name Comments Cancer Brother Diabetes Daughter Heart disease Father Cancer Mother Cancer Sister Heart disease Sister Relation Name Status Comments Brother Daughter Father Mother Sister Social History Tobacco Use Types Packs/Day Years Used Date Smoking Tobacco: Former Cigarettes 2 25 1 960 - 1984 Smokeless Tobacco: Former Chew Quit: 1999 Tobacco Cessation:Counseling Given: Not Answered Alcohol Use Standard Drinks/Week Comments Never 0 [...] file Not on file Not on file Last Filed Vital Signs [...] Mass Index 30.55 11/26/2024 8:29 AM EDT Plan of Treatment Upcoming Encounters Date Type Department Care Team (Late st Contact Info) Description 06/03/2025 9:15 AM EST Office Visit [facility] [address] [place], [place] [phone] Kyle Romo MD [address] [place], [place] [address] Health Maintenance Due Date Last Done Comments ZOSTER VACCINE (1 of 2) 12/29/1997 HEPATITIS C SCREENING 10/07/2021 RSV Vaccine - Adults (1 - 1- dose 75+ series) 12/29/2022 COVID-19 Vaccine (2023-2 5 season) 2024 05/20/2021, 07/31/2020, 07/03/2020 DIABETIC FOOT EXAM 01/29/2024 01/28/2023, 0 01/28/2023, 01/28/2023 DIABETIC EYE EXAM 01/12/2025 01/13/2024 (Ulises zamora-Reported (Performed Externally)), 11/23/2021, 07/23/2021, Additional history exists INFLUENZA VACCINE 02/06/2025 02/27/2024, , 03/11/2020, Additional history exists ANNUAL WELLNESS VISIT 05/29/2025 05/29/2024 , 05/29/2024, 04/11/2023, Additional history exists HEMOGLOBIN A1C 05/29/2025 11/26/2024, 04/2 05/2024, 05/29/2024, Additional history exists LIPID PANEL 05/29/2025 05/29/2024, 12/0 07/2023, 08/25/2023, Additional history exists URINE MICROALBUMIN-CREATININ E RATIO (uACR) 08/27/2025 08/27/2024 TDAP/TD VACCINES (2 - Td or Tdap) 03/23/2031 021 FECAL OCCULT BLOOD TEST Discontinued 05/17/2018, 12/12 Pneumococcal Vaccine 50+ Completed 04/11/2023 COLOGUARD Discontinued 05/02/2023 COLORECTAL CANCER SCREENING Discontinued COLON CANCER SCREENING 5 YEA R SIGMOIDOSCOPY Discontinued COLONOSCOPY Discontinued CT COLONOGRAPHY Discontinued FIT Testing (1 year) Discontinued Procedures Procedure Name Priority Date/Time Associated Diagnosis Comments POCT GLYCOSYLATED HEMOGLOBIN (HGB A1C) Routine 11/26/2024 8:47 AM EDT Type 2 diabetes mellitus with diabetic neuropathy, without long-term current use of insulin POC ALBUMIN/CREATININE RATIO Routine 08/27/2024 9:10 AM EDT Type 2 diabetes mellitus with diabetic neuropathy, without long-term current use of insulin LIPID PANEL Routine 05/29/2024 9:40 AM EST Type 2 diabetes mellitus with hyperglycemia, without long-term current use of insulin Coronary artery disease involving chenega coronary artery of chenega heart without angina pectoris Cerebrovascular disease COLOGUARD Routine 05/02/2023 7:02 PM EST Screen for colon cancer OCCULT BLOOD X 3, STOOL Routine 12/12/2014 9:36 AM EDT from Last 3 Months or Most Recently Relevant to Health Maintenance Results * (ABNORMAL) POC Glycosylated Hemoglobin (Hb A1C) (11/26/2024 8:47 AM EDT) Pathologist [facility] Hemoglobin A1C 7.0(A) 4.5 - 5.7 % [facility] Lot Number [id number] [facility] Expiration Date 08/06/2026 [facility] Blood 11/26/2024 8:47 AM EDT us Kyle Romo MD POINT OF CARE TEST ORDER KENIA Final Result [facility]
[address] [place] [address], * POC Albumin/Creatinine Ratio Urine (08/27/2024 9:10 AM EDT) POC ALBUMIN, URINE 30 mg/L POC CREATININE, URINE 100 mg/dL POC Urine Albumin Creatinine Ratio < 30 mg/g <30 Comment:normal Lot Number [id number] Expiration Date 06/08/2025 Urine 08/27/2024 9:10 AM EDT Kyle Romo MD POINT OF CARE TEST ORDER KENIA Final Result * (ABNORMAL) Lipid Panel (05/29/2024 9:40 AM EST) Total Cholesterol 146 0 - 200 mg/dL [facility] Comment: Cholesterol Reference Ranges (U.S. Department of Health and Human Services ATP III Classifications) Desirable <200 mg/dL Borderline High 200-239 mg/dL High Risk >240 mg/dL Triglyceride Reference Ranges (U.S. Department of Health and Human Services ATP III Classifications) Normal <150 mg/dL Borderline High 150-199 mg/dL High 200-499 mg/dL Very High >500 mg/dL HDL Reference Ranges (U.S. Department of Health and Human Services ATP III Classifications) Low <40 mg/dl (major risk factor for CHD) High >60 mg/dl ('negative' risk factor for CHD) LDL Reference Ranges (U.S. Department of Health and Human Services ATP III Classifications) Optimal <100 mg/dL Near Optimal 100-129 mg/dL Borderline High 130-159 mg/dL High 160-189 mg/dL Very High >189 mg/dL LDL is calculated using the NIH LDL-C calculation. Triglycerides 238(H) 0 - 150 mg/dL [facility] HDL Cholesterol 51 40 - 60 mg/dL [facility] VLDL Cholesterol Altaf 38 5 - 40 mg/dL [facility] LDL Chol Calc (NIH) 57 0 - 100 mg/dL [facility] Blood 05/29/2024 9:40 AM EST 05/29/2024 Narrative [facility] ([facility]) - 05/30/2024 3:07 AM EST Performed at: [address] [place] [id number] Neonatal Social Worker: Lloyd Robertson MD, Phone: [phone] Patient Fasting: N Kyle Romo MD LAB BLOOD ORDERABLES Fin al Result [facility] ([facility]) [address] [place] [address], [facility] [address] [place] [address], * Cologuard - Stool, Per Rectum (05/02/2023 7:02 PM EST) Cologuard Negative Negative 05/07/2023 9:53 PM EST [facility] (CLIA #:[id number]) Comment: NEGATIVE TEST RESULT. A negative Cologuard result indicates a low likelihood that a colorectal cancer (CRC) or advanced adenoma (adenomatous polyps with more advanced pre-malignant features) is present. The chance that a person with a negative Cologuard test has a colorectal cancer is less than 1 in 1500 (negative predictive value >99.9%) or has an advanced adenoma is less than 5.3% (negative predictive value 94.7%). These data are based on a prospective cross-sectional study of 10,000 individuals at average risk for colorectal cancer who were screened with both Cologuard and colonoscopy. (Miko Holcomb et al, N Engl J Med 2014;370(14):8930-0333) The normal value (reference range) for this assay is negative. COLOGUARD RE-SCREENING RECOMMENDATION: Periodic colorectal cancer screening is an important part of preventive healthcare for asymptomatic individuals at average risk for colorectal cancer. Following a negative Cologuard result, the [place] Cancer Society and U.S. Multi-Society Task Force screening guidelines recommend a Cologuard re-screening interval of 3 years. References: [place] [employer] Society Guideline for Colorectal Cancer Screening: https://www.cancer.org/cancer/dpzwi-odcxmo-vyyipm/ttkuxhqpg-csibbcmmp-kzgpvcf/ac s-rec ommendations.html.; Rolando DK, Lasha CR, Le ValenciaK, Colorectal Cancer Screening: Recommendations for Physicians and Patients from the U.S. Multi-Society Task Force on Colorectal Cancer Screening , Am J Gastroenterology 2017; 112:1854-9193. TEST DESCRIPTION: Composite algorithmic analysis of stool DNA-biomarkers with hemoglobin immunoassay. Quantitative values of individual biomarkers are not reportable and are not associated with individual biomarker result reference ranges. Cologuard is intended for colorectal cancer screening of adults of either sex, 45 years or older, who are at average-risk for colorectal cancer (CRC). Cologuard has been approved for use by the U.S. FDA. The performance of Cologuard was established in a cross sectional study of average-risk adults aged 50-84. Cologuard performance in patients ages 45 to 49 years was estimated by sub-group analysis of near-age groups. Colonoscopies performed for a positive result may find as the most clinically significant lesion: colorectal cancer [4.0%], advanced adenoma (including sessile serrated polyps greater than or equal to 1cm diameter) [20%] or non- advanced adenoma [31%]; or no colorectal neoplasia [45%]. These estimates are derived from a prospective cross-sectional screening study of 10,000 individuals at average risk for colorectal cancer who were screened with both Cologuard and colonoscopy. (Miko Holcomb et al, N Engl J Med 2014;370(14):6041-4613.) Cologuard may produce a false negative or false positive result (no colorectal cancer or precancerous polyp present at colonoscopy follow up). A negative Cologuard test result does not guarantee the absence of CRC or advanced adenoma (pre-cancer). The current Cologuard screening interval is every 3 years. ([place] Cancer Society and U.S. Multi-Society Task Force). Cologuard performance data in a 10,000 patient pivotal study using colonoscopy as the reference method can be accessed at the following location: www.TweetPhoto/results. Additional description of the Cologuard test process, warnings and precautions can be found at www.[employer].comogbeModelrd.com. Stool specimen (specimen) Specimen from rectum / Unknown 05/02/2023 7:02 PM EST 05/04/2023 4:25 PM EST us Kyle Romo MD BODY FLUIDS AND STOOLS O RDERABLES Final Result [facility] (CLIA #:[id number]) [address] [place] [address], * (ABNORMAL) Occult blood x 3, stool (12/12/2014 9:36 AM EDT) Fecal Occult Blood Positive(A) Negative [facility] OB Date 1 [id number] [facility] Fecal Occult Blood No specimen received. Negative , No specimen received. [facility] Fecal Occult Blood No specimen received. Negative , No specimen received. [facility] Stool specimen (specimen) 12/12/2014 9:36 AM EDT Narrative [facility] - 12/13/2014 1:04 PM EDT Specimen Type: Stool Teodoro Pacheco MD BODY FLUIDS AND STOOLS OR DERABLES Final Result [facility] [address] [place] [address], from Last 3 Months or Most Recently Relevant to Health Maintenance Insurance MEDICARE A & B Member Subscriber Plan / Payer (Ef fective 2007-Present) Name:Kuldeep Nye Member ID:[id number] Relation to Subscriber:Self Name:Kuldeep Nye Subscriber ID:[id number] Payer ID:[id number] Group ID:Not on file Type:Not on file Address: [facility] [id number] [address] Care Teams Corrective Therapist Relationship Specialty Start Date End Date Kyle Romo MD [address] [place] [address] PCP - General Family Medicine 10/07/21
--- NOTE | 2025-01-02 11:09 | XR_ITS ---
FINAL REPORT CLINICAL HISTORY: fall FINDINGS: 2 views of the left shoulder were obtained. There is no fracture or dislocation. There is degenerative disease at the glenohumeral joint. Humeral head is mildly high riding which can be seen with rotator cuff injury. Soft tissues are unremarkable. IMPRESSION: No acute osseous abnormality of the left shoulder. Reviewed, Interpreted and Dictated by Italia Philip MD Transcribed by Laureen Powers Authenticated and [facility]
[2025-01-02 11:12] LABS: Albumin Level 3.8 g/dl (3.5-5.0); Chloride 106 mmol/L (98-107); Potassium 4.2 mmoL/L (3.5-5.1); Sodium 138 mmol/L (136-145)
[2025-01-02 11:15] LABS: Alanine Aminotransferase 24 U/L (12-78); Albumin/Globulin Ratio 1.5 (1.1-1.8); Alkaline Phosphatase 103 U/L (38-126); Anion Gap 11.2 mEq/L (5-15); Aspartate Amino Transferase 35 U/L (17-59); Bilirubin,Total 0.6 mg/dl (0.2-1.3); Blood Urea Nitrogen 22 mg/dl (9-20); Calcium 8.9 mg/dl (8.4-10.2); Carbon Dioxide 25 mmol/L (22.0-30.0); Creatinine Clearance Estimated 73 mL/min (50-200); Creatinine,Serum 1.00 mg/dl (0.66-1.25); Estimated Glomerular Filt Rate 72 ml/min (>60); GFR (African American) 88 ML/MIN (>60); Globulin 2.6 g/dL (1.3-3.2); Glucose 164 mg/dl (74-100); Lipase 205 U/L (23-300); Total Protein,Serum 6.4 g/dl (6.3-8.2)
[2025-01-02 11:16] LABS: Magnesium 1.8 mg/dl (1.6-2.3)
[2025-01-02 11:18] LABS: Hematocrit 41.2 % (42.0-52.0); Hemoglobin 13.7 g/dL (14.1-18.0); Immature Granulocytes % 0.3 %; Mean Corpuscular HGB Conc 33.3 g/dL (31.8-35.4); Mean Corpuscular Hemoglobin 31.2 pg (27.0-31.2); Mean Corpuscular Volume 93.8 fl (80-94); Nucleated Red Blood Cells % 0 %; Platelet Count 173 K/mm3 (142-424); Red Blood Count 4.39 M/mm3 (4.60-6.20); Red Cell Distribution Width-SD 44.2 fL; White Blood Count 6.6 K/mm3 (4.8-10.8)
[2025-01-02 11:30] VITALS: BP 105/64; PULSE 69; RESP 17; O2SAT 95
[2025-01-02 11:44] VITALS: O2SAT 96
[2025-01-02 12:00] VITALS: BP 97/58; PULSE 65; RESP 13; O2SAT 95
[2025-01-02 12:30] VITALS: BP 103/54; PULSE 64; RESP 15; O2SAT 96
[2025-01-02 13:11] VITALS: BP 113/56; PULSE 66; RESP 15; TEMP 36.9; O2SAT 96
[2025-01-02 13:19] LABS: Hepatitis C Ab Qual. W/ RFX NEGATIVE (Negative)
--- NOTE | 2025-01-11 22:59 | PC.NURSE ---
called [facility], spoke with a nurse and attempted t give blood culture results. Nurse refused results and stated to call the [facility] [facility] recording monitor pager. Attempted to call pager twice without success. Attempted to call [facility] back and was unable to reach any one. will attempt again
== END 2025-01-02 13:13 | disposition home or self-care (01) ==
PROVIDERS: Nurse Practitioner; Emergency Provider Student in an Organized Health Care Education/Training Program; PCP Family Medicine
DX: S70.12XA Contusion of left thigh, initial encounter (principal); M25.512 Pain in left shoulder; W19.XXXA Unspecified fall, initial encounter
CPT/HCPCS: 72170; 73030; 73552; 80053; 83690; 83735; 85025; 86803; 87389; 99284